=== PATIENT | female | born 1965 | race Caucasian/White ===

== ENCOUNTER 2021-02-14 12:12 | Emergency (ER) | payer MEDICARE ==
[~2021-02-14] VITALS: Ht 154.9 cm; Wt 71.9 kg
[2021-02-14] MEDS ORDERED: ASPI1CHW3 PO (12:24)
[2021-02-14] MEDS ORDERED: BRIL90TA PO (12:24)
--- NOTE | 2021-02-14 12:43 | REP ---
INDICATION: CHEST PAIN. COMPARISON: 07/19/2020. TECHNIQUE: SINGLE PORTABLE AP VIEW OF THE CHEST WAS PERFORMED. FINDINGS: The lungs are clear with no acute infiltrate. The heart and mediastinum are unchanged. Heart is not enlarged. Multiple sternal wires and mediastinal clips are present. IMPRESSION: NO ACUTE PULMONARY DISEASE. <Electronically signed by Edmond Cobian > 02/14/21 2912
[2021-02-14 12:52] LABS: BASO # 0.1 10^3/uL (0.0-0.2); BASO % 0.9 % (0.0-1.0); EOS # 0.2 10^3/uL (0.0-0.5); HEMOGLOBIN 12.9 g/dl (12.0-15.5); LYMPH # 3.7 10^3/uL (1.5-5.0); LYMPH % 39.9 % (24.0-44.0); MEAN CORPUSCULAR HEMOGLOBIN 29.5 pg (27.0-33.0); MEAN CORPUSCULAR HGB CONC 32.3 g/dl (32.0-36.5); MEAN CORPUSCULAR VOLUME 91.5 fl (80.0-96.0); MONO # 0.6 10^3/uL (0.0-0.8); MONO % 6.2 % (2.0-8.0); NEUTROPHILS # 4.7 10^3/uL (1.5-8.5); NEUTROPHILS % 50.7 % (36.0-66.0); PLATELET COUNT, AUTOMATED 388 10^3/uL (150-450); RED BLOOD COUNT 4.37 10^6/uL (4.00-5.40); WHITE BLOOD COUNT 9.2 10^3/uL (4.0-10.0)
[2021-02-14] MEDS ORDERED: NITROGLYCERIN 0.4 MG SUBL TABLET SL STA ×2 (12:57→13:26)
[2021-02-14] MEDS ORDERED: ASPIRIN 81 MG CHEW TABLET PO ONE (13:00)
[2021-02-14 13:20] LABS: ALBUMIN 3.7 GM/DL (3.2-5.2); ALT/SGPT 22 U/L (12-78); BILIRUBIN,DIRECT 0.1 MG/DL (0.0-0.2); BILIRUBIN,TOTAL 0.2 MG/DL (0.2-1.0); BLOOD UREA NITROGEN 17 MG/DL (7-18); CALCIUM LEVEL 9.4 MG/DL (8.5-10.1); CARBON DIOXIDE LEVEL 29 MEQ/L (21-32); CHLORIDE LEVEL 108 MEQ/L (98-107); CREATININE FOR GFR 0.64 MG/DL (0.55-1.30); GLOMERULAR FILTRATION RATE > 60.0 (>51); GLUCOSE, FASTING 90 MG/DL (70-100); POTASSIUM SERUM 3.6 MEQ/L (3.5-5.1); SODIUM LEVEL 142 MEQ/L (136-145)
[2021-02-14 13:28] VITALS: BP 115/59
[2021-02-14 13:48] LABS: CK-MB VALUE MASS < 1.0 NG/ML (<3.6); CPK CREATINE PHOSPHOKINASE 50 U/L (26-192); LIPASE 450 U/L (73-393); TROPONIN I < 0.02 NG/ML (< 0.10)
[2021-02-14] MEDS ORDERED: ISOVUE-370 76% 100ML VIAL As Ordered ONE (14:12)
[2021-02-14 14:47] LABS: INR 0.88; PROTHROMBIN TIME 12.1 SECONDS (12.5-14.3)
[2021-02-14 14:48] LABS: PARTIAL THROMBOPLASTIN TIME 25.9 SECONDS (24.2-38.5)
--- NOTE | 2021-02-14 14:51 | REP ---
INDICATION: chest pain, SOB. COMPARISON: None. TECHNIQUE: CT angiogram chest performed following the intravenous administration of 100 cc of Isovue 370. Sagittal and coronal reconstruction images are performed. FINDINGS: Lungs: Clear, no infiltrate or nodule. Mediastinum: No adenopathy. Pulmonary arteries: No evidence of pulmonary embolism. Lauren: No adenopathy. Axilla: No adenopathy. Pleura: No effusion. Heart: Mildly enlarged. Thoracic aorta: No aneurysm or dissection. Upper abdominal structures: There are gallstones in the gallbladder. Visualized osseous structures: Unremarkable. Multiple sternal wires mediastinal clips are present. IMPRESSION: No CT evidence of pulmonary embolism. No infiltrate seen. Mild cardiomegaly. Gallstones. <Electronically signed by Edmond Cobian > 02/14/21 0967
[2021-02-14] MEDS ORDERED: HEPARIN DRIP 25,000 UNITS in IV 1 EA IV SCH (15:28)
[2021-02-14] MEDS ORDERED: HEPARIN SOD (PORCINE) 5000UNITS/ML 1ML VIAL/SYRINGE IV ONE (15:30)
[2021-02-14 16:07] LABS: RSV AMPLIFICATION NEGATIVE (NEGATIVE)
[2021-02-14 17:01] VITALS: BP 131/89
--- NOTE | 2021-02-14 17:40 | ECGEPIP ---
[facility] - ED Test Date: 2021-02-14 Pat Name: DARBY GORDON Department: Room: - Gender: Female Sweat Box Attendant: ELANNASARA : 1965 Requested By: Mayank Bailey Order Number: [id number] Reading MD: Bela Michael Measurements Intervals [place] Rate: 48 P: 22 OR: 174 QRS: 13 QRSD: 90 T: 107 QT: 430 QTc: 384 Interpretive Statements Sinus bradycardia Possible Lateral infarct , age undetermined No prior Electronically Signed on 02-14-2021 17:40:26 EDT by Bela Michael
== END 2021-02-14 17:20 | disposition short-term general hospital (02) ==
LOC: M ED 12:12
DX: I20.0 Unstable angina (principal); F41.9 Anxiety disorder, unspecified; M19.90 Unspecified osteoarthritis, unspecified site; M81.0 Age-related osteoporosis without current pathological fracture; Z79.899 Other long term (current) drug therapy; Z79.82 Long term (current) use of aspirin; Z88.8 Allergy status to other drugs, medicaments and biological substances; Z95.1 Presence of aortocoronary bypass graft; Z95.5 Presence of coronary angioplasty implant and graft; Z87.891 Personal history of nicotine dependence
CPT/HCPCS: 71045; 71275; 80048; 80076; 82550; 82553; 83690; 84484; 85025; 85610; 85730; 87631; 93005; 93041; 94760; 96365; 99285; J1644; Q9967

== ENCOUNTER → 2021-03-30 | Outpatient (CLI) | payer MEDICARE ==
[~2021-03-30] MED LIST: ASPI1CHW3 PO; BRIL90TA PO
--- NOTE | 2021-03-30 12:32 | REPPI ---
INDICATION: RO6.02 SOB. COMPARISON: 02/14/2021 a portable exam TECHNIQUE: Two views FINDINGS: The superior mediastinal structures are midline. The cardiac silhouette is mildly enlarged. The diaphragmatic surfaces of the lungs are regular, and the costophrenic angles are clear. The pulmonary ríos are clear. Note is again made of previous median sternotomy. The imaged osseous structures are intact. IMPRESSION: There is no acute cardiopulmonary disease. <Electronically signed by Loi Olivia > 03/30/21 [id number]
[2021-03-30 13:51] LABS: BASO # 0.1 10^3/uL (0.0-0.2); BASO % 0.8 % (0.0-1.0); EOS # 0.3 10^3/uL (0.0-0.5); EOS % 3.2 % (0.0-3.0); HEMATOCRIT 39.2 % (36.0-47.0); HEMOGLOBIN 12.5 g/dl (12.0-15.5); LYMPH % 38.1 % (24.0-44.0); MEAN CORPUSCULAR HEMOGLOBIN 29.6 pg (27.0-33.0); MEAN CORPUSCULAR HGB CONC 31.9 g/dl (32.0-36.5); MEAN CORPUSCULAR VOLUME 92.9 fl (80.0-96.0); MONO # 0.5 10^3/uL (0.0-0.8); MONO % 6.1 % (2.0-8.0); NEUTROPHILS # 4.1 10^3/uL (1.5-8.5); NEUTROPHILS % 51.5 % (36.0-66.0); PLATELET COUNT, AUTOMATED 376 10^3/uL (150-450); RED BLOOD COUNT 4.22 10^6/uL (4.00-5.40); WHITE BLOOD COUNT 7.9 10^3/uL (4.0-10.0)
[2021-03-30 14:18] LABS: FOLATE 20.3 NG/ML
== END ==
LOC: M PLALAB 10:32
PROVIDERS: ATTEND Nurse Practitioner Family
DX: D51.9 Vitamin B12 deficiency anemia, unspecified (principal); R06.02 Shortness of breath

== ENCOUNTER → 2021-04-07 | Outpatient (CLI) | payer MEDICARE ==
--- NOTE | 2021-04-21 07:47 | REPMRS ---
Patient History The patient states she has not had a clinical breast exam in over a year. Patient is postmenopausal. No known family history of cancer. Took hormonal contraceptives for 1 year. Ratna vaccine 01/31/21 right arm. 20 lb intentional weight loss. Patient states no breast complaints today. Patient has signed MRS History Sheet. Digital Woman Screen Mammo: April 07, 2021 - Exam #: [id number] Bilateral CC and MLO view(s) were taken. Technologist: RT Kin Prior study comparison: May 21, 2019, bilateral digital mammo screening bilat, performed at [facility]. May 09, 2018, bilateral digital mammo screening bilat, performed at [facility]. July 10, 2016, bilateral digital mammo screening bilat, performed at [facility]. FINDINGS: There are scattered fibroglandular densities. The Volpara volumetric breast density category is:B. There has been no change in the appearance of the mammogram from the prior studies. There is a mild amount of scattered fibroglandular density which is fairly symmetric. There is no interval development of dominant mass, architectural distortion, or grouped microcalcification suggestive of malignancy. 3-D tomosynthesis shows no additional findings. Assessment: BI-RADS/ACR category 1 mammogram. Negative Mammogram. Recommendation Routine screening mammogram of both breasts in 1 year (for women over age 40). This patient's [facility] Lifetime Breast Cancer Risk is estimated at 7.4 %. This mammogram was interpreted with the aid of an FDA-approved computer-aided dectection system. Electronically Signed By: Chapo Mcdowell MD 04/21/21 0746
== END ==
LOC: M WHC 10:45
PROVIDERS: ATTEND Nurse Practitioner Family
DX: Z12.31 Encounter for screening mammogram for malignant neoplasm of breast (principal); Z78.0 Asymptomatic menopausal state; Z92.0 Personal history of contraception

== ENCOUNTER 2021-05-16 05:18 | Emergency (ER) | payer MEDICARE ==
[~2021-05-16] VITALS: Ht 154.9 cm; Wt 69.9 kg
[2021-05-16 05:19] VITALS: BP 160/80
[2021-05-16] MEDS ORDERED: PLAV1TAB2 PO (05:38)
[2021-05-16 05:53] LABS: BASO # 0.1 10^3/uL (0.0-0.2); BASO % 0.5 % (0.0-1.0); EOS # 0.2 10^3/uL (0.0-0.5); EOS % 1.7 % (0.0-3.0); HEMATOCRIT 38.4 % (36.0-47.0); HEMOGLOBIN 12.4 g/dl (12.0-15.5); LYMPH % 26.4 % (24.0-44.0); MEAN CORPUSCULAR HEMOGLOBIN 29.3 pg (27.0-33.0); MEAN CORPUSCULAR HGB CONC 32.3 g/dl (32.0-36.5); MEAN CORPUSCULAR VOLUME 90.8 fl (80.0-96.0); MONO # 0.8 10^3/uL (0.0-0.8); MONO % 7.1 % (2.0-8.0); NEUTROPHILS # 7.1 10^3/uL (1.5-8.5); PLATELET COUNT, AUTOMATED 359 10^3/uL (150-450); RED BLOOD COUNT 4.23 10^6/uL (4.00-5.40); WHITE BLOOD COUNT 11.2 10^3/uL (4.0-10.0)
[2021-05-16 06:28] LABS: BLOOD UREA NITROGEN 14 MG/DL (7-18); CALCIUM LEVEL 9.2 MG/DL (8.5-10.1); CARBON DIOXIDE LEVEL 22 MEQ/L (21-32); CHLORIDE LEVEL 113 MEQ/L (98-107); CREATININE FOR GFR 0.62 MG/DL (0.55-1.30); GLOMERULAR FILTRATION RATE > 60.0 (>51); GLUCOSE, FASTING 106 MG/DL (70-100); POTASSIUM SERUM 4.3 MEQ/L (3.5-5.1); SODIUM LEVEL 142 MEQ/L (136-145)
[2021-05-16] MEDS ORDERED: GI COCKTAIL 50ML BTL(HYOSCYAMINE/MAALOX/LIDOCAINE VISCOUS)(1:3:1) PO ONE (06:35)
--- NOTE | 2021-05-16 07:34 | REPVR ---
PROCEDURE INFORMATION: Exam: XR Chest Exam date and time: 05/16/2021 5:52 AM Age: 55 years old Clinical indication: Pain; Other: Chest; Additional info: Chest pain TECHNIQUE: Imaging protocol: XR of the chest. Views: 1 view. COMPARISON: WI PORTABLE CHEST X-RAY 02/14/2021 12:32 PM FINDINGS: Lungs: Unremarkable. No consolidation. Pleural spaces: Unremarkable. No pleural effusion. No pneumothorax. Heart/Mediastinum: The cardiomediastinal silhouette is fairly stable in appearance. Bones/joints: Median sternotomy wires are again present. IMPRESSION: No evidence for acute pulmonary disease. Electronically signed by: Dontae Mederos On 05/16/2021 07:34:25 AM
[2021-05-16] MEDS ORDERED: PEPC1TAB5 PO (08:33)
--- NOTE | 2021-05-16 15:27 | ECGEPIP ---
[facility] - ED Test Date: 2021-05-16 Pat Name: DARBY GORDON Department: Room: - Gender: Female Public Bath Attendant: JAIME : 1965 Requested By: JEISON FISCHER Order Number: [id number] Reading MD: Tobi Franz Measurements Intervals [place] Rate: 48 P: 65 [place]: 150 QRS: 10 QRSD: 94 T: 106 QT: 466 QTc: 416 Interpretive Statements Sinus bradycardia Minimal voltage criteria for LVH, may be normal variant Delayed anterior R wave progression Similar to tracing done 02-14-21 Electronically Signed on 05-16-2021 15:26:59 EDT by Tobi Franz
--- NOTE | 2021-05-16 15:34 | ECGEPIP ---
[facility] - ED Test Date: 2021-05-16 Pat Name: DARBY GORDON Department: Room: - Gender: Female Alarm Signal Operator: : 1965 Requested By: KARINA MORALES PA-C. Order Number: [id number] Reading MD: Tobi Franz Measurements Intervals [place] Rate: 47 P: 20 DC: 162 QRS: -2 QRSD: 86 T: 117 QT: 464 QTc: 410 Interpretive Statements Sinus bradycardia Left ventricular hypertrophy with repolarization abnormality ( Peculiar product ) Delayed anterior R wave progression Similar to tracing done 528 on same date Electronically Signed on 05-16-2021 15:33:59 EDT by Tobi Franz
== END 2021-05-16 09:15 | disposition home or self-care (01) ==
LOC: M ED 05:18
DX: K21.9 Gastro-esophageal reflux disease without esophagitis (principal); R94.31 Abnormal electrocardiogram [ECG] [EKG]; I10 Essential (primary) hypertension; I25.10 Atherosclerotic heart disease of native coronary artery without angina pectoris; Z79.01 Long term (current) use of anticoagulants; Z79.82 Long term (current) use of aspirin; Z98.890 Other specified postprocedural states

== ENCOUNTER → 2021-06-01 | Outpatient (REF) | payer MEDICARE ==
[~2021-06-01] MED LIST changes: +PEPC1TAB5 PO; +PLAV1TAB2 PO
== END ==
LOC: M LAB REF 17:32
PROVIDERS: ATTEND Physician Assistant
DX: L57.0 Actinic keratosis (principal)
CPT/HCPCS: 11102; 88305; G0463

== ENCOUNTER → 2021-06-13 | Outpatient (CLI) | payer MEDICARE ==
[2021-06-13 15:19] LABS: BASO # 0.1 10^3/uL (0.0-0.2); BASO % 0.7 % (0.0-1.0); EOS # 0.1 10^3/uL (0.0-0.5); EOS % 1.4 % (0.0-3.0); HEMATOCRIT 39.6 % (36.0-47.0); HEMOGLOBIN 12.6 g/dl (12.0-15.5); LYMPH # 3.6 10^3/uL (1.5-5.0); LYMPH % 44.3 % (24.0-44.0); MEAN CORPUSCULAR HEMOGLOBIN 29.1 pg (27.0-33.0); MEAN CORPUSCULAR HGB CONC 31.8 g/dl (32.0-36.5); MEAN CORPUSCULAR VOLUME 91.5 fl (80.0-96.0); MONO # 0.7 10^3/uL (0.0-0.8); MONO % 8.5 % (2.0-8.0); NEUTROPHILS # 3.6 10^3/uL (1.5-8.5); PLATELET COUNT, AUTOMATED 414 10^3/uL (150-450); RED BLOOD COUNT 4.33 10^6/uL (4.00-5.40)
[2021-06-13 15:43] LABS: ALT/SGPT 24 U/L (12-78); BILIRUBIN,TOTAL 0.5 MG/DL (0.2-1.0); BLOOD UREA NITROGEN 16 MG/DL (7-18); CALCIUM LEVEL 9.5 MG/DL (8.5-10.1); CARBON DIOXIDE LEVEL 25 MEQ/L (21-32); CHLORIDE LEVEL 111 MEQ/L (98-107); CREATININE FOR GFR 0.78 MG/DL (0.55-1.30); GLOMERULAR FILTRATION RATE > 60.0 (>51); GLUCOSE, FASTING 94 MG/DL (70-100); LIPASE 82 U/L (73-393); POTASSIUM SERUM 3.8 MEQ/L (3.5-5.1); SODIUM LEVEL 141 MEQ/L (136-145); TOTAL PROTEIN 7.3 GM/DL (6.4-8.2)
[2021-06-15 16:08] LABS: H PYLORI SERUM QUANT IGA <9.0 units (0.0-8.9); H PYLORI SERUM QUANT IGM <9.0 units (0.0-8.9); H PYLORI SERUM QUANT IgG ABY 0.45 (0.00-0.79)
== END ==
LOC: M PLALAB 12:26
PROVIDERS: ATTEND Nurse Practitioner Family
DX: R10.13 Epigastric pain (principal)

== ENCOUNTER 2021-07-17 15:05 | Emergency (ER) | payer MEDICARE ==
[~2021-07-17] VITALS: Ht 154.9 cm; Wt 68.2 kg
[~2021-07-17 15:05] MED LIST changes: +ALIR150P SC; +BRIN1TAB3 PO; +COLE625TAB PO; +LOSA50TA88 PO; +NEUR100C PO; +PANT40TA29; +ROSU10TA6 PO; +SUCR1TAB56; +TRIL45CA2 PO; +ZETI10TA16 PO; +ZOLP10TA2
[2021-07-17] MEDS ORDERED: GI COCKTAIL 50ML BTL(HYOSCYAMINE/MAALOX/LIDOCAINE VISCOUS)(1:3:1) PO ONE (15:45)
[2021-07-17 15:47] LABS: BASO # 0.1 10^3/uL (0.0-0.2); BASO % 0.8 % (0.0-1.0); EOS # 0.3 10^3/uL (0.0-0.5); HEMATOCRIT 35.8 % (36.0-47.0); HEMOGLOBIN 11.8 g/dl (12.0-15.5); LYMPH # 4.2 10^3/uL (1.5-5.0); LYMPH % 46.5 % (24.0-44.0); MEAN CORPUSCULAR HEMOGLOBIN 28.9 pg (27.0-33.0); MEAN CORPUSCULAR VOLUME 87.7 fl (80.0-96.0); MONO # 0.8 10^3/uL (0.0-0.8); NEUTROPHILS # 3.7 10^3/uL (1.5-8.5); NEUTROPHILS % 40.6 % (36.0-66.0); PLATELET COUNT, AUTOMATED 342 10^3/uL (150-450); RED BLOOD COUNT 4.08 10^6/uL (4.00-5.40); WHITE BLOOD COUNT 9.1 10^3/uL (4.0-10.0)
[2021-07-17] MEDS ORDERED: FLUO1CRE2 (15:52)
[2021-07-17] MEDS ORDERED: FAMO20TA5 (15:52)
[2021-07-17] MEDS ORDERED: PANT40TA29 (15:52)
[2021-07-17] MEDS ORDERED: ONDA4TAB6 (15:52)
--- NOTE | 2021-07-17 15:53 | REP ---
INDICATION: CHEST PAIN COMPARISON: 05/16/2021 TECHNIQUE: Portable AP view of the chest FINDINGS: The mediastinum and cardiac silhouette are stable with continued evidence for cardiomegaly and prior CABG. The lung ríos are clear without acute consolidation, effusion, or pneumothorax. Skeletal structures are intact. IMPRESSION: No acute cardiopulmonary process appreciated. <Electronically signed by Nash Segura > 07/17/21 9002
[2021-07-17 16:05] LABS: INR 0.98; PARTIAL THROMBOPLASTIN TIME 27.8 SECONDS (25.9-37.0); PROTHROMBIN TIME 13.4 SECONDS (12.7-14.5)
[2021-07-17 16:09] LABS: BLOOD UREA NITROGEN 15 MG/DL (7-18); CALCIUM LEVEL 8.8 MG/DL (8.5-10.1); CARBON DIOXIDE LEVEL 24 MEQ/L (21-32); CHLORIDE LEVEL 112 MEQ/L (98-107); CREATININE FOR GFR 0.72 MG/DL (0.55-1.30); GLOMERULAR FILTRATION RATE > 60.0 (>51); GLUCOSE, FASTING 93 MG/DL (70-100); POTASSIUM SERUM 3.8 MEQ/L (3.5-5.1); SODIUM LEVEL 141 MEQ/L (136-145)
--- NOTE | 2021-07-17 19:27 | ECGEPIP ---
[facility] - ED Test Date: 2021-07-17 Pat Name: DARBY GORDON Department: Room: - Gender: Female Oil Well Engineer: : 1965 Requested By: Mayank Bailey Order Number: [id number] Reading MD: Bela Michael Measurements Intervals [place] Rate: 48 P: 77 CT: 162 QRS: 5 QRSD: 94 T: 105 QT: 456 QTc: 407 Interpretive Statements Sinus bradycardia Possible Lateral infarct , age undetermined NSTTW abnormalities early r progression similar 05/16/21 Electronically Signed on 07-17-2021 19:27:24 EDT by Bela Michael
[2021-07-17 21:38] VITALS: BP 126/62
--- NOTE | 2021-07-18 05:36 | ECGEPIP ---
[facility] - ED Test Date: 2021-07-17 Pat Name: DARBY GORDON Department: Room: - Gender: Female Tiltrotor Crew Chief: : 1965 Requested By: ELEAZAR JACKSON Order Number: [id number] Reading MD: Mayank Acevedo Measurements Intervals [place] Rate: 46 P: 98 [place]: 162 QRS: 2 QRSD: 90 T: 125 QT: 452 QTc: 395 Interpretive Statements Sinus bradycardia POOR R WAVE PROGRESSION Possible Lateral infarct , age undetermined NONSPECIFIC T WAVE ABNORMALITY(S) BASELINE ARTIFACT AFFECTS INTERPRETATION SIMILAR TO PRIOR ON SAME DATE Electronically Signed on 07-18-2021 5:35:44 EDT by Mayank Acevedo
== END 2021-07-17 21:44 | disposition home or self-care (01) ==
LOC: M ED 15:05
DX: K21.9 Gastro-esophageal reflux disease without esophagitis (principal); I25.10 Atherosclerotic heart disease of native coronary artery without angina pectoris; F33.9 Major depressive disorder, recurrent, unspecified; F41.9 Anxiety disorder, unspecified; Z95.1 Presence of aortocoronary bypass graft; Z95.5 Presence of coronary angioplasty implant and graft; Z88.8 Allergy status to other drugs, medicaments and biological substances

== ENCOUNTER → 2021-07-22 | Outpatient (CLI) | payer MEDICARE ==
[~2021-07-22] MED LIST changes: +FAMO20TA5; +FLUO1CRE2; +ONDA4TAB6
== END ==
LOC: M LABSMTC 11:44
PROVIDERS: ATTEND Anesthesiology
DX: Z01.812 Encounter for preprocedural laboratory examination (principal); Z20.822 Contact with and (suspected) exposure to COVID-19

== ENCOUNTER 2021-07-27 08:10 | Day surgery (SDC) | payer MEDICARE ==
[~2021-07-27] VITALS: Ht 154.9 cm; Wt 67.0 kg
[~2021-07-27 08:10] MED LIST changes: +LIDOCAINE 2% 100MG/5ML SDV (FOR ANES.) As Ordered ONE; +NS 1,000 ML IV ONE; +propofoL 200 MG/20 ML VIAL As Ordered ONE
[2021-07-27] MEDS ORDERED: propofoL 200 MG/20 ML VIAL As Ordered ONE (09:48)
--- NOTE | 2021-07-27 10:00 | ROOR ---
Patient Name: Suha Strauss Procedure Date: 07/27/2021 9:10 AM Date of : 1965 Age: 56 Room: [facility] Gender: Female Note Status: Finalized Procedure: Upper GI endoscopy Indications: Heartburn Providers: DO Adalgisa Del Cid MD: Donita Elkins NP Requesting Provider: Medicines: Propofol per Anesthesia Complications: No immediate complications. Procedure: Pre-Anesthesia Assessment: - Prior to the procedure, a History and Physical was performed, and patient medications and allergies were reviewed. The patient is competent. The risks and benefits of the procedure and the sedation options and risks were discussed with the patient. All questions were answered and informed consent was obtained. Patient identification and proposed procedure were verified by the physician, the nurse, the purchase order checker and the instrument and control technician in the endoscopy suite. Mental Status Examination: alert and oriented. Airway Examination: normal oropharyngeal airway and neck mobility. Respiratory Examination: clear to auscultation. CV Examination: normal. Prophylactic Antibiotics: The patient does not require prophylactic antibiotics. Prior Anticoagulants: The patient has taken no previous anticoagulant or antiplatelet agents. ASA Grade Assessment: II - A patient with mild systemic disease. After reviewing the risks and benefits, the patient was deemed in satisfactory condition to undergo the procedure. The anesthesia plan was to use monitored anesthesia care (MAC). Immediately prior to administration of medications, the patient was re-assessed for adequacy to receive sedatives. The heart rate, respiratory rate, oxygen saturations, blood pressure, adequacy of pulmonary ventilation, and response to care were monitored throughout the procedure. The physical status of the patient was re-assessed after the procedure. The Endoscope was introduced through the mouth, and advanced to the second part of duodenum. The upper GI endoscopy was accomplished without difficulty. The patient tolerated the procedure well. Findings: Localized mild inflammation characterized by congestion (edema), erosions, erythema and shallow ulcerations was found in the prepyloric region of the stomach. Biopsies were taken with a cold forceps for Helicobacter pylori testing. Estimated blood loss was minimal. Impression: - Gastritis. Biopsied. Recommendation: - Patient has a contact number available for emergencies. The signs and symptoms of potential delayed complications were discussed with the patient. Return to normal activities tomorrow. Written discharge instructions were provided to the patient. - Await pathology results. - Return to my office at appointment to be scheduled. Procedure Code(s): --- Professional --- 98710, Esophagogastroduodenoscopy, flexible, transoral; with biopsy, single or multiple Diagnosis Code(s): --- Professional --- K29.70, Gastritis, unspecified, without bleeding R12, Heartburn CPT copyright 2019 [employer]. All rights reserved. The codes documented in this report are preliminary and upon manager order review may be revised to meet current compliance requirements. Edmond Arango DO 07/27/2021 9:59:58 AM Electronically signed by Edmond Arango DO Number of Addenda: 0 Note Initiated On: 07/27/2021 9:10 AM Estimated Blood Loss: Estimated blood loss was minimal.
--- NOTE | 2021-07-27 10:07 | ROOR ---
Patient Name: Suha Strauss Procedure Date: 07/27/2021 9:13 AM Date of : 1965 Age: 56 Room: [facility] Gender: Female Note Status: Finalized Procedure: Colonoscopy Indications: Screening for colorectal malignant neoplasm Providers: DO Adalgisa Del Cid MD: Donita Elkins NP Requesting Provider: Medicines: Propofol per Anesthesia Complications: No immediate complications. Procedure: Pre-Anesthesia Assessment: - Prior to the procedure, a History and Physical was performed, and patient medications and allergies were reviewed. The patient is competent. The risks and benefits of the procedure and the sedation options and risks were discussed with the patient. All questions were answered and informed consent was obtained. Patient identification and proposed procedure were verified by the physician, the nurse, the celebrity manager and the instrument room technician in the endoscopy suite. Mental Status Examination: alert and oriented. Airway Examination: normal oropharyngeal airway and neck mobility. Respiratory Examination: clear to auscultation. CV Examination: normal. Prophylactic Antibiotics: The patient does not require prophylactic antibiotics. Prior Anticoagulants: The patient has taken Eliquis (apixaban). ASA Grade Assessment: II - A patient with mild systemic disease. After reviewing the risks and benefits, the patient was deemed in satisfactory condition to undergo the procedure. The anesthesia plan was to use monitored anesthesia care (MAC). Immediately prior to administration of medications, the patient was re-assessed for adequacy to receive sedatives. The heart rate, respiratory rate, oxygen saturations, blood pressure, adequacy of pulmonary ventilation, and response to care were monitored throughout the procedure. The physical status of the patient was re-assessed after the procedure. The Colonoscope was introduced through the anus and advanced to the terminal ileum, with identification of the appendiceal orifice and IC valve. The colonoscopy was performed without difficulty. The patient tolerated the procedure well. Findings: An infiltrative non-obstructing small mass was found at the ileocecal valve. The mass was non-circumferential. Oozing was present. This was biopsied with a cold forceps for histology. Estimated blood loss was minimal. Non-bleeding internal hemorrhoids were found during retroflexion. The hemorrhoids were mild and Grade I (internal hemorrhoids that do not prolapse). 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 Biopsied. - Non-bleeding internal hemorrhoids. Recommendation: - Patient has a contact number available for emergencies. The signs and symptoms of potential delayed complications were discussed with the patient. Return to normal activities tomorrow. Written discharge instructions were provided to the patient. - Await pathology results. - Repeat colonoscopy in 1 year for surveillance based on pathology results. - Return to my office in 1 week. Procedure Code(s): --- Professional --- 73645, Colonoscopy, flexible; with biopsy, single or multiple Diagnosis Code(s): --- Professional --- Z12.11, Encounter for screening for malignant neoplasm of colon D49.0, Neoplasm of unspecified behavior of digestive system K64.0, First degree hemorrhoids CPT copyright 2019 [employer]. All rights reserved. The codes documented in this report are preliminary and upon owner consulting engineer review may be revised to meet current compliance requirements. Edmond Arango DO 07/27/2021 10:06:30 AM Electronically signed by Edmond Arango DO Number of Addenda: 0 Note Initiated On: 07/27/2021 9:13 AM Estimated Blood Loss: Estimated blood loss was minimal.
[2021-07-27 10:36] VITALS: BP 119/64
== END 2021-07-27 10:55 | disposition home or self-care (01) ==
LOC: M OPP 08:10
PROVIDERS: ATTEND Surgery
DX: Z12.11 Encounter for screening for malignant neoplasm of colon (principal); D49.0 Neoplasm of unspecified behavior of digestive system; K64.0 First degree hemorrhoids; K29.70 Gastritis, unspecified, without bleeding; R12 Heartburn; I34.9 Nonrheumatic mitral valve disorder, unspecified; I50.32 Chronic diastolic (congestive) heart failure; I25.2 Old myocardial infarction; Z79.899 Other long term (current) drug therapy; Z88.8 Allergy status to other drugs, medicaments and biological substances; Z87.891 Personal history of nicotine dependence

== ENCOUNTER → 2021-08-13 | Outpatient (CLI) | payer MEDICARE ==
[~2021-08-13] MED LIST changes: -LIDOCAINE 2% 100MG/5ML SDV (FOR ANES.) As Ordered ONE; -NS 1,000 ML IV ONE; +OMEP40CA4 PO; -propofoL 200 MG/20 ML VIAL As Ordered ONE
== END ==
LOC: M LABSMTC 10:49
PROVIDERS: ATTEND Anesthesiology
DX: Z01.812 Encounter for preprocedural laboratory examination (principal)

== ENCOUNTER 2021-08-18 06:51 | Day surgery (SDC) | payer MEDICARE ==
[~2021-08-18] VITALS: Ht 154.9 cm; Wt 65.8 kg
[~2021-08-18 06:51] MED LIST changes: +NS 1,000 ML IV ONE
[2021-08-18] MEDS ORDERED: LIDOCAINE 2% 100MG/5ML SDV (FOR ANES.) As Ordered ONE (07:11)
[2021-08-18] MEDS ORDERED: propofoL 200 MG/20 ML VIAL As Ordered ONE (07:11)
--- NOTE | 2021-08-18 08:00 | ROOR ---
Patient Name: Suha Strauss Procedure Date: 08/18/2021 7:30 AM Date of : 1965 Age: 56 Room: [facility] Gender: Female Note Status: Finalized Procedure: Colonoscopy Indications: High risk colon cancer surveillance: Personal history of colonic polyps, cecal mass on recent scope Providers: DO Adalgisa Del Cid MD: Ivonne Pena MD Requesting Provider: Medicines: Propofol per Anesthesia Complications: No immediate complications. Procedure: Pre-Anesthesia Assessment: - Prior to the procedure, a History and Physical was performed, and patient medications and allergies were reviewed. The patient is competent. The risks and benefits of the procedure and the sedation options and risks were discussed with the patient. All questions were answered and informed consent was obtained. Patient identification and proposed procedure were verified by the physician, the nurse, the light truck driver and the robot technician in the endoscopy suite. Mental Status Examination: alert and oriented. Airway Examination: normal oropharyngeal airway and neck mobility. Respiratory Examination: clear to auscultation. CV Examination: normal. Prophylactic Antibiotics: The patient does not require prophylactic antibiotics. Prior Anticoagulants: The patient has taken Plavix (clopidogrel), last dose was 2 days prior to procedure. ASA Grade Assessment: II - A patient with mild systemic disease. After reviewing the risks and benefits, the patient was deemed in satisfactory condition to undergo the procedure. The anesthesia plan was to use monitored anesthesia care (MAC). Immediately prior to administration of medications, the patient was re-assessed for adequacy to receive sedatives. The heart rate, respiratory rate, oxygen saturations, blood pressure, adequacy of pulmonary ventilation, and response to care were monitored throughout the procedure. The physical status of the patient was re-assessed after the procedure. The Colonoscope was introduced through the anus and advanced to the cecum, identified by appendiceal orifice and ileocecal valve. The colonoscopy was performed without difficulty. The patient tolerated the procedure well. Findings: Diffuse mild inflammation characterized by congestion (edema), erythema and friability was found at the ileocecal valve. The exam was otherwise without abnormality. Impression: - Diffuse mild inflammation was found at the ileocecal valve. - The examination was otherwise normal. - No specimens collected. Recommendation: - Patient has a contact number available for emergencies. The signs and symptoms of potential delayed complications were discussed with the patient. Return to normal activities tomorrow. Written discharge instructions were provided to the patient. - Repeat colonoscopy in 1 year for surveillance. - Return to my office in 1 year. - Resume Plavix (clopidogrel) at prior dose today. Procedure Code(s): --- Professional --- G0105, Colorectal cancer screening; colonoscopy on individual at high risk Diagnosis Code(s): --- Professional --- Z86.010, Personal history of colonic polyps K52.9, Noninfective gastroenteritis and colitis, unspecified CPT copyright 2019 [employer]. All rights reserved. The codes documented in this report are preliminary and upon picker feeder review may be revised to meet current compliance requirements. Edmond Arango DO 08/18/2021 8:00:26 AM Electronically signed by Edmond Arango DO Number of Addenda: 0 Note Initiated On: 08/18/2021 7:30 AM Estimated Blood Loss: Estimated blood loss: none.
[2021-08-18 08:30] VITALS: BP 134/63
== END 2021-08-18 08:45 | disposition home or self-care (01) ==
LOC: M OPP 06:51
PROVIDERS: ATTEND Surgery
DX: K52.9 Noninfective gastroenteritis and colitis, unspecified (principal); D12.0 Benign neoplasm of cecum; Z86.010 Personal history of colon polyps; Z79.899 Other long term (current) drug therapy; Z88.8 Allergy status to other drugs, medicaments and biological substances; Z87.891 Personal history of nicotine dependence; Z08 Encounter for follow-up examination after completed treatment for malignant neoplasm

== ENCOUNTER → 2021-09-07 | Outpatient (CLI) | payer MEDICARE ==
[~2021-09-07] MED LIST changes: -NS 1,000 ML IV ONE
[2021-09-07 10:53] LABS: BASO # 0.1 10^3/uL (0.0-0.2); BASO % 0.9 % (0.0-1.0); EOS # 0.2 10^3/uL (0.0-0.5); EOS % 3.1 % (0.0-3.0); HEMATOCRIT 37.5 % (36.0-47.0); HEMOGLOBIN 11.8 g/dl (12.0-15.5); LYMPH # 2.8 10^3/uL (1.5-5.0); LYMPH % 41.2 % (24.0-44.0); MEAN CORPUSCULAR HEMOGLOBIN 29.1 pg (27.0-33.0); MEAN CORPUSCULAR HGB CONC 31.5 g/dl (32.0-36.5); MEAN CORPUSCULAR VOLUME 92.6 fl (80.0-96.0); MONO # 0.4 10^3/uL (0.0-0.8); MONO % 6.2 % (2.0-8.0); NEUTROPHILS # 3.3 10^3/uL (1.5-8.5); NEUTROPHILS % 48.3 % (36.0-66.0); PLATELET COUNT, AUTOMATED 382 10^3/uL (150-450); RED BLOOD COUNT 4.05 10^6/uL (4.00-5.40); WHITE BLOOD COUNT 6.8 10^3/uL (4.0-10.0)
[2021-09-07 11:30] LABS: FREE T4 0.95 NG/DL (0.76-1.46); THYROID STIMULATING HORMONE 1.34 uIU/ML (0.358-3.740)
[2021-09-08 20:09] LABS: ANA (HEP2) Negative (.)
== END ==
LOC: M LAB 08:20
PROVIDERS: ATTEND Physician Assistant
DX: L65.0 Telogen effluvium (principal)

== ENCOUNTER → 2021-09-07 | Outpatient (CLI) | payer MEDICARE ==
[2021-09-07 10:56] LABS: HEMATOCRIT 36.9 % (36.0-47.0); HEMOGLOBIN 11.5 g/dl (12.0-15.5); MEAN CORPUSCULAR HEMOGLOBIN 28.9 pg (27.0-33.0); MEAN CORPUSCULAR HGB CONC 31.2 g/dl (32.0-36.5); MEAN CORPUSCULAR VOLUME 92.7 fl (80.0-96.0); PLATELET COUNT, AUTOMATED 384 10^3/uL (150-450); RED BLOOD COUNT 3.98 10^6/uL (4.00-5.40)
[2021-09-07 11:26] LABS: ALBUMIN 3.6 GM/DL (3.2-5.2); ALT/SGPT 28 U/L (12-78); BILIRUBIN,TOTAL 0.2 MG/DL (0.2-1.0); BLOOD UREA NITROGEN 23 MG/DL (7-18); CALCIUM LEVEL 9.3 MG/DL (8.5-10.1); CARBON DIOXIDE LEVEL 27 MEQ/L (21-32); CHLORIDE LEVEL 111 MEQ/L (98-107); CHOLESTEROL LEVEL 177 MG/DL (<200); CHOLESTEROL RISK RATIO 2.854 (<5); CREATININE FOR GFR 0.68 MG/DL (0.55-1.30); GLOMERULAR FILTRATION RATE > 60.0 (>51); GLUCOSE, FASTING 90 MG/DL (70-100); HDL CHOLESTEROL 62 MG/DL (>40); LDL CHOLESTEROL 99 MG/DL (<100); NON-HDL-C 115 MG/DL; POTASSIUM SERUM 4.2 MEQ/L (3.5-5.1); SODIUM LEVEL 143 MEQ/L (136-145); TOTAL PROTEIN 6.9 GM/DL (6.4-8.2); TRIGLYCERIDES LEVEL 81 MG/DL (<150)
== END ==
LOC: M LAB 08:22
PROVIDERS: ATTEND Physician Assistant
DX: I25.10 Atherosclerotic heart disease of native coronary artery without angina pectoris (principal); L65.0 Telogen effluvium; D22.9 Melanocytic nevi, unspecified; Z87.2 Personal history of diseases of the skin and subcutaneous tissue; Z12.83 Encounter for screening for malignant neoplasm of skin

== ENCOUNTER → 2021-09-08 | Outpatient (CLI) | payer MEDICARE ==
--- NOTE | 2021-09-08 12:15 | REP ---
INDICATION: Possible dizziness COMPARISON: None TECHNIQUE: Carotid ultrasonography was performed bilaterally FINDINGS: Right: CCA systolic: 111 centimeters/second CCA diastolic: 18.2 centimeters/second ICA systolic: 101 centimeters/second ICA diastolic: 26.4 centimeters/second ICA CCA ratio: 0.91 Left: CCA systolic: 88.8 centimeters/second CCA diastolic: 25.4 centimeters/second ICA systolic 90.9 centimeters/second ICA diastolic: 31.2 centimeters/second ICA CCA ratio: 1.02 Vertebral artery: Right: Antegrade flow left: Antegrade flow Mild patchy echogenic material is seen along the carotid arterial bent[place] some of which casts in acoustic shadow. IMPRESSION: According to the SRU criteria there is less than 50% stenosis of the internal carotid artery bilaterally. <Electronically signed by Loi Olivia > 09/08/21 [id number]
== END ==
LOC: M RAD 11:30
PROVIDERS: ATTEND Physician Assistant
DX: I65.29 Occlusion and stenosis of unspecified carotid artery (principal)

== ENCOUNTER → 2021-09-24 | Outpatient (CLI) | payer MEDICARE | LOC: M LABSMTC 11:34 | PROVIDERS: ATTEND Anesthesiology | DX: Z01.812 Encounter for preprocedural laboratory examination (principal); Z11.52 Encounter for screening for COVID-19 ==

== ENCOUNTER 2021-09-29 08:04 | Day surgery (SDC) | payer MEDICARE ==
[~2021-09-29] VITALS: Ht 154.9 cm; Wt 68.5 kg
[~2021-09-29 08:04] MED LIST changes: +LIDOCAINE 2% 100MG/5ML SDV (FOR ANES.) As Ordered ONE; +NS 1,000 ML IV ONE; +propofoL 200 MG/20 ML VIAL As Ordered ONE
--- OUTSIDE RECORDS SUMMARY | 2021-09-29 08:09 | CCD | Continuity of Care Document ---
Author Author Suha BRUNO M.D. Organization Unknown Address [address] [place] [address], [address] [place] [address] Phone [phone] Care Team Providers Care Crown Wheel Assembler Name Role Phone Donita Elkins N.P. AUTM [phone] Geoff Conde MD AUTM [phone] Problems Description No Information Available Social History Type Date Description Comments Sex Unknown ETOH Use Denies alcohol use Recreational Drug Use Denies Drug Use Tobacco Use Start: 11/26/05 End: 11/26/20 Patient is a forme r smoker 1/2 PPD Allergies and adverse reactions Active Allergies Criticality Reaction | Severity Comments Date Epitol Unable to assess criticality 06/28/2021 Medications Active Medications SIG Qnty Indications Ordering Provide r Date Dulcolax 5mg Tablets DR take 4 tablets together as per bowel preparation instructions. 4tabs D37.4 Aryan Bruno M.D. 09/15/2021 Suprep Bowel Prep Kit 17.5-3.13-1.6GM/177ML Solution use as directed for the colonoscopy prep aration. ( if not fully covered by insurance, please fill gavilyte script). 354ml D37.4 Aryan Bruno M.D. 09/15/[address] 1 tab by mouth every day every morning as directed 60caps Edmond salgado, 08/02/2021 Fenofibrate 160mg Tablets 1 tab by mouth every day Unknown Vitamin B12 1t qd Unknown Multivitamin 1t qd Unknown Praluent 150mg/ml Solution Auto-In ject every other week Unknown Nitroglycerin 0.4mg Tablets Sub 1 tab as needed Unknown Furosemide 20mg Tablets 1 tab by mouth as needed Unknown Rosuvastatin Calcium 40mg Tablets 1 by mouth every day Unknown Colesevelam HCL 625mg Tablets take 1 tablets qd Unknown Ezetimibe 10mg Tablets 1 tab by mouth every day Unknown Losartan Potassium 25mg Tablets 1 tab by mouth at bedtime Unknown Sucralfate 1gm Tablets Take One Tablet By Mouth One Hour Before Meals And Before Bed Unkno wn Fluorouracil 5% Cream Apply Topically Two Times A Day To Area On Right Nose For 14 Days Un known Gabapentin 100mg Capsules Take One Capsule By Mouth Every Day Unknown Cyclobenzaprine HCL 5mg Tablets Take One Tablet By Mouth Three Times A Day as Needed For Muscle Spasm Unknown Trintellix 20mg Tablets Take One Tablet By Mouth Every Day Unknown Clopidogrel Bisulfate 75mg Tablets Take One Tablet By Mouth Every Day Unknown Zolpidem Tartrate 10mg Tablets Take One Tablet By Mouth AT Bedtime as Needed Maximum Daily Dose One Tablet Unknown Ondansetron 4mg Tablets Dispers Place One Tablet By Mouth Every 6 To 8 Hours as Needed For Nausea Unknown History Medications Suprep Bowel Prep Kit 17.5-3.13-1.6GM/177ML Solution take per doctor's bowel prep instructions. 354ml Edmond Arango, DO 08/11/2021 - 09/14/2021 Sutab [id number] Tablets take tablets as directed per doctor for bowel prep. 1kit Z12.11 Edmond Arango, DO 07/19/2021 - 09/14/2021 Immunizations Description No Information Available Vital Signs Date Vital Result Comment 09/15/2021 12:35pm BP Systolic 124 mmHg BP Diastolic 66 mmHg Height 61 inches 5'1" Weight 147.00 lb BMI (Body Mass Index) 27.8 kg/m2 [place] Body Weight 105 lb Weight 66.679 kg BSA (Body Surface Area) 1.66 m2 08/02/2021 11:06am BP Systolic 106 mmHg BP Diastolic 64 mmHg Body Temperature 98.2 F Height 61 inches 5'1" Weight 147.25 lb BMI (Body Mass Index) 27.8 kg/m2 [place] Body Weight 105 lb Weight 66.793 kg BSA (Body Surface Area) 1.66 m2 Results Test Acquired Date Facility Test Result H/L Range Note Surgical Pathology Consult 08/02/2021 [facility] Surgical Pathology Consult Surgical Patholo <SEE NOTE> 1 Laboratory test finding 07/27/2021 [facility] Main Lab [address] [place] [address] [phone] Pathology Request For Service (SEE NOTE) 2 1 Surgical Pathology Report Name: SUHA GORDON Collection Date: 08/02/2021 00:00 Received Date: 08/02/2021 10:57 Physician(s): EDMOND ARANGO DO Haghir, Shahandeh MD Specimen(s) Received A: Material received for consultation, GDAMPARO, [facility], [id number] Clinical History A. Gastric prepyloric mass. B. Cecal mass. Concern for cecal mass. Please see attached endoscopy and colonoscopy report. Favor benign findings in colon and no definite ulcer or erosion in stomach. For consultation to R/O malignancy in the ileocecal valve. Diagnosis OUTSIDE SLIDES: STOMACH, PREPYLORIC AREA, BIOPSY ([id number], 07/27/21): NO SIGNIFICANT PATHOLOGIC CHANGES. CECAL MASS, BIOPSY ([id number], 07/27/21): DISTORTED INTESTINAL MUCOSA WITH NONSPECIFIC INFLAMMATORY CHANGES. NO EVIDENCE OF ATYPIA OR MALIGNANCY. (SEE MICROSCOPIC DESCRIPTION). Electronically Signed By Naren Rodriguez M.D., Attending Pathologist 08/02/2021 16:56:40 Gross Description Received from [facility] in [place], [place], are 4 H and E stained slides and 2 paraffin blocks, labeled [id number], with the corresponding pathology report. Also received: Reports of Operation. Microscopic Description I completely agree with you that these biopsies show no evidence of atypia or malignancy. The biopsy of the cecal mass consist of fragments of ileal and colonic mucosa with marked architectural crypt distortion and expansion of the lamina propria by mixed inflammatory infiltrate. The latter consists of lymphocytes, eosinophils, neutrophils, and plasma cells. There is no evidence of cryptitis or granulomas. These changes are nonspecific and do not clearly explain the presence of a cecal mass. The gastric biopsies essentially unremarkable. Thank you for letting me see this case in consultation. This report may include one or more immunohistochemical stain results that use analyte specific reagents. All positive and negative controls have been reviewed by the attending pathologist and are satisfactory. The tests were developed and their performance characteristics determined by [facility] Pathology department. They have not been cleared or approved by the [place] Food and Drug Administration. The FDA has determined that such clearance or approval is not necessary. 2 FINAL DIAGNOSIS A - Prepyloric area, biopsy: Benign gastric mucosa without evidence for ulceration or significant inflammation. B - Cecal mass, biopsy: Fragments of benign ileocecal mucosa with reactive changes and architectural disarray. No evidence for malignancy is identified. In view of clinical concern for an infiltrative ileocecal mass, the case was also sent to [facility] for consultation, they agree with the above findings, please see complete consultation report [id number], scanned in EMR under pathology module. Follow up is recommended as clinically indicated. 08/03/2021 - 799 CLINICAL DIAGNOSIS Heartburn, screening 07/27/2021 - 1451 GROSS DIAGNOSIS A - Received in formalin labeled "biopsy prepyloric area" is a 0.4 x 0.2 x 0.1 cm. aggregate of two mucosal fragments. All in one. B - Received in formalin labeled "biopsy cecal mass" is a 0.6 x 0.3 x 0.2 cm. aggregate of mucosal fragments. All in one. - 07/27/2021 - 1451 PRELIMINARY DIAGNOSIS . 08/03/2021 - 0750 Signed Tawnya Mcneal MD 07/28/2021 1637 (Prelim) Signed Tawnya Mcneal MD 08/03/2021 0800 Procedures Date Code Description Status 08/18/2021 06926 Colonoscopy Flexible Proximal To Splenic Flexure Diagnostic W/Or Completed 08/02/2021 81749 Office/Outpatient Established Mo d MDM 30-39 Min Completed 07/27/2021 53271 Colonoscopy Flexible Proximal To Splenic Flexure W/Biopsy Single/ Completed 07/27/2021 83827 Endoscopy Upper GI Biopsy Comple alexandra 06/28/2021 97018 Office/Outpatient New Moderate M DM 45-59 Minutes Completed Medical Devices Description No Information Available Encounters Type Date Location Provider Dx Diagnosis Office Visit 08/02/2021 11:00a [facility] Edmond Arango, DO D12.0 Benign neoplasm of cecum Office Visit 06/28/2021 11:00a [facility] Edmond Arango, DO R12 Heartburn Z12.11 Encounter for screening for malignant neoplasm of colon Assessments Date Code Description Provider 09/15/2021 D37.4 Neoplasm of uncertain behavior o f colon Aryan Bruno M.D. 09/15/2021 R10.13 Epigastric pain Aryan Sanders ala, M.D. 08/18/2021 Z12.11 Encounter for screening for martha gnant neoplasm of colon Edmond Arango, DO 08/18/2021 Z86.010 Personal history of colonic poly ps Edmond Arango, DO 08/18/2021 K52.9 Noninfective gastroenteritis and colitis, unspecified Edmond Arango, DO 08/02/2021 D12.0 Benign neoplasm of cecum Edmond Arango, DO 07/27/2021 K29.70 Gastritis, unspecified, without bleeding Edmond Arango, DO 07/27/2021 Z12.11 Encounter for screening for martha gnant neoplasm of colon Edmond Arango, DO 07/27/2021 K64.0 First degree hemorrhoids Edmond Arango, DO 06/28/2021 R12 Heartburn Edmond Arango , DO 06/28/2021 Z12.11 Encounter for screening for martha gnant neoplasm of colon Edmond Arango, DO Plan of Treatment No Information Available Functional Status Description No Information Available Mental Status Description No Information Available Referrals Refer to Dr Reason for Referral Status Appt Date Aryan Bruno M.D. GERD ABD PAIN Created [facility] [address], [address] [place] [address] [phone]
--- OUTSIDE RECORDS SUMMARY | 2021-09-29 08:09 | CCD | Continuity of Care Document ---
Author Author Suha BRUNO M.D. Organization Unknown Address [address] [place] [address], [address] [place] [address] Phone [phone] Care Team Providers Care Vault Clerk Name Role Phone Donita Elkins N.P. AUTM [phone] Geoff Conde MD AUTM [phone] Problems Description No Information Available Social History [...] Edmond Arango, DO 08/11/2021 - 09/14/2021 Sutab [id number] Tablets take tablets as directed per doctor for bowel prep. 1kit Z12.11 Edmond Arango, DO 07/19/2021 - 09/14/2021 Immunizations Description No Information Available Vital Signs Date Vital Result Comment 09/15/2021 12:35pm BP Systolic 124 mmHg BP Diastolic 66 mmHg Height 61 inches 5'1" Weight 147.00 lb BMI (Body Mass Index) 27.8 kg/m2 [place] Body Weight 105 lb Weight 66.679 kg BSA (Body Surface Area) 1.66 m2 08/02/2021 11:06am BP Systolic 106 mmHg BP Diastolic 64 mmHg Body Temperature 98.2 F Height 61 inches 5'1" Weight 147.25 lb BMI (Body Mass Index) 27.8 kg/m2 [place] Body Weight 105 lb Weight 66.793 kg BSA (Body Surface Area) 1.66 m2 Results Test Acquired Date Facility Test Result H/L Range Note Surgical Pathology Consult 08/02/2021 [facility] Surgical Pathology Consult Surgical Patholo <SEE NOTE> 1 Laboratory test finding 07/27/2021 [facility] Main Lab 0 [place] [address] [phone] Pathology Request For Service (SEE NOTE) 2 1 Surgical Pathology Report Name: SUHA GORDON Collection Date: 08/02/2021 00:00 Received Date: 08/02/2021 10:57 Physician(s): EDMOND ARANGO DO Haghir, Shahandeh MD Specimen(s) Received A: Material received for consultation, GDAMPARO, [facility], [id number] Clinical History A. Gastric prepyloric mass. B. Cecal mass. Concern for cecal mass. Please see attached endoscopy and colonoscopy report. Favor benign findings in colon and no definite ulcer or erosion in stomach. For consultation to R/O malignancy in the ileocecal valve. Diagnosis OUTSIDE SLIDES: STOMACH, PREPYLORIC AREA, BIOPSY ([id number], 07/27/21): NO SIGNIFICANT PATHOLOGIC CHANGES. CECAL MASS, BIOPSY ([id number], 07/27/21): DISTORTED INTESTINAL MUCOSA WITH NONSPECIFIC INFLAMMATORY CHANGES. NO EVIDENCE OF ATYPIA OR MALIGNANCY. (SEE MICROSCOPIC DESCRIPTION). Electronically Signed By Naren Rodriguez M.D., Attending Pathologist 08/02/2021 16:56:40 Gross Description Received from [facility] in [place], [place], are 4 H and E stained slides and 2 paraffin blocks, labeled [id number], with the corresponding pathology report. Also received: [...] developed and their performance characteristics determined by [facility] Pathology department. They have not been [...] mass, the case was also sent to [facility] for consultation, they agree with the above findings, please see complete consultation report [id number], scanned in EMR under pathology module. Follow [...] 0800 Procedures Date Code Description Status 08/18/2021 23003 Colonoscopy Flexible Proximal To Splenic Flexure Diagnostic W/Or Completed 08/02/2021 88084 Office/Outpatient Established Mo d MDM 30-39 Min Completed 07/27/2021 89309 Colonoscopy Flexible Proximal To Splenic Flexure W/Biopsy Single/ Completed 07/27/2021 79385 Endoscopy Upper GI Biopsy Comple alexandra 06/28/2021 12080 Office/Outpatient New Moderate M DM 45-59 Minutes Completed Medical Devices Description No Information Available Encounters Type Date Location Provider Dx Diagnosis Office Visit 08/02/2021 11:00a [facility] Edmond Arango, DO D12.0 Benign neoplasm of cecum Office Visit 06/28/2021 11:00a [facility] Edmond Arango, DO R12 Heartburn Z12.11 [...] Aryan Bruno M.D. GERD ABD PAIN Created [facility] [address], [address] [place] [address] [phone]
--- OUTSIDE RECORDS SUMMARY | 2021-09-29 08:09 | CCD | Continuity of Care Document ---
Author Author Suha BRUNO M.D. Organization Unknown Address [address] [place] [address], [address] [place] [address] Phone [phone] Care Team Providers Care Manager Of Disaster Recovery Name Role Phone Donita Elkins N.P. AUTM [phone] Geoff Conde MD AUTM [phone] Problems Description No Information Available Social History [...] Edmond Arango, DO 08/11/2021 - 09/14/2021 Sutab [id number] Tablets take tablets as directed per doctor for bowel prep. 1kit Z12.11 Edmond Arango, DO 07/19/2021 - 09/14/2021 Immunizations Description No Information Available Vital Signs Date Vital Result Comment 09/15/2021 12:35pm BP Systolic 124 mmHg BP Diastolic 66 mmHg Height 61 inches 5'1" Weight 147.00 lb BMI (Body Mass Index) 27.8 kg/m2 [place] Body Weight 105 lb Weight 66.679 kg BSA (Body Surface Area) 1.66 m2 08/02/2021 11:06am BP Systolic 106 mmHg BP Diastolic 64 mmHg Body Temperature 98.2 F Height 61 inches 5'1" Weight 147.25 lb BMI (Body Mass Index) 27.8 kg/m2 [place] Body Weight 105 lb Weight 66.793 kg BSA (Body Surface Area) 1.66 m2 Results Test Acquired Date Facility Test Result H/L Range Note Surgical Pathology Consult 08/02/2021 [facility] Surgical Pathology Consult Surgical Patholo <SEE NOTE> 1 Laboratory test finding 07/27/2021 [facility] Main Lab 0 [place] [address] [phone] Pathology Request For Service (SEE NOTE) 2 1 Surgical Pathology Report Name: SUHA GORDON Collection Date: 08/02/2021 00:00 Received Date: 08/02/2021 10:57 Physician(s): EDMOND ARANGO DO Haghir, Shahandeh MD Specimen(s) Received A: Material received for consultation, GDAMPARO, [facility], [id number] Clinical History A. Gastric prepyloric mass. B. Cecal mass. Concern for cecal mass. Please see attached endoscopy and colonoscopy report. Favor benign findings in colon and no definite ulcer or erosion in stomach. For consultation to R/O malignancy in the ileocecal valve. Diagnosis OUTSIDE SLIDES: STOMACH, PREPYLORIC AREA, BIOPSY ([id number], 07/27/21): NO SIGNIFICANT PATHOLOGIC CHANGES. CECAL MASS, BIOPSY ([id number], 07/27/21): DISTORTED INTESTINAL MUCOSA WITH NONSPECIFIC INFLAMMATORY CHANGES. NO EVIDENCE OF ATYPIA OR MALIGNANCY. (SEE MICROSCOPIC DESCRIPTION). Electronically Signed By Naren Rodriguez M.D., Attending Pathologist 08/02/2021 16:56:40 Gross Description Received from [facility] in [place], [place], are 4 H and E stained slides and 2 paraffin blocks, labeled [id number], with the corresponding pathology report. Also received: [...] developed and their performance characteristics determined by [facility] Pathology department. They have not been [...] mass, the case was also sent to [facility] for consultation, they agree with the above findings, please see complete consultation report [id number], scanned in EMR under pathology module. Follow [...] 0800 Procedures Date Code Description Status 08/18/2021 61651 Colonoscopy Flexible Proximal To Splenic Flexure Diagnostic W/Or Completed 08/02/2021 74046 Office/Outpatient Established Mo d MDM 30-39 Min Completed 07/27/2021 66214 Colonoscopy Flexible Proximal To Splenic Flexure W/Biopsy Single/ Completed 07/27/2021 68328 Endoscopy Upper GI Biopsy Comple alexandra 06/28/2021 17232 Office/Outpatient New Moderate M DM 45-59 Minutes Completed Medical Devices Description No Information Available Encounters Type Date Location Provider Dx Diagnosis Office Visit 08/02/2021 11:00a [facility] Edmond Arango, DO D12.0 Benign neoplasm of cecum Office Visit 06/28/2021 11:00a [facility] Edmond Arango, DO R12 Heartburn [...] Aryan Bruno M.D. GERD ABD PAIN Created [facility] [address], [address] [place] [address] [phone]
--- OUTSIDE RECORDS SUMMARY | 2021-09-29 08:09 | CCD | Continuity of Care Document ---
Author Author Suha BRUNO M.D. Organization Unknown Address [address] [place] [address], [address] [place] [address] Phone [phone] Care Team Providers Care Children'S Attendant Name Role Phone Donita Elkins N.P. AUTM [phone] Geoff Conde MD AUTM [phone] Problems Description No Information Available Social History [...] Edmond Arango, DO 08/11/2021 - 09/14/2021 Sutab [id number] Tablets take tablets as directed per doctor for bowel prep. 1kit Z12.11 Edmond Arango, DO 07/19/2021 - 09/14/2021 Immunizations Description No Information Available Vital Signs Date Vital Result Comment 09/15/2021 12:35pm BP Systolic 124 mmHg BP Diastolic 66 mmHg Height 61 inches 5'1" Weight 147.00 lb BMI (Body Mass Index) 27.8 kg/m2 [place] Body Weight 105 lb Weight 66.679 kg BSA (Body Surface Area) 1.66 m2 08/02/2021 11:06am BP Systolic 106 mmHg BP Diastolic 64 mmHg Body Temperature 98.2 F Height 61 inches 5'1" Weight 147.25 lb BMI (Body Mass Index) 27.8 kg/m2 [place] Body Weight 105 lb Weight 66.793 kg BSA (Body Surface Area) 1.66 m2 Results Test Acquired Date Facility Test Result H/L Range Note Surgical Pathology Consult 08/02/2021 [facility] Surgical Pathology Consult Surgical Patholo <SEE NOTE> 1 Laboratory test finding 07/27/2021 [facility] Main Lab 0 [place] [address] [phone] Pathology Request For Service (SEE NOTE) 2 1 Surgical Pathology Report Name: SUHA GORDON Collection Date: 08/02/2021 00:00 Received Date: 08/02/2021 10:57 Physician(s): EDMOND ARANGO DO Haghir, Shahandeh MD Specimen(s) Received A: Material received for consultation, GDAMPARO, [facility], [id number] Clinical History A. Gastric prepyloric mass. B. Cecal mass. Concern for cecal mass. Please see attached endoscopy and colonoscopy report. Favor benign findings in colon and no definite ulcer or erosion in stomach. For consultation to R/O malignancy in the ileocecal valve. Diagnosis OUTSIDE SLIDES: STOMACH, PREPYLORIC AREA, BIOPSY ([id number], 07/27/21): NO SIGNIFICANT PATHOLOGIC CHANGES. CECAL MASS, BIOPSY ([id number], 07/27/21): DISTORTED INTESTINAL MUCOSA WITH NONSPECIFIC INFLAMMATORY CHANGES. NO EVIDENCE OF ATYPIA OR MALIGNANCY. (SEE MICROSCOPIC DESCRIPTION). Electronically Signed By Naren Rodriguez M.D., Attending Pathologist 08/02/2021 16:56:40 Gross Description Received from [facility] in [place], [place], are 4 H and E stained slides and 2 paraffin blocks, labeled [id number], with the corresponding pathology report. Also received: [...] developed and their performance characteristics determined by [facility] Pathology department. They have not been cleared [...] mass, the case was also sent to [facility] for consultation, they agree with the above findings, please see complete consultation report [id number], scanned in EMR under pathology module. Follow [...] 0800 Procedures Date Code Description Status 08/18/2021 78300 Colonoscopy Flexible Proximal To Splenic Flexure Diagnostic W/Or Completed 08/02/2021 50061 Office/Outpatient Established Mo d MDM 30-39 Min Completed 07/27/2021 33412 Colonoscopy Flexible Proximal To Splenic Flexure W/Biopsy Single/ Completed 07/27/2021 66466 Endoscopy Upper GI Biopsy Comple alexandra 06/28/2021 80282 Office/Outpatient New Moderate M DM 45-59 Minutes Completed Medical Devices Description No Information Available Encounters Type Date Location Provider Dx Diagnosis Office Visit 08/02/2021 11:00a [facility] Edmond Arango, DO D12.0 Benign neoplasm of cecum Office Visit 06/28/2021 11:00a [facility] Edmond Arango, DO R12 Heartburn Z12.11 [...] Aryan Bruno M.D. GERD ABD PAIN Created [facility] [address], [address] [place] [address] [phone]
--- OUTSIDE RECORDS SUMMARY | 2021-09-29 08:10 | CCD | Continuity of Care Document ---
Author Author Suha ARANGO DO Organization Unknown Address [address], [address] [place] [address] Phone [phone] Care Team Providers Care Lock Stitch Channeler Name Role Phone Donita Elkins N.P. AUTM [phone] Ivonne Pena M.D. AUTM [phone] Problems Description No Information Available Social History [...] SIG Qnty Indications Ordering Provide r Date Suprep Bowel Prep Kit 17.5-3.13-1.6GM/177ML Solution take per doctor's bowel prep instructions. 354ml Edmond Arango, DO 08/11/[address] 1 tab by mouth every day every morning as directed 60caps Edmond salgado, DO 08/02/2021 Sutab [id number] Tablets take tablets as directed per doctor for bowel prep. 1kit Z12.11 Edmond Arango, DO 07/19/2021 Praluent 150mg/ml Solution Auto-In ject every other [...] 1 tab by mouth at bedtime Unknown Fenofibrate 160mg Tablets 1 tab by mouth every day Unknown Sucralfate 1gm Tablets Take One Tablet [...] 8 Hours as Needed For Nausea Unknown Immunizations Description No Information Available Vital Signs Date Vital Result Comment 08/02/2021 11:06am BP Systolic 106 mmHg BP Diastolic 64 mmHg Body Temperature 98.2 F Height 61 inches 5'1" Weight 147.25 lb BMI (Body Mass Index) 27.8 kg/m2 Reubens Body Weight 105 lb Weight 66.793 kg BSA (Body Surface Area) 1.66 m2 06/28/2021 11:00am BP Systolic 114 mmHg BP Diastolic 72 mmHg Height 61 inches 5'1" Weight 150.25 lb BMI (Body Mass Index) 28.4 kg/m2 Reubens Body Weight 105 lb Weight 68.153 kg BSA (Body Surface Area) 1.67 m2 Results Test Acquired Date Facility Test Result H/L Range Note Surgical Pathology Consult 08/02/2021 [facility] Surgical Pathology Consult Surgical Patholo <SEE NOTE> 1 Laboratory test finding 07/27/2021 [facility] [address] [place], [place] [id number] [phone] Pathology Request For Service (SEE NOTE) 2 1 Surgical Pathology Report Name: SUHA GORDON Collection Date: 08/02/2021 00:00 Received Date: 08/02/2021 10:57 Physician(s): EDMOND ARANGO DO Haghir, Shahandeh MD Specimen(s) Received A: Material received for consultation, GD, [facility], [id number] Clinical History A. Gastric prepyloric mass. B. Cecal mass. Concern for cecal mass. Please see attached endoscopy and colonoscopy report. Favor benign findings in colon and no definite ulcer or erosion in stomach. For consultation to R/O malignancy in the ileocecal valve. Diagnosis OUTSIDE SLIDES: STOMACH, PREPYLORIC AREA, BIOPSY ([id number], 07/27/21): NO SIGNIFICANT PATHOLOGIC CHANGES. CECAL MASS, BIOPSY ([id number], 07/27/21): DISTORTED INTESTINAL MUCOSA WITH NONSPECIFIC INFLAMMATORY CHANGES. NO EVIDENCE OF ATYPIA OR MALIGNANCY. (SEE MICROSCOPIC DESCRIPTION). Electronically Signed By Naren Rodriguez M.D., Attending Pathologist 08/02/2021 16:56:40 Gross Description Received from [facility] in [place], [place], are 4 H and E stained slides and 2 paraffin blocks, labeled [id number], with the corresponding pathology report. Also received: [...] developed and their performance characteristics determined by [facility] Pathology department. They have not been [...] mass, the case was also sent to [facility] for consultation, they agree with the above findings, please see complete consultation report [id number], scanned in EMR under pathology module. Follow [...] 0800 Procedures Date Code Description Status 08/18/2021 53533 Colonoscopy Flexible Proximal To Splenic Flexure Diagnostic W/Or Completed 08/02/2021 03264 Office/Outpatient Established Mo d MDM 30-39 Min Completed 07/27/2021 31223 Colonoscopy Flexible Proximal To Splenic Flexure W/Biopsy Single/ Completed 07/27/2021 90708 Endoscopy Upper GI Biopsy Comple alexandra 06/28/2021 40046 Office/Outpatient New Moderate M DM 45-59 Minutes Completed Medical Devices Description No Information Available Encounters Type Date Location Provider Dx Diagnosis Office Visit 08/02/2021 11:00a [facility] Edmond Arango DO D12.0 Benign neoplasm of cecum Office Visit 06/28/2021 11:00a [facility] Edmond Arango DO R12 Heartburn Z12.11 Encounter for screening for malignant neoplasm of colon Assessments Date Code Description Provider 08/18/2021 Z12.11 Encounter for screening for martha gnant neoplasm of colon Edmond Arango DO 08/18/2021 Z86.010 Personal history of colonic [...] colon Edmond Arango, DO Plan of Treatment 08/02/2021 - Edmond Arango, DO* D12.0 Benign neoplasm of cecum* Comments:* 56y/o female presents s/p colonoscopy with a mass at the IC valve that returned as normal tissue on biopsy. I explained to her that this is great news. However, I am still concerned about the way that it looks. I was expecting either a cancer, or at least a polpy on biopsy. Since it is normal tissue, I recommend that we atleast do another scope, and obtain more biopsies to make sure that nothing was missed. She completely understands, and agreed to repeat scope. Risks include, but are not limited to, bleeding, perforation, and missing something. She agreed, and signed consent. Functional Status Description No Information Available Mental Status Description No Information Available Referrals Description No Information Available
--- OUTSIDE RECORDS SUMMARY | 2021-09-29 08:10 | CCD | Continuity of Care Document ---
Author Author Suha ELKINS BUFFER NICKEL Organization Unknown Address [address] [place] [address] Phone [phone] Care Team Providers Care Associate Director Name Role Phone [facility] - Dermatology AUTM [phone] [facility] - Hearing Aid Equipment AUTM [phone] [facility] AUTM [phone] [facility] - Cardiovascular Disease AUTM [phone] [facility] AUTM [phone] [facility] General Surgery Practice - Surgery AUTM [phone] [facility] Gastro - Gastroenterology AUTM Problems Active Problems Provider Date Mixed hyperlipidemia Donita Elkins FNP Onset: 01/21/2021 Coronary atherosclerosis Donita Elkins FNP Onset: 021 Generalized anxiety disorder Donita Elkins FNP Onset: Chronic diastolic heart failure Donita Elkins FNP Onset: 01/21/2021 Social History Type Date Description Comments Sex Unknown Tobacco Use Start: Unknown Never Used Smokeless Tobacco ETOH Use Denies alcohol use Recreational Drug Use Taking Morphine oxycodone Klonopin Tobacco Use Start: Unknown End: Unknown Patient is a former smoker quit 02/06/2021 Smoking Status Reviewed: 08/23/21 Patient is a former smoker qu it 02/06/2021 Exercise Type/Frequency Does not exercise Tattoo/Piercing Pierced ears Sun Exposure Minimum amount of sun exposure Sun Exposure Uses sunscreen Sun Exposure Uses greater than 30 SPF Seat Belt/Car Seat Always uses seat belt Bike Helmet does not ride Smoke Alarms Yes Smoke Alarms Carbon Monoxide Detector: Yes Allergies and adverse reactions Active Allergies Criticality Reaction | Severity Comments Date Epitol Unable to assess criticality Hives, Itching 04/22/2020 Medications Active Medications SIG Qnty Indications Ordering Provide r Date Zolpidem Tartrate 10mg Tablets Take One Tablet By Mouth AT Bedtime as Needed For Sleep Maximum Daily Dose = 1 30tabs G47.00 Donita Elkins FNP 08/23/2021 Carafate 1gm Tablets one tab by mouth one hour before meals and before bed 120tabs Donita Elkins FNP 06/16/2021 Pantoprazole Sodium 40mg Tablets D R take one tablet by mouth every day 90tabs Donita Elkins F NP 05/25/2021 Clopidogrel Bisulfate 75mg Tablets 1 by mouth every day Unknown 02/21/2021 Colesevelam HCL 625mg Tablets 1 tab po daily Unknown 02/15/2021 Fenofibrate 160mg Tablets take one tablet by mouth every morning for high triglycerides Un known 02/15/2021 Losartan Potassium 25mg Tablets 1 tab by mouth every morning for blood pressure Unknown 02/15/2021 Ondansetron 4mg Tablets Dispers 1 by mouth every 6-8 hours as needed nausea 30tabs R19.7 Donita Elkins FNP 07/02/2020 Trintellix 20mg Tablets 1 by mouth every day 90tabs Donita Elkins FNP Nitroglycerin 0.4mg Tablets Sub place 1 tablet under the tongue every five minutes up to maximum of 3 tablets as needed for chest pain. if no relief call 911 Unknown Furosemide 20mg Tablets take one tablet by mouth once a day as needed for swelling of legs Unknown Rosuvastatin Calcium 40mg Tablets take 1 tablet daily for cholesterol Unknown Gabapentin 100mg Capsules 1 by mouth daily 90caps Donita Elkins FNP Zetia 10mg Tablets 1 by mo uth every day Unknown Cyclobenzaprine HCL 5mg Tablets 1 tab by mouth three times a day as needed for muscle spasm 30tabs Donita Elkins FNP Praluent 150mg/ml Solution Auto-In ject inject every 2 weeks into thigh region Unknown History Medications Advair Diskus 250-50mcg/Dose Aeros ol 1 puff twice a day 60units R06.02 Donita Elkins, BUFFER NICKEL 03/30/2021 - 08/23/2021 Immunizations CPT Code Status Date Vaccine Lot # [id number] Given 08/23/2021 Influenza Virus Vaccine, Camron drivalent,multidose vial [id number] Given 01/31/2021 Covid-19 [employer] & Jb [id number] Given 09/30/2020 Influenza Virus Vaccine, Camron drivalent,multidose vial [id number] Vital Signs Date Vital Result Comment 08/23/2021 2:14pm BP Systolic 148 mmHg BP Diastolic 71 mmHg Heart Rate 50 /min Body Temperature 97.4 F Respiratory Rate 14 /min Height 61.75 inches 5'1.75" Weight 147.38 lb Peak Expiratory Flow Rate 325 Estimated Peak Flow Rate [place] Body Weight 105 lb BMI (Body Mass Index) 27.2 kg/m2 07/21/2021 11:14am BP Systolic 138 mmHg BP Diastolic 76 mmHg Heart Rate 47 /min Body Temperature 97.8 F Respiratory Rate 16 /min Height 61.75 inches 5'1.75" Weight 146.25 lb O2 % BldC Oximetry 98 % Peak Expiratory Flow Rate 325 Estimated Peak Flow Rate [place] Body Weight 105 lb BMI (Body Mass Index) 27.0 kg/m2 Results Test Acquired Date Facility Test Result H/L Range Note FT4&TSH Panel 09/07/2021 [place] [address] [phone] Thyroid Stimulating Hormone 1.340 uIU/ML Normal 0. 358-3.740 Free T4 0.95 ng/dL Normal 0.76-1.46 Keyla Titer & Pattern 09/07/2021 [place] [address] [phone] Keyla (Hep2) Negative Normal . 1 Complete Blood Count 09/07/2021 [place] [address] [phone] White Blood Count 7.0 10 Normal 4.0-10.0 Red Blood Count 3.98 10 Low 4.00-5.40 Hemoglobin 11.5 g/dL Low 12.0-15.5 Hematocrit 36.9 % Normal 36.0-47.0 Mean Corpuscular Volume 92.7 fl Normal 80.0-96.0 Mean Corpuscular Hemoglobin 28.9 pg Normal 27.0-33.0 Mean Corpuscular HGB Conc 31.2 g/dL Low 32.0-36.5 Red Cell Distribution Width 13.4 % Normal 11.5-14.5 Platelet Count, Automated 384 10 Normal 150-450 Nucleated Red Blood Cell % 0.0 % Normal 0-0 Comprehensive Metabolic Profil 09/07/20[place] [address] [phone] Glucose, Fasting 90 mg/dL Normal 70-100 Blood Urea Nitrogen 23 mg/dL High 7-18 Creatinine For GFR 0.68 mg/dL Normal 0.55-1.30 Glomerular Filtration Rate > 60.0 Normal >51 2 Sodium Level 143 mEq/L Normal 136-145 Potassium Serum 4.2 mEq/L Normal 3.5-5.1 Chloride Level 111 mEq/L High 98-107 Carbon Dioxide Level 27 mEq/L Normal 21-32 Anion Gap 5 mEq/L Low 8-16 Calcium Level 9.3 mg/dL Normal 8.5-10.1 Ast/Sgot 24 U/L Normal 7-37 Alt/SGPT 28 U/L Normal 12-78 Alkaline Phosphatase 67 U/L Normal 45-117 Bilirubin,Total 0.2 mg/dL Normal 0.2-1.0 Total Protein 6.9 GM/DL Normal 6.4-8.2 Albumin 3.6 GM/DL Normal 3.2-5.2 Albumin/Globulin Ratio 1.1 Low 1.2-2.2 Lipid Panel 09/07/2021 [place] [address] [phone] Triglycerides Level 81 mg/dL Normal <150 Cholesterol Level 177 mg/dL Normal <200 HDL Cholesterol 62 mg/dL Normal >40 LDL Cholesterol 99 mg/dL Normal <100 Non-HDL-C 115 mg/dL Normal Cholesterol Risk Ratio 2.854 Normal <5 CBC With Differential 09/07/2021 [place] [address] [phone] White Blood Count 6.8 10 Normal 4.0-10.0 Red Blood Count 4.05 10 Normal 4.00-5.40 Hemoglobin 11.8 g/dL Low 12.0-15.5 Hematocrit 37.5 % Normal 36.0-47.0 Mean Corpuscular Volume 92.6 fl Normal 80.0-96.0 Mean Corpuscular Hemoglobin 29.1 pg Normal 27.0-33.0 Mean Corpuscular HGB Conc 31.5 g/dL Low 32.0-36.5 Red Cell Distribution Width 13.2 % Normal 11.5-14.5 Platelet Count, Automated 382 10 Normal 150-450 Neutrophils % 48.3 % Normal 36.0-66.0 Lymph % 41.2 % Normal 24.0-44.0 [place] % 6.2 % Normal 2.0-8.0 Eos % 3.1 % High 0.0-3.0 Baso % 0.9 % Normal 0.0-1.0 Immature Granulocyte % 0.3 % Normal 0-3.0 Nucleated Red Blood Cell % 0.0 % Normal 0-0 Neutrophils # 3.3 10 Normal 1.5-8.5 Lymph # 2.8 10 Normal 1.5-5.0 [place] # 0.4 10 Normal 0.0-0.8 Eos # 0.2 10 Normal 0.0-0.5 Baso # 0.1 10 Normal 0.0-0.2 Coronavirus 2019 Nasopharygeal 08/13/2021 [facility] [place] [address] [phone] Coronavirus 2019 Nasopharygeal ASSAY INFORMATIO <SEE N OTE> 3 Coronavirus 2019 Nasopharygeal 07/22/2021 Patient S [place], [place] [id number] [phone] Coronavirus 2019 Nasopharygeal ASSAY INFORMATIO <SEE N OTE> 4 Laboratory test finding 07/17/2021 [place] [address] [phone] iSTAT Troponin 0.02 NG/ML Normal 0.00-0.08 CBC With Differential 07/17/2021 Patient Service [place], [place] [id number] [phone] White Blood Count 9.1 10 Normal 4.0-10.0 Red Blood Count 4.08 10 Normal 4.00-5.40 Hemoglobin 11.8 g/dL Low 12.0-15.5 Hematocrit 35.8 % Low 36.0-47.0 Mean Corpuscular Volume 87.7 fl Normal 80.0-96.0 Mean Corpuscular Hemoglobin 28.9 pg Normal 27.0-33.0 Mean Corpuscular HGB Conc 33.0 g/dL Normal 32.0-36.5 Red Cell Distribution Width 13.1 % Normal 11.5-14.5 Platelet Count, Automated 342 10 Normal 150-450 Neutrophils % 40.6 % Normal 36.0-66.0 Lymph % 46.5 % High 24.0-44.0 [place] % 9.0 % High 2.0-8.0 Eos % 3.0 % Normal 0.0-3.0 Baso % 0.8 % Normal 0.0-1.0 Immature Granulocyte % 0.1 % Normal 0-3.0 Nucleated Red Blood Cell % 0.0 % Normal 0-0 Neutrophils # 3.7 10 Normal 1.5-8.5 Lymph # 4.2 10 Normal 1.5-5.0 [place] # 0.8 10 Normal 0.0-0.8 Eos # 0.3 10 Normal 0.0-0.5 Baso # 0.1 10 Normal 0.0-0.2 Basic Metabolic Profile 07/17/2021 [place] [address] [phone] Glucose, Fasting 93 mg/dL Normal 70-100 Blood Urea Nitrogen 15 mg/dL Normal 7-18 Creatinine For GFR 0.72 mg/dL Normal 0.55-1.30 Glomerular Filtration Rate > 60.0 Normal >51 5 Sodium Level 141 mEq/L Normal 136-145 Potassium Serum 3.8 mEq/L Normal 3.5-5.1 Chloride Level 112 mEq/L High 98-107 Carbon Dioxide Level 24 mEq/L Normal 21-32 Anion Gap 5 mEq/L Low 8-16 Calcium Level 8.8 mg/dL Normal 8.5-10.1 PT & Aptt 07/17/2021 [facility] [place] [address] [phone] Prothrombin Time 13.4 seconds Normal 12.7-14.5 Inr 0.98 Normal 6 Partial Thromboplastin Time 27.8 seconds Normal 25.9-37.0 Laboratory test finding 07/17/2021 [place] [address] [phone] iSTAT Troponin 0.01 NG/ML Normal 0.00-0.08 Laboratory test finding 06/13/2021 [facility] [phone] H Pylori Serum Quant Iga <9.0 units Normal 0.0-8.9 7 H Pylori Serum Quant IgG Anh 0.45 Normal 0.00-0.79 8 H Pylori Serum Quant Igm <9.0 units Normal 0.0-8.9 9 Laboratory test finding 06/13/2021 [facility] [phone] Lipase 82 U/L Normal 73-393 CBC With Differential 06/13/2021 [facility] [phone] White Blood Count 8.0 10 Normal 4.0-10.0 Red Blood Count 4.33 10 Normal 4.00-5.40 Hemoglobin 12.6 g/dL Normal 12.0-15.5 Hematocrit 39.6 % Normal 36.0-47.0 Mean Corpuscular Volume 91.5 fl Normal 80.0-96.0 Mean Corpuscular Hemoglobin 29.1 pg Normal 27.0-33.0 Mean Corpuscular HGB Conc 31.8 g/dL Low 32.0-36.5 Red Cell Distribution Width 12.8 % Normal 11.5-14.5 Platelet Count, Automated 414 10 Normal 150-450 Neutrophils % 45.0 % Normal 36.0-66.0 Lymph % 44.3 % High 24.0-44.0 [place] % 8.5 % High 2.0-8.0 Eos % 1.4 % Normal 0.0-3.0 Baso % 0.7 % Normal 0.0-1.0 Immature Granulocyte % 0.1 % Normal 0-3.0 Nucleated Red Blood Cell % 0.0 % Normal 0-0 Neutrophils # 3.6 10 Normal 1.5-8.5 Lymph # 3.6 10 Normal 1.5-5.0 [place] # 0.7 10 Normal 0.0-0.8 Eos # 0.1 10 Normal 0.0-0.5 Baso # 0.1 10 Normal 0.0-0.2 Comprehensive Metabolic Profil 06/13/2021 [facility] [phone] Glucose, Fasting 94 mg/dL Normal 70-100 Blood Urea Nitrogen 16 mg/dL Normal 7-18 Creatinine For GFR 0.78 mg/dL Normal 0.55-1.30 Glomerular Filtration Rate > 60.0 Normal >51 1 0 Sodium Level 141 mEq/L Normal 136-145 Potassium Serum 3.8 mEq/L Normal 3.5-5.1 Chloride Level 111 mEq/L High 98-107 Carbon Dioxide Level 25 mEq/L Normal 21-32 Anion Gap 5 mEq/L Low 8-16 Calcium Level 9.5 mg/dL Normal 8.5-10.1 Ast/Sgot 24 U/L Normal 7-37 Alt/SGPT 24 U/L Normal 12-78 Alkaline Phosphatase 57 U/L Normal 45-117 Bilirubin,Total 0.5 mg/dL Normal 0.2-1.0 Total Protein 7.3 GM/DL Normal 6.4-8.2 Albumin 4.0 GM/DL Normal 3.2-5.2 Albumin/Globulin Ratio 1.2 Normal 1.2-2.2 Laboratory test finding 05/16/2021 [place] [address] [phone] iSTAT Troponin 0.00 NG/ML Normal 0.00-0.08 Istat PT/Inr 05/16/2021 [place] [address] [phone] iSTAT Protime Seconds 15.3 seconds High 12.1-14. 4 iSTAT Inr 1.3 Normal Laboratory test finding 05/16/2021 [place] [address] [phone] iSTAT Troponin 0.00 NG/ML Normal 0.00-0.08 CBC With Differential 05/16/2021 [place] [address] [phone] White Blood Count 11.2 10 High 4.0-10.0 Red Blood Count 4.23 10 Normal 4.00-5.40 Hemoglobin 12.4 g/dL Normal 12.0-15.5 Hematocrit 38.4 % Normal 36.0-47.0 Mean Corpuscular Volume 90.8 fl Normal 80.0-96.0 Mean Corpuscular Hemoglobin 29.3 pg Normal 27.0-33.0 Mean Corpuscular HGB Conc 32.3 g/dL Normal 32.0-36.5 Red Cell Distribution Width 12.9 % Normal 11.5-14.5 Platelet Count, Automated 359 10 Normal 150-450 Neutrophils % 64.0 % Normal 36.0-66.0 Lymph % 26.4 % Normal 24.0-44.0 [place] % 7.1 % Normal 2.0-8.0 Eos % 1.7 % Normal 0.0-3.0 Baso % 0.5 % Normal 0.0-1.0 Immature Granulocyte % 0.3 % Normal 0-3.0 Nucleated Red Blood Cell % 0.0 % Normal 0-0 Neutrophils # 7.1 10 Normal 1.5-8.5 Lymph # 3.0 10 Normal 1.5-5.0 [place] # 0.8 10 Normal 0.0-0.8 Eos # 0.2 10 Normal 0.0-0.5 Baso # 0.1 10 Normal 0.0-0.2 Basic Metabolic Profile 05/16/2021 [place] [address] [phone] Glucose, Fasting 106 mg/dL High 70-100 Blood Urea Nitrogen 14 mg/dL Normal 7-18 Creatinine For GFR 0.62 mg/dL Normal 0.55-1.30 Glomerular Filtration Rate > 60.0 Normal >51 1 1 Sodium Level 142 mEq/L Normal 136-145 Potassium Serum 4.3 mEq/L Normal 3.5-5.1 12 Chloride Level 113 mEq/L High 98-107 Carbon Dioxide Level 22 mEq/L Normal 21-32 Anion Gap 7 mEq/L Low 8-16 Calcium Level 9.2 mg/dL Normal 8.5-10.1 CBC With Differential 03/30/2021 [facility] [phone] White Blood Count 7.9 10 Normal 4.0-10.0 Red Blood Count 4.22 10 Normal 4.00-5.40 Hemoglobin 12.5 g/dL Normal 12.0-15.5 Hematocrit 39.2 % Normal 36.0-47.0 Mean Corpuscular Volume 92.9 fl Normal 80.0-96.0 Mean Corpuscular Hemoglobin 29.6 pg Normal 27.0-33.0 Mean Corpuscular HGB Conc 31.9 g/dL Low 32.0-36.5 Red Cell Distribution Width 12.9 % Normal 11.5-14.5 Platelet Count, Automated 376 10 Normal 150-450 Neutrophils % 51.5 % Normal 36.0-66.0 Lymph % 38.1 % Normal 24.0-44.0 [place] % 6.1 % Normal 2.0-8.0 Eos % 3.2 % High 0.0-3.0 Baso % 0.8 % Normal 0.0-1.0 Immature Granulocyte % 0.3 % Normal 0-3.0 Nucleated Red Blood Cell % 0.0 % Normal 0-0 Neutrophils # 4.1 10 Normal 1.5-8.5 Lymph # 3.0 10 Normal 1.5-5.0 [place] # 0.5 10 Normal 0.0-0.8 Eos # 0.3 10 Normal 0.0-0.5 Baso # 0.1 10 Normal 0.0-0.2 Vitamin B12 & Folate 03/30/2021 [facility] enter [phone] Vitamin B12 Level 998 pg/mL Normal 13 Folate 20.3 NG/ML Normal 14 1 Negative <1:80 Borderline 1:80 Positive >1:80 ICAP nomenclature: AC-0 For more information about Hep-2 cell patterns use ANApatterns.org, the official website for the International Consensus on Antinuclear Antibody (KEYLA) Patterns (ICAP). Performed at: RN - [facility] [address] [id number] Forming Fixer: Antonette Ríos MD, Phone: [phone] 2 Units are mL/min/1.73 m2 Chronic Kidney Disease Staging per NKF: Stage I & II GFR >=60 Normal to Mildly Decreased Stage III GFR 30-59 Moderately Decreased Stage IV GFR 15-29 Severely Decreased Stage V GFR <15 Very Little GFR Left ESRD GFR <15 on STOCK TURNER 3 ASSAY INFORMATION: Real Time RT-PCR NOTE: The COVID-19 assay has been cleared by the U.S. Food and Drug Administration under the Emergency Use Authorization (EUA). [email or web address] and [email or web address] are designated as high complexity laboratories by the Clinical Laboratory Improvement Amendments of 1988(CLIA) and are qualified to perform this test. Not Detected 4 ASSAY INFORMATION: Real Time RT-PCR NOTE: The COVID-19 assay has been cleared by the U.S. Food and Drug Administration under the Emergency Use Authorization (EUA). [facility] and [email or web address] are designated as high complexity laboratories by the Clinical Laboratory Improvement Amendments of 1988(CLIA) and are qualified to perform this test. Not Detected 5 Units are mL/min/1.73 m2 Chronic Kidney Disease Staging per NKF: Stage I & II GFR >=60 Normal to Mildly Decreased Stage III GFR 30-59 Moderately Decreased Stage IV GFR 15-29 Severely Decreased Stage V GFR <15 Very Little GFR Left ESRD GFR <15 on STOCK TURNER 6 THERAPUTIC HUMAN INR VALUES INDICATIONS NORMAL RANGES PROPHYLAXIS/TREATMENT OF: VENOUS THROMBOSIS 2.0-3.0 PULMONARY EMBOLISM 2.0-3.0 PREVENTION OF SYSTEMIC EMBOLISM FROM: TISSUE HEART VALVES 2.0-3.0 ACUTE MYOCARDIAL INFARCTION 2.0-3.0 VALVULAR HEART DISEASE 2.0-3.0 ATRIAL FIBRILLATION 2.0-3.0 MECHANICAL VALVES(HIGH RISK) 2.5-3.5 RECURRENT MYOCARDIAL INFARCTION 2.5-3.5 7 Negative <9.0 Equivocal 9.0 - 11.0 Positive >11.0 8 Result Units: Index Value Negative <0.80 Equivocal 0.80 - 0.89 Positive >0.89 9 Negative <9.0 Equivocal 9.0 - 11.0 Positive >11.0 . . This test was developed and its performance characteristics determined by [employer]. It has not been cleared or approved by the Food and Drug Administration. Performed at: RN - [facility] [address] [id number] Forming Fixer: Antonette Ríos MD, Phone: [phone] 10 Units are mL/min/1.73 m2 Chronic Kidney Disease Staging per NKF: Stage I & II GFR >=60 Normal to Mildly Decreased Stage III GFR 30-59 Moderately Decreased Stage IV GFR 15-29 Severely Decreased Stage V GFR <15 Very Little GFR Left ESRD GFR <15 on STOCK TURNER 11 Units are mL/min/1.73 m2 Chronic Kidney Disease Staging per NKF: Stage I & II GFR >=60 Normal to Mildly Decreased Stage III GFR 30-59 Moderately Decreased Stage IV GFR 15-29 Severely Decreased Stage V GFR <15 Very Little GFR Left ESRD GFR <15 on STOCK TURNER 12 Testing was performed on a S LIGHTLY hemolyzed specimen. Suggest recollection of specimen for more accurate test results. 13 VITAMIN B12 NORMAL RANGE NORMAL 247 - 911 PG/ML INDETERMINATE 211 - 246 PG/ML DEFICIENT LESS THAN 211 PG/ML 14 FOLATE NORMAL RANGE NORMAL GREATER THAN 5.4 NG/ML INDETERMINATE 3.4-5.4 NG/ML DEFICIENT LESS THAN 3.4 NG/ML Procedures Date Code Description Status 08/23/2021 11508 Office/Outpatient Established Lo w MDM 20-29 Min Completed 07/21/2021 17244 Office/Outpatient Established Mo d MDM 30-39 Min Completed 06/13/2021 43276 Office/Outpatient Established Mo d MDM 30-39 Min Completed 05/19/2021 08928 Office/Outpatient Established Mo d MDM 30-39 Min Completed 03/30/2021 10528 Office/Outpatient Established Mo d MDM 30-39 Min Completed Medical Devices Description No Information Available Encounters Type Date Location Provider Dx Diagnosis Office Visit 08/23/2021 2:15p Main Office Donita Elkins FNP K58.0 Irritable bowel syndrome with diarrhea K21.9 Gastro-esophageal reflux dis ease without esophagitis Z23 Encounter for immunization Office Visit 07/21/2021 11:15a Main Office Donita Elkins FNP Z01.8 18 Encounter for other preprocedural examination K21.9 Gastro-esophageal reflux dis ease without esophagitis F41.1 Generalized anxiety disorder I50.32 Chronic diastolic (congestiv e) heart failure E78.2 Mixed hyperlipidemia 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 Office Visit 06/13/2021 11:45a Main Office Donita Elkins FNP R10.1 3 Epigastric pain Office Visit 05/19/2021 11:15a Main Office Donita Elkins FNP K21.9 Gastro- esophageal reflux disease without esophagitis F41.1 Generalized anxiety disorder I50.32 Chronic diastolic (congestiv e) heart failure E78.2 Mixed hyperlipidemia 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 Office Visit 03/30/2021 9:30a Main Office Donita Elkins, BUFFER NICKEL D48.5 Neoplasm of uncertain behavior of skin R06.02 Shortness of breath D51.9 Vitamin B12 deficiency anemi a, unspecified Assessments Date Code Description Provider 08/23/2021 K58.0 Irritable bowel syndrome with di arrhea Donita Elkins, [facility] 08/23/2021 K21.9 Gastro-esophageal reflux disease without esophagitis Donita Elkins, [facility] 08/23/2021 Z23 Encounter for immunization Donita Solorio, [facility] 07/21/2021 Z01.818 Encounter for other preprocedura l examination Donita Elkins, [facility] 07/21/2021 K21.9 Gastro-esophageal reflux disease without esophagitis Donita Elkins, [facility] 07/21/2021 F41.1 Generalized anxiety disorder Ple Donita robertson, [facility] 07/21/2021 I50.32 Chronic diastolic (congestive) h eart failure PleDonita robertson, [facility] 07/21/2021 E78.2 Mixed hyperlipidemia Feliciaach M velma, [facility] 07/21/2021 I25.119 Atherosclerotic hear t disease of havasupai coronary artery with unspecified angina pectoris Donita Elkins, [facility] 06/13/2021 R10.13 Epigastric pain Donita Elkins, [facility] 05/19/2021 K21.9 Gastro-esophageal reflux disease without esophagitis Donita Elkins, [facility] 05/19/2021 F41.1 Generalized anxiety disorder Ple Donita robertson, [facility] 05/19/2021 I50.32 Chronic diastolic (congestive) h eart failure Plemistyach Donita, [facility] 05/19/2021 E78.2 Mixed hyperlipidemia Brittni, M velma, [facility] 05/19/2021 I25.119 Atherosclerotic hear t disease of havasupai coronary artery with unspecified angina pectoris Donita Elkins, [employer] 03/30/2021 D48.5 Neoplasm of uncertain behavior o f skin Donita Elkins FNP 03/30/2021 R06.02 Shortness of breath Brittni Clay MANUEL neri 03/30/2021 D51.9 Vitamin B12 deficiency anemia, u nspecified Donita Elkins FNP Plan of Treatment 08/23/2021 - Donita Elkins FNP* K58.0 Irritable bowel syndrome with diarrhea * Comments:* refer to GI * K21.9 Gastro-esophageal reflux disease without esophagitis* Comments:* continue carafate and pantoprazole * Z23 Encounter for immunization * All * New Medication:* Zolpidem Tartrate 10 mg - Take One Tablet By Mouth AT Bedtime as Needed For Sleep Maximum Daily Dose = 1 Functional Status Functional Condition Comment Date Status Bifocal glasses Active Independent with all ADL's Activ e Independent with all IADL's Acti ve Mental Status Mental Condition Comment Date Status None Active Referrals Refer to Dr Reason for Referral Status Appt Date [facility] Gastro Please evaluate for GERD and abdominal p ain. Thank you. Scheduled 09/15/[address] [place] [id number] [phone] [facility] General Surgery Practice Patient needs EGD f or epigastric pain, Please scheduled art as patient is in a lot of discomfort. Thank you. Closed 06/28/2021 [address] [facility], [address] [place] [address] [phone] [facility] Dermatology Please evaluate red spot on the side of her nose that was the site of a previous biopsy showing precancerous cells. Thank you. Closed 06/01/2021 [facility] [address] [facility], [place] [address] [phone]
--- OUTSIDE RECORDS SUMMARY | 2021-09-29 08:10 | CCD ---
Continuity of Care Document (CCD) Created on: 08/24/2021 Suha Strauss External Reference #: [id number] : [id number] Sex: Female Author Author Suha SANCHEZ PA Organization Unknown Address [id number] [place] [address], [facility] [place] [address] Phone [phone] Care Team Providers Care Animal Sitter Name Role Phone MarionDonita robertson MANUEL AUTM [phone] Santo Sagastume MD AUTM [phone] Problems Active Problems Provider Date History of coronary artery bypass grafting Raad Salcedo Onset: 07/05/2020 Patient post percutaneous transluminal coronary angioplasty Geoff Conde MD Onset: 07/05/2020 Tobacco user Geoff Conde MD Onset: 07/05/2020 Coronary arteriosclerosis after percutaneous coronary angioplasty Geoff Conde MD Onset: 07/05/2020 Electrocardiogram abnormal Geoff Conde MD Onset: 2019 Mitral valve disorder Geoff Conde MD Onset: 07/05/2020 Familial hypercholesterolemia Geoff Conde MD Onset: 08/2020 Benign hypertensive 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 Geoff Conde MD Onset: 07/05/2020 Dyspnea ELISA Giles Onset: 02/21/2021 Dietary management surveillance ELISA Giles Onset : 01/11/2021 Benign hypertensive 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 Geoff Conde MD Onset: 08/11/2020 Chronic diastolic heart failure Geoff Conde MD Onset: 0 08/11/2020 Social History Type Date Description Comments Sex Unknown ETOH Use Does not consume alcohol Tobacco Use Start: Unknown End: Unknown Patient is a former smoker started at age 15, at most 1 ppd; quit 02/06/21 Smoking Status Reviewed: 08/23/21 Patient is a former smoker st arted at age 15, at most 1 ppd; quit 02/06/21 Exercise Type/Frequency Does housework sporadica lly Exercise Limitations Back Pain Exercise Limitations Fatigue Allergies, Adverse Reactions, Alerts Active Allergies Criticality Reaction | Severity Comments Date Epitol Unable to assess criticality Itching 07/05/2020 Carbamazepine Unable to assess criticality itchy 05/16/2021 Medications Active Medications SIG Qnty Indications Ordering Provide r Date Sucralfate 1gm Tablets 1 by mouth three times a day Unknown 08/22/2021 Clopidogrel Bisulfate 75mg Tablets 1 by mouth every day 90tabs I25.10 Geoff Conde MD 02/21/2021 Furosemide 20mg Tablets 1 by mouth every day only as needed Donita Elkins FNP 02/21/20 Trintellix 5mg Tablets 1 by mouth every day Donita Elkins FNP 02/20/2021 Fenofibrate 160mg Tablets 1 by mouth every day Unknown 02/20/2021 Nitroglycerin 0.4mg Tablets Sub 1 tab sl every 5 min times 3 doses as needed chest discomfort 25tabs Geoff Conde MD 02/03/2021 Losartan Potassium 25mg Tablets Take 1 Tablet By Mouth Every Night AT Bedtime 90tabs I25.10 Geoff Conde MD 08/11/2020 I50.32 I11.0 Praluent 150mg/ml Solution Auto-In ject inject once every 2 weeks Unknown 2019 Rosuvastatin Calcium 40mg Tablets one tablet by mouth daily at bedtime Unknown 07/04/2020 Cyclobenzaprine HCL 5mg Tablets 1 by mouth three times a day as needed Unknown 07/2020 Ezetimibe 10mg Tablets 1 by mouth every day Unknown 07/04/2020 Gabapentin 100mg Capsules 1 by mouth daily Unknown 07/04/2020 Colesevelam HCL 625mg Tablets Once daily Unknown 07/04/2020 Immunizations Description No Information Available Vital Signs Date Vital Result Comment 08/23/2021 3:25pm Weight 146.00 lb Home Weight 145lb Height 61 inches 5'1" BMI (Body Mass Index) 27.6 kg/m2 BP Systolic Sitting 128 mmHg Ra, medium cuff BP Diastolic Sitting 82 mmHg Ra, medium cuff 02/21/2021 1:44pm Weight 154.00 lb Home Weight 155lb Height 61 inches 5'1" BMI (Body Mass Index) 29.1 kg/m2 Heart Rate 44 /min BP Systolic Sitting 118 mmHg Ra, large cuff BP Diastolic Sitting 70 mmHg Ra, large cuff Results Test Acquired Date Facility Test Result H/L Range Note BMP 07/17/2021 [facility] - not interfaced (315)- - Calcium Ser/Plasma Mass/Vol 8.8 Sodium 141 Carbon Dioxide Ser/Plasm 24 Chloride Serum/Plasma 112 Potassium 3.8 Glucose 93 83-110 Blood Urea Nitrogen 15 7-18 Creatinine 0.72 0.6-1.0 G F R >60.0 CBC without Differential 07/17/2021 [facility] - not inter faced (315)- - White Blood Count 9.1 5.0-10.0 Red Blood Count 4.08 4.00-5.40 Platelets 342 172-450 Hemoglobin 11.8 Hematocrit 35.8 CBC without Differential 06/13/2021 [facility] - not inter faced (315)- - White Blood Count 8.0 5.0-10.0 Red Blood Count 4.33 4.00-5.40 Platelets 414 172-450 Hemoglobin 12.6 Hematocrit 39.6 CMP 06/13/2021 [facility] - not interfaced (315)- - Albumin Serum/Plasma 4.0 Alt - SGPT 24 Calcium Ser/Plasma Mass/Vol 9.5 Carbon Dioxide Ser/Plasm 25 Chloride Serum/Plasma 111 Alkaline Phosphatase 57 Potassium 3.8 Protein Total 7.3 Sodium 141 Ast - Sgot 24 BUN - Urea Nitrogen 16 Glucose 94 83-110 Creatinine For GFR 0.78 Lymphocytes/leuk NFr Bld Auto 05/16/2021 N2N/Direct CCD Import Lymphocytes/leuk NFr Bld Auto 26.4 24.0-44.0 Basophils # Bld Auto 05/16/2021 N2N/Direct CCD Impo rt Basophils # Bld Auto 0.1 0.0-0.2 Eosinophil # Bld Auto 05/16/2021 N2N/Direct CCD Imp ort Eosinophil # Bld Auto 0.2 0.0-0.5 Monocytes # Bld Auto 05/16/2021 N2N/Direct CCD Impo rt Monocytes # Bld Auto 0.8 0.0-0.8 Lymphocytes # Bld Auto 05/16/2021 N2N/Direct CCD Im port Lymphocytes # Bld Auto 3.0 1.5-5.0 Neutrophils # Bld Auto 05/16/2021 N2N/Direct CCD Im port Neutrophils # Bld Auto 7.1 1.5-8.5 nRBC/100 WBC Bld Auto-Rto 05/16/2021 N2N/Direct CCD Import nRBC/100 WBC Bld Auto-Rto 0.0 0-0 Imm Granulocytes/leuk NFr Bld Auto 05/16/2021 N2N/D irect CCD Import Imm Granulocytes/leuk NFr Bld Auto 0.3 0-3.0 Eosinophil/leuk NFr Bld Auto 05/16/2021 N2N/Direct CCD Import Eosinophil/leuk NFr Bld Auto 1.7 0.0-3.0 Basophils/leuk NFr Bld Auto 05/16/2021 N2N/Direct C CD Import Basophils/leuk NFr Bld Auto 0.5 0.0-1.0 Monocytes/leuk NFr Bld Auto 05/16/2021 N2N/Direct C CD Import Monocytes/leuk NFr Bld Auto 7.1 2.0-8.0 Blood neutrophils automated count (number/volume) 05/16/2021 N2N/Direct CCD Import Blood neutrophils automated count (number/volume) 64.0 36.0-66.0 Automated erythrocyte distribution width ratio 05/16/2021 N2N/Direct CCD Import Automated erythrocyte distribution width ratio 12.9 11.5-14.5 Automated erythrocyte mean corpuscular hemoglobin 05/16/2021 N2N/Direct CCD Import Automated erythrocyte mean corpuscular h emoglobin concentration measurement (mass/volume) 32.3 32.0-36.5 Platelet # Bld Auto 05/16/2021 N2N/Direct CCD Impor t Platelet # Bld Auto 359 150-450 MCH RBC Qn Auto 05/16/2021 N2N/Direct CCD Impor t MCH RBC Qn Auto 29.3 27.0-33.0 MCV RBC Auto 05/16/2021 N2N/Direct CCD Impor t MCV RBC Auto 90.8 80.0-96.0 Hct VFr Bld Auto 05/16/2021 N2N/Direct CCD Impor t Hct VFr Bld Auto 38.4 36.0-47.0 Hgb Bld-mCnc 05/16/2021 N2N/Direct CCD Impor t Hgb Bld-mCnc 12.4 12.0-15.5 WBC # Bld Auto 05/16/2021 N2N/Direct CCD Impor t WBC # Bld Auto 11.2 4.0-10.0 Metabolic Panel (14), Comprehensive 03/09/2021 [facility] [place] Glucose 87 mg/dL 65-99 1 BUN 16 mg/dL 6-24 Creatinine 0.71 mg/dL 0.57-1.00 eGFR If NonAfricn Am 96 mL/min/1.73 >59 eGFR If Africn Am 111 mL/min/1.73 >59 BUN/Creatinine Ratio 23 9-23 Sodium 140 mmol/L 134-144 Potassium 4.3 mmol/L 3.5-5.2 Chloride 106 mmol/L 96-106 Carbon Dioxide, Total 21 mmol/L 20-29 Calcium 9.8 mg/dL 8.7-10.2 Protein, Total 7.0 g/dL 6.0-8.5 Albumin 4.3 g/dL 3.8-4.9 Globulin, Total 2.7 g/dL 1.5-4.5 A/G Ratio 1.6 1.2-2.2 Bilirubin, Total 0.2 mg/dL 0.0-1.2 Alkaline Phosphatase 70 IU/L 39-117 Ast (Sgot) 25 IU/L 0-40 Alt (SGPT) 15 IU/L 0-32 CBC, Platelet, No Differential 03/09/2021 [facility] [place] WBC 10.6 x10E3/uL 3.4-10.8 RBC 4.12 x10E6/uL 3.77-5.28 Hemoglobin 12.4 g/dL 11.1-15.9 Hematocrit 38.7 % 34.0-46.6 MCV 94 fL 79-97 MCH 30.1 pg 26.6-33.0 MCHC 32.0 g/dL 31.5-35.7 RDW 14.0 % 11.7-15.4 Platelets 414 x10E3/uL 150-450 NRBC TNP Laboratory test finding 03/09/2021 [facility] [place] PDF [id number] SEE IMAGE 1 A courtesy copy of this repo rt has been sent to the patient Procedures Date Code Description Status 08/23/2021 11121 Office/Outpatient Established Mo d MDM 30-39 Min Completed 08/23/2021 69236 ECG 12-Lead Completed 07/26/2021 05942 Smoking & Tobacco Ce ssation Counseling Visit Intermediate 3-10Min Completed 07/26/2021 19341 Office/Outpatient Established Mo d MDM 30-39 Min Completed 07/26/2021 37384 ECG 12-Lead Completed Medical Devices Description No Information Available Encounters Type Date Location Provider Dx Diagnosis Office Visit 08/23/2021 3:30p Main Office ELISA Giles I25 .10 Athscl heart disease of [place] coronary artery w/o ang pctrs I50.32 Chronic diastolic (congestiv e) heart failure I11.0 Hypertensive heart disease w ith heart failure I34.0 Nonrheumatic mitral (valve) insufficiency E78.01 Familial hypercholesterolemi a I65.29 Occlusion and stenosis of un specified carotid artery F17.210 Nicotine dependence, cigaret slick, uncomplicated R94.31 Abnormal electrocardiogram [ ECG] [EKG] Z71.3 Dietary counseling and surve illance Assessments Date Code Description Provider 08/23/2021 I25.10 Atherosclerotic hear t disease of [place] coronary artery without angina pectoris ELISA Giles 08/23/2021 I50.32 Chronic diastolic (congestive) h eart failure ELISA Giles 08/23/2021 I11.0 Hypertensive heart disease with heart failure ELISA Giles 08/23/2021 I34.0 Nonrheumatic mitral (valve) insu fficiency ELISA Giles 08/23/2021 E78.01 Familial hypercholesterolemia Ca ELISA Zavaleta 08/23/2021 I65.29 Occlusion and stenosis of unspec ified carotid artery ELISA Giles 08/23/2021 F17.210 Nicotine dependence, cigarettes, uncomplicated ELISA Giles 08/23/2021 R94.31 Abnormal electrocardiogram [ECG] [EKG] ELISA Giles 08/23/2021 Z71.3 Dietary counseling and surveilla nce ELISA Giles 07/26/2021 I25.10 Atherosclerotic hear t disease of [place] coronary artery without angina pectoris ELISA Giles 07/26/2021 I50.32 Chronic diastolic (congestive) h eart failure ELISA Giles 07/26/2021 I11.0 Hypertensive heart disease with heart failure ELISA Giles 07/26/2021 I34.0 Nonrheumatic mitral (valve) insu fficiency ELISA Giles 07/26/2021 E78.01 Familial hypercholesterolemia Ca ELISA Zavaleta 07/26/2021 F17.210 Nicotine dependence, cigarettes, uncomplicated ELISA Giles 07/26/2021 R94.31 Abnormal electrocardiogram [ECG] [EKG] ELISA Giles 07/26/2021 Z71.3 Dietary counseling and surveilla nce ELISA Giles Plan of Treatment Future Appointment(s):* 02/20/2022 3:00 pm - ELISA Giles at Main Office * 11/16/2021 2:00 pm - ECHO at Main Office 08/23/2021 - ELISA Giles* I25.10 Atherosclerotic heart disease of [place] coronary artery without angina pectoris* New Labs:* CMP & CBC, Ordered: 08/23/21 * Lipid Profile/Cardiac Risk Pro, Ordered: 08/23/21 * Recommendations:* Continue aspirin, clopidogrel, ezetimibe, fenofibrate, losartan, Praluent, and rosuvastatin at the current dosages Advised patient if she does develop chest pain please report to the emergency department * I50.32 Chronic diastolic (congestive) heart failure* New Xrays:* US Echocardiogram Transthoracic W Doppler And Color Flow, Ordered: 08/23/21 * Recommendations:* Continue furosemide and losartan at the current dosages Please alert our office with a weight gain of more than 3 pounds, onset of shortness of breath, or lower extremity edema * I11.0 Hypertensive heart disease with heart failure* Recommendations:* Continue losartan and furosemide at the current dosages Advised patient to monitor blood pressures at home and to alert our office with readings >140/>90 * I34.0 Nonrheumatic mitral (valve) insufficiency* Recommendations:* Repeat echocardiogram ordered for further evaluation * E78.01 Familial hypercholesterolemia* Recommendations:* Please obtain fasting labs Continue medications at the current dosages, no changes made today * I65.29 Occlusion and stenosis of unspecified carotid artery* New Xrays:* US Duplex Doppler Carotid Arteries Bilateral, Ordered: 08/23/21 * Recommendations:* Carotid US ordered for further evaluation * F17.210 Nicotine dependence, cigarettes, uncomplicated* Recommendations:* Encouraged continued smoking cessation * R94.31 Abnormal electrocardiogram [ECG] [EKG]* Recommendations:* No further evaluation is needed at this time. * Z71.3 Dietary counseling and surveillance* Recommendations:* Recommended for patient to follow a more whole food diet. Advised patient to avoid overly processed foods and packaged foods. Advised patient to avoid sodas, juices and other liquid calories. Recommended at least 30 minutes of exercise 3 days a week. * All * Follow up:* Follow up in 6 months Functional Status Functional Condition Comment Date Status Independent with all ADL's Activ e Mental Status Description No Information Available Referrals Description No Information Available
--- OUTSIDE RECORDS SUMMARY | 2021-09-29 08:10 | CCD | Continuity of Care Document ---
Author Author Suha ELKINS POSTAL SUPERINTENDENT Organization Unknown Address [address] [place] [address] Phone [phone] Care Team Providers Care Inventory Control Planner Name Role Phone [facility] Dermatology - Dermatology AUT[facility] - Hearing Aid Equipment AUTM [phone] [facility] - Cardiovascular Disease AUTM [phone] [facility] AUTM [phone] [facility] General Surgery Practice - Surgery AUTM [phone] Problems Active Problems Provider Date Mixed hyperlipidemia [...] Yes Smoke Alarms Carbon Monoxide Detector: Yes Allergies, Adverse Reactions, Alerts Active Allergies Criticality [...] nausea 30tabs R19.7 Donita Elkins FNP 07/02/2020 Praluent 150mg/ml Solution Auto-In ject inject every 2 weeks into thigh region Unknown Nitroglycerin 0.4mg Tablets Sub place 1 tablet [...] for muscle spasm 30tabs Donita Elkins FNP Trintellix 20mg Tablets 1 by mouth every day 90tabs Donita Elkins FNP History Medications Advair Diskus 250-50mcg/Dose Aeros ol 1 puff twice a day 60units R06.02 Donita Elkins POSTAL SUPERINTENDENT 03/30/2021 - 08/23/2021 Ambien 10mg Tablets one tab at at bedtime as needed sleep 30tabs G47.00 Donita Elkins POSTAL SUPERINTENDENT 03/09/2021 - 08/23/2021 Ramelteon 8mg Tablets one po at hs prn for sleep 30tabs G47.00 Donita Elkins POSTAL SUPERINTENDENT 02/22/2021 - 03/09/2021 Immunizations CPT Code Status Date Vaccine Lot # [id number] Given 08/23/2021 Influenza Virus Vaccine, Camron drivalent,multidose vial [id number] Given 01/31/2021 Covid-19 Jb & Jb 02806 Given 09/30/2020 Influenza Virus Vaccine, Camron drivalent,multidose vial [id number] Vital Signs Date Vital Result Comment 08/23/2021 2:14pm BP Systolic 148 mmHg BP Diastolic 71 mmHg Heart Rate 50 /min Body Temperature 97.4 F Respiratory Rate 14 /min Height 61.75 inches 5'1.75" Weight 147.38 lb Peak Expiratory Flow Rate 325 Estimated Peak Flow Rate [place] Body Weight 105 lb BMI (Body Mass Index) 27.2 kg/m2 07/21/2021 11:14am BP Systolic 138 mmHg BP Diastolic 76 mmHg Heart Rate 47 /min Body Temperature 97.8 F Respiratory Rate 16 /min Height 61.75 inches 5'1.75" Weight 146.25 lb O2 % BldC Oximetry 98 % Peak Expiratory Flow Rate 325 Estimated Peak Flow Rate [place] Body Weight 105 lb BMI (Body Mass Index) 27.0 kg/m2 Results Test Acquired Date Facility Test Result H/L Range Note Coronavirus 2019 Nasopharygeal 08/13/2021 Patient [address] [place], [place] [id number] [phone] Coronavirus 2019 Nasopharygeal ASSAY INFORMATIO <SEE N OTE> 1 Coronavirus 2019 Nasopharygeal 07/22/2021 Patient S [place], [place] [id number] [phone] Coronavirus 2019 Nasopharygeal ASSAY INFORMATIO <SEE N OTE> 2 Laboratory test finding 07/17/2021 [facility] [place] [address] [phone] iSTAT Troponin 0.02 NG/ML Normal 0.00-0.08 CBC With Differential 07/17/2021 [place] [address] [phone] White Blood Count 9.1 10 Normal 4.0-10.0 [...] 36.0-66.0 Lymph % 46.5 % High 24.0-44.0 Bandera % 9.0 % High 2.0-8.0 Eos % 3.0 % Normal 0.0-3.0 Baso % 0.8 % Normal 0.0-1.0 Immature Granulocyte % 0.1 % Normal 0-3.0 Nucleated Red Blood Cell % 0.0 % Normal 0-0 Neutrophils # 3.7 10 Normal 1.5-8.5 Lymph # 4.2 10 Normal 1.5-5.0 Bandera # 0.8 10 Normal 0.0-0.8 Eos # 0.3 10 Normal 0.0-0.5 Baso # 0.1 10 Normal 0.0-0.2 Basic Metabolic Profile 07/17/2021 [facility] [place] [address] [phone] Glucose, Fasting 93 mg/dL Normal 70-100 Blood Urea Nitrogen 15 mg/dL Normal 7-18 Creatinine For GFR 0.72 mg/dL Normal 0.55-1.30 Glomerular Filtration Rate > 60.0 Normal >51 3 Sodium Level 141 mEq/L Normal 136-145 Potassium Serum 3.8 mEq/L Normal 3.5-5.1 Chloride Level 112 mEq/L High 98-107 Carbon Dioxide Level 24 mEq/L Normal 21-32 Anion Gap 5 mEq/L Low 8-16 Calcium Level 8.8 mg/dL Normal 8.5-10.1 PT & Aptt 07/17/2021 Patient Service [place] [id number] [phone] Prothrombin Time 13.4 seconds Normal 12.7-14.5 Inr 0.98 Normal 4 Partial Thromboplastin Time 27.8 seconds Normal 25.9-37.0 Laboratory test finding 07/17/2021 [facility] [place] [address] [phone] iSTAT Troponin 0.01 NG/ML Normal 0.00-0.08 Laboratory test finding 06/13/2021 [facility] [phone] H Pylori Serum Quant Iga <9.0 units Normal 0.0-8.9 5 H Pylori Serum Quant IgG Anh 0.45 Normal 0.00-0.79 6 H Pylori Serum Quant Igm <9.0 units Normal 0.0-8.9 7 Comprehensive Metabolic Profil 06/13/2021 [facility] [phone] Glucose, Fasting 94 mg/dL Normal 70-100 Blood Urea Nitrogen 16 mg/dL Normal 7-18 Creatinine For GFR 0.78 mg/dL Normal 0.55-1.30 Glomerular Filtration Rate > 60.0 Normal >51 8 Sodium Level 141 mEq/L Normal 136-145 Potassium [...] Normal 3.2-5.2 Albumin/Globulin Ratio 1.2 Normal 1.2-2.2 CBC With Differential 06/13/2021 [facility] [phone] White Blood Count 8.0 10 Normal 4.0-10.0 [...] 36.0-66.0 Lymph % 44.3 % High 24.0-44.0 Bandera % 8.5 % High 2.0-8.0 Eos % 1.4 % Normal 0.0-3.0 Baso % 0.7 % Normal 0.0-1.0 Immature Granulocyte % 0.1 % Normal 0-3.0 Nucleated Red Blood Cell % 0.0 % Normal 0-0 Neutrophils # 3.6 10 Normal 1.5-8.5 Lymph # 3.6 10 Normal 1.5-5.0 Bandera # 0.7 10 Normal 0.0-0.8 Eos # 0.1 10 Normal 0.0-0.5 Baso # 0.1 10 Normal 0.0-0.2 Laboratory test finding 06/13/2021 [facility] [phone] Lipase 82 U/L Normal 73-393 Istat PT/Inr 05/16/2021 [place] [address] [phone] iSTAT Protime Seconds 15.3 seconds High 12.1-14. 4 iSTAT Inr 1.3 Normal Basic Metabolic Profile 05/16/2021 [facility] [place] [address] [phone] Glucose, Fasting 106 mg/dL High 70-100 Blood Urea Nitrogen 14 mg/dL Normal 7-18 Creatinine For GFR 0.62 mg/dL Normal 0.55-1.30 Glomerular Filtration Rate > 60.0 Normal >51 9 Sodium Level 142 mEq/L Normal 136-145 Potassium Serum 4.3 mEq/L Normal 3.5-5.1 10 Chloride Level 113 mEq/L High 98-107 Carbon Dioxide Level 22 mEq/L Normal 21-32 Anion Gap 7 mEq/L Low 8-16 Calcium Level 9.2 mg/dL Normal 8.5-10.1 CBC With Differential 05/16/2021 [place] [address] [phone] White Blood Count 11.2 10 High 4.0-10.0 [...] 36.0-66.0 Lymph % 26.4 % Normal 24.0-44.0 Bandera % 7.1 % Normal 2.0-8.0 Eos % 1.7 % Normal 0.0-3.0 Baso % 0.5 % Normal 0.0-1.0 Immature Granulocyte % 0.3 % Normal 0-3.0 Nucleated Red Blood Cell % 0.0 % Normal 0-0 Neutrophils # 7.1 10 Normal 1.5-8.5 Lymph # 3.0 10 Normal 1.5-5.0 Bandera # 0.8 10 Normal 0.0-0.8 Eos # 0.2 10 Normal 0.0-0.5 Baso # 0.1 10 Normal 0.0-0.2 Laboratory test finding 05/16/2021 [place] [address] [phone] iSTAT Troponin 0.00 NG/ML Normal 0.00-0.08 Laboratory test finding 05/16/2021 [facility] [place], [place] [id number] [phone] iSTAT Troponin 0.00 NG/ML Normal 0.00-0.08 CBC With Differential 03/30/2021 [facility] [phone] White Blood Count 7.9 10 Normal 4.0-10.0 [...] 36.0-66.0 Lymph % 38.1 % Normal 24.0-44.0 Bandera % 6.1 % Normal 2.0-8.0 Eos % 3.2 % High 0.0-3.0 Baso % 0.8 % Normal 0.0-1.0 Immature Granulocyte % 0.3 % Normal 0-3.0 Nucleated Red Blood Cell % 0.0 % Normal 0-0 Neutrophils # 4.1 10 Normal 1.5-8.5 Lymph # 3.0 10 Normal 1.5-5.0 Bandera # 0.5 10 Normal 0.0-0.8 Eos # 0.3 10 Normal 0.0-0.5 Baso # 0.1 10 Normal 0.0-0.2 Vitamin B12 & Folate 03/30/2021 [facility] enter [phone] Vitamin B12 Level 998 pg/mL Normal 11 Folate 20.3 NG/ML Normal 12 CBC With Differential 03/09/2021 [facility] [address] [place] [address] [phone] WBC 10.6 x10E3/uL 3.4-10.8 RBC 4.38 x10E6/uL 3.77-5.28 Hemoglobin 12.4 g/dL 11.1-15.9 Hematocrit 39.7 % 34.0-46.6 MCV 91 fL 79-97 MCH 28.3 pg 26.6-33.0 MCHC 31.2 g/dL Low 31.5-35.7 RDW 13.4 % 11.7-15.4 Platelets 442 x10E3/uL 150-450 Neutrophils 59 % Not Estab. Lymphs 32 % Not Estab. Monocytes 6 % Not Estab. Eos 2 % Not Estab. Basos 1 % Not Estab. Immature Cells TNP Neutrophils (Absolute) 6.3 x10E3/uL 1.4-7.0 Lymphs (Absolute) 3.4 x10E3/uL High 0.7-3.1 Monocytes(Absolute) 0.6 x10E3/uL 0.1-0.9 Eos (Absolute) 0.2 x10E3/uL 0.0-0.4 Baso (Absolute) 0.1 x10E3/uL 0.0-0.2 Immature Granulocytes 0 % Not Estab. Immature Grans (Abs) 0.0 x10E3/uL 0.0-0.1 NRBC TNP Hematology Comments: TNP Laboratory test finding 03/09/2021 [facility] [address] [place], [place] [address] [phone] Lipase 36 U/L 14-72 Amylase 43 U/L 31-110 Metabolic Panel (14), Comprehensive 03/09/2021 [facility] [address] [place], [place] [address] [phone] Sodium 141 mmol/L 134-144 Potassium 4.3 mmol/L 3.5-5.2 Chloride 107 mmol/L High 96-106 Glucose 90 mg/dL 65-99 BUN 17 mg/dL 6-24 Creatinine 0.61 mg/dL 0.57-1.00 eGFR If NonAfricn Am 102 mL/min/1.73 >59 eGFR If Africn Am 118 mL/min/1.73 >59 BUN/Creatinine Ratio 28 High 9-23 Carbon Dioxide, Total 21 mmol/L 20-29 Calcium 9.8 mg/dL 8.7-10.2 Protein, Total 7.1 g/dL 6.0-8.5 Albumin 4.6 g/dL 3.8-4.9 Globulin, Total 2.5 g/dL 1.5-4.5 A/G Ratio 1.8 1.2-2.2 Bilirubin, Total 0.2 mg/dL 0.0-1.2 Alkaline Phosphatase 73 IU/L 39-117 Ast (Sgot) 25 IU/L 0-40 Alt (SGPT) 16 IU/L 0-32 1 ASSAY INFORMATION: Real Time RT-PCR NOTE: The COVID-19 assay has been cleared by the U.S. Food and Drug Administration under the Emergency Use Authorization (EUA). t3n [employer] [facility] [employer] are designated as high complexity laboratories by the Clinical Laboratory Improvement Amendments of 1988(CLIA) and are qualified to perform this test. Not Detected 2 ASSAY INFORMATION: Real Time RT-PCR NOTE: The COVID-19 assay has been cleared by the U.S. Food and Drug Administration under the Emergency Use Authorization (EUA). t3n [employer] and [employer] are designated as high complexity laboratories by the Clinical Laboratory Improvement Amendments of 1988(CLIA) and are qualified to perform this test. Not Detected 3 Units are mL/min/1.73 m2 Chronic Kidney Disease Staging per NKF: Stage I & II GFR >=60 Normal to Mildly Decreased Stage III GFR 30-59 Moderately Decreased Stage IV GFR 15-29 Severely Decreased Stage V GFR <15 Very Little GFR Left ESRD GFR <15 on FUND RAISER 4 THERAPUTIC HUMAN INR VALUES INDICATIONS NORMAL RANGES PROPHYLAXIS/TREATMENT OF: VENOUS THROMBOSIS 2.0-3.0 PULMONARY EMBOLISM 2.0-3.0 PREVENTION OF SYSTEMIC EMBOLISM FROM: TISSUE HEART VALVES 2.0-3.0 ACUTE MYOCARDIAL INFARCTION 2.0-3.0 VALVULAR HEART DISEASE 2.0-3.0 ATRIAL FIBRILLATION 2.0-3.0 MECHANICAL VALVES(HIGH RISK) 2.5-3.5 RECURRENT MYOCARDIAL INFARCTION 2.5-3.5 5 Negative <9.0 Equivocal 9.0 - 11.0 Positive >11.0 6 Result Units: Index Value Negative <0.80 Equivocal 0.80 - 0.89 Positive >0.89 7 Negative <9.0 Equivocal 9.0 - 11.0 Positive >11.0 . . This test was developed and its performance characteristics determined by [employer]. It has not been cleared or approved by the Food and Drug Administration. Performed at: - [facility] [id number] Turf Manager: Antonette Ríos MD, Phone: [phone] Units are mL/min/1.73 m2 Chronic Kidney Disease Staging per NKF: Stage I & II GFR >=60 Normal to Mildly Decreased Stage III GFR 30-59 Moderately Decreased Stage IV GFR 15-29 Severely Decreased Stage V GFR <15 Very Little GFR Left ESRD GFR <15 on FUND RAISER 9 Units are mL/min/1.73 m2 Chronic Kidney Disease Staging per NKF: Stage I & II GFR >=60 Normal to Mildly Decreased Stage III GFR 30-59 Moderately Decreased Stage IV GFR 15-29 Severely Decreased Stage V GFR <15 Very Little GFR Left ESRD GFR <15 on FUND RAISER 10 Testing was performed on a S LIGHTLY hemolyzed specimen. Suggest recollection of specimen for more accurate test results. 11 VITAMIN B12 NORMAL RANGE NORMAL 247 - 911 PG/ML INDETERMINATE 211 - 246 PG/ML DEFICIENT LESS THAN 211 PG/ML 12 FOLATE NORMAL RANGE NORMAL GREATER THAN 5.4 NG/ML INDETERMINATE 3.4-5.4 NG/ML DEFICIENT LESS THAN 3.4 NG/ML Procedures Date Code Description Status 07/21/2021 30358 Office/Outpatient Established Mo d MDM 30-39 Min Completed 06/13/2021 37091 Office/Outpatient Established Mo d MDM 30-39 Min Completed 05/19/2021 18229 Office/Outpatient Established Mo d MDM 30-39 Min Completed 03/30/2021 05873 Office/Outpatient Established Mo d MDM 30-39 Min Completed 03/09/2021 42584 Office/Outpatient Established Mo d MDM 30-39 Min Completed 02/22/2021 19718 Trans Care SRV Aft DC W/I 14D, C omm W/I 2 Dys Med Decs Completed Medical Devices Description No Information Available Encounters Type Date Location Provider Dx Diagnosis Office Visit 07/21/2021 11:15a Main Office Donita Elkins FNP Z01.8 18 Encounter for other preprocedural examination K21.9 Gastro-esophageal reflux dis ease without esophagitis F41.1 Generalized anxiety disorder I50.32 Chronic diastolic (congestiv e) heart failure E78.2 Mixed hyperlipidemia 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 Office Visit 06/13/2021 11:45a Main Office Pleskach, Donita, POSTAL SUPERINTENDENT R10.1 3 Epigastric pain Office Visit 05/19/2021 11:15a Main Office Donita Elkins, POSTAL SUPERINTENDENT K21.9 Gastro- esophageal reflux disease without esophagitis F41.1 Generalized anxiety disorder I50.32 Chronic diastolic (congestiv e) heart failure E78.2 Mixed hyperlipidemia 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 [facility] Office Visit 03/30/2021 9:30a Main Office Donita Elkins, POSTAL SUPERINTENDENT D48.5 Neoplasm of uncertain behavior of skin R06.02 Shortness of breath D51.9 Vitamin B12 deficiency anemi a, unspecified Office Visit 03/09/2021 10:00a Main Office Donita Elkins POSTAL SUPERINTENDENT G47.0 0 Insomnia, unspecified Office Visit 02/22/2021 1:15p Main Office Donita Elkins, POSTAL SUPERINTENDENT R11.0 Nausea R11.0 Nausea 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 E78.2 Mixed hyperlipidemia E78.2 Mixed hyperlipidemia I50.32 Chronic diastolic (congestiv e) heart failure I50.32 Chronic diastolic (congestiv e) heart failure F41.1 Generalized anxiety disorder F41.1 Generalized anxiety disorder F17.210 Nicotine dependence, cigaret slick, uncomplicated F17.210 Nicotine dependence, cigaret slick, uncomplicated G47.00 Insomnia, unspecified G47.00 Insomnia, unspecified Z13.89 Encounter for screening for other disorder Assessments Date Code Description Provider 08/23/2021 K58.0 Irritable bowel syndrome with di arrhea Donita Elkins FNP 08/23/2021 K21.9 Gastro-esophageal reflux disease without esophagitis Donita Elkins FNP 07/21/2021 Z01.818 Encounter for other preprocedura l examination Donita Elkins FNP 07/21/2021 K21.9 Gastro-esophageal reflux disease without esophagitis Donita Elkins FNP 07/21/2021 F41.1 Generalized anxiety disorder Donita Kohli FNP 07/21/2021 I50.32 Chronic diastolic (congestive) h eart failure Pleskach, Donita, POSTAL SUPERINTENDENT 07/21/2021 E78.2 Mixed hyperlipidemia Pleskach, M velma, POSTAL SUPERINTENDENT 07/21/2021 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 Pleskach, Donita, POSTAL SUPERINTENDENT 06/13/2021 R10.13 Epigastric pain Pleskach, Donita, POSTAL SUPERINTENDENT 05/19/2021 K21.9 Gastro-esophageal reflux disease without esophagitis Pleskach, Donita, POSTAL SUPERINTENDENT 05/19/2021 F41.1 Generalized anxiety disorder Ple skach, Donita, POSTAL SUPERINTENDENT 05/19/2021 I50.32 Chronic diastolic (congestive) h eart failure Pleskach, Donita, POSTAL SUPERINTENDENT 05/19/2021 E78.2 Mixed hyperlipidemia Pleskach, M velma, POSTAL SUPERINTENDENT 05/19/2021 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 Pleskach, Donita, POSTAL SUPERINTENDENT 03/30/2021 D48.5 Neoplasm of uncertain behavior o f skin Pleskach, Donita, [facility] 03/30/2021 R06.02 Shortness of breath Pleskach, Mo lly, [facility] 03/30/2021 D51.9 Vitamin B12 deficiency anemia, u nspecified Pleskach, Donita, POSTAL SUPERINTENDENT 03/09/2021 G47.00 Insomnia, unspecified Pleskach, Donita, POSTAL SUPERINTENDENT 02/22/2021 R11.0 Nausea Pleskach, Donita, POSTAL SUPERINTENDENT 02/22/2021 R11.0 Nausea Pleskach, Donita, POSTAL SUPERINTENDENT 02/22/2021 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 Pleskach, Donita, POSTAL SUPERINTENDENT 02/22/2021 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 Pleskach, Donita, POSTAL SUPERINTENDENT 02/22/2021 E78.2 Mixed hyperlipidemia Pleskach, M velma, POSTAL SUPERINTENDENT 02/22/2021 E78.2 Mixed hyperlipidemia Pleskach, M velma, POSTAL SUPERINTENDENT 02/22/2021 I50.32 Chronic diastolic (congestive) h eart failure Pleskach, Donita, POSTAL SUPERINTENDENT 02/22/2021 I50.32 Chronic diastolic (congestive) h eart failure Pleskach, Donita, POSTAL SUPERINTENDENT 02/22/2021 F41.1 Generalized anxiety disorder Ple skach, Donita, POSTAL SUPERINTENDENT 02/22/2021 F41.1 Generalized anxiety disorder Ple skach, Donita, POSTAL SUPERINTENDENT 02/22/2021 F17.210 Nicotine dependence, cigarettes, uncomplicated Pleskach, Donita, POSTAL SUPERINTENDENT 02/22/2021 F17.210 Nicotine dependence, cigarettes, uncomplicated Pleskach, Donita, POSTAL SUPERINTENDENT 02/22/2021 G47.00 Insomnia, unspecified Pleskach, Donita, POSTAL SUPERINTENDENT 02/22/2021 G47.00 Insomnia, unspecified Pleskach, Donita, POSTAL SUPERINTENDENT 02/22/2021 Z13.89 Encounter for screening for othe r disorder Donita Elkins FNP Plan of Treatment 08/23/2021 - Donita Elkins FNP* K58.0 Irritable bowel syndrome with diarrhea * Comments:* refer to GI * K21.9 Gastro-esophageal reflux disease without esophagitis * All * New Medication:* Zolpidem Tartrate [...] Dr Reason for Referral Status Appt Date [facility] General Surgery Practice Patient needs EGD f or epigastric pain, Please scheduled art as patient is in a lot of discomfort. Thank you. Closed 06/28/2021 [address] [facility], [address] [place] [address] [phone] [facility] Dermatology Please evaluate red spot on the side of her nose that was the site of a previous biopsy showing precancerous cells. Thank you. Closed 06/01/2021 [facility] Dermat[facility] [address] [facility] [place] [address] [phone]
--- OUTSIDE RECORDS SUMMARY | 2021-09-29 08:10 | CCD ---
Author Author [facility] Organization [facility] Address Unknown Phone Unavailable Care Team Providers Care [employer] Name Role Phone Demarco, Catie Unavailable PROBLEMS Type Condition ICD9-CM Code [id number] Code Onset Dates Condition S tatus W/U Status Risk SNOMED Code Notes Problem Solar lentigo L81.4 Active confirmed 791434 02 Problem Seborrheic keratosis L82.1 Active confirmed 973207955 Problem Melanocytic nevus of skin D22.9 Active confirmed 469395883 Problem Skin cancer screening Z12.83 Active confirmed 224200247 Problem Neoplasm of uncertain behavior of skin D48.5 A ctive confirmed 43686065 Problem Hair loss L65.9 Active confirmed 645179056 Problem Hx of actinic keratosis Z87.2 Active confirmed 6336909012563 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 88986 01 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 39 855333 Problem Dermatofibroma D23.9 Active confirmed 77381 6000 ALLERGIES Allergen (clinical drug ingredient) Drug/Non Drug Allergy do cumented on EMR Reaction Allergy Type Onset Date Status carbamazepine Epitol([facility] Code:[address]-33) Hives Drug Allergy Active ENCOUNTERS from 1965 to 2021-09-12 Encounter Location Date Provider Diagnosis [facility] Dermatology [address] [place] [address] [place] [address] 13 Aug, 2021 Catie Pal Skin cancer screening Z12.83 ; 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 3-6 months REASON FOR REFERRAL No Information VITAL SIGNS Weight 150.6 lbs Aug, Weight-kg 68.31 kg Aug, Height 61 in Aug, BMI 28.45 kg/m2 Aug, Blood pressure systolic 120 mm Hg Aug, Blood pressure diastolic 68 mm Hg Aug, MEDICATIONS Medication SIG (Take, Route, Frequency, Duration) Notes Start Da te End Date Status Colesevelam HCl 625 MG 3 tablets with meals Orally Twice a day f or 30 day(s) Active Fluorouracil 5 % 1 application Externally Twi ce a day to area on right nose for 14 days May, Active Furosemide 20 MG 1 tablet Orally BID Active Praluent 150 MG/ML as directed Subcutaneous Once every 2 weeks Active Carvedilol 3.125 MG 1 tablet with food Orally Twice a day for 30 day( s) Active Plavix 75 MG 1 tablet Orally Once a day for 30 day(s) Active Losartan Potassium 25 MG 1 tablet Orally Once a day for 30 day(s) Active Ezetimibe 10 MG 1 tablet Orally Once a day for 30 day(s) Active Rosuvastatin Calcium 40 MG 1 tablet Orally QHS Active Gabapentin 100 MG 1 capsule Orally Once a day for 30 day(s) Active DULoxetine HCl 60 MG 1 capsule Orally Once a day Active Cyclobenzaprine HCl 5 MG 1 tablet Orally TID PRN Active PROCEDURES No Information RESULTS Component Value Reference Range CBC with Differential Reviewed date:09/08/2021 08:16:13 Interpretation: Performing Lab:[facility], [facility] [address] [id number] , ,[place] [address] WHITE BLOOD COUNT 6.8 4.0-10.0 RED BLOOD COUNT 4.05 4.00-5.40 HEMOGLOBIN 11.8 12.0-15.5 HEMATOCRIT 37.5 36.0-47.0 MEAN CORPUSCULAR VOLUME 92.6 80.0-96.0 MEAN CORPUSCULAR HEMOGLOBIN 29.1 27.0-33.0 MEAN CORPUSCULAR HGB CONC 31.5 32.0-36.5 RED CELL DISTRIBUTION WIDTH 13.2 11.5-14.5 PLATELET COUNT, AUTOMATED 382 150-450 NEUTROPHILS % 48.3 36.0-66.0 LYMPH % 41.2 24.0-44.0 MONO % 6.2 2.0-8.0 EOS % 3.1 0.0-3.0 BASO % 0.9 0.0-1.0 NEUTROPHILS # 3.3 1.5-8.5 LYMPH # 2.8 1.5-5.0 MONO # 0.4 0.0-0.8 EOS # 0.2 0.0-0.5 BASO # 0.1 0.0-0.2 FREE T4 & TSH PANEL Reviewed date:09/08/2021 08:43:39 Interpretation: Performing Lab:[facility], [facility] [address] [address] , ,[place] [address] THYROID STIMULATING HORMONE 1.340 0.358-3.740 FREE T4 0.95 0.76-1.46 OLEG TITER & PATTERN Reviewed date:09/12/2021 11:39:04 Interpretation: Performing Lab:[facility], [facility] [address] [facility] [address] , ,[place] [address] OLEG (HEP2) Negative . 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 Patient counseled to wear sunscreen or use sun protective clothing when outdoors. Avoid peak hours of sun between 10-2. Patient instructed to call with any new or changing lesions. Aug, Telogen effluvium (ICD-10 - L65.0) Blood work done by PCP a few months ago- patient states all levels are normal. 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 The patient was extensively counseled regarding the benign nature of the lesion but that skin cancer may arise in this area just as it would anywhere on their skin. For that reason, return to clinic was recommended for any acute changes, itching, burning, or bleeding. The patient was educated that benign lesions are not a covered insurance benefit and treatment would be elective and cosmetic. They expressed understanding. Aug, Melanocytic nevus of skin (ICD-10 - D22.9) Reminded to avoid the sun and tanning, use sun screens regularly when spending time [id number], and perform self-examinations monthly to watch for any change in the appearance of your moles. If you notice any changes in color, appearance, symptoms of moles, you should contact the office for an appointment to have change evaluated as soon as possible. Aug, Hx of actinic keratosis (ICD-10 - Z87.2) No evidence of recurrence. PLAN OF TREATMENT Treatment Notes Assessment Notes Clinical Notes Skin cancer screening Patient counseled on signs and symptoms of skin cancer including ABCDE's of Melanoma. Patient counseled to wear sunscreen or use sun protective clothing when outdoors. Avoid peak hours of sun between 10-2. Patient instructed to call with any new or changing lesions. Telogen effluvium Blood work done by P CP a few months ago- patient states all levels are normal. Continue Biotin supplements Singletary angioma Benign, reassurance Dermatofibroma Benign Lesion Counse ling. The patient was extensively counseled regarding the benign nature of the lesion but that skin cancer may arise in this area just as it would anywhere on their skin. For that reason, return to clinic was recommended for any acute changes, itching, burning, or bleeding. The patient was educated that benign lesions are not a covered insurance benefit and treatment would be elective and cosmetic. They expressed understanding. Melanocytic nevus of skin Reminded to av oid the sun and tanning, use sun screens regularly when spending time [id number], and perform self-examinations monthly to watch for any change in the appearance of your moles. If you notice any changes in color, appearance, symptoms of moles, you should contact the office for an appointment to have change evaluated as soon as possible. Hx of actinic keratosis No evidence of r ecurrence. Next Appt Details 1 Year- FBSE; 6 Months- AK recheck + Bg r loss f/u Reason: Provider Name:Catie Pal, 2022-03-08 10:30:00 AM, [address] [place] [address], , [place], [place], [facility], Provider Name:Catie Pal, 2022-09-11 07:30:00 AM, [address] [place] [address], , [place], [place], [facility], Insurance Providers Payer Name Payer Address Payer Phone Insured Name Patient Relati onship to Insured Coverage Start Date Coverage End Date MEDICARE COMPLETE [facility] [address] [address] [facility] [id number] DARBY GORDON self
--- OUTSIDE RECORDS SUMMARY | 2021-09-29 08:10 | CCD | Continuity of Care Document ---
Author Author Suha ELKINS [employer] Organization Unknown Address [address] [place] [address] Phone [phone] Care Team Providers Care Chemist Food Name Role Phone [facility] - Dermatology AUTM [phone] [facility] - [facility] AUTM [phone] [facility]M [facility] - Cardiovascular Disease AUTM [phone] [facility] AUTM [phone] [facility] General Surgery Practice - Surgery AUTM [phone] [facility] Gastro - Gastroenterology AUTM [phone] Problems Active Problems Provider Date Mixed hyperlipidemia [...] twice a day 60units R06.02 Donita Elkins, ORGAN FIXER 03/30/2021 - 08/23/2021 Immunizations CPT Code Status Date Vaccine Lot # [id number] Given 08/23/2021 Influenza Virus Vaccine, Camron drivalent,multidose vial [id number] Given 01/31/2021 Covid-19 [employer] [employer] [place] [id number] Given 09/30/2020 Influenza Virus Vaccine, Camron drivalent,multidose vial [id number] Vital Signs Date Vital Result Comment 08/23/2021 2:14pm BP Systolic 148 mmHg BP Diastolic 71 mmHg Heart Rate 50 /min Body Temperature 97.4 F Respiratory Rate 14 /min Height 61.75 inches 5'1.75" Weight 147.38 lb Peak Expiratory Flow Rate 325 Estimated Peak Flow Rate [place] Body Weight 105 lb BMI (Body Mass Index) 27.2 kg/m2 07/21/2021 11:14am BP Systolic 138 mmHg BP Diastolic 76 mmHg Heart Rate 47 /min Body Temperature 97.8 F Respiratory Rate 16 /min Height 61.75 inches 5'1.75" Weight 146.25 lb O2 % BldC Oximetry 98 % Peak Expiratory Flow Rate 325 Estimated Peak Flow Rate [place] Body Weight 105 lb BMI (Body Mass Index) 27.0 kg/m2 Results Test Acquired Date Facility Test Result H/L Range Note FT4&TSH Panel 09/07/2021 [place] [address] [phone] Thyroid Stimulating Hormone 1.340 uIU/ML Normal 0. 358-3.740 Free T4 0.95 ng/dL Normal 0.76-1.46 Keyla Titer & Pattern 09/07/2021 [place] [address] [phone] Keyla (Hep2) Negative Normal . 1 Complete Blood Count 09/07/2021 [place] [address] [phone] White Blood Count 7.0 10 Normal 4.0-10.0 [...] 0-0 Comprehensive Metabolic Profil 09/07/2021 [place] [address] [phone] Glucose, Fasting 90 mg/dL Normal 70-100 Blood [...] Low 1.2-2.2 Lipid Panel 09/07/2021 [place] [address] [phone] Triglycerides Level 81 mg/dL Normal <150 Cholesterol Level 177 mg/dL Normal <200 HDL Cholesterol 62 mg/dL Normal >40 LDL Cholesterol 99 mg/dL Normal <100 Non-HDL-C 115 mg/dL Normal Cholesterol Risk Ratio 2.854 Normal <5 CBC With Differential 09/07/2021 [place] [address] [phone] White Blood Count 6.8 10 Normal 4.0-10.0 [...] 36.0-66.0 Lymph % 41.2 % Normal 24.0-44.0 Sevier % 6.2 % Normal 2.0-8.0 Eos % 3.1 % High 0.0-3.0 Baso % 0.9 % Normal 0.0-1.0 Immature Granulocyte % 0.3 % Normal 0-3.0 Nucleated Red Blood Cell % 0.0 % Normal 0-0 Neutrophils # 3.3 10 Normal 1.5-8.5 Lymph # 2.8 10 Normal 1.5-5.0 Sevier # 0.4 10 Normal 0.0-0.8 Eos # 0.2 10 Normal 0.0-0.5 Baso # 0.1 10 Normal 0.0-0.2 Coronavirus 2019 Nasopharygeal 08/13/2021 Patient [facility] [address] [phone] Coronavirus 2019 Nasopharygeal ASSAY INFORMATIO <SEE N OTE> 3 Coronavirus 2019 Nasopharygeal 07/22/2021 Patient S [place], [place] [id number] [phone] Coronavirus 2019 Nasopharygeal ASSAY INFORMATIO <SEE N OTE> 4 Laboratory test finding 07/17/2021 [place] [address] [phone] iSTAT Troponin 0.02 NG/ML Normal 0.00-0.08 CBC With Differential 07/17/2021 Patient Service [place], [place] [id number] [phone] White Blood Count 9.1 10 Normal 4.0-10.0 [...] 36.0-66.0 Lymph % 46.5 % High 24.0-44.0 Sevier % 9.0 % High 2.0-8.0 Eos % 3.0 % Normal 0.0-3.0 Baso % 0.8 % Normal 0.0-1.0 Immature Granulocyte % 0.1 % Normal 0-3.0 Nucleated Red Blood Cell % 0.0 % Normal 0-0 Neutrophils # 3.7 10 Normal 1.5-8.5 Lymph # 4.2 10 Normal 1.5-5.0 Sevier # 0.8 10 Normal 0.0-0.8 Eos # 0.3 10 Normal 0.0-0.5 Baso # 0.1 10 Normal 0.0-0.2 Basic Metabolic Profile 07/17/2021 [place] [address] [phone] Glucose, Fasting 93 mg/dL Normal 70-100 Blood [...] & Aptt 07/17/2021 Patient Service [facility] [place] [address] [phone] Prothrombin Time 13.4 seconds Normal 12.7-14.5 Inr 0.98 Normal 6 Partial Thromboplastin Time 27.8 seconds Normal 25.9-37.0 Laboratory test finding 07/17/2021 [place] [address] [phone] iSTAT Troponin 0.01 NG/ML Normal 0.00-0.08 Laboratory test finding 06/13/2021 [facility] [phone] H Pylori Serum Quant Iga <9.0 units Normal 0.0-8.9 7 H Pylori Serum Quant IgG Anh 0.45 Normal 0.00-0.79 8 H Pylori Serum Quant Igm <9.0 units Normal 0.0-8.9 9 Laboratory test finding 06/13/2021 [facility] [phone] Lipase 82 U/L Normal 73-393 CBC With Differential 06/13/2021 [facility] [phone] White Blood Count 8.0 10 Normal 4.0-10.0 [...] 36.0-66.0 Lymph % 44.3 % High 24.0-44.0 Sevier % 8.5 % High 2.0-8.0 Eos % 1.4 % Normal 0.0-3.0 Baso % 0.7 % Normal 0.0-1.0 Immature Granulocyte % 0.1 % Normal 0-3.0 Nucleated Red Blood Cell % 0.0 % Normal 0-0 Neutrophils # 3.6 10 Normal 1.5-8.5 Lymph # 3.6 10 Normal 1.5-5.0 Sevier # 0.7 10 Normal 0.0-0.8 Eos # 0.1 10 Normal 0.0-0.5 Baso # 0.1 10 Normal 0.0-0.2 Comprehensive Metabolic Profil 06/13/2021 [facility] [phone] Glucose, Fasting 94 mg/dL Normal 70-100 Blood [...] Laboratory test finding 05/16/2021 [place] [address] [phone] iSTAT Troponin 0.00 NG/ML Normal 0.00-0.08 Istat PT/Inr 05/16/2021 [place] [address] [phone] iSTAT Protime Seconds 15.3 seconds High 12.1-14. 4 iSTAT Inr 1.3 Normal Laboratory test finding 05/16/2021 [place] [address] [phone] iSTAT Troponin 0.00 NG/ML Normal 0.00-0.08 CBC With Differential 05/16/2021 [place] [address] [phone] White Blood Count 11.2 10 High 4.0-10.0 [...] 36.0-66.0 Lymph % 26.4 % Normal 24.0-44.0 Sevier % 7.1 % Normal 2.0-8.0 Eos % 1.7 % Normal 0.0-3.0 Baso % 0.5 % Normal 0.0-1.0 Immature Granulocyte % 0.3 % Normal 0-3.0 Nucleated Red Blood Cell % 0.0 % Normal 0-0 Neutrophils # 7.1 10 Normal 1.5-8.5 Lymph # 3.0 10 Normal 1.5-5.0 Sevier # 0.8 10 Normal 0.0-0.8 Eos # 0.2 10 Normal 0.0-0.5 Baso # 0.1 10 Normal 0.0-0.2 Basic Metabolic Profile 05/16/2021 [place] [address] [phone] Glucose, Fasting 106 mg/dL High 70-100 Blood [...] mg/dL Normal 8.5-10.1 CBC With Differential 03/30/2021 [facility] [phone] White Blood Count 7.9 10 Normal 4.0-10.0 [...] 36.0-66.0 Lymph % 38.1 % Normal 24.0-44.0 Sevier % 6.1 % Normal 2.0-8.0 Eos % 3.2 % High 0.0-3.0 Baso % 0.8 % Normal 0.0-1.0 Immature Granulocyte % 0.3 % Normal 0-3.0 Nucleated Red Blood Cell % 0.0 % Normal 0-0 Neutrophils # 4.1 10 Normal 1.5-8.5 Lymph # 3.0 10 Normal 1.5-5.0 Sevier # 0.5 10 Normal 0.0-0.8 Eos # 0.3 10 Normal 0.0-0.5 Baso # 0.1 10 Normal 0.0-0.2 Vitamin B12 & Folate 03/30/2021 [facility] enter [phone] Vitamin B12 Level 998 pg/mL Normal 13 Folate 20.3 NG/ML Normal 14 1 Negative <1:80 Borderline 1:80 Positive >1:80 ICAP nomenclature: AC-0 For more information about Hep-2 cell patterns use ANApatterns.org, the official website for the International Consensus on Antinuclear Antibody (KEYLA) Patterns (ICAP). Performed at: RN - [facility] [address] [id number] Zookeeper: Antonette Ríos MD, Phone: [phone] 2 Units are mL/min/1.73 m2 Chronic Kidney Disease Staging per NKF: Stage I & II GFR >=60 Normal to Mildly Decreased Stage III GFR 30-59 Moderately Decreased Stage IV GFR 15-29 Severely Decreased Stage V GFR <15 Very Little GFR Left ESRD GFR <15 on COTTON BALER 3 ASSAY INFORMATION: Real Time RT-PCR NOTE: The COVID-19 assay has been cleared by the U.S. Food and Drug Administration under the Emergency Use Authorization (EUA). [facility] and [facility] are designated as high complexity laboratories by the Clinical Laboratory Improvement Amendments of 1988(CLIA) and are qualified to perform this test. Not Detected 4 ASSAY INFORMATION: Real Time RT-PCR NOTE: The COVID-19 assay has been cleared by the U.S. Food and Drug Administration under the Emergency Use Authorization (EUA). [facility] and [facility] are designated as high complexity laboratories by [...] Little GFR Left ESRD GFR <15 on COTTON BALER 6 THERAPUTIC HUMAN INR VALUES INDICATIONS NORMAL [...] developed and its performance characteristics determined by [facility]. It has not been cleared or approved by the Food and Drug Administration. Performed at: RN - [facility] [address] [id number] Zookeeper: Antonette Ríos MD, Phone: [phone] 10 Units are mL/min/1.73 m2 Chronic Kidney Disease Staging per NKF: Stage I & II GFR >=60 Normal to Mildly Decreased Stage III GFR 30-59 Moderately Decreased Stage IV GFR 15-29 Severely Decreased Stage V GFR <15 Very Little GFR Left ESRD GFR <15 on COTTON BALER 11 Units are mL/min/1.73 m2 Chronic Kidney Disease Staging per NKF: Stage I & II GFR >=60 Normal to Mildly Decreased Stage III GFR 30-59 Moderately Decreased Stage IV GFR 15-29 Severely Decreased Stage V GFR <15 Very Little GFR Left ESRD GFR <15 on COTTON BALER 12 Testing was performed on a S LIGHTLY hemolyzed specimen. Suggest recollection of specimen for more accurate test results. 13 VITAMIN B12 NORMAL RANGE NORMAL 247 - 911 PG/ML INDETERMINATE 211 - 246 PG/ML DEFICIENT LESS THAN 211 PG/ML 14 FOLATE NORMAL RANGE NORMAL GREATER THAN 5.4 NG/ML INDETERMINATE 3.4-5.4 NG/ML DEFICIENT LESS THAN 3.4 NG/ML Procedures Date Code Description Status 08/23/2021 43584 Office/Outpatient Established Lo w MDM 20-29 Min Completed 07/21/2021 48097 Office/Outpatient Established Mo d MDM 30-39 Min Completed 06/13/2021 79226 Office/Outpatient Established Mo d MDM 30-39 Min Completed 05/19/2021 47594 Office/Outpatient Established Mo d MDM 30-39 Min Completed 03/30/2021 31215 Office/Outpatient Established Mo d MDM 30-39 Min [...] Visit 03/30/2021 9:30a Main Office Donita Elkins, [employer]ER D48.5 Neoplasm of uncertain behavior of skin R06.02 Shortness of breath D51.9 Vitamin B12 deficiency anemi a, unspecified Assessments Date Code Description Provider 08/23/2021 K58.0 Irritable bowel syndrome with di arrhea Donita Elkins, [facility] 08/23/2021 K21.9 Gastro-esophageal reflux disease without esophagitis Donita Eklins, [facility] 08/23/2021 Z23 Encounter for immunization Donita Solorio, [facility] 07/21/2021 Z01.818 Encounter for other preprocedura l examination Donita Elkins, [facility] 07/21/2021 K21.9 Gastro-esophageal reflux disease without esophagitis Donita Elkins, [facility] 07/21/2021 F41.1 Generalized anxiety disorder Ple Donita robertson, [facility] 07/21/2021 I50.32 Chronic diastolic (congestive) h eart failure PleDonita robertson, [facility] 07/21/2021 E78.2 Mixed hyperlipidemia Feliciaach M velma, [facility] 07/21/2021 I25.119 Atherosclerotic hear t disease of [place] coronary artery with unspecified angina pectoris Donita Elkins, [facility] 06/13/2021 R10.13 Epigastric pain Donita Elkins, [facility] 05/19/2021 K21.9 Gastro-esophageal reflux disease without esophagitis Donita Elkins, [facility] 05/19/2021 F41.1 Generalized anxiety disorder Ple Donita robertson, [facility] 05/19/2021 I50.32 Chronic diastolic (congestive) h eart failure Plemistyach Donita, [facility] 05/19/2021 E78.2 Mixed hyperlipidemia Brittni, M velma, [facility] 05/19/2021 I25.119 Atherosclerotic hear t disease of [place] coronary artery with unspecified angina pectoris Donita Elkins, [employer] 03/30/2021 D48.5 Neoplasm of uncertain behavior o [...] Dr Reason for Referral Status Appt Date [facility] Gastro Please evaluate for GERD and abdominal p ain. Thank you. Scheduled 09/15/[address] [place] [address] [phone] [facility] General Surgery Practice Patient needs EGD f or epigastric pain, Please scheduled art as patient is in a lot of discomfort. Thank you. Closed 06/28/[address] [facility], [address] [place] [address] [phone] [facility] Dermatology Please evaluate red spot on the side of her nose that was the site of a previous biopsy showing precancerous cells. Thank you. Closed 06/01/2021 [facility] [address] [facility] [place] [address] [phone]
--- OUTSIDE RECORDS SUMMARY | 2021-09-29 08:10 | CCD | Continuity of Care Document ---
Author Author Suha ELKINS [employer]IPPER Organization Unknown Address [address] [place] [address] Phone [phone] Care Team Providers Care Dope House Operator Helper Name Role Phone [facility] - Dermatology AUTM [facility] - Hearing Aid Equipment AUTM [phone] [facility] AUTM [phone] [facility] - Cardiovascular Disease AUTM [phone] [facility] AUTM [phone] [facility] - Surgery AUTM [phone] [facility] AUTM [phone] Problems Active Problems Provider Date Mixed hyperlipidemia [...] 1 by mouth every day 90tabs Donita Elkins, [employer]IP[employer] History Medications Advair Diskus 250-50mcg/Dose Aeros ol 1 puff twice a day 60units R06.02 Donita Elkins, [employer]IPPER 03/30/2021 - 08/23/2021 Ambien 10mg Tablets one tab at at bedtime as needed sleep 30tabs G47.00 Donita Elkins, [employer] 03/09/2021 - 08/23/2021 Ramelteon 8mg Tablets one po at hs prn for sleep 30tabs G47.00 Donita Elkins, [employer]IPPER 02/22/2021 - 03/09/2021 Immunizations CPT Code Status Date Vaccine Lot # [id number] Given 08/23/2021 Influenza Virus Vaccine, Camron drivalent,multidose vial [id number] Given 01/31/2021 Covid-19 Moogi [id number] Given 09/30/2020 Influenza Virus Vaccine, Camron drivalent,multidose vial [id number] Vital Signs Date Vital Result Comment 08/23/2021 2:14pm BP Systolic 148 mmHg BP Diastolic 71 mmHg Heart Rate 50 /min Body Temperature 97.4 F Respiratory Rate 14 /min Height 61.75 inches 5'1.75" Weight 147.38 lb Peak Expiratory Flow Rate 325 Estimated Peak Flow Rate [place] Body Weight 105 lb BMI (Body Mass Index) 27.2 kg/m2 07/21/2021 11:14am BP Systolic 138 mmHg BP Diastolic 76 mmHg Heart Rate 47 /min Body Temperature 97.8 F Respiratory Rate 16 /min Height 61.75 inches 5'1.75" Weight 146.25 lb O2 % BldC Oximetry 98 % Peak Expiratory Flow Rate 325 Estimated Peak Flow Rate [place] Body Weight 105 lb BMI (Body Mass Index) 27.0 kg/m2 Results Test Acquired Date Facility Test Result H/L Range Note Coronavirus 2019 Nasopharygeal 08/13/20[place] [address] [phone] Coronavirus 2019 Nasopharygeal ASSAY INFORMATIO <SEE N OTE> 1 Coronavirus 2019 Nasopharygeal 07/22/2021 [place] [address] [phone] Coronavirus 2019 Nasopharygeal ASSAY INFORMATIO <SEE N OTE> 2 Laboratory test finding 07/17/2021 [place] [address] [phone] iSTAT Troponin 0.02 NG/ML Normal 0.00-0.08 CBC With Differential 07/17/2021 [place] [address] [phone] White Blood Count 9.1 10 Normal 4.0-10.0 [...] 36.0-66.0 Lymph % 46.5 % High 24.0-44.0 Webb % 9.0 % High 2.0-8.0 Eos % 3.0 % Normal 0.0-3.0 Baso % 0.8 % Normal 0.0-1.0 Immature Granulocyte % 0.1 % Normal 0-3.0 Nucleated Red Blood Cell % 0.0 % Normal 0-0 Neutrophils # 3.7 10 Normal 1.5-8.5 Lymph # 4.2 10 Normal 1.5-5.0 Webb # 0.8 10 Normal 0.0-0.8 Eos # 0.3 10 Normal 0.0-0.5 Baso # 0.1 10 Normal 0.0-0.2 Basic Metabolic Profile 07/17/2021 [place] [address] [phone] Glucose, Fasting 93 mg/dL Normal 70-100 Blood [...] 8.5-10.1 PT & Aptt 07/17/2021 [place] [address] [phone] Prothrombin Time 13.4 seconds Normal 12.7-14.5 Inr 0.98 Normal 4 Partial Thromboplastin Time 27.8 seconds Normal 25.9-37.0 Laboratory test finding 07/17/2021 [place] [address] [phone] iSTAT Troponin 0.01 NG/ML Normal 0.00-0.08 Laboratory test finding 06/13/2021 [facility] [phone] H Pylori Serum Quant Iga <9.0 units Normal 0.0-8.9 5 H Pylori Serum Quant IgG Anh 0.45 Normal 0.00-0.79 6 H Pylori Serum Quant Igm <9.0 units Normal 0.0-8.9 7 Comprehensive Metabolic Profil 06/13/2021 [facility] [phone] Glucose, Fasting 94 mg/dL Normal 70-100 Blood [...] 1.2 Normal 1.2-2.2 CBC With Differential 06/13/2021 [facility] [phone] White Blood Count 8.0 10 Normal 4.0-10.0 [...] 36.0-66.0 Lymph % 44.3 % High 24.0-44.0 Webb % 8.5 % High 2.0-8.0 Eos % 1.4 % Normal 0.0-3.0 Baso % 0.7 % Normal 0.0-1.0 Immature Granulocyte % 0.1 % Normal 0-3.0 Nucleated Red Blood Cell % 0.0 % Normal 0-0 Neutrophils # 3.6 10 Normal 1.5-8.5 Lymph # 3.6 10 Normal 1.5-5.0 Webb # 0.7 10 Normal 0.0-0.8 Eos # 0.1 10 Normal 0.0-0.5 Baso # 0.1 10 Normal 0.0-0.2 Laboratory test finding 06/13/2021 [facility] [phone] Lipase 82 U/L Normal 73-393 Istat PT/Inr 05/16/2021 [place] [address] [phone] iSTAT Protime Seconds 15.3 seconds High 12.1-14. 4 iSTAT Inr 1.3 Normal Basic Metabolic Profile 05/16/2021 [place] [address] [phone] Glucose, Fasting 106 mg/dL High 70-100 Blood [...] 8.5-10.1 CBC With Differential 05/16/2021 [place] [address] [phone] White Blood Count 11.2 10 High 4.0-10.0 [...] 36.0-66.0 Lymph % 26.4 % Normal 24.0-44.0 Webb % 7.1 % Normal 2.0-8.0 Eos % 1.7 % Normal 0.0-3.0 Baso % 0.5 % Normal 0.0-1.0 Immature Granulocyte % 0.3 % Normal 0-3.0 Nucleated Red Blood Cell % 0.0 % Normal 0-0 Neutrophils # 7.1 10 Normal 1.5-8.5 Lymph # 3.0 10 Normal 1.5-5.0 Webb # 0.8 10 Normal 0.0-0.8 Eos # 0.2 10 Normal 0.0-0.5 Baso # 0.1 10 Normal 0.0-0.2 Laboratory test finding 05/16/2021 [place] [address] [phone] iSTAT Troponin 0.00 NG/ML Normal 0.00-0.08 Laboratory test finding 05/16/2021 [facility] RADIOLOGY [place], [place] [id number] [phone] iSTAT Troponin 0.00 NG/ML Normal 0.00-0.08 CBC With Differential 03/30/2021 [facility] [phone] White Blood Count 7.9 10 Normal 4.0-10.0 [...] 36.0-66.0 Lymph % 38.1 % Normal 24.0-44.0 Webb % 6.1 % Normal 2.0-8.0 Eos % 3.2 % High 0.0-3.0 Baso % 0.8 % Normal 0.0-1.0 Immature Granulocyte % 0.3 % Normal 0-3.0 Nucleated Red Blood Cell % 0.0 % Normal 0-0 Neutrophils # 4.1 10 Normal 1.5-8.5 Lymph # 3.0 10 Normal 1.5-5.0 Webb # 0.5 10 Normal 0.0-0.8 Eos # 0.3 10 Normal 0.0-0.5 Baso # 0.1 10 Normal 0.0-0.2 Vitamin B12 & Folate 03/30/2021 [facility] enter [phone] Vitamin B12 Level 998 pg/mL Normal 11 Folate 20.3 NG/ML Normal 12 CBC With Differential 03/09/2021 [facility] [address] [place] [address] [phone] WBC 10.6 x10E3/uL 3.4-10.8 RBC 4.38 x10E6/uL [...] TNP Laboratory test finding 03/09/2021 [facility] [address] [place], [place] [address] [phone] Lipase 36 U/L 14-72 Amylase 43 U/L 31-110 Metabolic Panel (14), Comprehensive 03/09/2021 [facility] [address] [place], [place] [id number] [phone] Sodium 141 mmol/L 134-144 Potassium 4.3 mmol/L [...] Administration under the Emergency Use Authorization (EUA). [facility] and [facility] are designated as high complexity laboratories by the Clinical Laboratory Improvement Amendments of 1988(CLIA) and are qualified to perform this test. Not Detected 2 ASSAY INFORMATION: Real Time RT-PCR NOTE: The COVID-19 assay has been cleared by the U.S. Food and Drug Administration under the Emergency Use Authorization (EUA). [facility] and [facility] are designated as high complexity laboratories by [...] Little GFR Left ESRD GFR <15 on GAS APPLIANCE REPAIRER 4 THERAPUTIC HUMAN INR VALUES INDICATIONS NORMAL [...] developed and its performance characteristics determined by [facility]. It has not been cleared or approved by the Food and Drug Administration. Performed at: RN - [facility] [address] [id number] [employer]: Antonette Ríos MD, Phone: [phone] Units are mL/min/1.73 m2 Chronic Kidney Disease Staging per NKF: Stage I & II GFR >=60 Normal to Mildly Decreased Stage III GFR 30-59 Moderately Decreased Stage IV GFR 15-29 Severely Decreased Stage V GFR <15 Very Little GFR Left ESRD GFR <15 on GAS APPLIANCE REPAIRER 9 Units are mL/min/1.73 m2 Chronic Kidney Disease Staging per NKF: Stage I & II GFR >=60 Normal to Mildly Decreased Stage III GFR 30-59 Moderately Decreased Stage IV GFR 15-29 Severely Decreased Stage V GFR <15 Very Little GFR Left ESRD GFR <15 on GAS APPLIANCE REPAIRER 10 Testing was performed on a S LIGHTLY hemolyzed specimen. Suggest recollection of specimen for more accurate test results. 11 VITAMIN B12 NORMAL RANGE NORMAL 247 - 911 PG/ML INDETERMINATE 211 - 246 PG/ML DEFICIENT LESS THAN 211 PG/ML 12 FOLATE NORMAL RANGE NORMAL GREATER THAN 5.4 NG/ML INDETERMINATE 3.4-5.4 NG/ML DEFICIENT LESS THAN 3.4 NG/ML Procedures Date Code Description Status 08/23/2021 08295 Office/Outpatient Established Lo w MDM 20-29 Min Completed 07/21/2021 59949 Office/Outpatient Established Mo d MDM 30-39 Min Completed 06/13/2021 05156 Office/Outpatient Established Mo d MDM 30-39 Min Completed 05/19/2021 68860 Office/Outpatient Established Mo d MDM 30-39 Min Completed 03/30/2021 43409 Office/Outpatient Established Mo d MDM 30-39 Min Completed 03/09/2021 58383 Office/Outpatient Established Mo d MDM 30-39 Min Completed 02/22/2021 16161 Trans Care SRV Aft DC W/I 14D, [...] disease of dom ve cor art w [facility] Office Visit 06/13/2021 11:45a Main Office Pleskach, Donita, [employer] STRIPPER R10.1 3 Epigastric pain Office Visit 05/19/2021 11:15a Main Office Pleskach Donita, [employer]IPPER K21.9 Gastro- esophageal reflux disease without esophagitis F41.1 Generalized anxiety disorder I50.32 Chronic diastolic (congestiv e) heart failure E78.2 Mixed hyperlipidemia 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 [facility] Office Visit 03/30/2021 9:30a Main Office Pleskach, Donita, [employer]IPPER D48.5 Neoplasm of uncertain behavior of skin R06.02 Shortness of breath D51.9 Vitamin B12 deficiency anemi a, unspecified Office Visit 03/09/2021 10:00a Main Office Pleskach, Donita, [employer]IPPER G47.0 0 Insomnia, unspecified Office Visit 02/22/2021 1:15p Main Office Pleskach, Donita, [employer]IP[employer] R11.0 Nausea R11.0 Nausea 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 07/21/2021 Z01.818 Encounter for other preprocedura l examination Pleskach Donita, [employer] 07/21/2021 K21.9 Gastro-esophageal reflux disease without esophagitis Pleskach Donita, [employer] 07/21/2021 F41.1 Generalized anxiety disorder Ple skach Donita, [employer] 07/21/2021 I50.32 Chronic diastolic (congestive) h eart failure Pleskach, Donita, [employer] 07/21/2021 E78.2 Mixed hyperlipidemia Pleskach, M velma, 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 05/19/2021 F41.1 Generalized anxiety disorder Ple skach Donita, [facility] 05/19/2021 I50.32 Chronic diastolic (congestive) h eart failure Pleskach, Donita, [facility] 05/19/2021 E78.2 Mixed hyperlipidemia Pleskach, M velma, 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 PlemistyachFarrukhy, [employer]OMAT[employer]PER [employer] STRIPPER 02/22/2021 E78.2 Mixed hyperlipidemia Pleskach, Raad samayoaly, [employer] STRIPPER 02/22/2021 E78.2 Mixed hyperlipidemia Pleskach, M velma, [employer]IPPER 02/22/2021 I50.32 Chronic diastolic (congestive) h eart failure Pleskach, Donita, [employer]IPPER 02/22/2021 I50.32 Chronic diastolic (congestive) h eart failure Pleskach, Donita, [employer]IPPER 02/22/2021 F41.1 Generalized anxiety disorder Ple skach, Donita, [employer] STRIPPER 02/22/2021 F41.1 Generalized anxiety disorder Ple skach, Donita, [employer]IPPER 02/22/2021 F17.210 Nicotine dependence, cigarettes, uncomplicated Pleskach, Donita, [employer]IP[employer] 02/22/2021 F17.210 Nicotine dependence, cigarettes, uncomplicated Pleskach, Donita, [employer] STRIPPER 02/22/2021 G47.00 Insomnia, unspecified Pleskach, Donita, [employer]IP[employer] 02/22/2021 G47.00 Insomnia, unspecified Pleskach, Donita, [employer]IPPER 02/22/2021 Z13.89 Encounter for screening for othe [...] Date Status None Active Referrals Refer to Reason for Referral Status Appt Date [facility] Please evaluate for GERD and abdominal pain. Th ankita lehman. Sent [address] [place] [address] [phone] [facility] Patient needs EGD f or epigastric pain, Please scheduled art as patient is in a lot of discomfort. Thank you. Closed 06/28/2021 [address] [facility], [address] [place] [address] [phone] [facility] Please evaluate red spot on the side of her nose that was the site of a previous biopsy showing precancerous cells. Thank you. Closed 06/01/2021 [facility] [address] [facility] [place] [address] [phone]
--- OUTSIDE RECORDS SUMMARY | 2021-09-29 08:10 | CCD | Continuity of Care Document ---
Author Author Suha ARANGO DO Organization Unknown Address [address] [facility], [address] [place] [address] Phone [phone] Care Team Providers Care Visual Education Director Name Role Phone Donita Elkins N.P. AUTM [phone] Ivonne Pena M.D. AUTM [phone] Problems Description No Information Available Social History [...] directed 60caps Edmond salgado, DO 08/02/2021 [place] 3977-177-894kg Tablets take tablets as directed per doctor [...] lb BMI (Body Mass Index) 27.8 kg/m2 [place] Body Weight 105 lb Weight 66.793 kg BSA (Body Surface Area) 1.66 m2 06/28/2021 11:00am BP Systolic 114 mmHg BP Diastolic 72 mmHg Height 61 inches 5'1" Weight 150.25 lb BMI (Body Mass Index) 28.4 kg/m2 [place] Body Weight 105 lb Weight 68.153 kg BSA (Body Surface Area) 1.67 m2 Results Test Acquired Date Facility Test Result H/L Range Note Surgical Pathology Consult 08/02/2021 [facility] Surgical Pathology Consult Surgical Patholo <SEE NOTE> 1 Laboratory test finding 07/27/2021 [facility] Main Lab [address] [place], [place] [address] [phone] Pathology Request For Service (SEE NOTE) 2 1 Surgical Pathology Report Name: SUHA GORDON Collection Date: 08/02/2021 00:00 Received Date: 08/02/2021 10:57 Physician(s): EDMOND ARANGO DO Haghir, Shahandeh MD Specimen(s) Received A: Material received for consultation, GD, [facility], [phone] Clinical History A. Gastric prepyloric mass. B. Cecal mass. Concern for cecal mass. Please see attached endoscopy and colonoscopy report. Favor benign findings in colon and no definite ulcer or erosion in stomach. For consultation to R/O malignancy in the ileocecal valve. Diagnosis OUTSIDE SLIDES: STOMACH, PREPYLORIC AREA, BIOPSY ([id number], 07/27/21): NO SIGNIFICANT PATHOLOGIC CHANGES. CECAL MASS, BIOPSY ([id number], 07/27/21): DISTORTED INTESTINAL MUCOSA WITH NONSPECIFIC INFLAMMATORY CHANGES. NO EVIDENCE OF ATYPIA OR MALIGNANCY. (SEE MICROSCOPIC DESCRIPTION). Electronically Signed By Naren Rodriguez M.D., Attending Pathologist 08/02/2021 16:56:40 Gross Description Received from [facility] in [place], [place], are 4 H and E stained slides and 2 paraffin blocks, labeled [id number], with the corresponding pathology report. Also received: [...] developed and their performance characteristics determined by [facility] Pathology department. They have not been [...] mass, the case was also sent to [facility] for consultation, they agree with the above findings, please see complete consultation report [id number], scanned in EMR under pathology module. Follow [...] 0800 Procedures Date Code Description Status 08/18/2021 44538 Colonoscopy Flexible Proximal To Splenic Flexure Diagnostic W/Or Completed 08/02/2021 10748 Office/Outpatient Established Mo d MDM 30-39 Min Completed 07/27/2021 09838 Colonoscopy Flexible Proximal To Splenic Flexure W/Biopsy Single/ Completed 07/27/2021 27602 Endoscopy Upper GI Biopsy Comple alexandra 06/28/2021 62257 Office/Outpatient New Moderate M DM 45-59 Minutes Completed Medical Devices Description No Information Available Encounters Type Date Location Provider Dx Diagnosis Office Visit 08/02/2021 11:00a [facility] Edmond Arango DO D12.0 Benign neoplasm of cecum Office Visit 06/28/2021 11:00a [facility] Edmond Arango DO R12 Heartburn Z12.11 [...]
--- OUTSIDE RECORDS SUMMARY | 2021-09-29 08:10 | CCD | Continuity of Care Document ---
Author Author Suha SANCHEZ PA Organization Unknown Address [address] [place] [address], [facility] [place] [address] Phone [phone] Care Team Providers Care Waist Pleater Name Role Phone MarionDonita robertson MANUEL AUTM [phone] Santo Sagastume MD AUTM [phone] Problems Active Problems Provider Date History of [...] Exercise Limitations Back Pain Exercise Limitations Fatigue Allergies and adverse reactions Active Allergies Criticality [...] Date Facility Test Result H/L Range Note Comprehensive Metabolic Profil 09/07/2021 [facility] [phone] Glucose, Fasting 90 mg/dL Normal 70-100 Blood Urea Nitrogen 23 mg/dL High 7-18 Creatinine For GFR 0.68 mg/dL Normal 0.55-1.30 Glomerular Filtration Rate > 60.0 Normal >51 1 Sodium Level 143 mEq/L Normal 136-145 Potassium [...] Ratio 1.1 Low 1.2-2.2 Lipid Panel 09/07/2021 [facility] nter [phone] Triglycerides Level 81 mg/dL Normal <150 Cholesterol Level 177 mg/dL Normal <200 HDL Cholesterol 62 mg/dL Normal >40 LDL Cholesterol 99 mg/dL Normal <100 Non-HDL-C 115 mg/dL Normal Cholesterol Risk Ratio 2.854 Normal <5 Complete Blood Count 09/07/2021 [facility] enter [phone] White Blood Count 7.0 10 Normal 4.0-10.0 [...] Blood Cell % 0.0 % Normal 0-0 CBC without Differential 07/17/2021 [facility] - not inter faced (315)- - White Blood Count 9.1 5.0-10.0 Red Blood Count 4.08 4.00-5.40 Platelets 342 172-450 Hemoglobin 11.8 Hematocrit 35.8 BMP 07/17/2021 [facility] - not interfaced (315)- - Calcium Ser/Plasma Mass/Vol 8.8 Sodium 141 Carbon Dioxide Ser/Plasm 24 Chloride Serum/Plasma 112 Potassium 3.8 Glucose 93 83-110 Blood Urea Nitrogen 15 7-18 Creatinine 0.72 0.6-1.0 G F R >60.0 CMP 06/13/2021 [facility] - not interfaced (315)- - Albumin Serum/Plasma 4.0 Alt - SGPT 24 Calcium Ser/Plasma Mass/Vol 9.5 Carbon Dioxide Ser/Plasm 25 Chloride Serum/Plasma 111 Alkaline Phosphatase 57 Potassium 3.8 Protein Total 7.3 Sodium 141 Ast - Sgot 24 BUN - Urea Nitrogen 16 Glucose 94 83-110 Creatinine For GFR 0.78 CBC without Differential 06/13/2021 [facility] - not inter faced (315)- - White Blood Count 8.0 5.0-10.0 Red Blood Count 4.33 4.00-5.40 Platelets 414 172-450 Hemoglobin 12.6 Hematocrit 39.6 Monocytes/leuk NFr Bld Auto 05/16/2021 N2N/Direct C CD Import Monocytes/leuk NFr Bld Auto 7.1 2.0-8.0 Basophils # Bld Auto 05/16/2021 N2N/Direct CCD [...] Import Basophils/leuk NFr Bld Auto 0.5 0.0-1.0 WBC # Bld Auto 05/16/2021 N2N/Direct CCD Impor t WBC # Bld Auto 11.2 4.0-10.0 Lymphocytes/leuk NFr Bld Auto 05/16/2021 N2N/Direct CCD Import Lymphocytes/leuk NFr Bld Auto 26.4 24.0-44.0 Blood neutrophils automated count (number/volume) 05/16/2021 N2N/Direct [...] CCD Impor t Hgb Bld-mCnc 12.4 12.0-15.5 1 Units are mL/min/1.73 m2 Chronic Kidney Disease Staging per NKF: Stage I & II GFR >=60 Normal to Mildly Decreased Stage III GFR 30-59 Moderately Decreased Stage IV GFR 15-29 Severely Decreased Stage V GFR <15 Very Little GFR Left ESRD GFR <15 on SALES ENGINEER Procedures Date Code Description Status 08/23/2021 23956 Office/Outpatient Established Mo d MDM 30-39 Min Completed 08/23/2021 41152 ECG 12-Lead Completed 07/26/2021 07110 Smoking & Tobacco Ce ssation Counseling Visit Intermediate 3-10Min Completed 07/26/2021 66329 Office/Outpatient Established Mo d MDM 30-39 Min Completed 07/26/2021 22912 ECG 12-Lead Completed Medical Devices Description No Information Available Encounters Type Date Location Provider Dx Diagnosis Office Visit 08/23/2021 3:30p Main Office ELISA Giles I25 .10 Athscl heart disease of [place] coronary artery w/o ang pctrs I50.32 Chronic [...] 08/23/2021 I25.10 Atherosclerotic hear t disease of [place] coronary artery without angina pectoris ELISA Giles [...] Giles 08/23/2021 Z71.3 Dietary counseling and surveilla ELISA Jennings 07/26/2021 I25.10 Atherosclerotic hear t disease of [place] coronary artery without angina pectoris ELISA Giles [...] Giles 07/26/2021 Z71.3 Dietary counseling and surveilla ELISA Jennings Plan of Treatment Future Appointment(s):* 02/20/2022 3:00 pm - ELISA Giles at Main Office * 11/16/2021 2:00 pm - ECHO at Main Office 08/23/2021 - ELISA Giles* I25.10 Atherosclerotic heart disease of [place] coronary artery without angina pectoris* New Labs:* [...] Occlusion and stenosis of unspecified carotid artery* Recommendations: * Carotid US ordered for further evaluation * [...]
--- OUTSIDE RECORDS SUMMARY | 2021-09-29 08:10 | CCD | Continuity of Care Document ---
Author Author Suha ELKINS SAMPLE WRAPPER Organization Unknown Address [address] [place] [address] Phone [phone] Care Team Providers Care Costuming Supervisor Name Role Phone [facility] Dermatology - Dermatology AUTM [facility] - Hearing Aid Equipment AUTM [phone] [facility] - Cardiovascular Disease AUTM [phone] [facility] AUTM [phone] [facility] General Surgery Practice - Surgery AUTM [phone] Problems Active Problems Provider Date Mixed hyperlipidemia [...] twice a day 60units R06.02 Donita Elkins SAMPLE WRAPPER 03/30/2021 - 08/23/2021 Ambien 10mg Tablets one tab at at bedtime as needed sleep 30tabs G47.00 Donita Elkins SAMPLE WRAPPER 03/09/2021 - 08/23/2021 Ramelteon 8mg Tablets one po at hs prn for sleep 30tabs G47.00 Donita Elkins SAMPLE WRAPPER 02/22/2021 - 03/09/2021 Immunizations CPT Code Status Date Vaccine Lot # [id number] Given 08/23/2021 Influenza Virus Vaccine, Camron drivalent,multidose vial [id number] Given 01/31/2021 Covid-19 Jb & Jb [id number] Given 09/30/2020 Influenza Virus Vaccine, Camron drivalent,multidose vial [id number] Vital Signs Date Vital Result Comment 08/23/2021 2:14pm BP Systolic 148 mmHg BP Diastolic 71 mmHg Heart Rate 50 /min Body Temperature 97.4 F Respiratory Rate 14 /min Height 61.75 inches 5'1.75" Weight 147.38 lb Peak Expiratory Flow Rate 325 Estimated Peak Flow Rate [place] Body Weight 105 lb BMI (Body Mass Index) 27.2 kg/m2 07/21/2021 11:14am BP Systolic 138 mmHg BP Diastolic 76 mmHg Heart Rate 47 /min Body Temperature 97.8 F Respiratory Rate 16 /min Height 61.75 inches 5'1.75" Weight 146.25 lb O2 % BldC Oximetry 98 % Peak Expiratory Flow Rate 325 Estimated Peak Flow Rate [place] Body Weight 105 lb BMI (Body Mass Index) 27.0 kg/m2 Results Test Acquired Date Facility Test Result H/L Range Note Coronavirus 2019 Nasopharygeal 08/13/[address]21 Patient [place], [place] [id number] [phone] Coronavirus 2019 Nasopharygeal ASSAY INFORMATIO <SEE N OTE> 1 Coronavirus 2019 Nasopharygeal 07/22/[address] Patient [place], [place] [id number] [phone] Coronavirus 2019 Nasopharygeal ASSAY INFORMATIO <SEE N OTE> 2 Laboratory test finding 07/17/2021 [place] [address] [phone] iSTAT Troponin 0.02 NG/ML Normal 0.00-0.08 CBC With Differential 07/17/2021 [place] [address] [phone] White Blood Count 9.1 10 Normal 4.0-10.0 [...] 36.0-66.0 Lymph % 46.5 % High 24.0-44.0 [place] % 9.0 % High 2.0-8.0 Eos % 3.0 % Normal 0.0-3.0 Baso % 0.8 % Normal 0.0-1.0 Immature Granulocyte % 0.1 % Normal 0-3.0 Nucleated Red Blood Cell % 0.0 % Normal 0-0 Neutrophils # 3.7 10 Normal 1.5-8.5 Lymph # 4.2 10 Normal 1.5-5.0 [place] # 0.8 10 Normal 0.0-0.8 Eos # 0.3 10 Normal 0.0-0.5 Baso # 0.1 10 Normal 0.0-0.2 Basic Metabolic Profile 07/17/2021 [place] [address] [phone] Glucose, Fasting 93 mg/dL Normal 70-100 Blood [...] 8.5-10.1 PT & Aptt 07/17/2021 Patient Service [place] [id number] [phone] Prothrombin Time 13.4 seconds Normal 12.7-14.5 Inr 0.98 Normal 4 Partial Thromboplastin Time 27.8 seconds Normal 25.9-37.0 Laboratory test finding 07/17/2021 [place] [address] [phone] iSTAT Troponin 0.01 NG/ML Normal 0.00-0.08 Laboratory test finding 06/13/2021 [facility] [phone] H Pylori Serum Quant Iga <9.0 units Normal 0.0-8.9 5 H Pylori Serum Quant IgG Anh 0.45 Normal 0.00-0.79 6 H Pylori Serum Quant Igm <9.0 units Normal 0.0-8.9 7 Comprehensive Metabolic Profil 06/13/2021 [facility] [phone] Glucose, Fasting 94 mg/dL Normal 70-100 Blood [...] 1.2 Normal 1.2-2.2 CBC With Differential 06/13/2021 [facility] [phone] White Blood Count 8.0 10 Normal 4.0-10.0 [...] 36.0-66.0 Lymph % 44.3 % High 24.0-44.0 [place] % 8.5 % High 2.0-8.0 Eos % 1.4 % Normal 0.0-3.0 Baso % 0.7 % Normal 0.0-1.0 Immature Granulocyte % 0.1 % Normal 0-3.0 Nucleated Red Blood Cell % 0.0 % Normal 0-0 Neutrophils # 3.6 10 Normal 1.5-8.5 Lymph # 3.6 10 Normal 1.5-5.0 [place] # 0.7 10 Normal 0.0-0.8 Eos # 0.1 10 Normal 0.0-0.5 Baso # 0.1 10 Normal 0.0-0.2 Laboratory test finding 06/13/2021 [facility] [phone] Lipase 82 U/L Normal 73-393 Istat PT/Inr 05/16/2021 Patient [place] [address] [phone] iSTAT Protime Seconds 15.3 seconds High 12.1-14. 4 iSTAT Inr 1.3 Normal Basic Metabolic Profile 05/16/2021 [place] [address] [phone] Glucose, Fasting 106 mg/dL High 70-100 Blood [...] 8.5-10.1 CBC With Differential 05/16/2021 [place] [address] [phone] White Blood Count 11.2 10 High 4.0-10.0 [...] 36.0-66.0 Lymph % 26.4 % Normal 24.0-44.0 [place] % 7.1 % Normal 2.0-8.0 Eos % 1.7 % Normal 0.0-3.0 Baso % 0.5 % Normal 0.0-1.0 Immature Granulocyte % 0.3 % Normal 0-3.0 Nucleated Red Blood Cell % 0.0 % Normal 0-0 Neutrophils # 7.1 10 Normal 1.5-8.5 Lymph # 3.0 10 Normal 1.5-5.0 [place] # 0.8 10 Normal 0.0-0.8 Eos # 0.2 10 Normal 0.0-0.5 Baso # 0.1 10 Normal 0.0-0.2 Laboratory test finding 05/16/2021 [place] [address] [phone] iSTAT Troponin 0.00 NG/ML Normal 0.00-0.08 Laboratory test finding 05/16/2021 Patient [facility] [place], [place] [address] [phone] iSTAT Troponin 0.00 NG/ML Normal 0.00-0.08 CBC With Differential 03/30/2021 [facility] [phone] White Blood Count 7.9 10 Normal 4.0-10.0 [...] 36.0-66.0 Lymph % 38.1 % Normal 24.0-44.0 [place] % 6.1 % Normal 2.0-8.0 Eos % 3.2 % High 0.0-3.0 Baso % 0.8 % Normal 0.0-1.0 Immature Granulocyte % 0.3 % Normal 0-3.0 Nucleated Red Blood Cell % 0.0 % Normal 0-0 Neutrophils # 4.1 10 Normal 1.5-8.5 Lymph # 3.0 10 Normal 1.5-5.0 [place] # 0.5 10 Normal 0.0-0.8 Eos # 0.3 10 Normal 0.0-0.5 Baso # 0.1 10 Normal 0.0-0.2 Vitamin B12 & Folate 03/30/2021 [facility] enter [phone] Vitamin B12 Level 998 pg/mL Normal 11 Folate 20.3 NG/ML Normal 12 CBC With Differential 03/09/2021 [facility] [address] [place] [address] [phone] WBC 10.6 x10E3/uL 3.4-10.8 RBC 4.38 x10E6/uL [...] TNP Laboratory test finding 03/09/2021 [facility] [address] [place], [place] [address] [phone] Lipase 36 U/L 14-72 Amylase 43 U/L 31-110 Metabolic Panel (14), Comprehensive 03/09/2021 [facility] [address] [place], [place] [address] [phone] Sodium 141 mmol/L 134-144 Potassium 4.3 mmol/L [...] Administration under the Emergency Use Authorization (EUA). [facility] are designated as high complexity laboratories by the Clinical Laboratory Improvement Amendments of 1988(CLIA) and are qualified to perform this test. Not Detected 2 ASSAY INFORMATION: Real Time RT-PCR NOTE: The COVID-19 assay has been cleared by the U.S. Food and Drug Administration under the Emergency Use Authorization (EUA). [facility] are designated as high complexity laboratories by [...] Little GFR Left ESRD GFR <15 on TRENCHER DRIVER 4 THERAPUTIC HUMAN INR VALUES INDICATIONS NORMAL [...] developed and its performance characteristics determined by [employer]. It has not been cleared or approved by the Food and Drug Administration. Performed at: - [facility] [id number] Dairy Tester: Antonette Ríos MD, Phone: [phone] Units are mL/min/1.73 m2 Chronic Kidney Disease Staging per NKF: Stage I & II GFR >=60 Normal to Mildly Decreased Stage III GFR 30-59 Moderately Decreased Stage IV GFR 15-29 Severely Decreased Stage V GFR <15 Very Little GFR Left ESRD GFR <15 on TRENCHER DRIVER 9 Units are mL/min/1.73 m2 Chronic Kidney Disease Staging per NKF: Stage I & II GFR >=60 Normal to Mildly Decreased Stage III GFR 30-59 Moderately Decreased Stage IV GFR 15-29 Severely Decreased Stage V GFR <15 Very Little GFR Left ESRD GFR <15 on TRENCHER DRIVER 10 Testing was performed on a S LIGHTLY hemolyzed specimen. Suggest recollection of specimen for more accurate test results. 11 VITAMIN B12 NORMAL RANGE NORMAL 247 - 911 PG/ML INDETERMINATE 211 - 246 PG/ML DEFICIENT LESS THAN 211 PG/ML 12 FOLATE NORMAL RANGE NORMAL GREATER THAN 5.4 NG/ML INDETERMINATE 3.4-5.4 NG/ML DEFICIENT LESS THAN 3.4 NG/ML Procedures Date Code Description Status 07/21/2021 55646 Office/Outpatient Established Mo d MDM 30-39 Min Completed 06/13/2021 84390 Office/Outpatient Established Mo d MDM 30-39 Min Completed 05/19/2021 93300 Office/Outpatient Established Mo d MDM 30-39 Min Completed 03/30/2021 38366 Office/Outpatient Established Mo d MDM 30-39 Min Completed 03/09/2021 09641 Office/Outpatient Established Mo d MDM 30-39 Min Completed 02/22/2021 44235 Trans Care SRV Aft DC W/I 14D, [...] Visit 06/13/2021 11:45a Main Office Pleskach, Donita, SAMPLE WRAPPER R10.1 3 Epigastric pain Office Visit 05/19/2021 11:15a Main Office Donita Elkins, SAMPLE WRAPPER K21.9 Gastro- esophageal reflux disease without esophagitis F41.1 Generalized anxiety disorder I50.32 Chronic diastolic (congestiv e) heart failure E78.2 Mixed hyperlipidemia 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 [facility] Office Visit 03/30/2021 9:30a Main Office Donita Elkins, SAMPLE WRAPPER D48.5 Neoplasm of uncertain behavior of skin R06.02 Shortness of breath D51.9 Vitamin B12 deficiency anemi a, unspecified Office Visit 03/09/2021 10:00a Main Office Donita Elkins SAMPLE WRAPPER G47.0 0 Insomnia, unspecified Office Visit 02/22/2021 1:15p Main Office Donita Elkins, SAMPLE WRAPPER R11.0 Nausea R11.0 Nausea 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 E78.2 Mixed hyperlipidemia E78.2 Mixed hyperlipidemia I50.32 [...] diastolic (congestive) h eart failure Pleskach, Donita, SAMPLE WRAPPER 07/21/2021 E78.2 Mixed hyperlipidemia Pleskach, M velma, SAMPLE WRAPPER 07/21/2021 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 Pleskach, Donita, SAMPLE WRAPPER 06/13/2021 R10.13 Epigastric pain Pleskach, Donita, SAMPLE WRAPPER 05/19/2021 K21.9 Gastro-esophageal reflux disease without esophagitis Pleskach, Donita, SAMPLE WRAPPER 05/19/2021 F41.1 Generalized anxiety disorder Ple skach, Donita, SAMPLE WRAPPER 05/19/2021 I50.32 Chronic diastolic (congestive) h eart failure Pleskach, Donita, SAMPLE WRAPPER 05/19/2021 E78.2 Mixed hyperlipidemia Pleskach, M velma, SAMPLE WRAPPER 05/19/2021 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 Pleskach, Donita, SAMPLE WRAPPER 03/30/2021 D48.5 Neoplasm of uncertain behavior o f skin Pleskach, Donita, [facility] 03/30/2021 R06.02 Shortness of breath Pleskach, Mo lly, [facility] 03/30/2021 D51.9 Vitamin B12 deficiency anemia, u nspecified Pleskach, Donita, SAMPLE WRAPPER 03/09/2021 G47.00 Insomnia, unspecified Pleskach, Donita, SAMPLE WRAPPER 02/22/2021 R11.0 Nausea Pleskach, Donita, SAMPLE WRAPPER 02/22/2021 R11.0 Nausea Pleskach, Donita, SAMPLE WRAPPER 02/22/2021 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 Pleskach, Donita, SAMPLE WRAPPER 02/22/2021 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 Pleskach, Donita, SAMPLE WRAPPER 02/22/2021 E78.2 Mixed hyperlipidemia Pleskach, M velma, SAMPLE WRAPPER 02/22/2021 E78.2 Mixed hyperlipidemia Pleskach, M velma, SAMPLE WRAPPER 02/22/2021 I50.32 Chronic diastolic (congestive) h eart failure Pleskach, Donita, SAMPLE WRAPPER 02/22/2021 I50.32 Chronic diastolic (congestive) h eart failure Pleskach, Donita, SAMPLE WRAPPER 02/22/2021 F41.1 Generalized anxiety disorder Ple skach, Donita, SAMPLE WRAPPER 02/22/2021 F41.1 Generalized anxiety disorder Ple skach, Donita, SAMPLE WRAPPER 02/22/2021 F17.210 Nicotine dependence, cigarettes, uncomplicated Pleskach, Donita, SAMPLE WRAPPER 02/22/2021 F17.210 Nicotine dependence, cigarettes, uncomplicated Pleskach, Donita, SAMPLE WRAPPER 02/22/2021 G47.00 Insomnia, unspecified Pleskach, Donita, SAMPLE WRAPPER 02/22/2021 G47.00 Insomnia, unspecified Pleskach, Donita, SAMPLE WRAPPER 02/22/2021 Z13.89 Encounter for screening for othe [...] Dr Reason for Referral Status Appt Date [facility] General Surgery Practice Patient needs EGD f or epigastric pain, Please scheduled art as patient is in a lot of discomfort. Thank you. Closed 06/28/2021 [address], [address] [place] [address] [phone] [facility] Dermatology Please evaluate red spot on the side of her nose that was the site of a previous biopsy showing precancerous cells. Thank you. Closed 06/01/2021 [facility] Dermatology [address] [place] [address] [phone]
--- OUTSIDE RECORDS SUMMARY | 2021-09-29 08:11 | CCD | Continuity of Care Document ---
Author Author Suha ARANGO DO Organization Unknown Address [address], [address] [place] [address] Phone [phone] Care Team Providers Care Plastic Fabricator Name Role Phone Donita Elkins N.P. AUTM [phone] Ivonne Pena M.D. AUTM [phone] Problems Description No Information Available Social History Type Date Description Comments Sex Unknown ETOH Use Denies alcohol use Recreational Drug Use Denies Drug Use Tobacco Use Start: 11/26/05 End: 11/26/20 Patient is a forme r smoker 1/2 PPD Allergies, Adverse Reactions, Alerts Active Allergies Criticality [...] directed 60caps Edmond salgado, DO 08/02/2021 [place] [id number] Tablets take tablets as directed per doctor [...] lb BMI (Body Mass Index) 27.8 kg/m2 [place] Body Weight 105 lb Weight 66.793 kg BSA (Body Surface Area) 1.66 m2 06/28/2021 11:00am BP Systolic 114 mmHg BP Diastolic 72 mmHg Height 61 inches 5'1" Weight 150.25 lb BMI (Body Mass Index) 28.4 kg/m2 [place] Body Weight 105 lb Weight 68.153 kg BSA (Body Surface Area) 1.67 m2 Results Test Acquired Date Facility Test Result H/L Range Note Surgical Pathology Consult 08/02/2021 [facility] Surgical Pathology Consult Surgical Patholo <SEE NOTE> 1 Laboratory test finding 07/27/2021 [facility] Main Lab [address] [place] [address] [phone] Pathology Request For Service (SEE NOTE) 2 1 Surgical Pathology Report Name: SUHA GORDON Collection Date: 08/02/2021 00:00 Received Date: 08/02/2021 10:57 Physician(s): EDMOND ARANGO DO Haghir, Shahandeh MD Specimen(s) Received A: Material received for consultation, GDAMPARO, [facility], [id number] Clinical History A. Gastric prepyloric mass. B. Cecal mass. Concern for cecal mass. Please see attached endoscopy and colonoscopy report. Favor benign findings in colon and no definite ulcer or erosion in stomach. For consultation to R/O malignancy in the ileocecal valve. Diagnosis OUTSIDE SLIDES: STOMACH, PREPYLORIC AREA, BIOPSY ([id number], 07/27/21): NO SIGNIFICANT PATHOLOGIC CHANGES. CECAL MASS, BIOPSY ([id number], 07/27/21): DISTORTED INTESTINAL MUCOSA WITH NONSPECIFIC INFLAMMATORY CHANGES. NO EVIDENCE OF ATYPIA OR MALIGNANCY. (SEE MICROSCOPIC DESCRIPTION). Electronically Signed By Naren Rodriguez M.D., Attending Pathologist 08/02/2021 16:56:40 Gross Description Received from [facility] in [place], [place], are 4 H and E stained slides and 2 paraffin blocks, labeled [id number], with the corresponding pathology report. Also received: [...] developed and their performance characteristics determined by [facility] Pathology department. They have not been cleared [...] mass, the case was also sent to [facility] for consultation, they agree with the above findings, please see complete consultation report [id number], scanned in EMR under pathology module. Follow [...] 08/03/2021 0800 Procedures Date Code Description Status 08/02/2021 50839 Office/Outpatient Established Mo d MDM 30-39 Min Completed 07/27/2021 36216 Colonoscopy Flexible Proximal To Splenic Flexure W/Biopsy Single/ Completed 07/27/2021 71405 Endoscopy Upper GI Biopsy Comple alexandra 06/28/2021 51166 Office/Outpatient New Moderate M DM 45-59 Minutes Completed Medical Devices Description No Information Available Encounters Type Date Location Provider Dx Diagnosis Office Visit 08/02/2021 11:00a [facility] Edmond Arango, D12.0 Benign neoplasm of cecum Office Visit 06/28/2021 11:00a [facility] Edmond Arango DO R12 Heartburn Z12.11 Encounter for screening for malignant neoplasm of colon Assessments Date Code Description Provider 08/02/2021 D12.0 Benign neoplasm of cecum Edmond Arango, 07/27/2021 R12 Heartburn Edmond Arango , 07/27/2021 K29.70 Gastritis, unspecified, without bleeding Edmond Arango, DO 07/27/2021 Z12.11 Encounter for screening for martha gnant neoplasm of colon Edmond Arango, DO 07/27/2021 K64.0 First degree hemorrhoids Edmond Arango, DO 06/28/2021 R12 Heartburn Edmond Arango , DO 06/28/2021 Z12.11 Encounter for screening for martha gnant neoplasm of colon Edmond Arango, Plan of Treatment Future Appointment(s):* 08/25/2021 8:30 am - Edmond Arango DO at [facility] * 08/18/2021 7:30 am - Edmond Arango DO at [facility] 08/02/2021 - Edmond Arango DO* D12.0 Benign neoplasm of cecum* Comments:* [...]
--- OUTSIDE RECORDS SUMMARY | 2021-09-29 08:11 | CCD | Continuity of Care Document ---
Author Author Suha AKERS M.D. Organization Unknown Address [address] [place] [address] Phone [phone] Care Team Providers Care Special Agent Fbi Name Role Phone [facility] - Dermatology [facility] - [facility] AUTM [phone] [facility] - Cardiovascular Disease AUTM [phone] [facility] AUTM [phone] [facility] - Surgery AUTM [phone] Problems Active Problems Provider Date Mixed hyperlipidemia [...] former smoker quit 02/06/2021 Smoking Status Reviewed: 07/21/21 Patient is a former smoker qu it [...] SIG Qnty Indications Ordering Provide r Date Carafate 1gm Tablets one tab by mouth one hour before meals and before bed 120tabs Donita Elkins FNP 06/16/2021 Pantoprazole Sodium 40mg Tablets D R take one tablet by mouth every day 90tabs Donita Elkins, Ashley MOLINA 05/25/2021 Advair Diskus 250-50mcg/Dose Aeros ol 1 puff twice a day 60units R06.02 Dontia Elkins FNP 03/30/2021 Ambien 10mg Tablets one tab at at bedtime as needed sleep 30tabs G47.00 Donita Elkins FNP 03/09/2021 Clopidogrel Bisulfate 75mg Tablets 1 by mouth every day Unknown 02/21/2021 Colesevelam HCL 625mg Tablets 1 tab po daily Unknown 02/15/2021 Aspir-[address] 1 by mouth every day Unknown 02/15/2021 Fenofibrate 160mg Tablets take one [...] mouth every day 90tabs Donita Elkins FNP Famotidine 20mg Tablets 2 pills at at bedtime 60tabs Donita Elkins FNP Nitroglycerin 0.4mg Tablets Sub place 1 tablet under the tongue every five minutes up to maximum of 3 tablets as needed for chest pain. if no relief call 911 Unknown Multi Vitamin Tablets 1 by mouth every day Unknown Furosemide 20mg Tablets take one tablet by mouth once a day as needed for swelling of legs Unknown Rosuvastatin Calcium 40mg Tablets take 1 tablet daily for cholesterol Unknown 00/ Gabapentin 100mg Capsules 1 by mouth daily 90caps Marionailyn DonitaMANUEL Zetia 10mg Tablets 1 by mo uth every day Unknown Cyclobenzaprine HCL 5mg Tablets 1 tab by mouth three times a day as needed for muscle spasm 30tabs Donita Elkins FNP Praluent 150mg/ml Solution Auto-In ject inject every 2 weeks into thigh region Unknown History Medications Ramelteon 8mg Tablets one po at hs prn for sleep 30tabs G47.00 Donita Elkins FNP 02/22/2021 - 03/09/2021 Immunizations CPT Code Status Date Vaccine Lot # [id number] Given 01/31/2021 Covid-19 PerfectServe & Jb [id number] Given 09/30/2020 Influenza Virus Vaccine, Camron drivalent,multidose vial [id number] Vital Signs Date Vital Result Comment 07/21/2021 11:14am BP Systolic 138 mmHg BP Diastolic 76 mmHg Heart Rate 47 /min Body Temperature 97.8 F Respiratory Rate 16 /min Height 61.75 inches 5'1.75" Weight 146.25 lb O2 % BldC Oximetry 98 % Peak Expiratory Flow Rate 325 Estimated Peak Flow Rate Mcdonough Body Weight 105 lb BMI (Body Mass Index) 27.0 kg/m2 06/13/2021 11:43am BP Systolic 133 mmHg BP Diastolic 75 mmHg Heart Rate 65 /min Body Temperature 96.7 F Respiratory Rate 16 /min Height 61.75 inches 5'1.75" Weight 148.00 lb O2 % BldC Oximetry 98 % Peak Expiratory Flow Rate 325 Estimated Peak Flow Rate Mcdonough Body Weight 105 lb BMI (Body Mass Index) 27.3 kg/m2 Results Test Acquired Date Facility Test Result H/L Range Note Coronavirus 2019 Nasopharygeal 08/13/[address]21 [address] [place], [place] [id number] [phone] Coronavirus 2019 Nasopharygeal ASSAY INFORMATIO <SEE N OTE> 1 Coronavirus 2019 Nasopharygeal 07/22/[address]21 [place], [place] [id number] [phone] Coronavirus 2019 Nasopharygeal ASSAY INFORMATIO <SEE N OTE> 2 Laboratory test finding 07/17/2021 [place] [address] [phone] iSTAT Troponin 0.02 NG/ML Normal 0.00-0.08 CBC With Differential 07/17/2021 [place] [address] [phone] White Blood Count 9.1 10 Normal 4.0-10.0 [...] 36.0-66.0 Lymph % 46.5 % High 24.0-44.0 [place] % 9.0 % High 2.0-8.0 Eos % 3.0 % Normal 0.0-3.0 Baso % 0.8 % Normal 0.0-1.0 Immature Granulocyte % 0.1 % Normal 0-3.0 Nucleated Red Blood Cell % 0.0 % Normal 0-0 Neutrophils # 3.7 10 Normal 1.5-8.5 Lymph # 4.2 10 Normal 1.5-5.0 [place] # 0.8 10 Normal 0.0-0.8 Eos # 0.3 10 Normal 0.0-0.5 Baso # 0.1 10 Normal 0.0-0.2 Basic Metabolic Profile 07/17/2021 [place] [address] [phone] Glucose, Fasting 93 mg/dL Normal 70-100 Blood [...] 8.5-10.1 PT & Aptt 07/17/2021 [place] [address] [phone] Prothrombin Time 13.4 seconds Normal 12.7-14.5 Inr 0.98 Normal 4 Partial Thromboplastin Time 27.8 seconds Normal 25.9-37.0 Laboratory test finding 07/17/2021 [place] [address] [phone] iSTAT Troponin 0.01 NG/ML Normal 0.00-0.08 Laboratory test finding 06/13/2021 [facility] [phone] H Pylori Serum Quant Iga <9.0 units Normal 0.0-8.9 5 H Pylori Serum Quant IgG Anh 0.45 Normal 0.00-0.79 6 H Pylori Serum Quant Igm <9.0 units Normal 0.0-8.9 7 Comprehensive Metabolic Profil 06/13/2021 [facility] [phone] Glucose, Fasting 94 mg/dL Normal 70-100 Blood [...] 1.2 Normal 1.2-2.2 CBC With Differential 06/13/2021 [facility] [phone] White Blood Count 8.0 10 Normal 4.0-10.0 [...] 36.0-66.0 Lymph % 44.3 % High 24.0-44.0 [place] % 8.5 % High 2.0-8.0 Eos % 1.4 % Normal 0.0-3.0 Baso % 0.7 % Normal 0.0-1.0 Immature Granulocyte % 0.1 % Normal 0-3.0 Nucleated Red Blood Cell % 0.0 % Normal 0-0 Neutrophils # 3.6 10 Normal 1.5-8.5 Lymph # 3.6 10 Normal 1.5-5.0 [place] # 0.7 10 Normal 0.0-0.8 Eos # 0.1 10 Normal 0.0-0.5 Baso # 0.1 10 Normal 0.0-0.2 Laboratory test finding 06/13/2021 [facility] [phone] Lipase 82 U/L Normal 73-393 Istat PT/Inr 05/16/2021 [place] [address] [phone] iSTAT Protime Seconds 15.3 seconds High 12.1-14. 4 iSTAT Inr 1.3 Normal Basic Metabolic Profile 05/16/2021 [place] [address] [phone] Glucose, Fasting 106 mg/dL High 70-100 Blood [...] 8.5-10.1 CBC With Differential 05/16/2021 [place] [address] [phone] White Blood Count 11.2 10 High 4.0-10.0 [...] 36.0-66.0 Lymph % 26.4 % Normal 24.0-44.0 [place] % 7.1 % Normal 2.0-8.0 Eos % 1.7 % Normal 0.0-3.0 Baso % 0.5 % Normal 0.0-1.0 Immature Granulocyte % 0.3 % Normal 0-3.0 Nucleated Red Blood Cell % 0.0 % Normal 0-0 Neutrophils # 7.1 10 Normal 1.5-8.5 Lymph # 3.0 10 Normal 1.5-5.0 [place] # 0.8 10 Normal 0.0-0.8 Eos # 0.2 10 Normal 0.0-0.5 Baso # 0.1 10 Normal 0.0-0.2 Laboratory test finding 05/16/2021 [place] [address] [phone] iSTAT Troponin 0.00 NG/ML Normal 0.00-0.08 Laboratory test finding 05/16/2021 [place] [address] [phone] iSTAT Troponin 0.00 NG/ML Normal 0.00-0.08 CBC With Differential 03/30/2021 [facility] [phone] White Blood Count 7.9 10 Normal 4.0-10.0 [...] 36.0-66.0 Lymph % 38.1 % Normal 24.0-44.0 [place] % 6.1 % Normal 2.0-8.0 Eos % 3.2 % High 0.0-3.0 Baso % 0.8 % Normal 0.0-1.0 Immature Granulocyte % 0.3 % Normal 0-3.0 Nucleated Red Blood Cell % 0.0 % Normal 0-0 Neutrophils # 4.1 10 Normal 1.5-8.5 Lymph # 3.0 10 Normal 1.5-5.0 [place] # 0.5 10 Normal 0.0-0.8 Eos # 0.3 10 Normal 0.0-0.5 Baso # 0.1 10 Normal 0.0-0.2 Vitamin B12 & Folate 03/30/2021 [facility] enter [phone] Vitamin B12 Level 998 pg/mL Normal 11 Folate 20.3 NG/ML Normal 12 CBC With Differential 03/09/2021 [facility] [address] [place] [address] [phone] WBC 10.6 x10E3/uL 3.4-10.8 RBC 4.38 x10E6/uL [...] TNP Laboratory test finding 03/09/2021 [facility] [address] [place], [place] [address] [phone] Lipase 36 U/L 14-72 Amylase 43 U/L 31-110 Metabolic Panel (14), Comprehensive 03/09/2021 [facility] [address] [place], [place] [id number] [phone] Sodium 141 mmol/L 134-144 Potassium 4.3 mmol/L [...] Administration under the Emergency Use Authorization (EUA). [facility] are designated as high complexity laboratories by the Clinical Laboratory Improvement Amendments of 1988(CLIA) and are qualified to perform this test. Not Detected 2 ASSAY INFORMATION: Real Time RT-PCR NOTE: The COVID-19 assay has been cleared by the U.S. Food and Drug Administration under the Emergency Use Authorization (EUA). [facility] and [facility] are designated as high complexity laboratories by [...] Little GFR Left ESRD GFR <15 on EMPLOYMENT EDUCATIONAL COORD 4 THERAPUTIC HUMAN INR VALUES INDICATIONS NORMAL [...] developed and its performance characteristics determined by [employer]. It has not been cleared or approved by the Food and Drug Administration. Performed at: - [facility] [id number] Day Trader: Antonette Ríos MD, Phone: [phone] Units are mL/min/1.73 m2 Chronic Kidney Disease Staging per NKF: Stage I & II GFR >=60 Normal to Mildly Decreased Stage III GFR 30-59 Moderately Decreased Stage IV GFR 15-29 Severely Decreased Stage V GFR <15 Very Little GFR Left ESRD GFR <15 on EMPLOYMENT EDUCATIONAL COORD 9 Units are mL/min/1.73 m2 Chronic Kidney Disease Staging per NKF: Stage I & II GFR >=60 Normal to Mildly Decreased Stage III GFR 30-59 Moderately Decreased Stage IV GFR 15-29 Severely Decreased Stage V GFR <15 Very Little GFR Left ESRD GFR <15 on EMPLOYMENT EDUCATIONAL COORD 10 Testing was performed on a S LIGHTLY hemolyzed specimen. Suggest recollection of specimen for more accurate test results. 11 VITAMIN B12 NORMAL RANGE NORMAL 247 - 911 PG/ML INDETERMINATE 211 - 246 PG/ML DEFICIENT LESS THAN 211 PG/ML 12 FOLATE NORMAL RANGE NORMAL GREATER THAN 5.4 NG/ML INDETERMINATE 3.4-5.4 NG/ML DEFICIENT LESS THAN 3.4 NG/ML Procedures Date Code Description Status 07/21/2021 68681 Office/Outpatient Established Mo d MDM 30-39 Min Completed 06/13/2021 97038 Office/Outpatient Established Mo d MDM 30-39 Min Completed 05/19/2021 41662 Office/Outpatient Established Mo d MDM 30-39 Min Completed 03/30/2021 73217 Office/Outpatient Established Mo d MDM 30-39 Min Completed 03/09/2021 63480 Office/Outpatient Established Mo d MDM 30-39 Min Completed 02/22/2021 58856 Trans Care SRV Aft DC W/I 14D, [...] disease of dom ve cor art w [facility] Office Visit 03/30/2021 9:30a Main Office Donita Elkins FNP D48.5 Neoplasm of uncertain behavior of skin R06.02 Shortness of breath D51.9 Vitamin B12 deficiency anemi a, unspecified Office Visit 03/09/2021 10:00a Main Office Donita Elkins FNP G47.0 0 Insomnia, unspecified Office Visit 02/22/2021 1:15p Main Office Donita Elkins FNP R11.0 Nausea R11.0 Nausea 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 [facility] 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 [facility] E78.2 Mixed hyperlipidemia E78.2 Mixed hyperlipidemia I50.32 Chronic diastolic (congestiv e) heart failure I50.32 Chronic diastolic (congestiv e) heart failure F41.1 Generalized anxiety disorder F41.1 Generalized anxiety disorder F17.210 Nicotine dependence, cigaret slick, uncomplicated F17.210 Nicotine dependence, cigaret slick, uncomplicated G47.00 Insomnia, unspecified G47.00 Insomnia, unspecified Z13.89 Encounter for screening for other disorder Assessments Date Code Description Provider 07/21/2021 Z01.818 Encounter for other preprocedura l examination Donita Elkins FNP 07/21/2021 K21.9 Gastro-esophageal reflux disease without esophagitis Donita Elkins FNP 07/21/2021 F41.1 Generalized anxiety disorder Donita Kohli FNP 07/21/2021 I50.32 Chronic diastolic (congestive) h eart failure Donita Elkins FNP 07/21/2021 E78.2 Mixed hyperlipidemia Raad Elkins FNP 07/21/2021 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 Donita Elkisn FNP 06/13/2021 R10.13 Epigastric pain Pleskach, Donita, [employer] 05/19/2021 K21.9 Gastro-esophageal reflux disease without esophagitis Pleskach, Donita, [employer] 05/19/2021 F41.1 Generalized anxiety disorder Ple skach, Donita, [employer] 05/19/2021 I50.32 Chronic diastolic (congestive) h eart failure Pleskach, Donita, [employer] 05/19/2021 E78.2 Mixed hyperlipidemia Pleskach, M velma, [employer] 05/19/2021 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 Pleskach, Donita, [employer] 03/30/2021 D48.5 Neoplasm of uncertain behavior o f skin Pleskach, Donita, [facility] 03/30/2021 R06.02 Shortness of breath PleskachClay jayy, [facility] 03/30/2021 D51.9 Vitamin B12 deficiency anemia, u nspecified Pleskach, Donita, [employer] 03/09/2021 G47.00 Insomnia, unspecified Pleskach, Donita, [employer] 02/22/2021 R11.0 Nausea Pleskach, Donita, [facility] 02/22/2021 R11.0 Nausea Pleskach, Donita, [facility] 02/22/2021 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 Pleskach, Donita, [employer] 02/22/2021 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 Pleskach, Donita, [employer] 02/22/2021 E78.2 Mixed hyperlipidemia Pleskach, M velma, [employer] 02/22/2021 E78.2 Mixed hyperlipidemia Pleskach, M velma, [facility] 02/22/2021 I50.32 Chronic diastolic (congestive) h eart failure Pleskach, Donita, [employer] 02/22/2021 I50.32 Chronic diastolic (congestive) h eart failure Pleskach, Donita, [employer] 02/22/2021 F41.1 Generalized anxiety disorder Ple skach, Donita, [employer] 02/22/2021 F41.1 Generalized anxiety disorder Ple skach, Donita, [employer] 02/22/2021 F17.210 Nicotine dependence, cigarettes, uncomplicated Pleskach, Donita, [employer] 02/22/2021 F17.210 Nicotine dependence, cigarettes, uncomplicated Pleskach, Donita, [employer] 02/22/2021 G47.00 Insomnia, unspecified Pleskach, Donita, [employer] 02/22/2021 G47.00 Insomnia, unspecified Pleskach, Donita, [employer] 02/22/2021 Z13.89 Encounter for screening for othe r disorder Pleskach, Donita, [employer] Plan of Treatment 07/21/2021 - Pleskach, Donita, [employer]* Z01.818 Encounter for other preprocedural examination* Comments:* Labs reviewed and are stable. Patient is medically optimized for the planned procedure. * K21.9 Gastro-esophageal reflux disease without esophagitis* Comments:* pending EGD * F41.1 Generalized anxiety disorder* Comments:* Doing well on current medication, no concern * I50.32 Chronic diastolic (congestive) heart failure* Comments:* following with cardiology * E78.2 Mixed hyperlipidemia* Comments:* continue medications as prescribed, follows with cardiology. 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 Thank you. Closed 06/28/2021 [address] [facility], [address] [place] [address] [phone] [facility] Please evaluate red spot on the side of her nose that was the site of a previous biopsy showing precancerous cells. Thank you. Closed 06/01/2021 [facility] [address] [facility] [place] [address] [phone]
--- OUTSIDE RECORDS SUMMARY | 2021-09-29 08:11 | CCD | Continuity of Care Document ---
Author Author Suha SANCHEZ PA Organization Unknown Address [address] [place] [address], [facility] [place] [address] Phone [phone] Care Team Providers Care Step Down Specialist Name Role Phone MarionDonita robertson MANUEL AUTM [phone] Santo Sagastume MD AUTM [phone] Problems Active Problems Provider Date History of [...] 1 ppd; quit 02/06/21 Smoking Status Reviewed: 01/11/21 Patient is a former smoker st arted [...] HCL 625mg Tablets Once daily Unknown 07/04/2020 History Medications Aspirin 81 Low Dose 81mg Chewtabs 1 by mouth every day 90units I25.10 Geoff Conde MD 02/21/2021 - 08/22/2021 Immunizations Description No Information Available Vital Signs [...] Test Result H/L Range Note BMP 07/17/2021 [facility] - not interfaced (315)- - Calcium Ser/Plasma Mass/Vol 8.8 Sodium 141 Carbon Dioxide Ser/Plasm 24 Chloride Serum/Plasma 112 Potassium 3.8 Glucose 93 83-110 Blood Urea Nitrogen 15 7-18 Creatinine 0.72 0.6-1.0 G F R >60.0 CBC without Differential 07/17/2021 [facility] - not inter faced (315)- - White Blood Count 9.1 5.0-10.0 Red Blood Count 4.08 4.00-5.40 Platelets 342 172-450 Hemoglobin 11.8 Hematocrit 35.8 CBC without Differential 06/13/2021 [facility] - not inter faced (315)- - White Blood Count 8.0 5.0-10.0 Red Blood Count 4.33 4.00-5.40 Platelets 414 172-450 Hemoglobin 12.6 Hematocrit 39.6 CMP 06/13/2021 [facility] - not interfaced (315)- - Albumin Serum/Plasma [...] Laboratory test finding 03/09/2021 [facility] [place] PDF [id number] SEE IMAGE 1 A courtesy copy of this repo rt has been sent to the patient Procedures Date Code Description Status 08/23/2021 95606 Smoking & Tobacco Ce ssation Counseling Visit Intermediate 3-10Min Completed 08/23/2021 77990 Office/Outpatient Established Mo d MDM 30-39 Min Completed 08/23/2021 22547 ECG 12-Lead Completed 07/26/2021 47735 Smoking & Tobacco Ce ssation Counseling Visit Intermediate 3-10Min Completed 07/26/2021 85669 Office/Outpatient Established Mo d MDM 30-39 Min Completed 07/26/2021 39916 ECG 12-Lead Completed 02/21/2021 70381 Office/Outpatient Established Lo w MDM 20-29 Min Completed 02/21/2021 34305 ECG 12-Lead Completed Medical Devices Description No Information Available Encounters Type Date Location Provider Dx Diagnosis Office Visit 08/23/2021 3:30p Main Office ELISA Giles I25 .10 Athscl heart disease of [place] coronary artery w/o ang pctrs I50.32 Chronic diastolic (congestiv e) heart failure I11.0 Hypertensive heart disease w ith heart failure I34.0 Nonrheumatic mitral (valve) insufficiency E78.01 Familial hypercholesterolemi a I65.29 Occlusion and stenosis of un specified carotid artery F17.210 Nicotine dependence, cigaret slick, uncomplicated R94.31 Abnormal electrocardiogram [ ECG] [EKG] Z71.3 Dietary counseling and surve illance Office Visit 02/21/2021 1:00p Main Office ELISA Giles I25 .10 Athscl heart disease of [place] coronary artery w/o ang pctrs I50.32 Chronic diastolic (congestiv e) heart failure R94.31 Abnormal electrocardiogram [ ECG] [EKG] Assessments Date Code Description Provider 08/23/2021 I25.10 Atherosclerotic hear t disease of [place] coronary artery without angina pectoris ELISA Giles [...] Giles 08/23/2021 Z71.3 Dietary counseling and surveilla justyne ELISA Giles 07/26/2021 I25.10 Atherosclerotic hear t disease of [place] coronary artery without angina pectoris ELISA Giles [...] Z71.3 Dietary counseling and surveilla ELISA Jennings 02/21/2021 I25.10 Atherosclerotic hear t disease of [place] coronary artery without angina pectoris ELISA Giles 02/21/2021 I50.32 Chronic diastolic (congestive) h eart failure ELISA Giles 02/21/2021 R94.31 Abnormal electrocardiogram [ECG] [EKG] ELISA Giles Plan of Treatment Future Appointment(s):* 02/20/2022 3:00 pm - ELISA Giles at Main Office * 11/16/2021 2:00 pm - ECHO at Main Office 08/23/2021 - ELISA Giles* I25.10 Atherosclerotic heart disease of [place] coronary artery without angina pectoris* New Labs:* [...]
--- OUTSIDE RECORDS SUMMARY | 2021-09-29 08:11 | CCD | Continuity of Care Document ---
Author Author Suha ELKINS [employer] Organization Unknown Address [address] [place] [address] Phone [phone] Care Team Providers Care Superintendent Landfill Operations Name Role Phone [facility] - Dermatology [facility] - Hearing Aid Equipment AUTM [phone] [facility] - Cardiovascular Disease AUTM [phone] [facility] AUTM [phone] [facility] Practice - Surgery AUTM [phone] Problems Active Problems Provider Date Mixed hyperlipidemia [...] twice a day 60units R06.02 Donita Elkins [employer] 03/30/2021 - 08/23/2021 Ambien 10mg Tablets one tab at at bedtime as needed sleep 30tabs G47.00 Donita Elkins [employer] 03/09/2021 - 08/23/2021 Ramelteon 8mg Tablets one po at hs prn for sleep 30tabs G47.00 Donita Elkins [employer] 02/22/2021 - 03/09/2021 Immunizations CPT Code Status Date Vaccine Lot # [id number] Given 08/23/2021 Influenza Virus Vaccine, Camron drivalent,multidose vial [id number] Given 01/31/2021 Covid-19 Jb & Jb [id number] Given 09/30/2020 Influenza Virus Vaccine, Camron drivalent,multidose vial [id number] Vital Signs Date Vital Result Comment 08/23/2021 2:14pm BP Systolic 148 mmHg BP Diastolic 71 mmHg Heart Rate 50 /min Body Temperature 97.4 F Respiratory Rate 14 /min Height 61.75 inches 5'1.75" Weight 147.38 lb Peak Expiratory Flow Rate 325 Estimated Peak Flow Rate [place] Body Weight 105 lb BMI (Body Mass Index) 27.2 kg/m2 07/21/2021 11:14am BP Systolic 138 mmHg BP Diastolic 76 mmHg Heart Rate 47 /min Body Temperature 97.8 F Respiratory Rate 16 /min Height 61.75 inches 5'1.75" Weight 146.25 lb O2 % BldC Oximetry 98 % Peak Expiratory Flow Rate 325 Estimated Peak Flow Rate [place] Body Weight 105 lb BMI (Body Mass Index) 27.0 kg/m2 Results Test Acquired Date Facility Test Result H/L Range Note Coronavirus 2019 Nasopharygeal 08/13/2021 Patient [place], [place] [id number] [phone] Coronavirus 2019 Nasopharygeal ASSAY INFORMATIO <SEE N OTE> 1 Coronavirus 2019 Nasopharygeal 07/22/2021 Patient [place], [place] [id number] [phone] Coronavirus 2019 Nasopharygeal ASSAY INFORMATIO <SEE N OTE> 2 Laboratory test finding 07/17/2021 [place] [address] [phone] iSTAT Troponin 0.02 NG/ML Normal 0.00-0.08 CBC With Differential 07/17/2021 [place] [address] [phone] White Blood Count 9.1 10 Normal 4.0-10.0 [...] 36.0-66.0 Lymph % 46.5 % High 24.0-44.0 Bradley % 9.0 % High 2.0-8.0 Eos % 3.0 % Normal 0.0-3.0 Baso % 0.8 % Normal 0.0-1.0 Immature Granulocyte % 0.1 % Normal 0-3.0 Nucleated Red Blood Cell % 0.0 % Normal 0-0 Neutrophils # 3.7 10 Normal 1.5-8.5 Lymph # 4.2 10 Normal 1.5-5.0 Bradley # 0.8 10 Normal 0.0-0.8 Eos # 0.3 10 Normal 0.0-0.5 Baso # 0.1 10 Normal 0.0-0.2 Basic Metabolic Profile 07/17/2021 [place] [address] [phone] Glucose, Fasting 93 mg/dL Normal 70-100 Blood [...] 8.5-10.1 PT & Aptt 07/17/2021 Patient Service [place] [id number] [phone] Prothrombin Time 13.4 seconds Normal 12.7-14.5 Inr 0.98 Normal 4 Partial Thromboplastin Time 27.8 seconds Normal 25.9-37.0 Laboratory test finding 07/17/2021 [place] [address] [phone] iSTAT Troponin 0.01 NG/ML Normal 0.00-0.08 Laboratory test finding 06/13/2021 [facility] [phone] H Pylori Serum Quant Iga <9.0 units Normal 0.0-8.9 5 H Pylori Serum Quant IgG Anh 0.45 Normal 0.00-0.79 6 H Pylori Serum Quant Igm <9.0 units Normal 0.0-8.9 7 Comprehensive Metabolic Profil 06/13/2021 [facility] [phone] Glucose, Fasting 94 mg/dL Normal 70-100 Blood [...] 1.2 Normal 1.2-2.2 CBC With Differential 06/13/2021 [facility] [phone] White Blood Count 8.0 10 Normal 4.0-10.0 [...] 36.0-66.0 Lymph % 44.3 % High 24.0-44.0 Bradley % 8.5 % High 2.0-8.0 Eos % 1.4 % Normal 0.0-3.0 Baso % 0.7 % Normal 0.0-1.0 Immature Granulocyte % 0.1 % Normal 0-3.0 Nucleated Red Blood Cell % 0.0 % Normal 0-0 Neutrophils # 3.6 10 Normal 1.5-8.5 Lymph # 3.6 10 Normal 1.5-5.0 Bradley # 0.7 10 Normal 0.0-0.8 Eos # 0.1 10 Normal 0.0-0.5 Baso # 0.1 10 Normal 0.0-0.2 Laboratory test finding 06/13/2021 [facility] [phone] Lipase 82 U/L Normal 73-393 Istat PT/Inr 05/16/2021 [place] [address] [phone] iSTAT Protime Seconds 15.3 seconds High 12.1-14. 4 iSTAT Inr 1.3 Normal Basic Metabolic Profile 05/16/2021 [place] [address] [phone] Glucose, Fasting 106 mg/dL High 70-100 Blood [...] 8.5-10.1 CBC With Differential 05/16/2021 [place] [address] [phone] White Blood Count 11.2 10 High 4.0-10.0 [...] 36.0-66.0 Lymph % 26.4 % Normal 24.0-44.0 Bradley % 7.1 % Normal 2.0-8.0 Eos % 1.7 % Normal 0.0-3.0 Baso % 0.5 % Normal 0.0-1.0 Immature Granulocyte % 0.3 % Normal 0-3.0 Nucleated Red Blood Cell % 0.0 % Normal 0-0 Neutrophils # 7.1 10 Normal 1.5-8.5 Lymph # 3.0 10 Normal 1.5-5.0 Bradley # 0.8 10 Normal 0.0-0.8 Eos # 0.2 10 Normal 0.0-0.5 Baso # 0.1 10 Normal 0.0-0.2 Laboratory test finding 05/16/2021 [place] [address] [phone] iSTAT Troponin 0.00 NG/ML Normal 0.00-0.08 Laboratory test finding 05/16/2021 [facility] [place], [place] [id number] [phone] iSTAT Troponin 0.00 NG/ML Normal 0.00-0.08 CBC With Differential 03/30/2021 [facility] [phone] White Blood Count 7.9 10 Normal 4.0-10.0 [...] 36.0-66.0 Lymph % 38.1 % Normal 24.0-44.0 Bradley % 6.1 % Normal 2.0-8.0 Eos % 3.2 % High 0.0-3.0 Baso % 0.8 % Normal 0.0-1.0 Immature Granulocyte % 0.3 % Normal 0-3.0 Nucleated Red Blood Cell % 0.0 % Normal 0-0 Neutrophils # 4.1 10 Normal 1.5-8.5 Lymph # 3.0 10 Normal 1.5-5.0 Bradley # 0.5 10 Normal 0.0-0.8 Eos # 0.3 10 Normal 0.0-0.5 Baso # 0.1 10 Normal 0.0-0.2 Vitamin B12 & Folate 03/30/2021 [facility] enter [phone] Vitamin B12 Level 998 pg/mL Normal 11 Folate 20.3 NG/ML Normal 12 CBC With Differential 03/09/2021 [facility] [address] [place] [address] [phone] WBC 10.6 x10E3/uL 3.4-10.8 RBC 4.38 x10E6/uL [...] TNP Laboratory test finding 03/09/2021 [facility] [address], [place] [id number] [phone] Lipase 36 U/L 14-72 Amylase 43 U/L 31-110 Metabolic Panel (14), Comprehensive 03/09/2021 [facility] [address], [place] [id number] [phone] Sodium 141 mmol/L 134-144 Potassium 4.3 mmol/L [...] Administration under the Emergency Use Authorization (EUA). [facility] and [facility] are designated as high complexity laboratories by the Clinical Laboratory Improvement Amendments of 1988(CLIA) and are qualified to perform this test. Not Detected 2 ASSAY INFORMATION: Real Time RT-PCR NOTE: The COVID-19 assay has been cleared by the U.S. Food and Drug Administration under the Emergency Use Authorization (EUA). [facility] and [facility] are designated as high complexity laboratories by [...] Little GFR Left ESRD GFR <15 on HEAD OF STOCK 4 THERAPUTIC HUMAN INR VALUES INDICATIONS NORMAL [...] developed and its performance characteristics determined by [facility]. It has not been cleared or approved by the Food and Drug Administration. Performed at: - [address] [id number] Coupon Manifest Clerk: Antonette Ríos MD, Phone: [phone] Units are mL/min/1.73 m2 Chronic Kidney Disease Staging per NKF: Stage I & II GFR >=60 Normal to Mildly Decreased Stage III GFR 30-59 Moderately Decreased Stage IV GFR 15-29 Severely Decreased Stage V GFR <15 Very Little GFR Left ESRD GFR <15 on HEAD OF STOCK 9 Units are mL/min/1.73 m2 Chronic Kidney Disease Staging per NKF: Stage I & II GFR >=60 Normal to Mildly Decreased Stage III GFR 30-59 Moderately Decreased Stage IV GFR 15-29 Severely Decreased Stage V GFR <15 Very Little GFR Left ESRD GFR <15 on HEAD OF STOCK 10 Testing was performed on a S LIGHTLY hemolyzed specimen. Suggest recollection of specimen for more accurate test results. 11 VITAMIN B12 NORMAL RANGE NORMAL 247 - 911 PG/ML INDETERMINATE 211 - 246 PG/ML DEFICIENT LESS THAN 211 PG/ML 12 FOLATE NORMAL RANGE NORMAL GREATER THAN 5.4 NG/ML INDETERMINATE 3.4-5.4 NG/ML DEFICIENT LESS THAN 3.4 NG/ML Procedures Date Code Description Status 07/21/2021 08963 Office/Outpatient Established Mo d MDM 30-39 Min Completed 06/13/2021 66042 Office/Outpatient Established Mo d MDM 30-39 Min Completed 05/19/2021 42242 Office/Outpatient Established Mo d MDM 30-39 Min Completed 03/30/2021 68254 Office/Outpatient Established Mo d MDM 30-39 Min Completed 03/09/2021 38931 Office/Outpatient Established Mo d MDM 30-39 Min Completed 02/22/2021 75294 [facility] SRV Aft DC W/I 14D, [...] Visit 06/13/2021 11:45a Main Office Pleskach, Donita, [employer] R10.1 3 Epigastric pain Office Visit 05/19/2021 11:15a Main Office Donita Elkins, [employer] K21.9 Gastro- esophageal reflux disease without esophagitis F41.1 Generalized anxiety disorder I50.32 Chronic diastolic (congestiv e) heart failure E78.2 Mixed hyperlipidemia 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 [facility] Office Visit 03/30/2021 9:30a Main Office Donita Elkins, [employer] D48.5 Neoplasm of uncertain behavior of skin R06.02 Shortness of breath D51.9 Vitamin B12 deficiency anemi a, unspecified Office Visit 03/09/2021 10:00a Main Office Donita Elkins [employer] G47.0 0 Insomnia, unspecified Office Visit 02/22/2021 1:15p Main Office Donita Elkins, [employer] R11.0 Nausea R11.0 Nausea 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 [facility] 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 [facility] E78.2 Mixed hyperlipidemia E78.2 Mixed hyperlipidemia I50.32 [...] diastolic (congestive) h eart failure Pleskach, Donita, [employer] 07/21/2021 E78.2 Mixed hyperlipidemia Pleskach, M velma, [employer] 07/21/2021 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 Pleskach, Donita, [employer] 06/13/2021 R10.13 Epigastric pain Pleskach, Donita, [employer] 05/19/2021 K21.9 Gastro-esophageal reflux disease without esophagitis Pleskach, Donita, [employer] 05/19/2021 F41.1 Generalized anxiety disorder Ple skach, Donita, [employer] 05/19/2021 I50.32 Chronic diastolic (congestive) h eart failure Pleskach, Donita, [employer] 05/19/2021 E78.2 Mixed hyperlipidemia Pleskach, M velma, [employer] 05/19/2021 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 Pleskach, Donita, [employer] 03/30/2021 D48.5 Neoplasm of uncertain behavior o f skin Pleskach, Donita, [facility] 03/30/2021 R06.02 Shortness of breath Pleskach, Mo lly, [facility] 03/30/2021 D51.9 Vitamin B12 deficiency anemia, u nspecified Pleskach, Donita, [employer] 03/09/2021 G47.00 Insomnia, unspecified Pleskach, Donita, [employer] 02/22/2021 R11.0 Nausea Pleskach, Donita, [employer] 02/22/2021 R11.0 Nausea Pleskach, Donita, [employer] 02/22/2021 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 Pleskach, Donita, [employer] 02/22/2021 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 Pleskach, Donita, [employer] 02/22/2021 E78.2 Mixed hyperlipidemia Pleskach, M velma, [employer] 02/22/2021 E78.2 Mixed hyperlipidemia Pleskach, M velma, [employer] 02/22/2021 I50.32 Chronic diastolic (congestive) h eart failure Pleskach, Donita, [employer] 02/22/2021 I50.32 Chronic diastolic (congestive) h eart failure Pleskach, Donita, [employer] 02/22/2021 F41.1 Generalized anxiety disorder Ple skach, Donita, [employer] 02/22/2021 F41.1 Generalized anxiety disorder Ple skach, Donita, [employer] 02/22/2021 F17.210 Nicotine dependence, cigarettes, uncomplicated Pleskach, Donita, [employer] 02/22/2021 F17.210 Nicotine dependence, cigarettes, uncomplicated Pleskach, Donita, [employer] 02/22/2021 G47.00 Insomnia, unspecified Pleskach, Donita, [employer] 02/22/2021 G47.00 Insomnia, unspecified Pleskach, Donita, [employer] 02/22/2021 Z13.89 Encounter for screening for othe [...] Dr Reason for Referral Status Appt Date [facility] General Surgery Practice Patient needs EGD f or epigastric pain, Please scheduled art as patient is in a lot of discomfort. Thank you. Closed 06/28/2021 [address], [address] [place] [address] [phone] [facility] Dermatology Please evaluate red spot on the side of her nose that was the site of a previous biopsy showing precancerous cells. Thank you. Closed 06/01/2021 [facility] [address] [facility] [facility], [place] [address] [phone]
--- OUTSIDE RECORDS SUMMARY | 2021-09-29 08:11 | CCD | Summary of Care ---
Author Author [facility] Organization [facility] Address Unknown Phone Unavailable Care Team Providers Care Import/Export Agent Name Role Phone Donita Elkins NP PCP Encounter Details Care Team Description Date Type Department 08/02/2021 [facility] Anatomical Encounter Pathology at [place] [address] [place] [address] Allergies Not on Filedocumented as of this encounter (statuses as of 08/03/2021) Medications Not on filedocumented as of this encounter (statuses as of 08/03/2021) Active Problems Not on filedocumented as of this encounter (statuses as of 08/03/2021) Immunizations Name Administration Dates Next Due documented as of this encounter Social History Date Tobacco Use Types Packs/Day Years Used Never Assessed Sex Assigned at Date Recorded Not on file documented as of this encounter Last Filed Vital Signs Not on filedocumented in this encounter Plan of Treatment Health Maintenance Due Date Last Done Comments Hepatitis C Screening (B. 1965 [id number]) MMR Vaccines (1 of - 1966 Standard series) Varicella Vaccines (1 of 1966 2 - 2-dose childhood series) DTaP,Tdap,and Td Vaccines 1972 (1 - Tdap) HIV Screening 1978 Cervical Cancer Screening 1986 5 years Breast Cancer Screening 2 2015 years Colon Cancer Screening 10 2015 yrs Influenza Vaccine 08/26/2021 09/30/2020, 08/12/2019 Pneumococcal Vaccine: 65+ 2030 Years (1 of 1 - PPSV23) COVID-19 Vaccine Completed 01/31/2021 HIB Vaccines Aged Out No longer eligible based on patient's age to complete this topic Hepatitis A Vaccines Aged Out No longer eligibl e based on patient's age to complete this topic Hepatitis B Vaccines Aged Out No longer eligibl e based on patient's age to complete this topic IPV Vaccines Aged Out No longer eligible based on patient's age to complete this topic Pneumococcal Vaccine: Aged Out No longer eligib le based on patient's age to Pediatrics (0 to 5 Years) complete this topic and At-Risk Patients (6 to 64 Years) documented as of this encounter Procedures Comments Procedure Name Priority Date/Time Associated Diag nosis SURGICAL PATHOLOGY Routine 08/02/2021 CONSULT 12:00 AM EDT documented in this encounter Results * Surgical pathology consult (08/02/2021 12:00 AM EDT) SURGICAL Surgical Pathology Report AMILCAR Pandey CONSULT Name: SUHA GORDON CLINICAL PATHOLOGY Collection Date: 08/02/2021 00:00 Received Date: 08/02/2021 10:57 Physician(s): KIRIT TAYLOR DO Haghir, Shahandeh MD Specimen(s) Received A: Material received for consultation, DEONNA, [facility], [id number] Clinical History A. Gastric prepyloric mass. B. Cecal mass. Concern for cecal mass. Please see attached endoscopy and colonoscopy report. Favor benign findings in colon and no definite ulcer or erosion in stomach. For consultation to R/O malignancy in the ileocecal valve. Diagnosis OUTSIDE SLIDES: STOMACH, PREPYLORIC AREA, BIOPSY ([id number], 07/27/21): NO SIGNIFICANT PATHOLOGIC CHANGES. CECAL MASS, BIOPSY ([id number], 07/27/21): DISTORTED INTESTINAL MUCOSA WITH NONSPECIFIC INFLAMMATORY CHANGES. NO EVIDENCE OF ATYPIA OR MALIGNANCY. (SEE MICROSCOPIC DESCRIPTION). Electronically Signed By Naren Rodriguez M.D., Attending Pathologist 08/02/2021 16:56:40 Gross Description Received from [facility] in [place], [place], are 4 H and E stained slides and 2 paraffin blocks, labeled [id number], with the corresponding pathology report. Also received: [...] developed and their performance characteristics determined by [facility] Pathology department. They have not been cleared or approved by the [place] Food and Drug Administration. The FDA has determined that such clearance or approval is not necessary. Specimen Performing Organization Address City/State/ZIP Code P kailee Number [place] [address] PATHOLOGY documented in this encounter
--- OUTSIDE RECORDS SUMMARY | 2021-09-29 08:11 | CCD | Continuity of Care Document ---
Author Author Suha ELKINS IMPORT/EXPORT SPECIALIST Organization Unknown Address [address] [place] [address] Phone [phone] Care Team Providers Care Monorail Crane Operator Name Role Phone [facility] Dermatology - Dermatology [facility] - Hearing Aid Equipment AUT[facility] [phone] [facility] - Cardiovascular Disease AUTM [phone] [facility] AUTM [phone] [facility] General Surgery Practice - Surgery AUTM [phone] Problems Active Problems Provider Date Mixed hyperlipidemia [...] twice a day 60units R06.02 Donita Elkins IMPORT/EXPORT SPECIALIST 03/30/2021 - 08/23/2021 Ambien 10mg Tablets one tab at at bedtime as needed sleep 30tabs G47.00 Donita Elkins IMPORT/EXPORT SPECIALIST 03/09/2021 - 08/23/2021 Ramelteon 8mg Tablets one po at hs prn for sleep 30tabs G47.00 Donita Elkins IMPORT/EXPORT SPECIALIST 02/22/2021 - 03/09/2021 Immunizations CPT Code Status Date Vaccine Lot # [id number] Given 08/23/2021 Influenza Virus Vaccine, Camron drivalent,multidose vial [id number] Given 01/31/2021 Covid-19 Jb & Jb 06209 Given 09/30/2020 Influenza Virus Vaccine, Camron drivalent,multidose vial [id number] Vital Signs Date Vital Result Comment 08/23/2021 2:14pm BP Systolic 148 mmHg BP Diastolic 71 mmHg Heart Rate 50 /min Body Temperature 97.4 F Respiratory Rate 14 /min Height 61.75 inches 5'1.75" Weight 147.38 lb Peak Expiratory Flow Rate 325 Estimated Peak Flow Rate [place] Body Weight 105 lb BMI (Body Mass Index) 27.2 kg/m2 07/21/2021 11:14am BP Systolic 138 mmHg BP Diastolic 76 mmHg Heart Rate 47 /min Body Temperature 97.8 F Respiratory Rate 16 /min Height 61.75 inches 5'1.75" Weight 146.25 lb O2 % BldC Oximetry 98 % Peak Expiratory Flow Rate 325 Estimated Peak Flow Rate [place] Body Weight 105 lb BMI (Body Mass Index) 27.0 kg/m2 Results Test Acquired Date Facility Test Result H/L Range Note Coronavirus 2019 Nasopharygeal 08/13/2021 Patient [place], [place] [id number] [phone] Coronavirus 2019 Nasopharygeal ASSAY INFORMATIO <SEE N OTE> 1 Coronavirus 2019 Nasopharygeal 07/22/2021 Patient [place], [place] [id number] [phone] Coronavirus 2019 Nasopharygeal ASSAY INFORMATIO <SEE N OTE> 2 Laboratory test finding 07/17/2021 [place] [address] [phone] iSTAT Troponin 0.02 NG/ML Normal 0.00-0.08 CBC With Differential 07/17/2021 [place] [address] [phone] White Blood Count 9.1 10 Normal 4.0-10.0 [...] 36.0-66.0 Lymph % 46.5 % High 24.0-44.0 [place] % 9.0 % High 2.0-8.0 Eos % 3.0 % Normal 0.0-3.0 Baso % 0.8 % Normal 0.0-1.0 Immature Granulocyte % 0.1 % Normal 0-3.0 Nucleated Red Blood Cell % 0.0 % Normal 0-0 Neutrophils # 3.7 10 Normal 1.5-8.5 Lymph # 4.2 10 Normal 1.5-5.0 [place] # 0.8 10 Normal 0.0-0.8 Eos # 0.3 10 Normal 0.0-0.5 Baso # 0.1 10 Normal 0.0-0.2 Basic Metabolic Profile 07/17/2021 [place] [address] [phone] Glucose, Fasting 93 mg/dL Normal 70-100 Blood [...] 8.5-10.1 PT & Aptt 07/17/2021 Patient Service [place] [id number] [phone] Prothrombin Time 13.4 seconds Normal 12.7-14.5 Inr 0.98 Normal 4 Partial Thromboplastin Time 27.8 seconds Normal 25.9-37.0 Laboratory test finding 07/17/2021 [place] [address] [phone] iSTAT Troponin 0.01 NG/ML Normal 0.00-0.08 Laboratory test finding 06/13/2021 [facility] [phone] H Pylori Serum Quant Iga <9.0 units Normal 0.0-8.9 5 H Pylori Serum Quant IgG Anh 0.45 Normal 0.00-0.79 6 H Pylori Serum Quant Igm <9.0 units Normal 0.0-8.9 7 Comprehensive Metabolic Profil 06/13/2021 [facility] [phone] Glucose, Fasting 94 mg/dL Normal 70-100 Blood [...] 1.2 Normal 1.2-2.2 CBC With Differential 06/13/2021 [facility] [phone] White Blood Count 8.0 10 Normal 4.0-10.0 [...] 36.0-66.0 Lymph % 44.3 % High 24.0-44.0 [place] % 8.5 % High 2.0-8.0 Eos % 1.4 % Normal 0.0-3.0 Baso % 0.7 % Normal 0.0-1.0 Immature Granulocyte % 0.1 % Normal 0-3.0 Nucleated Red Blood Cell % 0.0 % Normal 0-0 Neutrophils # 3.6 10 Normal 1.5-8.5 Lymph # 3.6 10 Normal 1.5-5.0 [place] # 0.7 10 Normal 0.0-0.8 Eos # 0.1 10 Normal 0.0-0.5 Baso # 0.1 10 Normal 0.0-0.2 Laboratory test finding 06/13/2021 [facility] [phone] Lipase 82 U/L Normal 73-393 Istat PT/Inr 05/16/2021 [place] [address] [phone] iSTAT Protime Seconds 15.3 seconds High 12.1-14. 4 iSTAT Inr 1.3 Normal Basic Metabolic Profile 05/16/2021 [place] [address] [phone] Glucose, Fasting 106 mg/dL High 70-100 Blood [...] 8.5-10.1 CBC With Differential 05/16/2021 [place] [address] [phone] White Blood Count 11.2 10 High 4.0-10.0 [...] 36.0-66.0 Lymph % 26.4 % Normal 24.0-44.0 [place] % 7.1 % Normal 2.0-8.0 Eos % 1.7 % Normal 0.0-3.0 Baso % 0.5 % Normal 0.0-1.0 Immature Granulocyte % 0.3 % Normal 0-3.0 Nucleated Red Blood Cell % 0.0 % Normal 0-0 Neutrophils # 7.1 10 Normal 1.5-8.5 Lymph # 3.0 10 Normal 1.5-5.0 [place] # 0.8 10 Normal 0.0-0.8 Eos # 0.2 10 Normal 0.0-0.5 Baso # 0.1 10 Normal 0.0-0.2 Laboratory test finding 05/16/2021 [place] [address] [phone] iSTAT Troponin 0.00 NG/ML Normal 0.00-0.08 Laboratory test finding 05/16/2021 [facility] [place], [place] [id number] [phone] iSTAT Troponin 0.00 NG/ML Normal 0.00-0.08 CBC With Differential 03/30/2021 [facility] [phone] White Blood Count 7.9 10 Normal 4.0-10.0 [...] 36.0-66.0 Lymph % 38.1 % Normal 24.0-44.0 [place] % 6.1 % Normal 2.0-8.0 Eos % 3.2 % High 0.0-3.0 Baso % 0.8 % Normal 0.0-1.0 Immature Granulocyte % 0.3 % Normal 0-3.0 Nucleated Red Blood Cell % 0.0 % Normal 0-0 Neutrophils # 4.1 10 Normal 1.5-8.5 Lymph # 3.0 10 Normal 1.5-5.0 [place] # 0.5 10 Normal 0.0-0.8 Eos # 0.3 10 Normal 0.0-0.5 Baso # 0.1 10 Normal 0.0-0.2 Vitamin B12 & Folate 03/30/2021 [facility] enter [phone] Vitamin B12 Level 998 pg/mL Normal 11 Folate 20.3 NG/ML Normal 12 CBC With Differential 03/09/2021 [facility] [address] [place] [address] [phone] WBC 10.6 x10E3/uL 3.4-10.8 RBC 4.38 x10E6/uL [...] TNP Laboratory test finding 03/09/2021 [facility] [address] [place], [place] [address] [phone] Lipase 36 U/L 14-72 Amylase 43 U/L 31-110 Metabolic Panel (14), Comprehensive 03/09/2021 [facility] [address] [place], [place] [address] [phone] Sodium 141 mmol/L 134-144 Potassium 4.3 mmol/L [...] Administration under the Emergency Use Authorization (EUA). [facility] are designated as high complexity laboratories by the Clinical Laboratory Improvement Amendments of 1988(CLIA) and are qualified to perform this test. Not Detected 2 ASSAY INFORMATION: Real Time RT-PCR NOTE: The COVID-19 assay has been cleared by the U.S. Food and Drug Administration under the Emergency Use Authorization (EUA). [facility] are designated as high complexity laboratories by [...] Little GFR Left ESRD GFR <15 on DATA ENTRY ASSISTANT 4 THERAPUTIC HUMAN INR VALUES INDICATIONS NORMAL [...] developed and its performance characteristics determined by [facility]. It has not been cleared or approved by the Food and Drug Administration. Performed at: - [facility] [id number] [employer] Machine Adjuster: Antonette Ríos MD, Phone: [phone] Units are mL/min/1.73 m2 Chronic Kidney Disease Staging per NKF: Stage I & II GFR >=60 Normal to Mildly Decreased Stage III GFR 30-59 Moderately Decreased Stage IV GFR 15-29 Severely Decreased Stage V GFR <15 Very Little GFR Left ESRD GFR <15 on DATA ENTRY ASSISTANT 9 Units are mL/min/1.73 m2 Chronic Kidney Disease Staging per NKF: Stage I & II GFR >=60 Normal to Mildly Decreased Stage III GFR 30-59 Moderately Decreased Stage IV GFR 15-29 Severely Decreased Stage V GFR <15 Very Little GFR Left ESRD GFR <15 on DATA ENTRY ASSISTANT 10 Testing was performed on a S LIGHTLY hemolyzed specimen. Suggest recollection of specimen for more accurate test results. 11 VITAMIN B12 NORMAL RANGE NORMAL 247 - 911 PG/ML INDETERMINATE 211 - 246 PG/ML DEFICIENT LESS THAN 211 PG/ML 12 FOLATE NORMAL RANGE NORMAL GREATER THAN 5.4 NG/ML INDETERMINATE 3.4-5.4 NG/ML DEFICIENT LESS THAN 3.4 NG/ML Procedures Date Code Description Status 07/21/2021 26071 Office/Outpatient Established Mo d MDM 30-39 Min Completed 06/13/2021 63868 Office/Outpatient Established Mo d MDM 30-39 Min Completed 05/19/2021 05606 Office/Outpatient Established Mo d MDM 30-39 Min Completed 03/30/2021 14127 Office/Outpatient Established Mo d MDM 30-39 Min Completed 03/09/2021 41035 Office/Outpatient Established Mo d MDM 30-39 Min Completed 02/22/2021 31293 [facility] SRV Aft DC W/I 14D, [...] Visit 06/13/2021 11:45a Main Office Pleskach, Donita, IMPORT/EXPORT SPECIALIST R10.1 3 Epigastric pain Office Visit 05/19/2021 11:15a Main Office Donita Elkins, IMPORT/EXPORT SPECIALIST K21.9 Gastro- esophageal reflux disease without esophagitis F41.1 Generalized anxiety disorder I50.32 Chronic diastolic (congestiv e) heart failure E78.2 Mixed hyperlipidemia 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 [facility] Office Visit 03/30/2021 9:30a Main Office Donita Elkins, IMPORT/EXPORT SPECIALIST D48.5 Neoplasm of uncertain behavior of skin R06.02 Shortness of breath D51.9 Vitamin B12 deficiency anemi a, unspecified Office Visit 03/09/2021 10:00a Main Office Donita lEkins IMPORT/EXPORT SPECIALIST G47.0 0 Insomnia, unspecified Office Visit 02/22/2021 1:15p Main Office Donita Elkins, IMPORT/EXPORT SPECIALIST R11.0 Nausea R11.0 Nausea 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 E78.2 Mixed hyperlipidemia E78.2 Mixed hyperlipidemia I50.32 [...] diastolic (congestive) h eart failure Pleskach, Donita, IMPORT/EXPORT SPECIALIST 07/21/2021 E78.2 Mixed hyperlipidemia Pleskach, M velma, IMPORT/EXPORT SPECIALIST 07/21/2021 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 Pleskach, Donita, IMPORT/EXPORT SPECIALIST 06/13/2021 R10.13 Epigastric pain Pleskach, Donita, IMPORT/EXPORT SPECIALIST 05/19/2021 K21.9 Gastro-esophageal reflux disease without esophagitis Pleskach, Donita, IMPORT/EXPORT SPECIALIST 05/19/2021 F41.1 Generalized anxiety disorder Ple skach, Donita, IMPORT/EXPORT SPECIALIST 05/19/2021 I50.32 Chronic diastolic (congestive) h eart failure Pleskach, Donita, IMPORT/EXPORT SPECIALIST 05/19/2021 E78.2 Mixed hyperlipidemia Pleskach, M velma, IMPORT/EXPORT SPECIALIST 05/19/2021 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 Pleskach, Donita, IMPORT/EXPORT SPECIALIST 03/30/2021 D48.5 Neoplasm of uncertain behavior o f skin Pleskach, Donita, [facility] 03/30/2021 R06.02 Shortness of breath Pleskach, Mo lly, [facility] 03/30/2021 D51.9 Vitamin B12 deficiency anemia, u nspecified Pleskach, Donita, IMPORT/EXPORT SPECIALIST 03/09/2021 G47.00 Insomnia, unspecified Pleskach, Donita, IMPORT/EXPORT SPECIALIST 02/22/2021 R11.0 Nausea Pleskach, Donita, IMPORT/EXPORT SPECIALIST 02/22/2021 R11.0 Nausea Pleskach, Donita, IMPORT/EXPORT SPECIALIST 02/22/2021 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 Pleskach, Donita, IMPORT/EXPORT SPECIALIST 02/22/2021 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 Pleskach, Donita, IMPORT/EXPORT SPECIALIST 02/22/2021 E78.2 Mixed hyperlipidemia Pleskach, M velma, IMPORT/EXPORT SPECIALIST 02/22/2021 E78.2 Mixed hyperlipidemia Pleskach, M velma, IMPORT/EXPORT SPECIALIST 02/22/2021 I50.32 Chronic diastolic (congestive) h eart failure Pleskach, Donita, IMPORT/EXPORT SPECIALIST 02/22/2021 I50.32 Chronic diastolic (congestive) h eart failure Pleskach, Donita, IMPORT/EXPORT SPECIALIST 02/22/2021 F41.1 Generalized anxiety disorder Ple skach, Donita, IMPORT/EXPORT SPECIALIST 02/22/2021 F41.1 Generalized anxiety disorder Ple skach, Donita, IMPORT/EXPORT SPECIALIST 02/22/2021 F17.210 Nicotine dependence, cigarettes, uncomplicated Pleskach, Donita, IMPORT/EXPORT SPECIALIST 02/22/2021 F17.210 Nicotine dependence, cigarettes, uncomplicated Pleskach, Donita, IMPORT/EXPORT SPECIALIST 02/22/2021 G47.00 Insomnia, unspecified Pleskach, Donita, IMPORT/EXPORT SPECIALIST 02/22/2021 G47.00 Insomnia, unspecified Pleskach, Donita, IMPORT/EXPORT SPECIALIST 02/22/2021 Z13.89 Encounter for screening for othe [...] Dr Reason for Referral Status Appt Date [facility] General Surgery Practice Patient needs EGD f or epigastric pain, Please scheduled art as patient is in a lot of discomfort. Thank you. Closed 06/28/2021 [address] [facility], [address] [place] [address] [phone] [facility] Dermatology Please evaluate red spot on the side of her nose that was the site of a previous biopsy showing precancerous cells. Thank you. Closed 06/01/2021 [facility] Dermatology [address] [facility] [place] [address] [phone]
--- OUTSIDE RECORDS SUMMARY | 2021-09-29 08:13 | CCD ---
Author Author [facility] Organization [facility] Address Unknown Phone Unavailable Care Team Providers Care Delphi Programmer Name Role Phone Dannie KOROMA MD Unavailable Unavailable Dannie KOROMA MD Unavailable Unavailable Dannie KOROMA MD Unavailable Unavailable Dannie KOROMA MD Unavailable Unavailable Dannie KOROMA MD Unavailable Unavailable Dannie KOROMA MD Unavailable Unavailable Dannie KOROMA MD Unavailable Unavailable Dannie KOROMA MD Unavailable Unavailable Dannie KOROMA MD Unavailable Unavailable Dannie KOROMA MD Unavailable Unavailable Dannie KOROMA MD Unavailable Unavailable Dannie KOROMA MD Unavailable Unavailable Dannie KOROMA MD Unavailable Unavailable Dannie KOROMA MD Unavailable Unavailable Dannie KOROMA MD Unavailable Unavailable Dannie KOROMA MD Unavailable Unavailable Dannie KOROMA MD Unavailable Unavailable Dannie KOROMA MD Unavailable Unavailable Dannie KOROMA MD Unavailable Unavailable Dannie KOROMA MD Unavailable Unavailable Dannie KOROMA MD Unavailable Unavailable Dannie KOROMA MD Unavailable Unavailable Dannie KOROMA MD Unavailable Unavailable Dannie KOROMA MD Unavailable Unavailable Dannie KOROMA MD Unavailable Unavailable Dannie KOROMA MD Unavailable Unavailable Dannie KOROMA MD Unavailable Unavailable Dannie KOROMA MD Unavailable Unavailable Dannie KOROMA MD Unavailable Unavailable Dannie KOROMA MD Unavailable Unavailable Dannie KOROMA MD Unavailable Unavailable Dannie KOROMA MD Unavailable Unavailable Dannie KOROMA MD Unavailable Unavailable Dannie KOROMA MD Unavailable Unavailable Dannie KOROMA MD Unavailable Unavailable Dannie KOROMA MD Unavailable Unavailable Dannie KOROMA MD Unavailable Unavailable Dannie KOROMA MD Unavailable Unavailable Dannie KOROMA MD Unavailable Unavailable Dannie KOROMA MD Unavailable Unavailable Dannie KOROMA MD Unavailable Unavailable Dannie KOROMA MD Unavailable Unavailable Dannie KOROMA MD Unavailable Unavailable Dannie KOORMA MD Unavailable Unavailable Dannie KOROMA MD Unavailable Unavailable Dannie KOROMA MD Unavailable Unavailable Dannie KOROMA MD Unavailable Unavailable Dannie KOROMA MD Unavailable Unavailable Dannie KOROMA MD Unavailable Unavailable Dannie KOROMA MD Unavailable Unavailable Dannie KOROMA MD Unavailable Unavailable Dannie KOROMA MD Unavailable Unavailable Dannie KOROMA MD Unavailable Unavailable Dannie KOROMA MD Unavailable Unavailable Pleskach, Donita BUZZSAW OPERATOR Unavailable Unavailable Pleskach, Donita BUZZSAW OPERATOR Unavailable Unavailable Pleskach, Donita BUZZSAW OPERATOR Unavailable Unavailable Pleskach, Donita BUZZSAW OPERATOR Unavailable Unavailable Pleskach, Donita BUZZSAW OPERATOR Unavailable Unavailable Pleskach, Donita BUZZSAW OPERATOR Unavailable Unavailable Pleskach, Donita BUZZSAW OPERATOR Unavailable Unavailable Pleskach, Donita BUZZSAW OPERATOR Unavailable Unavailable Pleskach, Donita BUZZSAW OPERATOR Unavailable Unavailable Pleskach, Donita BUZZSAW OPERATOR Unavailable Unavailable Pleskach, Donita BUZZSAW OPERATOR Unavailable Unavailable Pleskach, Donita BUZZSAW OPERATOR Unavailable Unavailable Pleskach, Donita BUZZSAW OPERATOR Unavailable Unavailable Pleskach, Donita BUZZSAW OPERATOR Unavailable Unavailable Pleskach, Donita BUZZSAW OPERATOR Unavailable Unavailable Pleskach, Donita BUZZSAW OPERATOR Unavailable Unavailable Pleskach, Donita BUZZSAW OPERATOR Unavailable Unavailable Pleskach, Donita BUZZSAW OPERATOR Unavailable Unavailable Pleskach, Donita BUZZSAW OPERATOR Unavailable Unavailable Pleskach, Donita BUZZSAW OPERATOR Unavailable Unavailable Pleskach, Donita BUZZSAW OPERATOR Unavailable Unavailable Pleskach, Donita BUZZSAW OPERATOR Unavailable Unavailable Pleskach, Donita BUZZSAW OPERATOR Unavailable Unavailable Pleskach, Donita BUZZSAW OPERATOR Unavailable Unavailable Pleskach, Donita BUZZSAW OPERATOR Unavailable Unavailable Pleskach, Donita BUZZSAW OPERATOR Unavailable Unavailable Pleskach, Donita BUZZSAW OPERATOR Unavailable Unavailable Pleskach, Donita BUZZSAW OPERATOR Unavailable Unavailable Pleskach, Donita BUZZSAW OPERATOR Unavailable Unavailable Pleskach, Donita BUZZSAW OPERATOR Unavailable Unavailable Pleskach, Donita BUZZSAW OPERATOR Unavailable Unavailable Pleskach, Donita BUZZSAW OPERATOR Unavailable Unavailable Pleskach, Donita BUZZSAW OPERATOR Unavailable Unavailable Pleskach, Donita BUZZSAW OPERATOR Unavailable Unavailable Pleskach, Donita BUZZSAW OPERATOR Unavailable Unavailable Pleskach, Donita BUZZSAW OPERATOR Unavailable Unavailable Pleskach, Donita BUZZSAW OPERATOR Unavailable Unavailable Pleskach, Donita BUZZSAW OPERATOR Unavailable Unavailable Pleskach, Donita BUZZSAW OPERATOR Unavailable Unavailable Pleskach, Donita BUZZSAW OPERATOR Unavailable Unavailable Pleskach, Donita BUZZSAW OPERATOR Unavailable Unavailable Pleskach, Donita BUZZSAW OPERATOR Unavailable Unavailable Pleskach, Donita BUZZSAW OPERATOR Unavailable Unavailable Pleskach, Donita BUZZSAW OPERATOR Unavailable Unavailable BRYDEN, A KIRIT DO Unavailable Unavailable BRYDEN, A KIRIT DO Unavailable Unavailable BRYDEN, A KIRIT DO Unavailable Unavailable BRYDEN, A KIRIT DO Unavailable Unavailable BRYDEN, A KIRIT DO Unavailable Unavailable BRYDEN, A KIRIT DO Unavailable Unavailable BRYDEN, A KIRIT DO Unavailable Unavailable BRYDEN, A KIRIT DO Unavailable Unavailable BRYDEN, A KIRIT DO Unavailable Unavailable BRYDEN, A KIRIT DO Unavailable Unavailable BRYDEN, A KIRIT DO Unavailable Unavailable BRYDEN, A KIRIT DO Unavailable Unavailable BRYDEN, A KIRIT DO Unavailable Unavailable BRYDEN, A KIRIT DO Unavailable Unavailable BRYDEN, A KIRIT DO Unavailable Unavailable BRYDEN, A KIRIT DO Unavailable Unavailable BRYDEN, A KIRIT DO Unavailable Unavailable BRYDEN, A KIRIT DO Unavailable Unavailable BRYDEN, A KIRIT DO Unavailable Unavailable BRYDEN, A KIRIT DO Unavailable Unavailable BRYDEN, A KIRIT DO Unavailable Unavailable BRYDEN, A KIRIT DO Unavailable Unavailable BRYDEN, A KIRIT DO Unavailable Unavailable BRYDEN, A KIRIT DO Unavailable Unavailable BRYDEN, A KIRIT DO Unavailable Unavailable BRYDEN, A KIRIT DO Unavailable Unavailable BRYDEN, A KIRIT DO Unavailable Unavailable BRYDEN, A KIRIT DO Unavailable Unavailable BRYDEN, A KIRIT DO Unavailable Unavailable BRYDEN, A KIRIT DO Unavailable Unavailable BRYDEN, A KIRIT DO Unavailable Unavailable BRYDEN, A KIRIT DO Unavailable Unavailable BRYDEN, A KIRIT DO Unavailable Unavailable BRYDEN, A KIIRT DO Unavailable Unavailable BRYDEN, A KRIIT DO Unavailable Unavailable BRYDEN, A KIRIT DO Unavailable Unavailable BRYDEN, A KIRIT DO Unavailable Unavailable BRYDEN, A KIRIT DO Unavailable Unavailable BRYDEN, A KIRIT DO Unavailable Unavailable BRYDEN, A KIRIT DO Unavailable Unavailable BRYDEN, A KIRIT DO Unavailable Unavailable BRYDEN, A KIRIT DO Unavailable Unavailable BRYDEN, A KIRIT DO Unavailable Unavailable BRYDEN, A KIRIT DO Unavailable Unavailable BRYDEN, A KIRIT DO Unavailable Unavailable BRYDEN, A KIRIT DO Unavailable Unavailable BRYDEN, A KIRIT DO Unavailable Unavailable BRYDEN, A KIRIT DO Unavailable Unavailable BRYDEN, A KIRIT DO Unavailable Unavailable BRYDEN, A KIRIT DO Unavailable Unavailable BRYDEN, A KIRIT DO Unavailable Unavailable BRYDEN, A KIRIT DO Unavailable Unavailable BRYDEN, A KIRIT DO Unavailable Unavailable BRYDEN, A KIRIT DO Unavailable Unavailable BRYDEN, A KIRIT DO Unavailable Unavailable BRYDEN, A KIRIT DO Unavailable Unavailable BRYDEN, A KIRIT DO Unavailable Unavailable BRYDEN, A KIRIT DO Unavailable Unavailable DANIEL, L DAPHNE PA Unavailable Unavailable DANIEL, L DAPHNE PA Unavailable Unavailable DANIEL, L DAPHNE PA Unavailable Unavailable DANIEL, L DAPHNE PA Unavailable Unavailable DANIEL, L DAPHNE PA Unavailable Unavailable DANIEL, L DAPHNE PA Unavailable Unavailable DANIEL, L DAPHNE PA Unavailable Unavailable DANIEL, L DAPHNE PA Unavailable Unavailable DANIEL, L DAPHNE PA Unavailable Unavailable DANIEL, L DAPHNE PA Unavailable Unavailable DANIEL, L DAPHNE PA Unavailable Unavailable DANIEL, L DAPHNE PA Unavailable Unavailable DANIEL, L DAPHNE PA Unavailable Unavailable DANIEL, L DAPHNE PA Unavailable Unavailable DANIEL, L DAPHNE PA Unavailable Unavailable DANIEL, L DAPHNE PA Unavailable Unavailable Yahaira, Shubekchha Unavailable Unavailable Yahaira, Shubekchha Unavailable Unavailable Yahaira, Shubekchha Unavailable Unavailable Kimo YEPEZ MD Unavailable Unavailable Kimo YEPEZ MD Unavailable Unavailable Kimo YEPEZ MD Unavailable Unavailable Kimo YEPEZ MD Unavailable Unavailable Kimo YEPEZ MD Unavailable Unavailable Kimo YEPEZ MD Unavailable Unavailable Kimo YEPEZ MD Unavailable Unavailable Kimo YEPEZ MD Unavailable Unavailable Kimo YEPEZ MD Unavailable Unavailable Kimo YEPEZ MD Unavailable Unavailable Kimo YEPEZ MD Unavailable Unavailable Kimo YEPEZ MD Unavailable Unavailable Kimo YEPEZ MD Unavailable Unavailable Kimo YEPEZ MD Unavailable Unavailable Kimo YEPEZ MD Unavailable Unavailable Kimo YEPEZ MD Unavailable Unavailable Kimo YEPEZ MD Unavailable Unavailable MARLENI, S AYMAN MD Unavailable Unavailable MARLENI, S AYMAN MD Unavailable Unavailable MARLENI, S AYMAN MD Unavailable Unavailable MARLENI, S AYMAN MD Unavailable Unavailable MARLENI, S AYMAN MD Unavailable Unavailable MARLENI, S AYMAN MD Unavailable Unavailable MARLENI, S AYMAN MD Unavailable Unavailable MARLENI, S AYMAN MD Unavailable Unavailable MARLENI, S AYMAN MD Unavailable Unavailable MARLENI, S AYMAN MD Unavailable Unavailable MARLENI, S AYMAN MD Unavailable Unavailable MARLENI, S AYMAN MD Unavailable Unavailable MARLENI, S AYMAN MD Unavailable Unavailable MARLENI, S AYMAN MD Unavailable Unavailable MARLENI, S AYMAN MD Unavailable Unavailable MARLENI, S AYMAN MD Unavailable Unavailable MARLENI, S AYMAN MD Unavailable Unavailable MARLENI, S AYMAN MD Unavailable Unavailable MARLENI, S AYMAN MD Unavailable Unavailable MARLENI, S AYMAN MD Unavailable Unavailable MARLENI, S AYMAN MD Unavailable Unavailable MARLENI, S AYMAN MD Unavailable Unavailable MARLENI, S AYMAN MD Unavailable Unavailable MARLENI, S AYMAN MD Unavailable Unavailable MARLENI, S AYMAN MD Unavailable Unavailable MARLENI, S AYMAN MD Unavailable Unavailable MARLENI, S AYMAN MD Unavailable Unavailable MARLENI, S AYMAN MD Unavailable Unavailable MARLENI, S AYMAN MD Unavailable Unavailable MARLENI, S AYMAN MD Unavailable Unavailable MARLENI, S AYMAN MD Unavailable Unavailable MARLENI, S AYMAN MD Unavailable Unavailable MARLENI, S AYMAN MD Unavailable Unavailable MARLENI, S AYMAN MD Unavailable Unavailable MARLENI, S AYMAN MD Unavailable Unavailable MARLENI, S AYMAN MD Unavailable Unavailable MARLENI, S AYMAN MD Unavailable Unavailable MARLENI, S AYMAN MD Unavailable Unavailable MARLENI, S AYMAN MD Unavailable Unavailable MARLENI, S AYMAN MD Unavailable Unavailable MARLENI, S AYMAN MD Unavailable Unavailable MARLENI, S AYMAN MD Unavailable Unavailable MARLENI, S AYMAN MD Unavailable Unavailable MARLENI, S AYMAN MD Unavailable Unavailable MARLENI, S AYMAN MD Unavailable Unavailable MARLENI, S AYMAN MD Unavailable Unavailable MARLENI, S AYMAN MD Unavailable Unavailable MARLENI, S AYMAN MD Unavailable Unavailable MARLENI, S AYMAN MD Unavailable Unavailable MARLENI, S AYMAN MD Unavailable Unavailable MARLENI, S AYMAN MD Unavailable Unavailable MARLENI, S AYMAN MD Unavailable Unavailable MARLENI, S AYMAN MD Unavailable Unavailable MARLENI, S AYMAN MD Unavailable Unavailable MARLENI, S AYMAN MD Unavailable Unavailable MARLENI, S AYMAN MD Unavailable Unavailable MARLENI, S AYMAN MD Unavailable Unavailable MARLENI, S AYMAN MD Unavailable Unavailable MARLENI, S AYMAN MD Unavailable Unavailable MARLENI, S AYMAN MD Unavailable Unavailable MARLENI, S AYMAN MD Unavailable Unavailable MARLENI, S AYMAN MD Unavailable Unavailable MARLENI, S AYMAN MD Unavailable Unavailable MARLENI, S AYMAN MD Unavailable Unavailable MARLENI, S AYMAN MD Unavailable Unavailable MARLENI, S AYMAN MD Unavailable Unavailable MARLENI, S AYMAN MD Unavailable Unavailable MARLENI, S AYMAN MD Unavailable Unavailable MARLENI, S AYMAN MD Unavailable Unavailable MARLENI, S AYMAN MD Unavailable Unavailable SUDORE, A MAYANK MD Unavailable Unavailable SUDORE, A MAYANK MD Unavailable Unavailable SUDORE, A MAYANK MD Unavailable Unavailable SUDORE, A MAYANK MD Unavailable Unavailable SUDORE, A MAYANK MD Unavailable Unavailable SUDORE, A MAYANK MD Unavailable Unavailable SUDORE, A MAYANK MD Unavailable Unavailable SUDORE, A MAYANK MD Unavailable Unavailable SUDORE, A MAYANK MD Unavailable Unavailable SUDORE, A MAYANK MD Unavailable Unavailable SUDORE, A MAYANK MD Unavailable Unavailable SUDORE, A MAYANK MD Unavailable Unavailable SUDORE, A MAYANK MD Unavailable Unavailable SUDORE, A MAYANK MD Unavailable Unavailable SUDORE, A MAYANK MD Unavailable Unavailable SUDORE, A MAYANK MD Unavailable Unavailable SUDORE, A MAYANK MD Unavailable Unavailable SUDORE, A MAYANK MD Unavailable Unavailable SUDORE, A MAYANK MD Unavailable Unavailable SUDORE, A MAYANK MD Unavailable Unavailable SUDORE, A MAYANK MD Unavailable Unavailable SUDORE, A MAYANK MD Unavailable Unavailable Re-disclosure Warning The records that you are about to access may contain information from federally-assisted alcohol or drug abuse programs. If such information is present, then the following federally mandated warning applies: This information has been disclosed to you from records protected by federal confidentiality rules (42 CFR part 2). The federal rules prohibit you from making any further disclosure of this information unless further disclosure is expressly permitted by the written consent of the person to whom it pertains or as otherwise permitted by 42 CFR part 2. A general authorization for the release of medical or other information is NOT sufficient for this purpose. The Federal rules restrict any use of the information to criminally investigate or prosecute any alcohol or drug abuse patient.The records that you are about to access may contain highly sensitive health information, the redisclosure of which is protected by Article 27-F of the [facility] Public Health law. If you continue you may have access to information: Regarding HIV / AIDS; Provided by facilities licensed or operated by the [facility] Office of Mental Health; or Provided by the [facility] Office for People With Developmental Disabilities. If such information is present, then the following [facility] mandated warning applies: This information has been disclosed to you from confidential records which are protected by state law. State law prohibits you from making any further disclosure of this information without the specific written consent of the person to whom it pertains, or as otherwise permitted by law. Any unauthorized further disclosure in violation of state law may result in a fine or prison sentence or both. A general authorization for the release of medical or other information is NOT sufficient authorization for further disc losure. Allergies and Adverse Reactions Type Description Substance Reaction Status Data Source(s ) Substance/Environmental Agent Allergy Substance/Environmenta l Agent Allergy Carbamazepine [facility] Propensity to adverse reactions CARBAMAZEPINE Carbamazepine Active [facility] Family History Family Member Name Family Member Gender Family Member Status Date o f Status Description Data Source(s) Unknown Unknown Problem [facility] ([facility]) Encounters Encounter Providers Location Date Indications Data Source(s ) Outpatient [address] [facility] [address] 09/07/2021 12:00:00 AM EDT eCW1 ([facility]) Outpatient Attender: DAPHNE PÉREZ Main Office 08/23/2021 0 3:30:00 PM EDT [facility] ([facility]) Outpatient Attender: Donita SOLARESP Main Office 08/23/2021 0 2:15:00 PM EDT [facility] ([facility] Outpatient Attender: KIRIT BRANDON Jaimesang/Sekiu/Domingo/Abdi nd 08/02/2021 11:00:00 AM EDT [facility] ([facility] Outpatient Admitter: KIRIT Chuerrer: KIRIT CONNMEERA ASHFORD 08/02/2021 12:00:00 AM EDT Benign neoplasm of cecum [facility] Benign neoplasm of cecum Outpatient Attender: Donita Elkins [facility] Main Office 07/21/2021 1 1:15:00 AM EDT MED[facility] ([facility] Outpatient Attender: KIRIT Ayon/Sekiu/Domingo/Abdi [facility] 06/28/2021 11:00:00 AM EDT [facility] ([facility] Outpatient Attender: Donita Elkins [facility] Main Office 06/13/2021 1 1:45:00 AM EDT MED[facility] ([facility] Unknown [address] [facility] [id number] 06/08/2021 12:00:00 AM EDT eCW1 ([facility]) Outpatient [facility] [facility] [id number] 06/01/2021 12:00:00 AM EDT eCW1 ([facility]) Outpatient Attender: Donita Elkins [facility] Main Office 05/19/2021 1 1:15:00 AM EDT [facility] ([facility] Outpatient Attender: Donita Elkins [facility] Main Office 03/30/2021 0 9:30:00 AM EDT [facility] ([facility] Outpatient Attender: Donita Elkins [facility] Main Office 03/09/2021 1 0:00:00 AM EDT [facility] ([facility] Outpatient Attender: Donita SOLARESP Main Office 02/22/2021 0 1:15:00 PM EDT [facility] ([facility] Outpatient Attender: DAPHNE PÉREZ Main Office 02/21/2021 0 1:00:00 PM EDT [facility] ([facility]) [facility] Oliva HerreraAdmitter: Oliva Herrera [id number] 02/14/2021 06:47:00 PM EDT - 02/15/2021 05:48:00 PM EDT [facility] Patient discharged. Outpatient Attender: GRACE YEPEZ MDAdmitter: GRACE HAINES MD [id number] 02/14/2021 04:10:52 PM EDT [facility] Outpatient Attender: Donita Elkins [facility] Main Office 01/21/2021 1 0:30:00 AM EST [facility] ([facility] Outpatient Attender: DAPHNE PÉREZ Main Office 01/11/2021 0 8:45:00 AM EST [facility] ([facility]) Outpatient Attender: Donita Elkins [facility] Main Office 09/30/2020 0 2:45:00 PM EST [facility] ([facility] Outpatient Attender: TOBIN KOROMA MD Main Office 08/11/2020 11:15:00 AM EDT [facility] ([facility]) Immunizations Vaccine Date Status Description Data Source(s) New in 2012. IIV4 08/23/2021 02:25:00 PM EDT completed [facility] ([facility] COVID-19 VACCINE Ratna 01/31/2021 12:00:00 AM EST completed [place] Vaccine Series Complete: YESThis Data wa s Submitted to [facility] Via [place] Data Source. Covid-19 Jb [employer] Jb 01/30/2021 11:00:00 PM EST completed [facility] ([facility] New in 2012. IIV4 09/30/2020 03:12:00 PM EST completed [facility] ([facility] Medications Medication Brand Name Start Date Product Form Dose Route Admi nistrative Instructions Pharmacy Instructions Status Indications Reaction Description Data Source(s) Bisacodyl 5 MG Delayed Release Oral Tablet [Dulcolax] Dulcol ax 09/15/2021 12:00:00 AM EDT active M EDENT ([facility], ) Suprep Bowel Prep Kit Suprep Bowel Prep Kit 09/15/2021 12:00:00 AM EDT active MED[facility] ([facility]) Zolpidem tartrate 10 MG Oral Tablet Zolpidem Tartrate 07/28 12:00:00 AM EDT active [facility] ([facility] Sucralfate 1000 MG Oral Tablet Sucralfate 08/22/2021 12:00:00 AM EDT ORAL [facility] Suprep Bowel Prep Kit Suprep Bowel Prep Kit 08/11/2021 12:00:00 AM EDT completed [facility] ([facility]) Omeprazole 20 MG Delayed Release Oral Capsule Omeprazole 08/02/2021 12:00:00 AM EDT ORAL active [facility] ([facility]) Sutab Sutab 07/19/2021 12:00:00 AM EDT completed [facility] ([facility]) Sucralfate 1000 MG Oral Tablet [Carafate] Carafate 06/16/2021 1 2:00:00 AM EDT ORAL active [facility] ([facility] Fluorouracil 50 MG/ML Topical Cream Fluorouracil 5 % Fluorou racil 5 % 06/08/2021 12:00:00 AM EDT 1.0 {application} active Fluorouracil 5 % eCW1 ([facility]) Fluorouracil 50 MG/ML Topical Cream Fluorouracil 5 % Fluorou racil 5 % 06/08/2021 12:00:00 AM EDT 1.0 {application} active Fluorouracil 5 % eCW1 ([facility]) pantoprazole 40 MG Delayed Release Oral Tablet Pantoprazole Sodium 05/25/2021 12:00:00 AM EDT ORAL active M EDENT ([facility] 60 ACTUAT Fluticasone propionate 0.25 MG /ACTUAT / salmeterol 0.05 MG/ACTUAT Dry Powder Inhaler [Advair] Advair Diskus 03/30/2021 12:00:00 AM EDT RESPIRATORY completed [facility] ([facility] Zolpidem tartrate 10 MG Oral Tablet [Ambien] Ambien 12:00:00 AM EDT completed [facility] ([facility] ramelteon 8 MG Oral Tablet Ramelteon 02/22/2021 12:00:00 AM EDT ORAL completed [facility] ([facility] clopidogrel 75 MG Oral Tablet Clopidogrel Bisulfate 02/21/2021 1 2:00:00 AM EDT ORAL active [facility] ( [facility] Aspirin 81 MG Chewable Tablet Aspirin 81 Low Dose 02/21/2021 12:00: 00 AM EDT ORAL completed [facility] ([facility]) clopidogrel 75 MG Oral Tablet Clopidogrel Bisulfate 02/21/2021 1 2:00:00 AM EDT ORAL active [facility] ( [facility]) Fenofibrate 160 MG Oral Tablet Fenofibrate 02/20/2021 12:00:00 AM EDT ORAL active [facility] ([facility]) Trintellix Trintellix 02/20/2021 12:00:00 AM EDT ORAL a ctive [facility] ([facility]) Furosemide 20 MG Oral Tablet Furosemide 02/20/2021 12:00:00 AM EDT ORAL active [facility] ([facility]) Losartan Potassium 25 MG Oral Tablet losartan (COZAAR) tablet 25 mg losartan (COZAAR) tablet 25 mg 02/15/2021 09:00:00 PM EDT 25 mg Oral active 25 mg, Oral, Nightly, First dose on Sun02/15/21 at 2100
Hold for SBP<110
[facility] Medication administered onsite sodium chloride 0.9% (NS) infusion 2046-5103-44 02/15/2021 01:00:00 PM EDT 75 mL/h Intravenous completed at 75 mL /hr, 75 mL/hr, Intravenous, Continuous, Starting Sun02/15/21 at 1300, For 2 hours, Post-op [facility] Medication administered onsite iopamidol ([id number]) 76 % [id number] 02/15/2021 12:11:09 PM EDT active As needed, Starting Sun02/15/21 at 1211, Intra-Procedu re [facility] Medication administered onsite lidocaine 1 % injection [id number] 02/15/2021 11:59:20 AM EDT active As needed, Starting Sun02/15/21 at 1159, Intra-Procedure [facility] Medication administered onsite 2 ML Midazolam 1 MG/ML Injection midazolam (VERSED) in jection midazolam (VERSED) injection 02/15/2021 11:56:08 AM EDT active As needed, Starting Sun02/15/21 at 1156, Intra-Procedure [facility] Medication administered onsite fentaNYL Citrate (PF) (SUBLIMAZE) injection [id number] 02/15/2021 11:55:57 AM EDT active As neede d, Starting Sun02/15/21 at 1155, Intra-Procedure [facility] Medication administered onsite Diphenhydramine Hydrochloride 25 MG Oral Capsule diphenhydrAMINE (BENADRYL) 25 mg capsule diphenhydrAMINE (BENADRYL) 25 mg capsule 02/15/2021 10:49:32 AM EDT completed Starting Sun at 1049, For 1 dose
[place]: nabor override
[facility] Medication administered onsite Ticagrelor 90 MG Oral Tablet ticagrelor (BRILINTA) tab let 90 mg ticagrelor (BRILINTA) tablet 90 mg 02/15/2021 10:00:00 AM EDT 90 mg Oral active 90 mg, Oral, 2 times daily, First dose on Sun02/15/21 at 1000 [facility] Medication administered onsite sodium chloride 0.9% (NS) infusion [id number] 02/15/2021 10:00:00 AM EDT 100 mL/h Intravenous active at 100 m L/hr, 100 mL/hr, Intravenous, Continuous, Starting Sun02/15/21 at 1000, Pre-op
Start two hours prior to scheduled start time
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 Medication administered onsite gabapentin 100 MG Oral Capsule gabapentin (NEURONTIN) capsule 100 mg gabapentin (NEURONTIN) capsule 100 mg 02/15/2021 09:00:00 AM EDT 100 mg Oral active 100 mg, Oral, Daily, First dose on Sun at 0900 [facility] Medication administered onsite Fenofibrate 145 MG Oral Tablet fenofibrate (TRICOR) ta blet 145 mg fenofibrate (TRICOR) tablet 145 mg 02/15/2021 09:00:00 AM EDT 145 mg Oral active 145 mg, Oral, Daily, First dose on Sun02/15/21 at 09 [facility] Medication administered onsite ezetimibe 10 MG Oral Tablet ezetimibe (ZETIA) tablet 1 0 mg ezetimibe (ZETIA) tablet 10 mg 02/15/2021 09:00:00 AM EDT 10 mg Oral activ e 10 mg, Oral, Daily, First dose on Sun02/15/21 at 0900 [facility] Medication administered onsite Colesevelam hydrochloride 625 MG Oral Ta blet colesevelam (WELCHOL) tablet 625 mg colesevelam (WELCHOL) tablet 625 mg 02/15/2021 09:00:00 AM EDT 625 mg Oral active 625 mg, Oral, Daily, First d ose on Sun02/15/21 at 0900 [facility] Medication administered onsite Aspirin 81 MG Delayed Release Oral Tablet aspirin EC t ablet 81 mg aspirin EC tablet 81 mg 02/15/2021 09:00:00 AM EDT 81 mg Oral activ e 81 mg, Oral, Daily, First dose on Sun02/15/21 at 0900 [facility] Medication administered onsite vortioxetine 10 MG Oral Tablet Vortioxetine HBr TABS 5 mg Vortioxetine HBr TABS 5 mg 02/15/2021 09:00:00 AM EDT 5 mg Oral active 5 mg, Oral, Daily, First dose on Sun02/15/21 at 0900 [facility] Medication administered onsite 10 ML Atropine Sulfate 0.1 MG/ML Prefill ed Syringe atropine sulfate injection 0.5 mg atropine sulfate injection 0.5 mg 02/15/2021 08:55:03 AM EDT 0.5 mg active 0.5 mg, Intrave nous Push, Every 5 min PRN, other, As needed, for heart rate less than 60 BPM and the patient is hemodynamically unstable and/or SBP is less than 90mmHg, Starting Sun02/15/21 at 0855, For 1 day, Pre-op
Not to exceed a total of 3 mg or 0.04 mg/kg. Max of 6 doses
[facility] Medication administered onsite Ticagrelor 90 MG Oral Tablet [Brilinta] Brilinta 02/15/2021 12:00:0 0 AM EDT ORAL completed [facility] ([facility] Fenofibrate 160 MG Oral Tablet Fenofibrate 02/15/2021 12:00:00 AM EDT ORAL active [facility] ([facility] Losartan Potassium 25 MG Oral Tablet Losartan Potassium 12:00:00 AM EDT ORAL active [facility] ([facility] Colesevelam hydrochloride 625 MG Oral Tablet Colesevelam HCL 02/15/2021 12:00:00 AM EDT ORAL active [facility] ([facility] Aspir-81 Ec 02/15/2021 12:00:00 AM EDT ORAL active [facility] ([facility] potassium chloride SA (K-DUR,KLOR-CON) CR tablet 20 mEq [id number] 02/14/2021 11:00:00 PM EDT 20 meq Oral completed 20 mEq, Oral, Once, Sun02/14/21 at 2300, For 1 dose [facility] Medication administered onsite clopidogrel 75 MG Oral Tablet clopidogrel (PLAVIX) tab let 75 mg clopidogrel (PLAVIX) tablet 75 mg 02/14/2021 11:00:00 PM EDT 75 mg Oral aborted 75 mg, Oral, Daily, First dose on Sun02/14/21 at 2300 [facility] Medication administered onsite 500 ML heparin sodium, porcine 50 UNT/ML Injection heparin infusion 25,000 units in 500 mL 0.45% NaCl heparin infusion 25,000 units in 500 mL 0.45% NaCl 02/14/2021 11:00:00 PM EDT 14 U/kg/h Intravenous aborted 14 Units/kg/hr 70.3 kg (19.684 mL/hr, rounded to 19.7 mL/hr), Intravenous, at 19.7 mL/hr, Continuous, Starting Sun02/14/21 at 2300
For Cardiac/BridgeaPTT (seconds) Heparin Dose (weight based)< 34 Bolus: 60 units/kg IV (Maximum bolus: 5,000 units) and increase infusion 3 units/kg/hr IV34 - 50 Bolus: 30 units/kg IV (Maximum bolus: 5,000 units) and increase infusion 2 units/kg/hr IV50.1 - 58 No bolus. Increase infusion 1 unit/kg/hr IV58.1 - 87 Therapeutic, No Ggnocm29.1 - 97 Decrease infusion 1 unit/kg/hr IV 97.1 - 110Hold infusion for 30 minutes & decrease infusion 2 units/kg/hr IV> 110 Call MD if patient is bleeding. Hold infusion for 60 minutes & decrease infusion 3 units/kg/hr IVInitial heparin IV infusion rate:Do not exceed 1000 units/hr or 12 units/kg/hr initially (whichever is less)Infuse this medication only through single port tubing (SmartSite Infusion Set ref [id number]). Medication and tubing is to be discarded if infusion off for 4 hours.
[facility] Medication administered onsite normal saline flush 0.9 % injection 3 mL [id number] 02/14/2021 11:00:00 PM EDT 3 mL Intravenous active 3 mL , Intravenous, Every 8 hours (scheduled), First dose on Sun02/14/21 at 2300
flush per protocol, D/C Main IV fluid if appropriate
[facility] Medication administered onsite Rosuvastatin calcium 20 MG Oral Tablet rosuvastatin (C RESTOR) tablet 40 mg rosuvastatin (CRESTOR) tablet 40 mg 02/14/2021 11:00:00 PM EDT 40 mg Oral active 40 mg, Oral, Nightly, First dose on Sun02/14/21 at 2300 [facility] Medication administered onsite Acetaminophen 325 MG Oral Tablet acetaminophen (TYLENO L) 325 MG tablet 650 mg acetaminophen (TYLENOL) 325 MG tablet 650 mg 02/14/2021 10:09:08 PM EDT 650 mg Oral active 650 mg, Or al, Every 4 hours PRN, mild pain (1-3), headaches, Starting Sun02/14/21 at 2209
"Maximum dose of acetaminophen is 4,000 mg from all sources in 24 hours."
[facility] Medication administered onsite ondansetron (ZOFRAN) injection 4 mg [id number] 02/14/2021 10:09:0 8 PM EDT 4 mg Intravenous active 4 mg, In travenous, Every 6 hours PRN, nausea, vomiting, Starting Sun02/14/21 at 2209 [facility] Medication administered onsite 1 ML heparin sodium, porcine 1000 UNT/ML Injection heparin (porcine) injection 100-5,000 Units heparin (porcine) injection 100-5,000 Units 02/14/2021 10:09:07 PM EDT Intravenous aborted 100- 5,000 Units, Intravenous, As needed, other, Starting Sun02/14/21 at 2209
Round dose to nearest 100 units aPTT: < 34 &n bsp; Bolus: 60 units/kg IV (Maximum bolus: 5,000 units) 34 - 50 Bolus: 30 units/kg IV (Maximum bolus: 5,000 units)
[facility] Medication administered onsite Ticagrelor 90 MG Oral Tablet [Brilinta] Brilinta 02/03/2021 12:00:0 0 AM EST ORAL completed [facility] ([facility] Nitroglycerin 0.4 MG Sublingual Tablet Nitroglycerin 12:00:00 AM EST SUBLINGUAL active MEDEN T ([facility]) Brillinta 02/01/2021 12:00:00 AM EST complete d [facility] ([facility] Losartan Potassium 25 MG Oral Tablet Losartan Potassium 12:00:00 AM EDT active [facility] ([facility] Lisinopril 5 MG Oral Tablet Lisinopril 07/05/2020 12:00:00 AM EDT ORAL completed [facility] ([facility]) Ticagrelor 90 MG Oral Tablet ticagrelor (BRILINTA) 90 MG TABS ticagrelor (BRILINTA) 90 MG TABS 90 mg Oral aborted Take 90 mg by mouth 2 (two) times a day [facility] Insurance Providers Payer name Policy type / Coverage type Policy ID Covered alliance party ID Covered alliance party's relationship to bear Policy Bear Plan Information UHC MEDICARE [id number] [facility] [id number] UHC MEDICARE [id number] xxxxxxxxx [id number] [employer] GOLD [id number] SP [id number] MEDICARE COMPLETE-[facility] O [id number] S [id number] HU[employer] PPO O [id number] S [id number] [employer] Choice-Medicare Commercial [id number] Self [id number] MEDICARE COMPLETE [id number] SP [id number] HU[employer]NA PPO [id number] SP [id number] MEDICARE COMPLETE [id number] SP [id number] Problems, Conditions, and Diagnoses Code Display Name Description Problem Type Effective Dates Data Source(s) 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 R94.39 Abnormal result of other cardiovascular function study Abnormal result of other cardiovascular Diagnosis 02/15/2021 01:02:42 PM EDT [facility] I20.0 Unstable angina Unstable angina Diagnosis 02/14/2021 06:4 7:00 PM EDT 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 Problem 09/07/2021 12:00:00 A M EDT eCW1 ([facility]) Z87.2 [id number] Hx of actinic keratosis Problem 12:00:00 AM EDT eCW1 ([facility]) L65.9 [id number] Hair loss Problem 09/07/2021 12:00:00 AM ED T eCW1 ([facility]) Z12.83 [id number] Skin cancer screening Problem 09/07/2021 12: 00:00 AM EDT eCW1 ([facility]) D22.9 [id number] Melanocytic nevus of skin Problem 09/07/2021 12:00:00 AM EDT eCW1 ([facility]) D48.5 [id number] Neoplasm of uncertain behavior of skin Pr oblem 06/01/2021 12:00:00 AM EDT eCW1 ([facility]) L82.1 [id number] Seborrheic keratosis Problem 06/01/2021 12:0 0:00 AM EDT eCW1 ([facility]) L81.4 [id number] Solar lentigo Problem 06/01/2021 12:00:00 AM EDT eCW ([facility]) R06.02 Dyspnea Dyspnea Problem 02/21/2021 12:00:00 AM ED T LACI ([facility]) I50.32 Chronic diastolic heart failure Chronic diastolic hear t failure [id number] 02/14/2021 12:00:00 AM EDT [facility] Z72.0 Tobacco use Tobacco use [id number] 02/14/2021 12:00:00 AM EDT [facility] R00.1 Bradycardia Bradycardia [id number] 02/14/2021 12:00:00 AM EDT [facility] I25.10 Coronary artery disease Coronary artery disease [id number] 02/14/2021 12:00:00 AM EDT [facility] E78.01 Familial hypercholesterolemia Familial hypercholestero lemia [id number] 02/14/2021 12:00:00 AM EDT [facility] R94.39 Abnormal stress test Abnormal stress test [id number] 02/14/2021 12:00:00 AM EDT [facility] F17.200 Smoker Smoker [id number] 02/14/2021 12:00:00 AM ED T [facility] I50.9 CHF (congestive heart failure) CHF (congestive heart f ailure) [id number] 02/14/2021 12:00:00 AM EDT [facility] I05.9 Mitral valve disease Mitral valve disease [id number] 02/14/2021 12:00:00 AM EDT [facility] E78.5 Hyperlipidemia Hyperlipidemia [id number] 02/14/2021 12:00: 00 AM EDT [facility] I25.10 CAD (coronary artery disease) CAD (coronary artery dis ease) [id number] 02/14/2021 12:00:00 AM EDT [facility] I10 Hypertension Hypertension [id number] 02/14/2021 12:00:00 A M EDT [facility] F41.9 Anxiety Anxiety [id number] 02/14/2021 12:00:00 AM ED T [facility] M54.9 Back pain Back pain [id number] 02/14/2021 12:00:00 AM ED T [facility] M19.90 Osteoarthritis Osteoarthritis [id number] 02/14/2021 12:00: 00 AM EDT [facility] I20.0 Unstable angina Unstable angina [id number] 02/14/2021 12:0 0:00 AM EDT [facility] I50.32 Chronic diastolic heart failure Chronic diastolic hear t failure Problem 01/21/2021 12:00:00 AM EST [facility] ([facility] F41.1 Generalized anxiety disorder Generalized anxiety disor hawa Problem 01/21/2021 12:00:00 AM EST [facility] ([facility] I25.119 Coronary atherosclerosis Coronary atherosclerosis Prob ross 01/21/2021 12:00:00 AM EST [facility] ([facility] E78.2 Mixed hyperlipidemia Mixed hyperlipidemia Problem 01/21/2021 12:00:00 AM EST [facility] ([facility] Z71.3 Dietary management surveillance Dietary management momo veillance Problem 01/11/2021 12:00:00 AM EST [facility] ([facility]) I50.32 Chronic diastolic heart failure Chronic diastolic hear t failure Problem 08/11/2020 12:00:00 AM EDT [facility] ([facility]) 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 Benign hypertensive heart disease with congestive cardiac failure Problem 08/11/2020 12:00:00 AM EDT [facility] ([facility]) Surgeries/Procedures Procedure Description Date Indications Data Source(s) OFFICE OUTPATIENT VISIT 15 MINUTES 08/23/2021 12:00:00 AM EDT [facility] ([facility] ECG ROUTINE ECG W/LEAST 12 LDS W/I&R 08/23/2021 12:00: 00 AM EDT [facility] ([facility]) OFFICE OUTPATIENT VISIT 25 MINUTES 08/23/2021 12:00:00 AM EDT [facility] ([facility]) TOBACCO USE CESSATION INTERMEDIATE 3-10 MINUTES 2020 12:00:00 AM EDT [facility] ([facility]) Colonoscopy Flexible Proximal To Splenic Flexure Diagnostic W/Or 08/18/2021 12:00:00 AM EDT [facility] ([facility], ) OFFICE OUTPATIENT VISIT 25 MINUTES 08/02/2021 12:00:00 AM EDT [facility] ([facility], ) SURGICAL PATHOLOGY CONSULT <td>SURGICAL PATHOLOGY CONSULT</td><td>Routine</td><td>08/02/2021 12:00 AM EDT</td><td></td><td> </td> 08/02/2021 12:00:00 AM [facility] Endoscopy Upper GI Biopsy 07/27/2021 12:00:00 AM EDT [facility] ([facility], ) Colonoscopy Flexible Proximal To Splenic Flexure W/Biopsy Si ngle/ 07/27/2021 12:00:00 AM EDT [facility] ([facility]) ECG ROUTINE ECG W/LEAST 12 LDS W/I&R 07/26/2021 12:00: 00 AM EDT [facility] ([facility]) OFFICE OUTPATIENT VISIT 25 MINUTES 07/26/2021 12:00:00 AM EDT [facility] ([facility]) TOBACCO USE CESSATION INTERMEDIATE 3-10 MINUTES 2020 12:00:00 AM EDT [facility] ([facility]) OFFICE OUTPATIENT VISIT 25 MINUTES 07/21/2021 12:00:00 AM EDT MEDHERO ([facility] OFFICE OUTPATIENT NEW 45 MINUTES 06/28/2021 12:00:00 A M EDT [facility] ([facility], ) OFFICE OUTPATIENT VISIT 25 MINUTES 06/13/2021 12:00:00 AM EDT [facility] ([facility] Med: Derm 1% Lidocaine with Epinephrine Injection Intr adermally to marked areas 06/01/2021 12:00:00 AM EDT eCW1 ([facility]) OFFICE OUTPATIENT VISIT 25 MINUTES 05/19/2021 12:00:00 AM EDT [facility] ([facility] OFFICE OUTPATIENT VISIT 25 MINUTES 03/30/2021 12:00:00 AM EDT [facility] ([facility] OFFICE OUTPATIENT VISIT 25 MINUTES 03/09/2021 12:00:00 AM EDT [facility] ([facility] Trans Care SRV Aft DC W/I 14D, Comm W/I 2 Dys Med Decs 02/22/2021 12:00:00 AM EDT [facility] ([facility] ECG ROUTINE ECG W/LEAST 12 LDS W/I&R 02/21/2021 12:00: 00 AM EDT [facility] ([facility]) OFFICE OUTPATIENT VISIT 15 MINUTES 02/21/2021 12:00:00 AM EDT [facility] ([facility]) CARDIAC CATHETERIZATION <td>CARDIAC CATHETERIZATION</td><td>Routine</td><td>02/15/2021 12:21 PM EDT</td><td> Unstable angina</td><td> </td> 02/15/2021 04:21:10 PM EDT Unstable angina [facility] Unstable angina ECHO TTHRC R-T 2D W/WOM-MODE COMPL SPEC&COLR DOP <td>E CHOCARDIOGRAM TRANSTHORACIC</td><td>Routine</td><td>02/15/2021 9:20 AM EDT</td><td></td><td> </td> 02/15/2021 01:20:29 PM EDT [facility] TROPONIN QUANTITATIVE <td>TROPONIN I</td><td>Timed </td><td>02/15/2021 4:05 AM EDT</td><td></td><td> </td> 02/15/2021 08:05:00 AM EDT [facility] THROMBOPLASTIN TIME PARTIAL PLASMA/WHOLE BLOOD <td>APTT</td><td>STAT</td><td>02/15/2021 4:05 AM EDT</td><td></td><td> </td> 02/15/2021 08:05:00 AM EDT [facility] BLOOD COUNT COMPLETE AUTOMATED <td>CBC</td><td>Timed</ td><td>02/15/2021 4:05 AM EDT</td><td></td><td> </td> 02/15/2021 08:05:00 AM EDT [facility] BASIC METABOLIC PANEL CALCIUM TOTAL <td>BASIC METABOLI C PANEL</td><td>Timed</td><td>02/15/2021 4:05 AM EDT</td><td></td><td> </td> 02/15/2021 08:05:00 AM EDT [facility] Left Heart Cath W/Wo LV,Coronary & Bypass Grafts SVG And Or Laxmi 02/15/2021 12:00:00 AM EDT [facility] ([facility] TROPONIN QUANTITATIVE <td>TROPONIN I</td><td>Timed </td><td>02/14/2021 7:29 PM EDT</td><td></td><td> </td> 02/14/2021 11:29:00 PM EDT [facility] THROMBOPLASTIN TIME PARTIAL PLASMA/WHOLE BLOOD <td>APTT</td><td>Routine</td><td>02/14/2021 7:29 PM EDT</td><td></td><td> </td> 02/14/2021 11:29:00 PM EDT [facility] PROTHROMBIN TIME <td>PROTIME-INR</td><td>Rout ine</td><td>02/14/2021 7:29 PM EDT</td><td></td><td> </td> 02/14/2021 11:29:00 PM EDT [facility] BLOOD COUNT COMPLETE AUTOMATED <td>CBC</td><td>Routine </td><td>02/14/2021 7:29 PM EDT</td><td></td><td> </td> 02/14/2021 11:29:00 PM EDT [facility] COMPREHENSIVE METABOLIC PANEL <td>COMPREHENSIVE METABO LIC PANEL</td><td>Routine</td><td>02/14/2021 7:29 PM EDT</td><td></td><td> </td> 02/14/2021 11:29:00 PM EDT [facility] MYOCARDIAL SPECT MULTIPLE STUDIES 02/01/2021 12:00:00 AM EST [facility] ([facility]) CV STRS TST XERS&/OR RX CONT ECG PHYS SI&R 02/01/2021 12:00:00 AM EST [facility] ([facility]) OFFICE OUTPATIENT VISIT 25 MINUTES 01/21/2021 12:00:00 AM EST [facility] ([facility] ECG ROUTINE ECG W/LEAST 12 LDS W/I&R 01/11/2021 12:00: 00 AM EST [facility] ([facility]) OFFICE OUTPATIENT VISIT 25 MINUTES 01/11/2021 12:00:00 AM EST [facility] ([facility]) Results ID Date Data Source [id number] 09/07/2021 08:52:00 AM EDT [facility] ([facility] Name Value Range Interpretation Code Description Data Alexandra rce(s) Supporting Document(s) Triglycerides Level 81 mg/dL [facility] ([facility] Cholesterol Level 177 mg/dL [facility] ([facility] HDL Cholesterol 62 mg/dL [facility] ([facility] LDL Cholesterol 99 mg/dL [facility] ([facility] Non-HDL-C 115 mg/dL [facility] ([facility] Cholesterol Risk Ratio 2.854 [facility] ([facility] ID Date Data Source [id number] 09/07/2021 08:52:00 AM EDT [facility] ([facility] Name Value Range Interpretation Code Description Data Alexandra rce(s) Supporting Document(s) Blood Urea Nitrogen 23 mg/dL 7-18 [facility] ([facility] Glucose, Fasting 90 mg/dL 70-100 [facility] ([facility] Creatinine For GFR 0.68 mg/dL 0.55-1.30 [facility] ([facility] Glomerular Filtration Rate Laboratory test result [facility] ([facility] <content>Units are mL/min/1.73 m2</content>
<content></content>
<content>Chronic Kidney Disease Staging per NKF:</content>
<content></content>
<content>Stage I & II GFR >=60 Normal to Mildly Decreased</content>
<content>Stage III GFR 30- 59 Moderately Decreased</content>
<content>Stage IV GFR 15-29 Severely Decreased</content>
<content>Stage V GFR <15 Very Little GFR Left</content>
<content>ESRD GFR <15 on MARKETING LEAD</content>
<content></content> Sodium Level 143 meq/L 136-145 [facility] ([facility] Potassium Serum 4.2 meq/L 3.5-5.1 [facility] ([facility] Chloride Level 111 meq/L 98-107 [facility] ([facility] Anion Gap 5 meq/L 8-16 [facility] ([facility] Carbon Dioxide Level 27 meq/L 21-32 [facility] ([facility] Calcium Level 9.3 mg/dL 8.5-10.1 [facility] ([facility] Ast/Sgot 24 U/L 7-37 [facility] ([facility] Alt/SGPT 28 U/L 12-78 [facility] ([facility] Alkaline Phosphatase 67 U/L 45-117 [facility] ([facility] Total Protein 6.9 GM/DL 6.4-8.2 [facility] ([facility] Bilirubin,Total 0.2 mg/dL 0.2-1.0 [facility] ([facility] Albumin 3.6 GM/DL 3.2-5.2 [facility] ([facility] Albumin/Globulin Ratio 1.1 1.2-2.2 [facility] ([facility] ID Date Data Source [id number] 09/07/2021 08:52:00 AM EDT [facility] ([facility] Name Value Range Interpretation Code Description Data Alexandra rce(s) Supporting Document(s) White Blood Count 7.0 10 4.0-10.0 [facility] ([facility] Red Blood Count 3.98 10 4.00-5.40 [facility] ([facility] Hemoglobin 11.5 g/dL 12.0-15.5 [facility] ([facility] Mean Corpuscular Volume 92.7 fl 80.0-96.0 M EDENT ([facility] Hematocrit 36.9 % 36.0-47.0 [facility] ([facility] Mean Corpuscular Hemoglobin 28.9 pg 27.0-33.0 [facility] ([facility] Mean Corpuscular HGB Conc 31.2 g/dL 32.0-36.5 [facility] ([facility] Red Cell Distribution Width 13.4 % 11.5-14.5 [facility] ([facility] Nucleated Red Blood Cell % 0.0 % 0-0 [facility] ([facility] Platelet Count, Automated 384 10 150-450 [facility] ([facility] ID Date Data Source [id number] 09/07/2021 08:52:00 AM EDT [facility] ([facility] Name Value Range Interpretation Code Description Data Alexandra rce(s) Supporting Document(s) Oleg (Hep2) Laboratory test result [facility] ([facility] <content>Negative <1:80</content>
<content>Borderline 1:80</content>
<content>Positive >1:80</content>
<content>ICAP nomenclature: AC-0</content>
<content>For more information about Hep-2 cell patterns use</content>
<content>ANApatterns.org, the official website for the</content>
<content>International Consensus on Antinuclear Antibody (OLEG)</content>
<content>Patterns (ICAP).</content>
<content>Performed at: - [facility]</content>
<content>[address] [place] [address] [id number]</content>
<content>Food Processing Chemist: Antonette Ríos MD, Phone: [phone]</content>
<content></content> ID Date Data Source [id number] 09/07/2021 08:52:00 AM EDT [facility] ([facility] Name Value Range Interpretation Code Description Data Alexandra rce(s) Supporting Document(s) Thyroid Stimulating Hormone 1.340 uIU/ML 0.358-3.740 [facility] ([facility] Free T4 0.95 ng/dL 0.76-1.46 [facility] ([facility] ID Date Data Source [id number] 09/07/2021 08:52:00 AM EDT [facility] ([facility]) Name Value Range Interpretation Code Description Data Alexandra rce(s) Supporting Document(s) White Blood Count 7.0 10 4.0-10.0 [facility] ([facility]) Red Blood Count 3.98 10 4.00-5.40 [facility] [place] Mean Corpuscular Volume 92.7 fl 80.0-96.0 M EDENT ([facility]) Hematocrit 36.9 % 36.0-47.0 [facility] ([facility]) Hemoglobin 11.5 g/dL 12.0-15.5 [facility] Red Cell Distribution Width 13.4 % 11.5-14.5 [facility]) Mean Corpuscular Hemoglobin 28.9 pg 27.0-33.0 [facility] ([facility]) Mean Corpuscular HGB Conc 31.2 g/dL 32.0-36.5 [facility]) Nucleated Red Blood Cell % 0.0 % 0-0 [facility] ([facility]) Platelet Count, Automated 384 10 150-450 [facility]) ID Date Data Source [id number] 09/07/2021 08:52:00 AM EDT [facility] [place] [place] Name Value Range Interpretation Code Description Data Alexandra rce(s) Supporting Document(s) Cholesterol Level 177 mg/dL [facility] [place] [place] Triglycerides Level 81 mg/dL [facility] [place] [place] HDL Cholesterol 62 mg/dL [facility] [place] Non-HDL-C 115 mg/dL [facility] ([facility]) LDL Cholesterol 99 mg/dL [facility] [place] [place] Cholesterol Risk Ratio 2.854 [facility]) ID Date Data Source [id number] 09/07/2021 08:52:00 AM EDT [facility] [place] Name Value Range Interpretation Code Description Data Alexandra rce(s) Supporting Document(s) Glucose, Fasting 90 mg/dL 70-100 [facility] ([facility] Creatinine For GFR 0.68 mg/dL 0.55-1.30 [facility] ([facility]) Blood Urea Nitrogen 23 mg/dL 7-18 [facility] [place] [place] Glomerular Filtration Rate Laboratory test result [facility] ([facility]) <content>Units are mL/min/1.73 m2</content>
<content></content>
<content>Chronic Kidney Disease Staging per NKF:</content>
<content></content>
<content>Stage I & II GFR >=60 Normal to Mildly Decreased</content>
<content>Stage III GFR 30- 59 Moderately Decreased</content>
<content>Stage IV GFR 15-29 Severely Decreased</content>
<content>Stage V GFR <15 Very Little GFR Left</content>
<content>ESRD GFR <15 on MARKETING LEAD</content>
<content></content> Sodium Level 143 meq/L 136-145 [facility] ([facility]) Potassium Serum 4.2 meq/L 3.5-5.1 [facility] ([facility]) Chloride Level 111 meq/L 98-107 [facility] ([facility]) Anion Gap 5 meq/L 8-16 [facility] ([facility] Calcium Level 9.3 mg/dL 8.5-10.1 [facility] ([facility]) Carbon Dioxide Level 27 meq/L 21-32 [facility] ([facility]) Ast/Sgot 24 U/L 7-37 [facility] ([facility] Alt/SGPT 28 U/L 12-78 [facility] ([facility] Alkaline Phosphatase 67 U/L 45-117 [facility] ([facility]) Total Protein 6.9 GM/DL 6.4-8.2 [facility] ([facility]) Bilirubin,Total 0.2 mg/dL 0.2-1.0 [facility] ([facility]) Albumin 3.6 GM/DL 3.2-5.2 [facility] ([facility] Albumin/Globulin Ratio 1.1 1.2-2.2 [facility] ([facility]) ID Date Data Source [id number] 09/07/2021 08:52:00 AM EDT [facility] ([facility] Name Value Range Interpretation Code Description Data Alexandra e(s) Supporting Document(s) White Blood Count 6.8 10 4.0-10.0 [facility] ([facility] Red Blood Count 4.05 10 4.00-5.40 [facility] ([facility] Hematocrit 37.5 % 36.0-47.0 [facility] Hemoglobin 11.8 g/dL 12.0-15.5 [facility] Mean Corpuscular Volume 92.6 fl 80.0-96.0 M [facility] ([facility] Mean Corpuscular Hemoglobin 29.1 pg 27.0-33.0 [facility] ([facility] Red Cell Distribution Width 13.2 % 11.5-14.5 [facility] ([facility] Mean Corpuscular HGB Conc 31.5 g/dL 32.0-36.5 [facility] ([facility] Platelet Count, Automated 382 10 150-450 [facility] ([facility] Neutrophils % 48.3 % 36.0-66.0 [facility] ([facility] Lymph % 41.2 % 24.0-44.0 [facility] ([facility] Harrison % 6.2 % 2.0-8.0 [facility] Eos % 3.1 % 0.0-3.0 [facility] ([facility] Immature Granulocyte % 0.3 % 0-3.0 [facility] ([facility] Baso % 0.9 % 0.0-1.0 [facility] ([facility] Nucleated Red Blood Cell % 0.0 % 0-0 [facility] ([facility] Neutrophils # 3.3 10 1.5-8.5 [facility] ([facility] Harrison # 0.4 10 0.0-0.8 [facility] ([facility] Lymph # 2.8 10 1.5-5.0 [facility] ([facility] Eos # 0.2 10 0.0-0.5 [facility] ([facility] Baso # 0.1 10 0.0-0.2 [facility] ([facility] ID Date Data Source OLEG TITER & PATTERN 09/07/2021 12:00:00 AM EDT eCW1 ([facility]) Name Value Range Interpretation Code Description Data Alexandra rce(s) Supporting Document(s) Negative . OLEG (HEP2) eCW1 ([facility]) ID Date Data Source FREE T4 & TSH PANEL 09/07/2021 12:00:00 AM EDT eCW1 ([facility]) Name Value Range Interpretation Code Description Data Alexandra rce(s) Supporting Document(s) 0.95 0.76-1.46 FREE T4 eCW1 ([facility]) 1.340 0.358-3.740 THYROID STIMULATING HORM ONE eCW1 ([facility]) ID Date Data Source CBC with Differential 09/07/2021 12:00:00 AM EDT eCW1 ([facility]) Name Value Range Interpretation Code Description Data Alexandra rce(s) Supporting Document(s) 4.05 4.00-5.40 RED BLOOD COUNT eCW1 ([facility]) 6.8 4.0-10.0 WHITE BLOOD COUNT eCW1 ([facility]) 11.8 12.0-15.5 HEMOGLOBIN eCW1 ([facility]) 37.5 36.0-47.0 HEMATOCRIT eCW1 ([facility]) 92.6 80.0-96.0 MEAN CORPUSCULAR VOLUME e CW1 ([facility]) 29.1 27.0-33.0 MEAN CORPUSCULAR HEMOGLOB IN eCW1 ([facility]) 13.2 11.5-14.5 RED CELL DISTRIBUTION WID TH eCW1 ([facility]) 31.5 32.0-36.5 MEAN CORPUSCULAR HGB CONC eCW1 ([facility]) 382 150-450 PLATELET COUNT, AUTOMATED eCW1 ([facility]) 48.3 36.0-66.0 NEUTROPHILS % eCW1 ([facility]) 3.1 0.0-3.0 EOS % eCW1 ([facility]) 41.2 24.0-44.0 LYMPH % eCW1 ([facility]) 0.9 0.0-1.0 BASO % eCW1 ([facility]) 6.2 2.0-8.0 MONO % eCW1 ([facility]) 0.4 0.0-0.8 MONO # eCW1 ([facility]) 2.8 1.5-5.0 LYMPH # eCW1 ([facility]) 0.2 0.0-0.5 EOS # eCW1 ([facility]) 3.3 1.5-8.5 NEUTROPHILS # eCW1 ([facility]) 0.1 0.0-0.2 BASO # eCW1 ([facility]) ID Date Data Source [id number] 08/13/2021 10:15:00 AM EDT [facility] ([facility] Name Value Range Interpretation Code Description Data Alexandra rce(s) Supporting Document(s) Coronavirus 2019 Nasopharygeal Laboratory test result [facility] ([facility] ASSAY INFORMATION: Real Time RT-PCR NOTE: The COVID-19 assay has been cleared by the U.S. Food and Drug Administration under the Emergency Use Authorization (EUA). [employer] [facility] [employer] are designated as high complexity laboratories by the Clinical Laboratory Improvement Amendments of 1988(CLIA) and are qualified to perform this test. Not Detected ID Date Data Source [id number] 08/02/2021 10:56:00 AM EDT [facility] ([facility], ) Name Value Range Interpretation Code Description Data [facility] rce(s) Supporting Document(s) Surgical Pathology Consult Laboratory test result [facility] ([facility], ) Surgical Pathology Report Name: SUHA GORDON Collection Date: 08/02/2021 00:00 Received Date: 08/02/2021 10:57 Physician(s): KIRIT TAYLOR DO Haghir, Shahandeh MD Specimen(s) Received A: Material received for consultation, [facility], [facility], [id number] Clinical History A. Gastric prepyloric mass. B. Cecal mass. Concern for cecal mass. Please see attached endoscopy and colonoscopy report. Favor benign findings in colon and no definite ulcer or erosion in stomach. For consultation to R/O malignancy in the ileocecal valve. Diagnosis OUTSIDE SLIDES: STOMACH, PREPYLORIC AREA, BIOPSY ([id number], 07/27/21): NO SIGNIFICANT PATHOLOGIC CHANGES. CECAL MASS, BIOPSY ([id number], 07/27/21): DISTORTED INTESTINAL MUCOSA WITH NONSPECIFIC INFLAMMATORY CHANGES. NO EVIDENCE OF ATYPIA OR MALIGNANCY. (SEE MICROSCOPIC DESCRIPTION). Electronically Signed By Naren Rodriguez M.D., Attending Pathologist 08/02/2021 16:56:40 Gross Description Received from [facility] in [place], [place], are 4 H and E stained slides and 2 paraffin blocks, labeled [id number], with the corresponding pathology report. Also received: [...] developed and their performance characteristics determined by [facility] Pathology department. They have not been cleared or approved by the US Food and Drug Administration. The FDA has determined that such clearance or approval is not necessary. ID Date Data Source [id number] 08/02/2021 04:56:00 PM T [facility] Surgical Pathology ReportName: ANSON Zaragoza LEONARDRN: [id number] Number: [id number] Date: 08/02/2021 00:00Received Date: 08/02/2021 10:57Physician(s): KIRIT TAYLOR,Tawnya Jay MDSpecimen(s) ReceivedA: Material received for consultation, DEONNA, [facility],[id number] HistoryA. Gastric prepyloric mass. B. Cecal mass. Concern for cecal mass. Please see attached endoscopy and colonoscopy report. Favor benignfindings in colon and no definite ulcer or erosion in stomach. Forconsultation to R/O malignancy in the ileocecal valve. DiagnosisOUTSIDE SLIDES:STOMACH, PREPYLORIC AREA, BIOPSY ([id number], 07/27/21): NO SIGNIFICANTPATHOLOGIC CHANGES.CECAL MASS, BIOPSY ([id number], 07/27/21): DISTORTED INTESTINAL MUCOSA WITHNONSPECIFIC INFLAMMATORY CHANGES. NO EVIDENCE OF ATYPIA OR MALIGNANCY.(SEE MICROSCOPIC DESCRIPTION).Electronically Signed By Naren Rodriguez M.D., Attending Pathologist08/02/2021 16:56:40 Gross DescriptionReceived from [facility] in [place], [place], are 4 H and Estained slides and 2 paraffin blocks, labeled [id number], with thecorresponding pathology report. Also received: Reports of Operation.Microscopic DescriptionI completely agree with you that these biopsies show no evidence of atypiaor malignancy. The biopsy of the cecal mass consist of fragments of ilealand colonic mucosa with marked architectural crypt distortion andexpansion of the lamina propria by mixed inflammatory infiltrate. Thelatter consists of lymphocytes, eosinophils, neutrophils, and plasmacells. There is no evidence of cryptitis or granulomas. These changes arenonspecific and do not clearly explain the presence of a cecal mass. Thegastric biopsies essentially unremarkable. Thank you for letting me seethis case in consultation.This report may include one or more immunohistochemical stain results thatuse analyte specific reagents. All positive and negative controls havebeen reviewed by the attending pathologist and are satisfactory. The testswere developed and their performance characteristics determined by [facility] Pathology department. They have not been cleared or approved by the USFood and Drug Administration. The FDA has determined that such clearanceor alexandra roval is not necessary. Name Value Range Interpretation Code Description Data Alexandra rce(s) Supporting Document(s) ID Date Data Source [id number] 07/27/2021 09:55:00 AM EDT [facility] ([facility], ) Name Value Range Interpretation Code Description Data [facility] rce(s) Supporting Document(s) Surgical pathology study Laboratory test result [facility] ([facility], ) FINAL DIAGNOSIS A - Prepyloric area, biopsy: Benign gastric mucosa without evidence for ulceration or significant inflammation. B - Cecal mass, biopsy: Fragments of benign ileocecal mucosa with reactive changes and architectural disarray. No evidence for malignancy is identified. In view of clinical concern for an infiltrative ileocecal mass, the case was also sent to [facility] for consultation, they agree with the above findings, please see complete consultation report [id number], scanned in EMR under pathology module. Follow up is recommended as clinically indicated. 08/03/2021 - 08 CLINICAL DIAGNOSIS Heartburn, screening 07/27/2021 - 1452 GROSS DIAGNOSIS A - Received in formalin labeled "biopsy prepyloric area" is a 0.4 x 0.2 x 0.1 cm. aggregate of two mucosal fragments. All in one. B - Received in formalin labeled "biopsy cecal mass" is a 0.6 x 0.3 x 0.2 cm. aggregate of mucosal fragments. All in one. - 07/27/2021 - 1452 PRELIMINARY DIAGNOSIS . 08/03/2021 - 0750 Signed Tawnya Mcneal MD 07/28/2021 1637 (Prelim) Signed Tawnya Mcneal MD 08/03/2021 0800 ID Date Data Source [id number] 07/22/2021 11:55:00 AM EDT [facility] ([facility] Name Value Range Interpretation Code Description Data Alexandra rce(s) Supporting Document(s) Coronavirus 2019 Nasopharygeal Laboratory test result [facility] ([facility] ASSAY INFORMATION: Real Time RT-PCR NOTE: The COVID-19 assay has been cleared by the U.S. Food and Drug Administration under the Emergency Use Authorization (EUA). [employer] [facility] [employer] are designated as high complexity laboratories by the Clinical Laboratory Improvement Amendments of 1988(CLIA) and are qualified to perform this test. Not Detected ID Date Data Source [id number] 07/17/2021 09:00:00 PM EDT [facility] ([facility] Name Value Range Interpretation Code Description Data [facility] rce(s) Supporting Document(s) Troponin I.cardiac [Mass/volume] in Serum or Plasma 0.02 ng/mL 0.00-0 .08 [facility] ([facility] ID Date Data Source [id number] 07/17/2021 03:35:00 PM EDT [facility] ([facility] Name Value Range Interpretation Code Description Data Alexandra rce(s) Supporting Document(s) Prothrombin Time 13.4 s 12.7-14.5 [facility] ([facility] Inr 0.98 [facility] THERAPUTIC HUMAN INR VALUES INDICATIONS NORMAL RANGES PROPHYLAXIS/TREATMENT OF: VENOUS THROMBOSIS 2.0-3.0 PULMONARY EMBOLISM 2.0-3.0 PREVENTION OF SYSTEMIC EMBOLISM FROM: TISSUE HEART VALVES 2.0-3.0 ACUTE MYOCARDIAL INFARCTION 2.0-3.0 VALVULAR HEART DISEASE 2.0-3.0 ATRIAL FIBRILLATION 2.0-3.0 MECHANICAL VALVES(HIGH RISK) 2.5-3.5 RECURRENT MYOCARDIAL INFARCTION 2.5-3.5 Partial Thromboplastin Time 27.8 s 25.9-37.0 [facility] ([facility] ID Date Data Source [id number] 07/17/2021 03:35:00 PM EDT [facility] ([facility] Name Value Range Interpretation Code Description Data Alexandra rce(s) Supporting Document(s) Blood Urea Nitrogen 15 mg/dL 7-18 [facility] ([facility] Glucose, Fasting 93 mg/dL 70-100 [facility] ([facility] Creatinine For GFR 0.72 mg/dL 0.55-1.30 [facility] ([facility] Glomerular Filtration Rate Laboratory test result [facility] ([facility] <content>Units are mL/min/1.73 m2</content>
<content></content>
<content>Chronic Kidney Disease Staging per [facility]:</content>
<content></content>
<content>Stage I & II GFR >=60 Normal to Mildly Decreased</content>
<content>Stage III GFR 30- 59 Moderately Decreased</content>
<content>Stage IV GFR 15-29 Severely Decreased</content>
<content>Stage V GFR <15 Very Little GFR Left</content>
<content>ESRD GFR <15 on MARKETING LEAD</content>
<content></content> Potassium Serum 3.8 meq/L 3.5-5.1 [facility] ([facility] Sodium Level 141 meq/L 136-145 [facility] ([facility] Anion Gap 5 meq/L 8-16 [facility] Chloride Level 112 meq/L 98-107 [facility] ([facility] Carbon Dioxide Level 24 meq/L 21-32 [facility] ([facility] Calcium Level 8.8 mg/dL 8.5-10.1 [facility] ([facility] ID Date Data Source [id number] 07/17/2021 03:35:00 PM EDT [facility] ([facility] Name Value Range Interpretation Code Description Data Alexandra rce(s) Supporting Document(s) White Blood Count 9.1 10 4.0-10.0 [facility] ([facility] Red Blood Count 4.08 10 4.00-5.40 [facility] ([facility] Hemoglobin 11.8 g/dL 12.0-15.5 [facility] Mean Corpuscular Volume 87.7 fl 80.0-96.0 M [facility] ([facility] Hematocrit 35.8 % 36.0-47.0 [facility] Mean Corpuscular HGB Conc 33.0 g/dL 32.0-36.5 [facility] ([facility] Mean Corpuscular Hemoglobin 28.9 pg 27.0-33.0 [facility] Red Cell Distribution Width 13.1 % 11.5-14.5 [facility] Platelet Count, Automated 342 10 150-450 [facility] Lymph % 46.5 % 24.0-44.0 [facility] Neutrophils % 40.6 % 36.0-66.0 [facility] Eos % 3.0 % 0.0-3.0 [facility] Harrison % 9.0 % 2.0-8.0 [facility] Immature Granulocyte % 0.1 % 0-3.0 [facility] ([facility] Baso % 0.8 % 0.0-1.0 [facility] Nucleated Red Blood Cell % 0.0 % 0-0 [facility] ([facility] Lymph # 4.2 10 1.5-5.0 [facility] Neutrophils # 3.7 10 1.5-8.5 [facility] ([facility] Eos # 0.3 10 0.0-0.5 [facility] Harrison # 0.8 10 0.0-0.8 [facility] Baso # 0.1 10 0.0-0.2 [facility] ID Date Data Source [id number] 07/17/2021 03:34:00 PM EDT [facility] ([facility] Name Value Range Interpretation Code Description Data Alexandra rce(s) Supporting Document(s) Troponin I.cardiac [Mass/volume] in Serum or Plasma 0.01 ng/mL 0.00-0 .08 [facility] ([facility] ID Date Data Source [id number] 07/17/2021 03:20:00 PM EDT [facility] Name Value Range Interpretation Code Description Data Alexandra rce(s) Supporting Document(s) Calcium [Mass/volume] in Serum or Plasma 8.8 [facility] ([facility]) Carbon dioxide, total [Moles/volume] in Serum or Plasma 24 [facility] ([facility]) Chloride [Moles/volume] in Serum or Plasma 112 [facility] ([facility]) Sodium 141 [facility] ([facility]) Potassium [Moles/volume] in Serum or Plasma 3.8 [facility] ([facility]) Blood Urea Nitrogen 15 7-18 [facility] ([facility]) Glucose 93 83-110 [facility] ([facility]) Glomerular filtration rate/1.73 sq M.pre dicted [Volume Rate/Area] in Serum or Plasma by Creatinine-based formula (MDRD) Laboratory test result [facility] ([facility]) Creatinine 0.72 0.6-1.0 [facility] ([facility]) ID Date Data Source [id number] 07/17/2021 03:20:00 PM EDT [facility] Name Value Range Interpretation Code Description Data Alexandra rce(s) Supporting Document(s) Red Blood Count 4.08 4.00-5.40 [facility] ([facility]) White Blood Count 9.1 5.0-10.0 [facility] ([facility]) Platelets 342 172-450 [facility] ([facility]) Hemoglobin 11.8 [facility] ([facility]) Hematocrit 35.8 [facility] ([facility]) ID Date Data Source [id number] 06/13/2021 12:37:00 PM EDT [facility] ([facility] Name Value Range Interpretation Code Description Data Alexandra rce(s) Supporting Document(s) Glucose, Fasting 94 mg/dL 70-100 [facility] ([facility] Blood Urea Nitrogen 16 mg/dL 7-18 [facility] ([facility] Glomerular Filtration Rate Laboratory test result [facility] ([facility] <content>Units are mL/min/1.73 m2</content>
<content></content>
<content>Chronic Kidney Disease Staging per NK[facility]:</content>
<content></content>
<content>Stage I & II GFR >=60 Normal to Mildly Decreased</content>
<content>Stage III GFR 30-59 Moderately Decreased</content>
<content>Stage IV GFR 15-29 Severely Decreased</content>
<content>Stage V GFR <15 Very Little GFR Left</content>
<content>ESRD GFR <15 on MARKETING LEAD</content>
<content></content> Creatinine For GFR 0.78 mg/dL 0.55-1.30 [facility] ([facility] Sodium Level 141 meq/L 136-145 [facility] Potassium Serum 3.8 meq/L 3.5-5.1 [facility] ([facility] Carbon Dioxide Level 25 meq/L 21-32 [facility] ([facility] Anion Gap 5 meq/L 8-16 [facility] Chloride Level 111 meq/L 98-107 [facility] ([facility] Calcium Level 9.5 mg/dL 8.5-10.1 [facility] ([facility] Ast/Sgot 24 U/L 7-37 [facility] Alt/SGPT 24 U/L 12-78 [facility] Bilirubin,Total 0.5 mg/dL 0.2-1.0 [facility] ([facility] Alkaline Phosphatase 57 U/L 45-117 [facility] ([facility] Total Protein 7.3 GM/DL 6.4-8.2 [facility] ([facility] Albumin 4.0 GM/DL 3.2-5.2 [facility] ([facility] Albumin/Globulin Ratio 1.2 1.2-2.2 [facility] ([facility] ID Date Data Source [id number] 06/13/2021 12:37:00 PM EDT [facility] ([facility] Name Value Range Interpretation Code Description Data Alexandra rce(s) Supporting Document(s) White Blood Count 8.0 10 4.0-10.0 [facility] ([facility] Red Blood Count 4.33 10 4.00-5.40 [facility] ([facility] Hemoglobin 12.6 g/dL 12.0-15.5 [facility] ([facility] Hematocrit 39.6 % 36.0-47.0 [facility] Mean Corpuscular Volume 91.5 fl 80.0-96.0 M [facility] ([facility] Mean Corpuscular Hemoglobin 29.1 pg 27.0-33.0 [facility] ([facility] Mean Corpuscular HGB Conc 31.8 g/dL 32.0-36.5 [facility] ([facility] Neutrophils % 45.0 % 36.0-66.0 [facility] ([facility] Red Cell Distribution Width 12.8 % 11.5-14.5 [facility] ([facility] Platelet Count, Automated 414 10 150-450 [facility] Lymph % 44.3 % 24.0-44.0 [facility] Harrison % 8.5 % 2.0-8.0 [facility] Eos % 1.4 % 0.0-3.0 [facility] Immature Granulocyte % 0.1 % 0-3.0 [facility] ([facility] Baso % 0.7 % 0.0-1.0 [facility] Neutrophils # 3.6 10 1.5-8.5 [facility] ([facility] Lymph # 3.6 10 1.5-5.0 [facility] Nucleated Red Blood Cell % 0.0 % 0-0 [facility] ([facility] Harrison # 0.7 10 0.0-0.8 [facility] Eos # 0.1 10 0.0-0.5 [facility] Baso # 0.1 10 0.0-0.2 [facility] ID Date Data Source [id number] 06/13/2021 12:37:00 PM EDT [facility] ([facility] Name Value Range Interpretation Code Description Data Alexandra rce(s) Supporting Document(s) Lipoprotein lipase [Enzymatic activity/volume] in Serum or Plasm a 82 U/L 73-393 [facility] ([facility] ID Date Data Source [id number] 06/13/2021 12:37:00 PM EDT [facility] ([facility] Name Value Range Interpretation Code Description Data Alexandra e(s) Supporting Document(s) Helicobacter pylori IgG Ab [Units/volume] in Serum 0.45 0.00-0. 79 [facility] ([facility] <content>Result Units: Index Value</cont ent>
<content>Negative <0.80</content>
<content>Equivocal 0.80 - 0.89</content>
<content>Positive >0.89</content>
<content> </content> Helicobacter pylori IgA Ab [Units/volume] in Serum Laborator y test result 0.0-8.9 [facility] ([facility] <content>Negative <9.0</content >
<content>Equivocal 9.0 - 11.0</content>
<content>Positive >11.0</content>
<content></content> Helicobacter pylori IgM Ab [Units/volume] in Serum Laborator y test result 0.0-8.9 [facility] ([facility] <content>Negative <9.0</content >
<content>Equivocal 9.0 - 11.0</content>
<content>Positive >11.0</content>
<content>.</content>
<content>.</content>
<content>This test was developed and its performance characteristics</content>
<content>determined by [facility]. It has not been cleared or</content>
<content>approved by the Food and Drug Admin istration.</content>
<content>Performed at: [facility]</content>
<content>[address], [place] [id number]</content>
<content>[employer] Processing [employer]ist: Antonette Ríos MD, Phone: [phone]</content>
<content></content> ID Date Data Source [id number] 06/13/2021 10:55:00 AM EDT [facility] ([facility] Name Value Range Interpretation Code Description Data Alexandra rce(s) Supporting Document(s) Red Blood Count 4.33 4.00-5.40 [facility] ([facility]) White Blood Count 8.0 5.0-10.0 [facility] ([facility]) Hemoglobin 12.6 [facility] ([facility]) Platelets 414 172-450 [facility] ([facility]) Hematocrit 39.6 [facility] ([facility]) ID Date Data Source [id number] 06/13/2021 10:55:00 AM EDT [facility] ([facility] Name Value Range Interpretation Code Description Data Alexandra rce(s) Supporting Document(s) Alanine aminotransferase [Enzymatic activity/volume] in Serum or Pl asma 24 [facility] ([facility]) Albumin [Mass/volume] in Serum or Plasma 4.0 [facility] ([facility]) Calcium [Mass/volume] in Serum or Plasma 9.5 [facility] ([facility]) Carbon dioxide, total [Moles/volume] in Serum or Plasma 25 [facility] ([facility]) Chloride [Moles/volume] in Serum or Plasma 111 [facility] ([facility]) Alkaline phosphatase [Enzymatic activity/volume] in Serum or Plasma 5 7 [facility] ([facility]) Potassium [Moles/volume] in Serum or Plasma 3.8 [facility] ([facility]) Protein [Mass/volume] in Serum or Plasma 7.3 [facility] ([facility]) Sodium 141 [facility] ([facility]) Aspartate aminotransferase [Enzymatic activity/volume] in Serum or Plasma 24 [facility] ([facility]) Urea nitrogen [Mass/volume] in Serum or Plasma 16 [facility] ([facility]) Glucose 94 83-110 [facility] ([facility]) Creatinine For GFR 0.78 [facility] ([facility]) ID Date Data Source [id number] 05/16/2021 07:56:00 AM EDT [facility] ([facility] Name Value Range Interpretation Code Description Data Alexandra rce(s) Supporting Document(s) Troponin I.cardiac [Mass/volume] in Serum or Plasma 0.00 ng/mL 0.00-0 .08 [facility] ID Date Data Source [id number] 05/16/2021 06:43:00 AM EDT [facility] ([facility] Name Value Range Interpretation Code Description Data Alexandra rce(s) Supporting Document(s) Laboratory test finding (navigational concept) 1.3 [facility] ([facility] Laboratory test finding (navigational concept) 15.3 s 12.1-14.4 [facility] ([facility] ID Date Data Source [id number] 05/16/2021 05:45:00 AM EDT [facility] ([facility] Name Value Range Interpretation Code Description Data Alexandra rce(s) Supporting Document(s) Troponin I.cardiac [Mass/volume] in Serum or Plasma 0.00 ng/mL 0.00-0 .08 [facility] ([facility] ID Date Data Source [id number] 05/16/2021 05:26:00 AM EDT [facility] ([facility] Name Value Range Interpretation Code Description Data Alexandra rce(s) Supporting Document(s) Glucose, Fasting 106 mg/dL 70-100 [facility] ([facility] Blood Urea Nitrogen 14 mg/dL 7-18 [facility] ([facility] Creatinine For GFR 0.62 mg/dL 0.55-1.30 [facility] ([facility] Glomerular Filtration Rate Laboratory test result [facility] ([facility] <content>Units are mL/min/1.73 m2</content>
<content></content>
<content>Chronic Kidney Disease Staging per NK[facility]:</content>
<content></content>
<content>Stage I & II GFR >=60 Normal to Mildly Decreased</content>
<content>Stage III GFR 30- 59 Moderately Decreased</content>
<content>Stage IV GFR 15-29 Severely Decreased</content>
<content>Stage V GFR <15 Very Little GFR Left</content>
<content>ESRD GFR <15 on MARKETING LEAD</content>
<content></content> Sodium Level 142 meq/L 136-145 [facility] ([facility] Potassium Serum 4.3 meq/L 3.5-5.1 [facility] ([facility] Testing was performed on a SLIGHTLY hemo lyzed specimen. Suggest recollection of specimen for more accurate test results. Chloride Level 113 meq/L 98-107 [facility] ([facility] Carbon Dioxide Level 22 meq/L 21-32 [facility] ([facility] Anion Gap 7 meq/L 8-16 [facility] ([facility] Calcium Level 9.2 mg/dL 8.5-10.1 [facility] ([facility] ID Date Data Source [id number] 05/16/2021 05:26:00 AM EDT [facility] ([facility] Name Value Range Interpretation Code Description Data Alexandra rce(s) Supporting Document(s) White Blood Count 11.2 10 4.0-10.0 [facility] ([facility] Red Blood Count 4.23 10 4.00-5.40 [facility] ([facility] Hematocrit 38.4 % 36.0-47.0 [facility] ([facility] Hemoglobin 12.4 g/dL 12.0-15.5 [facility] Mean Corpuscular Hemoglobin 29.3 pg 27.0-33.0 [facility] ([facility] Mean Corpuscular Volume 90.8 fl 80.0-96.0 M [facility] ([facility] Red Cell Distribution Width 12.9 % 11.5-14.5 [facility] ([facility] Mean Corpuscular HGB Conc 32.3 g/dL 32.0-36.5 [facility] ([facility] Platelet Count, Automated 359 10 150-450 [facility] ([facility] Neutrophils % 64.0 % 36.0-66.0 [facility] ([facility] Lymph % 26.4 % 24.0-44.0 [facility] Harrison % 7.1 % 2.0-8.0 [facility] Eos % 1.7 % 0.0-3.0 [facility] Baso % 0.5 % 0.0-1.0 [facility] Immature Granulocyte % 0.3 % 0-3.0 [facility] ([facility] Nucleated Red Blood Cell % 0.0 % 0-0 [facility] ([facility] Neutrophils # 7.1 10 1.5-8.5 [facility] ([facility] Lymph # 3.0 10 1.5-5.0 [facility] Harrison # 0.8 10 0.0-0.8 [facility] Baso # 0.1 10 0.0-0.2 [facility] Eos # 0.2 10 0.0-0.5 [facility] ID Date Data Source [id number] 05/16/2021 05:26:00 AM EDT [facility] ([facility]) Name Value Range Interpretation Code Description Data Alexandra rce(s) Supporting Document(s) Hemoglobin [Mass/volume] in Blood 12.4 12.0-15.5 [facility] ([facility]) ID Date Data Source [id number] 05/16/2021 05:26:00 AM EDT [facility] ([facility]) Name Value Range Interpretation Code Description Data Alexandra rce(s) Supporting Document(s) Hematocrit [Volume Fraction] of Blood by Automated count 38.4 3 6.0-47.0 [facility] ([facility]) ID Date Data Source [id number] 05/16/2021 05:26:00 AM EDT [facility] ([facility]) Name Value Range Interpretation Code Description Data Alexandra rce(s) Supporting Document(s) Erythrocyte mean corpuscular volume [Entitic volume] by Auto mated count 90.8 80.0-96.0 [facility] ([facility]) ID Date Data Source [id number] 05/16/2021 05:26:00 AM EDT [facility] ([facility]) Name Value Range Interpretation Code Description Data Alexandra rce(s) Supporting Document(s) Erythrocyte mean corpuscular hemoglobin [Entitic mass] by Au tomated count 29.3 27.0-33.0 [facility] ([facility]iology [facility]) ID Date Data Source [id number] 05/16/2021 05:26:00 AM EDT [facility] ([facility]) Name Value Range Interpretation Code Description Data Alexandra rce(s) Supporting Document(s) Platelets [#/volume] in Blood by Automated count 359 150-450 [facility] ([facility]) ID Date Data Source [id number] 05/16/2021 05:26:00 AM EDT [facility] ([facility]) Name Value Range Interpretation Code Description Data Alexandra rce(s) Supporting Document(s) Erythrocyte mean corpuscular hemoglobin concentration [Mass/volume] by Automated count 32.3 32.0-36.5 [facility] ([facility]iology [facility]) ID Date Data Source [id number] 05/16/2021 05:26:00 AM EDT [facility] ([facility]) Name Value Range Interpretation Code Description Data Alexandra rce(s) Supporting Document(s) Erythrocyte distribution width [Ratio] by Automated count 12.9 11.5-14.5 [facility] ([facility]) ID Date Data Source [id number] 05/16/2021 05:26:00 AM EDT [facility] ([facility]) Name Value Range Interpretation Code Description Data Alexandra rce(s) Supporting Document(s) Neutrophils [#/volume] in Blood by Automated count 64.0 36.0-66 .0 [facility] ([facility]) ID Date Data Source [id number] 05/16/2021 05:26:00 AM EDT [facility] ([facility]) Name Value Range Interpretation Code Description Data Alexandra rce(s) Supporting Document(s) Lymphocytes/100 leukocytes in Blood by Automated count 26.4 24. 0-44.0 [facility] ([facility]) ID Date Data Source [id number] 05/16/2021 05:26:00 AM EDT [facility] ([facility]) Name Value Range Interpretation Code Description Data Alexandra rce(s) Supporting Document(s) Leukocytes [#/volume] in Blood by Automated count 11.2 4.0-10.0 [facility] ([facility]) ID Date Data Source [id number] 05/16/2021 05:26:00 AM EDT [facility] ([facility]) Name Value Range Interpretation Code Description Data Alexandra rce(s) Supporting Document(s) Basophils/100 leukocytes in Blood by Automated count 0.5 0.0-1 .0 [facility] ([facility]) ID Date Data Source [id number] 05/16/2021 05:26:00 AM EDT [facility] ([facility]) Name Value Range Interpretation Code Description Data Alexandra rce(s) Supporting Document(s) Eosinophils/100 leukocytes in Blood by Automated count 1.7 0.0 -3.0 [facility] ([facility]) ID Date Data Source [id number] 05/16/2021 05:26:00 AM EDT [facility] ([facility]) Name Value Range Interpretation Code Description Data Alexandra rce(s) Supporting Document(s) Immature granulocytes/100 leukocytes in Blood by Automated count 0.3 0-3.0 [facility] ([facility]) ID Date Data Source [id number] 05/16/2021 05:26:00 AM EDT [facility] ([facility]) Name Value Range Interpretation Code Description Data Alexandra rce(s) Supporting Document(s) Nucleated erythrocytes/100 leukocytes [Ratio] in Blood by Au tomated count 0.0 0-0 [facility] ([facility]) ID Date Data Source [id number] 05/16/2021 05:26:00 AM EDT [facility] ([facility]) Name Value Range Interpretation Code Description Data Alexandra rce(s) Supporting Document(s) Neutrophils [#/volume] in Blood by Automated count 7.1 1.5-8.5 [facility] ([facility]) ID Date Data Source [id number] 05/16/2021 05:26:00 AM EDT [facility] ([facility]) Name Value Range Interpretation Code Description Data Alexandra rce(s) Supporting Document(s) Lymphocytes [#/volume] in Blood by Automated count 3.0 1.5-5.0 [facility] ([facility]) ID Date Data Source [id number] 05/16/2021 05:26:00 AM EDT [facility] ([facility]) Name Value Range Interpretation Code Description Data Alexandra rce(s) Supporting Document(s) Monocytes [#/volume] in Blood by Automated count 0.8 0.0-0.8 [facility] ([facility]) ID Date Data Source [id number] 05/16/2021 05:26:00 AM EDT [facility] ([facility]) Name Value Range Interpretation Code Description Data Alexandra rce(s) Supporting Document(s) Eosinophils [#/volume] in Blood by Automated count 0.2 0.0-0.5 [facility] ([facility]) ID Date Data Source [id number] 05/16/2021 05:26:00 AM EDT [facility] ([facility]) Name Value Range Interpretation Code Description Data Alexandra rce(s) Supporting Document(s) Basophils [#/volume] in Blood by Automated count 0.1 0.0-0.2 [facility] ([facility]) ID Date Data Source [id number] 05/16/2021 05:26:00 AM EDT [facility] ([facility]) Name Value Range Interpretation Code Description Data Alexandra rce(s) Supporting Document(s) Monocytes/100 leukocytes in Blood by Automated count 7.1 2.0-8 .0 [facility] ([facility]) ID Date Data Source [id number] 03/30/2021 10:46:00 AM EDT [facility] ([facility] Name Value Range Interpretation Code Description Data Alexandra rce(s) Supporting Document(s) Vitamin B12 Level 998 pg/mL [facility] ([facility] VITAMIN B12 NORMAL RANGE NORMAL 247 - 911 PG/ML INDETERMINATE 211 - 246 PG/ML DEFICIENT LESS THAN 211 PG/ML Folate 20.3 ng/mL [facility] FOLATE NORMAL RANGE NORMAL GREATER THAN 5.4 NG/ML INDETERMINATE 3.4-5.4 NG/ML DEFICIENT LESS THAN 3.4 NG/ML ID Date Data Source [id number] 03/30/2021 10:46:00 AM EDT [facility] ([facility] Name Value Range Interpretation Code Description Data Alexandra rce(s) Supporting Document(s) White Blood Count 7.9 10 4.0-10.0 [facility] ([facility] Hemoglobin 12.5 g/dL 12.0-15.5 [facility] ([facility] Red Blood Count 4.22 10 4.00-5.40 [facility] ([facility] Mean Corpuscular Hemoglobin 29.6 pg 27.0-33.0 [facility] ([facility] Hematocrit 39.2 % 36.0-47.0 [facility] Mean Corpuscular Volume 92.9 fl 80.0-96.0 M [facility] ([facility] Red Cell Distribution Width 12.9 % 11.5-14.5 [facility] ([facility] Mean Corpuscular HGB Conc 31.9 g/dL 32.0-36.5 [facility] ([facility] Platelet Count, Automated 376 10 150-450 [facility] ([facility] Neutrophils % 51.5 % 36.0-66.0 [facility] ([facility] Lymph % 38.1 % 24.0-44.0 [facility] Eos % 3.2 % 0.0-3.0 [facility] Baso % 0.8 % 0.0-1.0 [facility] Harrison % 6.1 % 2.0-8.0 [facility] Neutrophils # 4.1 10 1.5-8.5 [facility] ([facility] Nucleated Red Blood Cell % 0.0 % 0-0 [facility] ([facility] Immature Granulocyte % 0.3 % 0-3.0 [facility] ([facility] Lymph # 3.0 10 1.5-5.0 [facility] Harrison # 0.5 10 0.0-0.8 [facility] Baso # 0.1 10 0.0-0.2 [facility] Eos # 0.3 10 0.0-0.5 [facility] ID Date Data Source [id number] 03/25/2021 06:38:47 AM EDT [facility] Name Value Range Interpretation Code Description Data Alexandra rce(s) Supporting Document(s) [facility] [id number] [file] [id number] ID Date Data Source [id number] 03/09/2021 11:24:00 AM EDT [facility] ([facility] Name Value Range Interpretation Code Description Data Alexandra rce(s) Supporting Document(s) Laboratory test finding (navigational concept) Laboratory test result [facility] ([facility]) A courtesy copy of this report has been sent to the patient ID Date Data Source [id number] 03/09/2021 11:24:00 AM EDT [facility] ([facility]) Name Value Range Interpretation Code Description Data Alexandra rce(s) Supporting Document(s) RBC 4.12 x10E6/uL 3.77-5.28 [facility] ([facility]) A courtesy copy of this report has been sent to the patient WBC 10.6 x10E3/uL 3.4-10.8 [facility] ([facility]) A courtesy copy of this report has been sent to the patient Hematocrit [Volume Fraction] of Blood by Automated count 38.7 % 3 4.0-46.6 [facility] (Cardiology [facility]) A courtesy copy of this report has been sent to the patient Hemoglobin [Mass/volume] in Blood 12.4 g/dL 11.1-15.9 [facility] ([facility]iology [facility]) A courtesy copy of this report has been sent to the patient Erythrocyte mean corpuscular volume [Entitic volume] by Auto mated count 94 fL 79-97 [facility] (Cardiology [facility]) A courtesy copy of this report has been sent to the patient Erythrocyte mean corpuscular hemoglobin concentration [Mass/volume] by Automated count 32.0 g/dL 31.5-35.7 [facility] ([facility]) A courtesy copy of this report has been sent to the patient Erythrocyte mean corpuscular hemoglobin [Entitic mass] by Automated count 30.1 pg 26.6-33.0 [facility] ([facility]) A courtesy copy of this report has been sent to the patient Erythrocyte distribution width [Ratio] by Automated count 14.0 % 11.7-15.4 [facility] (Cardiology [facility]) A courtesy copy of this report has been sent to the patient Nucleated erythrocytes/100 leukocytes [Ratio] in Blood by Automated count Laboratory test result [facility] ([facility]iology [facility]) A courtesy copy of this report has been sent to the patient Platelets [#/volume] in Blood by Automated count 414 x10E3/uL 150-450 [facility] ([facility]iology [facility]) A courtesy copy of this report has been sent to the patient ID Date Data Source [id number] 03/09/2021 11:24:00 AM EDT [facility] ([facility] Name Value Range Interpretation Code Description Data Alexandra rce(s) Supporting Document(s) Glucose 87 mg/dL 65-99 [facility] (Cardiology A [facility]) A courtesy copy of this report has been sent to the patient Urea nitrogen [Mass/volume] in Serum or Plasma 16 mg/dL 6-24 [facility] ([facility]) A courtesy copy of this report has been sent to the patient Creatinine 0.71 mg/dL 0.57-1.00 [facility] (Cardiology [facility]) A courtesy copy of this report has been sent to the patient eGFR If Africn Am 111 mL/min/1.73 [facility] (Cardiology [facility]) A courtesy copy of this report has been sent to the patient eGFR If NonAfricn Am 96 mL/min/1.73 MEDE NT (Cardiology [facility]) A courtesy copy of this report has been sent to the patient Urea nitrogen/Creatinine [Mass Ratio] in Serum or Plasma 23 9 -23 [facility] (Cardiology [facility]) A courtesy copy of this report has been sent to the patient Potassium [Moles/volume] in Serum or Plasma 4.3 mmol/L 3.5-5.2 [facility] ([facility]) A courtesy copy of this report has been sent to the patient Chloride [Moles/volume] in Serum or Plasma 106 mmol/L 96-106 [facility] ([facility]) A courtesy copy of this report has been sent to the patient Sodium 140 mmol/L 134-144 [facility] ([facility]) A courtesy copy of this report has been sent to the patient Calcium [Mass/volume] in Serum or Plasma 9.8 mg/dL 8.7-10.2 [facility] ([facility]) A courtesy copy of this report has been sent to the patient Carbon dioxide, total [Moles/volume] in Serum or Plasma 21 mmol/L 20 -29 [facility] ([facility]) A courtesy copy of this report has been sent to the patient Globulin [Mass/volume] in Serum by calculation 2.7 g/dL 1.5-4.5 [facility] ([facility]) A courtesy copy of this report has been sent to the patient Albumin [Mass/volume] in Serum or Plasma 4.3 g/dL 3.8-4.9 [facility] ([facility]) A courtesy copy of this report has been sent to the patient Protein [Mass/volume] in Serum or Plasma 7.0 g/dL 6.0-8.5 [facility] ([facility]) A courtesy copy of this report has been sent to the patient Alkaline phosphatase [Enzymatic activity/volume] in Serum or Plasma 70 IU/L 39-117 [facility] ([facility]) A courtesy copy of this report has been sent to the patient Bilirubin.total [Mass/volume] in Serum or Plasma 0.2 mg/dL 0.0-1.2 [facility] ([facility]) A courtesy copy of this report has been sent to the patient A/G Ratio 1.6 1.2-2.2 [facility] (Cardiology A [facility]) A courtesy copy of this report has been sent to the patient Alanine aminotransferase [Enzymatic activity/volume] in Seru m or Plasma 15 IU/L 0-32 [facility] ([facility]) A courtesy copy of this report has been sent to the patient Aspartate aminotransferase [Enzymatic activity/volume] in Serum or Plasma 25 IU/L 0-40 [facility] ([facility]) A courtesy copy of this report has been sent to the patient ID Date Data Source [id number] 03/10/2021 08:07:00 AM EDT [facility] Name Value Range Interpretation Code Description Data Alexandra rce(s) Supporting Document(s) Glucose 87 mg/dL 65-99 [facility] BUN 16 mg/dL 6-24 [facility] Creatinine 0.71 mg/dL 0.57-1.00 [facility] eGFR If NonAfricn Am 96 mL/min/1.73 >59 [facility] eGFR If Africn Am 111 mL/min/1.73 >59 [facility] p BUN/Creatinine Ratio 23 9-23 [facility] Sodium 140 mmol/L 134-144 [facility] Potassium 4.3 mmol/L 3.5-5.2 [facility] Chloride 106 mmol/L 96-106 [facility] Carbon Dioxide, Total 21 mmol/L 20-29 [facility] Calcium 9.8 mg/dL 8.7-10.2 [facility] Protein, Total 7.0 g/dL 6.0-8.5 [facility] Albumin 4.3 g/dL 3.8-4.9 [facility] Globulin, Total 2.7 g/dL 1.5-4.5 [facility] A/G Ratio 1.6 1.2-2.2 [facility] Bilirubin, Total 0.2 mg/dL 0.0-1.2 [facility] Alkaline Phosphatase 70 IU/L 39-117 [facility] AST (SGOT) 25 IU/L 0-40 [facility] ALT (SGPT) 15 IU/L 0-32 [facility] ID Date Data Source [id number] 03/10/2021 08:07:00 AM EDT [facility] Name Value Range Interpretation Code Description Data Alexandra rce(s) Supporting Document(s) WBC 10.6 x10E3/uL 3.4-10.8 [facility] RBC 4.12 x10E6/uL 3.77-5.28 [facility] Hemoglobin 12.4 g/dL 11.1-15.9 [facility] Hematocrit 38.7 % 34.0-46.6 [facility] MCV 94 fL 79-97 [facility] MCH 30.1 pg 26.6-33.0 [facility] MCHC 32.0 g/dL 31.5-35.7 [facility] RDW 14.0 % 11.7-15.4 [facility] Platelets 414 x10E3/uL 150-450 [facility] ID Date Data Source [id number] 03/09/2021 11:20:00 AM EDT [facility] ([facility] Name Value Range Interpretation Code Description Data Alexandra rce(s) Supporting Document(s) Potassium [Moles/volume] in Serum or Plasma 4.3 mmol/L 3.5-5.2 [facility] ([facility] Sodium [Moles/volume] in Serum or Plasma 141 mmol/L 134-144 [facility] Chloride [Moles/volume] in Serum or Plasma 107 mmol/L 96-106 [facility] Glucose [Mass/volume] in Serum or Plasma 90 mg/dL 65-99 [facility] Urea nitrogen [Mass/volume] in Serum or Plasma 17 mg/dL 6-24 [facility] Creatinine [Mass/volume] in Serum or Plasma 0.61 mg/dL 0.57-1.00 [facility] ([facility] Urea nitrogen/Creatinine [Mass Ratio] in Serum or Plasma 28 9 -23 [facility] ([facility] eGFR If NonAfricn Am 102 mL/min/1.73 [facility] eGFR If Africn Am 118 mL/min/1.73 [facility] Calcium [Mass/volume] in Serum or Plasma 9.8 mg/dL 8.7-10.2 [facility] ([facility] Protein, Total 7.1 g/dL 6.0-8.5 [facility] ([facility] Carbon dioxide, total [Moles/volume] in Serum or Plasma 21 mmol/L 20 -29 [facility] ([facility] [facility] Albumin/Globulin [Mass Ratio] in Serum or Plasma 1.8 1.2-2.2 [facility] ([facility] Globulin [Mass/volume] in Serum by calculation 2.5 g/dL 1.5-4.5 [facility] ([facility] Albumin [Mass/volume] in Serum or Plasma 4.6 g/dL 3.8-4.9 [facility] ([facility] Bilirubin.total [Mass/volume] in Serum or Plasma 0.2 mg/dL 0.0-1.2 [facility] ([facility] Alkaline phosphatase [Enzymatic activity/volume] in Serum or Plasma 73 IU/L 39-117 [facility] ([facility] Aspartate aminotransferase [Enzymatic activity/volume] in Serum or Plasma 25 IU/L 0-40 [facility] ([facility] Alanine aminotransferase [Enzymatic activity/volume] in Seru m or Plasma 16 IU/L 0-32 [facility] ([facility] ID Date Data Source [id number] 03/09/2021 11:20:00 AM EDT [facility] ([facility] Name Value Range Interpretation Code Description Data Alexandra rce(s) Supporting Document(s) Lipoprotein lipase [Enzymatic activity/volume] in Serum or Plasm a 36 U/L 14-72 [facility] ([facility] Amylase [Enzymatic activity/volume] in Serum or Plasma 43 U/L 31- 110 [facility] ([facility] ID Date Data Source [id number] 03/09/2021 11:20:00 AM EDT [facility] ([facility] Name Value Range Interpretation Code Description Data Alexandra rce(s) Supporting Document(s) Erythrocytes [#/volume] in Blood by Automated count 4.38 x10E6/uL 3.7 7-5.28 [facility] ([facility] Leukocytes [#/volume] in Blood by Automated count 10.6 x10E3/uL 3.4-1 0.8 [facility] ([facility] Hemoglobin [Mass/volume] in Blood 12.4 g/dL 11.1-15.9 [facility] ([facility] Erythrocyte mean corpuscular volume [Entitic volume] by Auto mated count 91 fL 79-97 [facility] ([facility] Hematocrit [Volume Fraction] of Blood by Automated count 39.7 % 3 4.0-46.6 [facility] ([facility] Erythrocyte mean corpuscular hemoglobin [Entitic mass] by Automated count 28.3 pg 26.6-33.0 [facility] ([facility] Erythrocyte mean corpuscular hemoglobin concentration [Mass/volume] by Automated count 31.2 g/dL 31.5-35.7 [facility] ([facility] Erythrocyte distribution width [Ratio] by Automated count 13.4 % 11.7-15.4 [facility] ([facility] Neutrophils 59 % [facility] ([facility]ne landon [facility] Platelets [#/volume] in Blood by Automated count 442 x10E3/uL 150-450 [facility] ([facility] Lymphocytes/100 leukocytes in Blood by Automated count 32 % [facility] ([facility] Monocytes/100 leukocytes in Blood by Automated count 6 % [facility] ([facility] Eosinophils/100 leukocytes in Blood by Automated count 2 % [facility] ([facility] Immature cells [#/volume] in Blood Laboratory test result [facility] ([facility] Neutrophils [#/volume] in Blood by Automated count 6.3 x10E3/uL 1.4-7 .0 [facility] ([facility] Basophils/100 leukocytes in Blood by Automated count 1 % [facility] ([facility] Monocytes [#/volume] in Blood 0.6 x10E3/uL 0.1-0.9 [facility] ([facility] Lymphocytes [#/volume] in Blood 3.4 x10E3/uL 0.7-3.1 [facility] ([facility] Basophils [#/volume] in Blood by Automated count 0.1 x10E3/uL 0.0-0.2 [facility] ([facility] Immature granulocytes/100 leukocytes in Blood by Automated count 0 % [facility] ([facility] Immature granulocytes [#/volume] in Blood by Automated count 0.0 x10E3/uL 0.0-0.1 [facility] ([facility] Eosinophils [#/volume] in Blood by Automated count 0.2 x10E3/uL 0.0-0 .4 [facility] ([facility] Morphology [Interpretation] in Blood Narrative Laboratory test result [facility] ([facility] Nucleated erythrocytes/100 leukocytes [Ratio] in Blood by Automated count Laboratory test result [facility] ([facility]on [facility] ID Date Data Source [id number] 03/10/2021 06:06:00 AM EDT [facility] Name Value Range Interpretation Code Description Data Alexandra rce(s) Supporting Document(s) WBC 10.6 x10E3/uL 3.4-10.8 [facility] RBC 4.38 x10E6/uL 3.77-5.28 [facility] Hemoglobin 12.4 g/dL 11.1-15.9 [facility] Hematocrit 39.7 % 34.0-46.6 [facility] MCV 91 fL 79-97 [facility] MCH 28.3 pg 26.6-33.0 [facility] MCHC 31.2 g/dL 31.5-35.7 Below low normal [facility] RDW 13.4 % 11.7-15.4 [facility] Platelets 442 x10E3/uL 150-450 [facility] Neutrophils 59 % Not Estab. [facility] Lymphs 32 % Not Estab. [facility] Monocytes 6 % Not Estab. [facility] Eos 2 % Not Estab. [facility] Basos 1 % Not Estab. [facility] Neutrophils (Absolute) 6.3 x10E3/uL 1.4-7.0 [facility] Lymphs (Absolute) 3.4 x10E3/uL 0.7-3.1 Above high normal [facility] Monocytes(Absolute) 0.6 x10E3/uL 0.1-0.9 [facility] Eos (Absolute) 0.2 x10E3/uL 0.0-0.4 [facility] Baso (Absolute) 0.1 x10E3/uL 0.0-0.2 [facility] Immature Granulocytes 0 % Not Estab. [facility] Immature Grans (Abs) 0.0 x10E3/uL 0.0-0.1 [facility] ID Date Data Source [id number] 03/10/2021 07:05:00 AM EDT [facility] Name Value Range Interpretation Code Description Data Alexandra rce(s) Supporting Document(s) Glucose 90 mg/dL 65-99 [facility] BUN 17 mg/dL 6-24 [facility] Creatinine 0.61 mg/dL 0.57-1.00 [facility] eGFR If NonAfricn Am 102 mL/min/1.73 >59 [facility] eGFR If Africn Am 118 mL/min/1.73 >59 [facility] BUN/Creatinine Ratio 28 9-23 Above high normal [facility] Sodium 141 mmol/L 134-144 [facility] Potassium 4.3 mmol/L 3.5-5.2 [facility] Chloride 107 mmol/L 96-106 Above high normal [facility] Carbon Dioxide, Total 21 mmol/L 20-29 [facility] Calcium 9.8 mg/dL 8.7-10.2 [facility] Protein, Total 7.1 g/dL 6.0-8.5 [facility] Albumin 4.6 g/dL 3.8-4.9 [facility] Globulin, Total 2.5 g/dL 1.5-4.5 [facility] A/G Ratio 1.8 1.2-2.2 [facility] Bilirubin, Total 0.2 mg/dL 0.0-1.2 [facility] Alkaline Phosphatase 73 IU/L 39-117 [facility] AST (SGOT) 25 IU/L 0-40 [facility] ALT (SGPT) 16 IU/L 0-32 [facility] ID Date Data Source [id number] 03/10/2021 08:09:00 AM EDT [facility] Name Value Range Interpretation Code Description Data Alexandra rce(s) Supporting Document(s) Amylase 43 U/L 31-110 [facility] ID Date Data Source [id number] 03/10/2021 08:09:00 AM EDT [facility] Name Value Range Interpretation Code Description Data Alexandra rce(s) Supporting Document(s) Lipase 36 U/L 14-72 [facility] ID Date Data Source [id number] 02/16/2021 08:02:44 AM EDT [address] [id number] Name: Suha GordonDOB: 1965Sex: FOrdering Provider: OLIVA HERRERAAuthorizing Prov: OLIVA HERRERAReferrshoaib Provider: Procedure Performed: XR CHEST PORTABLEExam Date: 02/14/2021 18:59MRN: [id number] Number: [id number] Class: INFORMATION: Exam: XR Chest Exam date and time: 02/14/2021 6:59 PM Age: 55 years old Clinical indication: Other: Chest pain TECHNIQUE: Imaging protocol: XR of the chest Views: 1 view. COMPARISON: No relevant prior studies available. FINDINGS: Lungs: Unremarkable. No consolidation. Pleural spaces: Unremarkable. No pleural effusion. No pneumothorax. Heart/Mediastinum: No cardiomegaly. Status post cardiac surgery. Bones/joints: Patient is status post median sternotomy. IMPRESSION: No acute infiltrate. Report electronically signed by: DON MUNOZ MD on 02/16/2021 08:02:44 Name Value Range Interpretation Code Description Data Alexandra rce(s) Supporting Document(s) ID Date Data Source [id number] 02/15/2021 09:15:36 PM EDT [facility] INFORMATIONPatient MRN Name Date of Age Gend*PT [id number] Suha Gordon 1965 55 years F IPPT Location Admission Date/Time Visit ID Attending [id number] 02/14/21 1847 --- --- EPI ID CSN Admitting Provider [id number] Oliva Herrera MD([id number]) [facility] DISCHARGE SUMMARYPatient Name: Suha Gordon of : 1965 Age 55 yearsPrimary Physician: No primary care provider on file. PCP Phone: NoneAdmission Date: 02/14/2021 Discharge Date: 02/15/2021he will be discharged from [facility] to [facility] Diagnoses:Principal Problem: Unstable anginaActive Problems: Osteoarthritis Back pain Anxiety Hypertension CAD (coronary artery disease) Hyperlipidemia Mitral valve disease CHF (congestive heart failure) Familial hypercholesterolemia Coronary artery disease Bradycardia Tobacco use Chronic diastolic heart failure Presence of aortocoronary bypass graft Smoker Abnormal stress testDischarge Medications:Discharge Medication List as of 02/15/2021 4:31 PMCONTINUE these medications which have NOT CHANGED DetailsAlirocumab (PRALUENT) 150 MG/ML SOAJ Inject 150 mg under the skin every 14(fourteen) days, Historical Medaspirin EC 81 MG EC tablet Take 81 mg by mouth daily, Historical Medclopidogrel (PLAVIX) 75 MG tablet Take 75 mg by mouth daily, Historical Medcolesevelam (WELCHOL) 625 MG tablet Take 1,875 mg by mouth daily, Historical Medezetimibe (ZETIA) 10 MG tablet Take 10 mg by mouth daily, Historical Medfenofibrate micronized (LOFIBRA) 200 MG capsule Take 160 mg by mouth everymorning before breakfast, Historical Medfurosemide (LASIX) 20 MG tablet Take 20 mg by mouth RT 3 TIMES DAILY NEEDED,Historical Medgabapentin (NEURONTIN) 100 MG capsule Take 100 mg by mouth daily, Historical Medlosartan (COZAAR) 25 MG tablet Take 25 mg by mouth daily, Historical Medrosuvastatin (CRESTOR) 40 MG tablet Take 40 mg by mouth nightly, Historical MedVortioxetine HBr (TRINTELLIX) 5 MG TABS Take 5 mg by mouth daily, Historical MedFollow Up Instructions:The patient was given an after visit summary.Patient will follow up with PCP Dr Pena in 1-2 week and publicity manager in 1 to 2 weeks.Brief Hospital Course:55-year-old female with a past medical history of CAD s/p stent/CABGs, familialhyperlipidemia, hypertension who had an abnormal stress test and was supposed tohave a cardiac catheterization on February 24. [facility]. [facility] Echo showed an LVEF of 45 to 50% with grade 2 diastolicdysfunction. She underwent cardiac catheterization with results showing: Ost LM lesion is 40% stenosed. Prox RCA to Mid RCA lesion is 25% stenosed. Mid RCA to Dist RCA lesion is 25% stenosed. Mid RCA lesion is 30% stenosed. Mid LAD lesion is 100% stenosed.No complications, estimated blood loss minimal. Patient has deering coronary artery disease with patency of 1 out of 4 graftswhich is the RIZO to the LAD with continued patency of other stents in the leftmain and RCA. I do not see any major coronary stenosis that explain hersy mptomatology. Continue medical therapy is recommended.Currently she denies chest pain or shortness of breath. She will follow up withher Primary publicity manager. She is stable for discharge home.Discharge Exam:Blood Pressure: BP: 101/55 Pulse: Heart Rate: (!) 41Temperature: Temp: 98.1 F Respirations: Resp: 16Admission Weight: Weight: 70.3 kg (154 lb 14.4 oz) O2 Saturation: SpO2: 98 %Discharge Weight: Weight: 70.3 kg (154 lb 14.4 oz) BMI: Body mass index is 29.27kg/m .GEN: NADHEENT: EOMICARDIO: RRR +MPULM: CTAABD: S/NT/ND/BSEXT: NO EDEMAVASC: +PULSESNEURO: [id number]:Imaging:Echo Transthoracic (tte)Result Date: 02/15/2021 Left Ventricle: The left ventricular cavity is normal. Mildly (45- 50%)decreased ejection fraction. Grade II (moderate) left ventricular diastolicdysfunction consistent with pseudonormalization. normal wall thickness observed. Ascending Aorta: no aneurysm is present. plaque located in the aortic root(sinus). Plaque is moderate in size and . No graft present No significantvalvular heart disease identified.Cardiac CatheterizationResult Date: 02/15/2021 Ost LM lesion is 40% stenosed. Prox RCA to Mid RCA lesion is 25% stenosed. Mid RCA to Dist RCA lesion is 25% stenosed. Mid RCA lesion is 30% stenosed. Mid LAD lesion is 100% stenosed. No complications, estimated blood lossminimal. Patient has deering coronary artery disease with patency of 1 out of 4grafts which is the RIZO to the LAD with continued patency of other stents inthe left main and RCA. I do not see any major coronary stenosis that explainher symptomatology. Continue medical therapy is recommended. The abovediscussed with the patient and Dr. Alamo X-ray PortableAP portable view obtained.Results No results found for the last 336 hours. Recent Labs:BMP:Lab ResultsComponent Value Date NA 144 02/15/2021 K 4.1 02/15/2021 CL 112 (H) 02/15/2021 CO2 26 02/15/2021 ANIONGAP 6 (L) 02/15/2021 CALCIUM 9.1 02/15/2021 GLU 91 02/15/2021 BUN 19 02/15/2021 CREATININE 0.65 02/15/2021 GFRAA >60 02/15/2021 GFRNONAA >60 02/15/2021BC Brief:Lab ResultsComponent Value Date WBC 9.1 02/15/2021 HGB 11.7 (L) 02/15/2021 HCT 34.0 (L) 02/15/2021 PLT 346 02/15/2021hiambrosio Rider MD9:08 PMTotal time spent for discharge on date of discharge: 35 minutes Name Value Range Interpretation Code Description Data Alexandra rce(s) Supporting Document(s) ID Date Data Source [id number] 02/15/2021 04:11:00 PM EDT [facility] ([facility]) Name Value Range Interpretation Code Description Data Alexandra rce(s) Supporting Document(s) White Blood Count 9.1 4.1-11.0 [facility] ([facility]) Red Blood Count 3.90 4.00-5.40 [facility] ([facility]io [facility]) Hemoglobin 11.7 12.0-16.0 [facility] ([facility]) Platelets 346 150-450 [facility] Hematocrit 34.0 36.0-47.0 [facility] ([facility]) ID Date Data Source [id number] 02/15/2021 04:11:00 PM EDT [facility] Name Value Range Interpretation Code Description Data Alexandra rce(s) Supporting Document(s) Troponin Laboratory test result [facility] (Card[facility]) ID Date Data Source [id number] 02/15/2021 04:11:00 PM EDT [facility] ([facility]) Name Value Range Interpretation Code Description Data Alexandra rce(s) Supporting Document(s) Calcium [Mass/volume] in Serum or Plasma 9.1 [facility] ([facility]) Carbon dioxide, total [Moles/volume] in Serum or Plasma 26 [facility] ([facility]) Sodium 144 [facility] ([facility]) Potassium [Moles/volume] in Serum or Plasma 4.1 [facility] ([facility]) Chloride [Moles/volume] in Serum or Plasma 112 [facility] ([facility]) Glucose 91 70-99 [facility] ([facility]) Blood Urea Nitrogen 19 7-24 [facility] (Ca [facility]diology [facility]) Creatinine 0.65 0.60-1.00 [facility] ([facility]) Glomerular filtration rate/1.73 sq M.pre dicted [Volume Rate/Area] in Serum or Plasma by Creatinine-based formula (MDRD) Laboratory test result [facility] ([facility]) ID Date Data Source [id number] 02/15/2021 12:43:00 PM EDT [facility] Name Value Range Interpretation Code Description Data Alexandra rce(s) Supporting Document(s) &PDF [facility] IYJEPq4tZyLSLrMy64/MFSdcVIWlw3AzPElmQWz2KDroSRQkT0RtwHhjSWpFEjsGPtWCQUhnFIDMVbOy yKE [file] jose manuel/1jubMeLCpj6w0qOEkU1waADruks10x0k9Qjdme9RpmBEVLi4z0rva5RZ+NvCdbQLShX+4pwJ987 [file] acting section chief+zdT9/bU6UdXl2uvd5rBMRLBHl72xY29w/OxlRPI60vJrBNcP4kg6MxPj496+7R1js+ewxPqCdQDU [file] rsVboqZyR6Byc4WBHzONB7D3SuBXV+ER0xLTh+Bj0Kp7BrrkJ0iiTnFKz8PNDvWG6ZBGSIW0MQQh== ID Date Data Source [id number] 02/15/2021 09:57:45 AM EDT [facility] Name Value Range Interpretation Code Description Data Alexandra rce(s) Supporting Document(s) &PDF [facility] RHKWVb8tIiEPRvVc37/AFLsqTRNls6RlZObzPAa5RFavYOXyD5HobFxqNFzXZinTWuYNLSjkHMYMUkQv yKE [file] AgICAgICAgICAgICAgICAgICAgICAgICAgICAgICAg YIFcWAKpSTLkDMDxLFRvGHUeAMCgWNDiYWYaCNIqCYPfJKOsTAZkPSUwNKTaWPFlIQIxBUMnLUMuFJ0S ICAgICAgICAgICAgICAgICAgICAgICAgICAgICAgICAgICAgICAgICAgICAgICAgICAgICAgICAgICAg ICAgICAgICAgICAgICAgICAgICAgICAgICAgICAgIC ZjVIAhNVDwOM5MKHJyAWJhOUWlSGKtLMUxSARxIUZkFMIzWOKmAZXaCYOdNIWtCDBfYIQeUOSdMQGnLP XsQHDbNHXvXIDxYLLlXVUkMEGxJIRfDKXoUWKfSVVoXLNhMCOmDASaBZYpILQdCDAeUQ7HEBCvKIOrPQ AgICAgICAgICAgICAgICAgICAgICAgICAgICAgICAg ICAgICAgICAgICAgICAgICAgICAgICAgICAgICAgICAgICAgICAgICAgICAgICAgICAgICAgICAgICAg BS8GAKFdVUUiJQSzDIXaOQNcVIDrLHFuHWIpHFPwOAJrWXNfWXEoWOQpGKFfRNThQKDlQNNnVPVpAALz ICAgICAgICAgICAgICAgICAgICAgICAgICAgICAgIC PyAGVzLCQlYVWyCQ9GPKVvXSYgVXLuEVPcYILwLDKuBWBbZJSaYTJdONXvQBNnARIvICFmIWNcKHRuJR RmAFIdIUMxHKOdOURvTAIvNSFnAMDlFEEyYZKnTKFdEQRcDSLaMBLkSCQeTKXxJFHlHSXxOU2ZGUAzDK AgICAgICAgICAgICAgICAgICAgICAgICAgICAgICAg ICAgICAgICAgICAgICAgICAgICAgICAgICAgICAgICAgICAgICAgICAgICAgICAgICAgICAgICAgICAg ZTZiYO1ALBTeRYUiDZZtTYKwPZTqLWDyVHGhXNKuCPNoRWBsPRGwRSHiMVIzQJDrESUyOWSfLRKhCWNk ICAgICAgICAgICAgICAgICAgICAgICAgICAgICAgIC QcXBKeQVGmHCHhQZWwOW7HWJRfWJHpBEDfOHQxYYWkQQVbJKDyYVLfQEFcITXoVXArLQJzEJYuOMQgBS TlQJJmQAFnFEWqZDMkSMAkETJqRYXeLNTwIIHuHBPqKMHjYCPwWHMuZKKkHJHzWEFxESHqYAHeYE8EFT 56aGWpk8W7AYJbVY4zvfb/Xu7PYEmnjsYnaYCoVP3X LsQnKB7bxq3FSbPfEY7oea3OVTcVYuHzR9D9uOQaIAJqEVVWFpBrL88uQNwhIx23SAhlNMHqDzDvGAc2 Sc2ZKjWnT4kqGNBbJpO3UEGwSbI6TRVrFcPaAPmxXJ9Ev4LwcMJtHLx+Ej7PUT3xq4HmHPdyQsCmVC1y ze8BHMzWLmEvC9P8fKCrI5F3LKojHv0KQTKhQVWxHk HsCLTXCFsmSP7SNA5hsyF6RD3LtWZvRFGxGLVmqUIvKWi3G98ilQQnDBmvTY7RRAQ+Tyler+In1XMAPpKV HxGIQaRiMlLGXFRhSbG19owYTiRAFoTWR1EVKgAy3JZDPmM0EdkgYhhZnhaoDoVYScRVTGHT9DHImfpt VqsHBcyZavJP63fLeqBN0AOr6SWlYpJB2ddn3BrKQr Mc3AUPYhEt2LWTOlBYVzLFOpQQK6MYClHoAfBLkvQEFnYPVsZIN7NAUwEMAkFC2NQaUwAPXdYdF1VDlb OOZlFBBsby8KTZPyRYEvWlB0LqYqASMsCEHzAPfmOJDgRPMcWYkgIVMsYKZwNV8NHbIkZNWpKSH6DKzb IQFqZABpto5GISKqVXWhSrkjWkVkCQDsNTFxIFstEX NcKJH2GUFiNFJkWSPaWU1ZPhLmZSLrKKB0GBKdNKWrGNCqcd9XDWVzEKByDjA9IFIaPLUvRIBsQMpbSP StXTG8YwHvDKXxKTWzOD2NUrRbSRDaHWv1FUHePMEjDTZnsb5OXKRnEKPtJTypJKNoSVDpWPLdJNinIH DyVRY4RIFcPBMcZKWoQT2AVzFlWTQpPTbsMZWaZZOi JDZqtw4YTADjTHHqQAA8AoAwKVDeMRFhQTfoVNYfOBS2UGL8LXIsBYPaRB2XNyAmWMVfPMI8RlHvKMQa QIAkff8VGPJfGRMaGKzwDrFvIUKrLOJjAJroTZJfKGN9ZXYgRLPfVTQiIZ8GHoSbAEOzFEWpSJQlJLOv GCWutv4FEDEiFZOpZeH6DMZkPAVkMMAbTUsbZXGlJB K3WjOaPKNhSVStBT6CRuGnBAFsOlC2DSuzGJGzSIWqte4DBDUqXBHgIGc0BXOdRYFyBGWrDHahMMKgUX R4WfNyBRTlCLUjLA6MVkNjGTKrRvo8OAHgOHAeBHUwgg6HyXZvnLjiqx2AQFvMOu9LtGryIVX8KEasMz 7acNRePuEkSEIPRw8ZlmAjTGBrVHSWTKazAVVjRAAq QKYrEGVkUnttAcrgCPBjYWU4CIYxENHrEOtgRtQxWqE8Y7SsENKbGFLnZEN9X0XcTRHzEsZnXcUzSHJ4 ODJmMWE+IZ0tKHg+If9Db0CfwuU5rdJcBGyrPpb9Qv1TVYGWP3EPZp== ID Date Data Source [id number] 02/15/2021 08:59:05 AM EDT [facility] NT INFORMATIONPatient MRN Name Date of Age Gend*PT [id number] BenHector de santiagon 1965 55 years F IPPT Location Admission Date/Time Visit ID Attending [id number] 02/14/21 1847 --- Mayank Rider MD([id number]) EPI ID CSN Admitting Provider [id number] Oliva Herrera MD([id number])Cardiology History and PhysicalName: Suha Gordon Gender: femaleDate of : 1965 Age: 55 yearsDate/Time of Admit: 02/14/2021 6:47 PM Code Status: Full CodePrimary Care ProviderReferring Physician: No primary care provider on file.Israel Epperson Complaint: Chest painReason for consult: Known CADZ, [place], abn stressHPI: 55-year-old very pleasant lady known case of coronary artery diseasefollowed closely by , patient's history dates back to 14 years ago whenshe had CABG times 4 no details CABG available to me reportedly had couple ofstents few years after she had multiple catheter[place] in [place] fromthe right femoral artery had been told by her publicity manager there to notuse.artery for catheterization anymore because of extensive scar tissues she isknown to have familial hyperlipidemia on genetic testing she is on multipleantilipid medications including PCSK9 inhibitors she is known to havehypertension was scheduled for an outpatient catheterization on February 24 becauseof recurrent chest pain reportedly abnormal stress test, review of records fromDr. Koroma showed fixed intense medium sized perfusion defect involving the apexconsistent with prior infarct in the distribution of the LAD partiallyreversible small lateral perfusion defect consistent with prior infarction andmixed ischemia in the left circumflex territory she developed left-sided chestpain radiating to her back yesterday associated with mild activities withdyspnea on exertion relieved with nitroglycerin referred for left heartcatheterization possible intervention she had a CTA with no evidence of embolismshe ruled out for [place] she has no IV dye allergy good radial pulse and stable CBC& BMP.HistoryPast Medical History:Diagnosis Date Anxiety Bradycardia Chronic diastolic heart failure Familial hypercholesterolemia history of coronary artery bypass grafting Osteoarthrosis Psychological disorder Tobacco usePast Surgical History:Procedure Laterality Date BACK SURGERY CARDIAC SURGERY CORONARY ANGIOPLASTY WITH STENT PLACEMENT CORONARY ARTERY BYPASS GRAFT TUBAL LIGATIONSocial HistorySocioeconomic History Marital status: Single Spouse name: Not on file Number of children: Not on file Years of education: Not on file Highest education level: Not on fileOccupational History Occupation: DisabilitySocial Needs Financial resource strain: Not hard at all Food insecurity: Worry: Never true Inability: Never true Transportation needs: Medical: No Non-medical: NoTobacco Use Smoking status: Current Every Day Smoker Packs/day: 0.25 Years: 15.00 Pack years: 3.75 Types: Cigarettes Smokeless tobacco: Never UsedSubstance and Sexual Activity Alcohol use: Not Currently Drug use: Yes Types: Marijuana Sexual activity: Not on fileLifestyle Physical activity: Days per week: Not on file Minutes per session: Not on file Stress: Not on fileRelationships Social connections: Talks on phone: Not on file Gets together: Not on file Attends evangelical service: Not on file Active member of club or organization: Not on file Attends meetings of clubs or organizations: Not on file Relationship status: Not on file Intimate partner violence: Fear of current or ex partner: Not on file Emotionally abused: Not on file Physically abused: Not on file Forced sexual activity: Not on fileOther Topics Concern Not on fileSocial History Narrative Sedentary lifestyleFamily HistoryProblem Relation Age of Onset Heart murmur Mother Hyperlipidemia Father Coronary artery disease Father Heart attack Other age 32 of MIMedications & AllergiesAllergies:AllergiesAllergen Reactions Epitol [Carbamazepine] ItchingMedications:Medications Prior to AdmissionMedication Sig Alirocumab (PRALUENT) 150 MG/ML SOAJ Inject 150 mg under the skin every 14(fourteen) days aspirin EC 81 MG EC tablet Take 81 mg by mouth daily clopidogrel (PLAVIX) 75 MG tablet Take 75 mg by mouth daily colesevelam (WELCHOL) 625 MG tablet Take 1,875 mg by mouth daily ezetimibe (ZETIA) 10 MG tablet Take 10 mg by mouth daily fenofibrate micronized (LOFIBRA) 200 MG capsule Take 160 mg by mouth everymorning before breakfast furosemide (LASIX) 20 MG tablet Take 20 mg by mouth RT 3 TIMES DAILY NEEDED gabapentin (NEURONTIN) 100 MG capsule Take 100 mg by mouth daily losartan (COZAAR) 25 MG tablet Take 25 mg by mouth daily rosuvastatin (CRESTOR) 40 MG tablet Take 40 mg by mouth nightly Vortioxetine HBr (TRINTELLIX) 5 MG TABS Take 5 mg by mouth daily Scheduled Meds: aspirin EC 81 mg Oral Daily clopidogrel 75 mg Oral Daily colesevelam 625 mg Oral Daily ezetimibe 10 mg Oral Daily fenofibrate 145 mg Oral Daily gabapentin 100 mg Oral Daily losartan 25 mg Oral Nightly normal saline flush 3 mL Intravenous Q8H RISHABH rosuvastatin 40 mg Oral Nightly Vortioxetine HBr 5 mg Oral DailyContinuous Infusions: heparin (porcine) in NaCl 14 Units/kg/hr (02/15/21 0523)PRN Meds:.acetaminophen, atropine sulfate, heparin (porcine), ondansetronReview of Systems General occ. dizziness or lightheadedness. Denies any recent, unexpectedweight changes. HEENT Denies any loss or change of vision. Respiratory no PND, orthopnea,hemoptysis, cough, + shortness of breath, +MCGUIRE. Cardiac + chest pain or pressure, no palpitations GI Denies melena, hematochezia,no nausea, or vomiting. MS Denies warm or swollen joints. Neuro nio speech, motor, or sensory impairment. Psych no depression or anxiety. Endo Denies polyuria or polydipsia, denies temperature intolerance. Derm Denies diaphoresis, non-healing skin woundsPhysicalTemp (24hrs), Av F, Min:97.6 F, Max:98.5 FBlood Pressure: BP: 108/51 Pulse: Heart Rate: (!) 45Temperature: Temp: 97.9 F Respirations: Resp: 18Admission Weight: Weight: 70.3 kg (154 lb 14.4 oz) O2 Saturation: SpO2: 99 %Today's Weight: Weight: 70.3 kg (154 lb 14.4 oz) BMI: Body mass index is 29.27kg/m .Intake/Output Summary (Last 24 hours) at 02/15/2021 0715Last data filed at 02/15/2021 0600Gross per 24 hourIntake 123.41 mlOutput Net 123.41 mlPhysical Exam General Well developed, well nourished, no acute distress Neck No JVD, no bruits Chest Non-tender to palpation Lungs Clear to auscultation, no crackles, rhonchi, or wheezes Heart Normal S1 S2,+SM,no rub, or gallops Abdomen Soft, non-tender, non-distended, no palpable HSM or masses, + bowelsounds Neuro AAOx3, no focal motor or sensory deficit Derm No rashes, or ulcers Extremities no cyanosis, no clubbing and no edema.DiagnosticsBMP:Lab ResultsComponent Value Date NA 144 02/15/2021 K 4.1 02/15/2021 CL 112 (H) 02/15/2021 CO2 26 02/15/2021 ANIONGAP 6 (L) 02/15/2021 CALCIUM 9.1 02/15/2021 GLU 91 02/15/2021 BUN 19 02/15/2021 CREATININE 0.65 02/15/2021 GFRAA >60 02/15/2021 GFRNONAA >60 02/15/2021ardiac:Lab ResultsComponent Value Date TROPONINI <0.05 02/15/2021BC Brief:Lab ResultsComponent Value Date WBC 9.1 02/15/2021 HGB 11.7 (L) 02/15/2021 HCT 34.0 (L) 02/15/2021 PLT 346 02/15/2021OC TROPONIN: No results found for: POCTROPTSH:No results found for: T4QKPJPQY: none available in chartSB on telemetryAssessment and PlanPrincipal Problem: Unstable anginaActive Problems: Osteoarthritis Back pain Anxiety Hypertension CAD (coronary artery disease) Hyperlipidemia Mitral valve disease CHF (congestive heart failure) Familial hypercholesterolemia Coronary artery disease Bradycardia Tobacco use Chronic diastolic heart failure Presence of aortocoronary bypass graft Smoker Abnormal stress [id number] lady with multiple complex medical problems including familialhyperlipidemia premature atherosclerotic heart disease status post CABG multipleinterventions as descr ibed above presented with unstable angina with mildactivities, recent mildly abnormal stress test for ischemia in the leftcircumflex territory had been started onBrilinta as an outpatient currentlypain-free awaiting repeat left heart catheterization possible intervention asindicated.Admit to telemetry.Obtain serial cardiac enzymesInitiate optimized medical management with aspirin, pt was already started onBrilinta 90 mg twice a day 2 weeks ago heparin, beta blockers and statinsPlan left heart catheterization for further identification of the coronaryanatomy and plan percutaneous and or surgical benita scularization as indicatedObtain fasting lipid profile and LFT for further risk stratification andcontinue multiple meds as recommendedObtain echocardiogram to identify segmental wall motion abnormality andassessment of LV function NA possible MR with + SM by physical examUse nitro glycerin 0.4 mg SL PRN chest pain q 5 minutes up to 3 timesI have discussed with the patient the risks including though not limited tobleeding, infection, myocardial infarction, stroke, vessel damage, renalinsufficiency, dialysis and . The patient understands the risk of dyeallergy. The patient will have conscious sedation with appropriate oxygensaturation and hemodynamic monitoring throughout the procedure. Risks, benefitsand alternatives were fully discussed with patient who agrees and wishes toproceed ahead.Signature: Milagros Mosqueda, MDDate: February 15, 2021Time: 7:15 AM Name Value Range Interpretation Code Description Data Alexandra rce(s) Supporting Document(s) ID Date Data Source [id number] 02/15/2021 05:20:23 AM EDT [facility] Name Value Range Interpretation Code Description Data Alexandra rce(s) Supporting Document(s) TROPONIN I <0.05 ng/mL (<0.05) [facility] [place] Less than 0.05: Myocardial injury unlike lyGreater than or equal to 0.05: Highly suggestive of myocardial injuryCorrelation with rise and/or fall ofserial troponins, clinical symptomsand ECG changes is necessary. ID Date Data Source [id number] 02/15/2021 05:20:23 AM EDT [facility] Name Value Range Interpretation Code Description Data [facility] rce(s) Supporting Document(s) SODIUM 144 mmol/L (136-145) [facility] POTASSIUM 4.1 mmol/L (3.6-5.2) [facility] CHLORIDE 112 mmol/L (100-108) H [facility] CO2 26 mmol/L (22-31) [facility] ANION GAP 6 mmol/L (7-16) L [facility] UREA NITROGEN 19 mg/dL (7-24) [facility] CREATININE 0.65 mg/dL (0.60-1.00) [facility] BUN/CREAT RATIO 29.2 RATIO (10.0-20.0) H [facility] GLUCOSE 91 mg/dL (70-99) [facility] CALCIUM 9.1 mg/dL (8.4-10.2) [facility] GFR >60 ml/min/1.73m2 (>59) [facility] GFR ( AMER) >60 ml/min/1.73m2 (>59) [facility] GFR INTERPRETATION [facility] --NORMAL KIDNEY FUNCTION OR MILD DISEASE - GFR >OR= 60CHRONIC KIDNEY DISEASE - GFR 15 - 59RENAL FAILURE - GFR <15 Est. GFR calculation based on the MDRDstudy equation, which assumes a steadystate for creatinine. Est. GFR should notbe used for medication dosing. ID Date Data Source [id number] 02/15/2021 05:02:57 AM EDT [facility] Name Value Range Interpretation Code Description Data Alexandra rce(s) Supporting Document(s) APTT 49.7 s (22.0-34.3) H [facility] ID Date Data Source [id number] 02/15/2021 04:52:41 AM EDT [facility] Name Value Range Interpretation Code Description Data Alexandra rce(s) Supporting Document(s) WBC 9.1 10*3/uL (4.1-11.0) [facility] [place] RBC 3.90 10*6/uL (4.00-5.40) L [facility] HGB 11.7 g/dL (12.0-16.0) L [facility] HCT 34.0 % (36.0-47.0) L [facility] MCV 87.2 fL (80.0-95.0) [facility] MCH 30.0 pg (27.0-32.0) [facility] MCHC 34.4 g/dL (32.0-36.0) [facility] RDW 13.6 % (10.5-14.5) [facility] PLT 346 10*3/uL (150-450) [facility] MPV 7.2 fL (7.1-10.7) [facility] ID Date Data Source [id number] 02/15/2021 01:27:29 AM EDT [facility] NT INFORMATIONPatient MRN Name Date of Age Gend*PT [id number] Suha Gordon 1965 55 years F IPPT Location Admission Date/Time Visit ID Attending [id number] 02/14/211846 --- Mayank Rider MD([id number]) EPI ID CSN Admitting Provider [id number] Oliva Herrera MD([id number]) Attestation signed by Oliva Herrera MD at 02/15/2021 1:27 AMI discussed case,reviewed EMR and Cristian Moss NP note.I agree with the h/o ,physical and medical decision making. -------ADMISSION HISTORY AND PHYSICALName: Suha Gordon Gender: femaleDate of : 1965 Age: 55 yearsDate/Time of Admit: 02/14/2021 6:47 PM Code Status: Full CodePrimary Care Provider / Referring Physician: No primary care provider on file.Informant:Current HistoryChief Complaint: [facility] unstableanginaHPI:This patient is a 55 years female with medical history of CAD s/p CABG x4 14years ago; 2 months after her CABG she had 4 stents. She had an additional 2stents a few years later. She had a total of 5 [facility] in [place]. Detailsof her procedures are not available. She has history of familialhypercholesterolemia found on genetic testing; she is on 5 anti-lipid agentsincluding Praluent. History of hypertension, anxiety, and chronic back pain. [facility]. She started to seeDr.Koroma/cardiology.She had a nuclear stress test on 02/01/2021/see results below:-Electrocardiographically inconclusive for detection of regadenoson induciblemyocardial ischemia due to presence of baseline repolarization abnormalities-Fixed intense medium sized perfusion defect involving the apex consistent withprior infarction in the distribution of the left anterior descending coronaryartery. Partially reversible small lateral pe rfusion defect consistent withboth prior infarction and regadenoson and distal coronary flow with nodistribution in the left circumflex coronary artery territory.-Quantitative perfusion analysis within the left ventricle showed percentreversibility as follow: LAD 3%, LCx 53%, RCA 0%. Total LV myocardium 17%.Regional wall motion abnormalities as described. In comparison to the previouscardiac PET perfusion study report from April 2019, there now appears to be somereversibility within the left circumflex territory and fixed apical perfusiondefect appears to be a new finding.Given the extent of reversibility patient was scheduled for cardiaccatheterization on February 24, 2021. In the meantime, she developed left-sidedchest pain radiating to the back yesterday while at rest associated with fatigueand shortness of breath, scarcely relieved with nitroglycerin and aspirin.This prompted her to present to [facility] for treatment. Shedoes report that her pain was relieved when she was given more nitroglycerin inthe emergency room.In [facility] work- up was as follows:Chest x-ray revealed no acute pulmonary diseaseCT angio chest revealed no CT evidence of pulmonary embolism. No infiltrateseen. Mild cardiomegaly, gallstones.Suha Gordon continues to smoke 2-3 cigarettes a day and has for about 15years. She smoked Marijuana for chronic pain. Denies alcohol use. She denieshistory of kidney disease, and history of major bleeding. She reports compliancewith her medications.Archery Equipment Hay Sorter: Dr. Gtz of Systems:Review of SystemsConstitution: Positive for malaise/fatigue. Negative for chills, decreasedappetite, diaphoresis, fever, night sweats, weight gain and weight loss.HENT: Negative for congestion, ear discharge, ear pain, hearing loss, hoarsevoice, nosebleeds, odynophagia, sore throat, stridor and tinnitus.Eyes: Negative for blurred vision, discharge, double vision, pain, photophobia,redness, vision loss in left eye, vision loss in right eye, visual disturbanceand visual halos.Cardiovascular: Positive for chest pain. Negative for claudication, cyanosis,dyspnea on exertion, irregular heartbeat, leg swelling, near-syncope, orthopnea,palpitations, paroxysmal nocturnal dyspnea and syncope.Respiratory: Positive for shortness of breath. Negative for cough, hemoptysis,sleep disturbances due to breathing, snoring, sputum production and wheezing.Endocrine: Negative.Hematologic/Lymphatic: Negative.Skin: Negative.Musculoskeletal: Negative.Gastrointestinal: Negative for bloating, abdominal pain, anorexia, change inbowel habit, bowel incontinence, constipation, diarrhea, dysphagia, excessiveappetite, flatus, heartburn, hematemesis, hematochezia, hemorrhoids, jaundice,melena, nausea and vomiting.Genitourinary: Negative for bladder incontinence, dysuria, flank pain,frequency, genital sores, hematuria, hesitancy, incomplete emptying,non- menstrual bleeding, pelvic pain and urgency.Neurological: Negative for aphonia, brief paralysis, difficulty withconcentration, disturbances in coordination, excessive daytime sleepiness,dizziness, focal weakness, headaches, light- headedness, loss of balance,numbness, paresthesias, seizures, sensory change, tremors, vertigo and weakness.Psychiatric/Behavioral: Negative.Allergic/Immunologic: Negative.Past HistoryPast Medical History:Diagnosis Date Anxiety Bradycardia Chronic diastolic heart failure Familial hypercholesterolemia history of coronary artery bypass grafting Osteoarthrosis Psychological disorder Tobacco usePast Surgical History:Procedure Laterality Date BACK SURGERY CARDIAC SURGERY CORONARY ANGIOPLASTY WITH STENT PLACEMENT CORONARY ARTERY BYPASS GRAFT TUBAL LIGATIONFamily HistoryProblem Relation Age of Onset Heart murmur Mother Hyperlipidemia Father Coronary artery disease Father Heart attack Other age 32 of MISocial HistorySocial History Narrative Sedentary lifestyleSocial HistorySocioeconomic History Marital status: Single Spouse name: Not on file Number of children: Not on file Years of education: Not on file Highest education level: Not on fileOccupational History Occupation: DisabilitySocial Needs Financial resource strain: Not hard at all Food insecurity: Worry: Never true Inability: Never true Transportation needs: Medical: No Non-medical: NoTobacco Use Smoking status: Current Every Day Smoker Packs/day: 0.25 Years: 15.00 Pack years: 3.75 Types: Cigarettes Smokeless tobacco: Never UsedSubstance and Sexual Activity Alcohol use: Not Currently Drug use: Never Sexual activity: Not on fileLifestyle Physical activity: Days per week: Not on file Minutes per session: Not on file Stress: Not on fileRelationships Social connections: Talks on phone: Not on file Gets together: Not on file Attends evangelical service: Not on file Active member of club or organization: Not on file Attends meetings of clubs or organizations: Not on file Relationship status: Not on file Intimate partner violence: Fear of current or ex partner: Not on file Emotionally abused: Not on file Physically abused: Not on file Forced sexual activity: Not on fileOther Topics Concern Not on fileSocial History Narrative Sedentary lifestyleMedications and AllergiesALLERGIES/SENSITIVITIES:AllergiesAllergen Reactions Epitol [Carbamazepine] ItchingScheduled Meds: [START ON 02/15/2021] aspirin EC 81 mg Oral Daily clopidogrel 75 mg Oral Daily [START ON 02/15/2021] colesevelam 625 mg Oral Daily [START ON 02/15/2021] ezetimibe 10 mg Oral Daily [START ON 02/15/2021] fenofibrate 145 mg Oral Daily [START ON 02/15/2021] gabapentin 100 mg Oral Daily [START ON 02/15/2021] losartan 25 mg Oral Nightly normal saline flush 3 mL Intravenous Q8H RISHABH potassium chloride (K-KIRSTY/KDUR) oral tablet 20 mEq Oral Once rosuvastatin 40 mg Oral Nightly [START ON 02/15/2021] Vortioxetine HBr 5 mg Oral DailyContinuous Infusions: heparin (porcine) in NaClPRN Meds:.acetaminophen, atropine sulfate, heparin (porcine), ondansetronPhysicalBlood Pressure: BP: 149/70 Pulse: Heart Rate: 50Temperature: Temp: 98.5 F Respirations: Resp: 18Admission Weight: Weight: 70.3 kg (154 lb 14.4 oz) O2 Saturation: SpO2: 92 %Today's Weight: Weight: 70.3 kg (154 lb 14.4 oz)Physical ExamPhysical ExamConstitutional: She is oriented to person, place, and time. She appearswell-developed and well-nourished. No distress.HENT:Head: Normocephalic and atraumatic.Right Ear: External ear normal.Left Ear: External ear normal.Nose: Nose normal.Mouth/Throat: Oropharynx is clear and moist.Eyes: Pupils are equal, round, and reactive to light. Conjunctivae and EOM arenormal. Right eye exhibits no discharge. Left eye exhibits no discharge. Noscleral icterus.Neck: Normal range of motion. Neck supple. No JVD present. No tracheal deviationpresent.Cardiovascular: Regular rhythm, S1 normal, S2 normal, normal heart sounds,intact distal pulses and normal pulses. Bradycardia present. Exam reveals nogallop and no friction rub.No murmur heard.Pulmonary/Chest: Effort normal and breath sounds normal. No stridor. Norespiratory distress. She has no wheezes. She has no rales. She exhibits notenderness.Abdominal: Soft. Bowel sounds are normal. She exhibits no distension and nomass. There is no tenderness. There is no rebound and no guarding.Musculoskeletal: Normal range of motion. She exhibits no edema, tenderness ordeformity.Neurological: She is alert and oriented to person, place, and time.Skin: Skin is warm and dry. No rash noted. She is not diaphoretic. No erythema.No pallor.Psychiatric: She has a normal mood and affect. Her behavior is normal.DiagnosticsCBC with Diff:Lab ResultsComponent Value Date WBC 10.4 02/14/2021 RBC 4.24 02/14/2021 HGB 12.5 02/14/2021 HCT 36.7 02/14/2021 MCV 86.7 02/14/2021 MCH 29.6 02/14/2021 MCHC 34.1 02/14/2021 RDW 13.6 02/14/2021 PLT 365 02/14/2021 MPV 7.2 02/14/2021MP:Lab ResultsComponent Value Date NA 140 02/14/2021 K 3.5 (L) 02/14/2021 CL 109 (H) 02/14/2021 CO2 27 02/14/2021 ANIONGAP 4 (L) 02/14/2021 BUN 15 02/14/2021 CREATININE 0.69 02/14/2021 BCR 21.7 (H) 02/14/2021 GLU 84 02/14/2021 CALCIUM 9.2 02/14/2021 ALBUMIN 3.6 02/14/2021 GLOB 3.6 02/14/2021 AGRC 1.0 02/14/2021 ALKPHOS 64 02/14/2021 LABBILI 0.3 02/14/2021 AST 16 02/14/2021 ALT 24 02/14/2021 GFRAA >60 02/14/2021 GFRNONAA >60 02/14/2021Adeline is a pleasant 55-year-old female patient with history of familialhypercholesterolemia found through genetic testing on 5 antilipid medications,CAD s/p CABG x4 at age 41 with repeat LHC 2 months later requiring 4 stents.She had a total of 5 LHC's and a total of 6 stents. 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 She was originallyscheduled to have LHC on 02/24/2021 however presented today to her area ED withunstable angina. She was started on heparin infusion and transferred to Hfor cardiac catheterizationUnstable anginaTroponin remained flatEKG in [facility] shows sinus bradycardia heart rate 48 bpm and T wave inversions in 1and aVLPresently patient offers no anginal complaintsAdmit telemetry. Continue heparin infusion for full anticoagulation. Continueaspirin, Plavix, all antilipid medications. Keep n.p.o. after midnight forcardiac catheterization in a.m. pending cardiology consultationAbnormal stress testSee results above also available under care everywherePlan as aboveFamilial hypercholesterolemiaContinue ezetimibe 10 mg daily, colesevelam 625 mg daily, rosuvastatin 40 mgdaily, fenofibrate 145 mg dailyShe also is on Praluent every 2 weeksHypertensionBP is suboptimally controlledContinue losartan 25 mg which is due tonightBradycardiaShe is in sinus rhythm with heart rate 40s 50sNo beta-blockerBP stableCoronary artery diseaseHistory of coronary artery bypass graft x4 at age 41 with subsequent stenting(x6 times)Chronic diastolic heart failureShe is compensated on examDaily weights, strict I's and O'sObtain echocardiogram in a.m. to further evaluate cardiac functionSmoker/marijuana smokingCigarette smoking cessation strongly encouragedIn-patient smoking cessation consultOsteoarthritis/charinic Back painLidocaine patchesTylenol prnGabapentin 100 mg dailyAnxietyVortioxetine 5 mg dailyDVT PXHeparin dripCODE STATUS: FULL CODEAdvance Directives DiscussionI had a face to face discussion today with Patient regarding advance directives.We discussed the patient's code status wishes and the differences between whatit means to be full code, DNR, or DNR/DNI. (A DNR patient can still beelectively intubated in a non-cardiac arrest situation. A DNR/DNI will not beintubated in any circumstance.)Questions which were addressed included: Advance DirectivesAt this time their wishes are for the patient to be made Full Code. This hasbeen entered into the chart.Other topics discussed today included Patient's values and goals of careDetails of this discussion were as follows: Advance DirectivesForms completed today includenoneI spent < or = 15 minutes during the above discussion which was additional timespent separate from the hospital visit.D/W ature: Cristian Moss, JESSEDate: February 14, 2021Time: 10:50 PM Name Value Range Interpretation Code Description Data Alexandra rce(s) Supporting Document(s) ID Date Data Source [id number] 02/14/2021 08:11:03 PM EDT [facility] Name Value Range Interpretation Code Description Data Alexandra rce(s) Supporting Document(s) SODIUM 140 mmol/L (136-145) [facility] POTASSIUM 3.5 mmol/L (3.6-5.2) L [facility] CHLORIDE 109 mmol/L (100-108) H [facility] CO2 27 mmol/L (22-31) [facility] ANION GAP 4 mmol/L (7-16) L [facility] UREA NITROGEN 15 mg/dL (7-24) [facility] CREATININE 0.69 mg/dL (0.60-1.00) [facility] BUN/CREAT RATIO 21.7 RATIO (10.0-20.0) H [facility] GLUCOSE 84 mg/dL (70-99) [facility] CALCIUM 9.2 mg/dL (8.4-10.2) [facility] TOTAL PROTEIN 7.2 g/dL (6.4-8.2) [facility] ALBUMIN 3.6 g/dL (3.5-4.6) [facility] GLOBULIN 3.6 g/dL (2.7-4.3) [facility] ALB/GLOB RATIO 1.0 RATIO [facility] ALKALINE PHOSPHATASE 64 U/L (45-117) [facility] BILIRUBIN,TOTAL 0.3 mg/dL (0.0-1.0) [facility] PLEASE NOTE:Total bilirubin results may be falselyelevated in patients taking Eltrombopag. AST (SGOT) 16 U/L (11-39) [facility] ALT (SGPT) 24 U/L (12-78) [facility] GFR >60 ml/min/1.73m2 (>59) [facility] GFR ( AMER) >60 ml/min/1.73m2 (>59) [facility] GFR INTERPRETATION [facility] --NORMAL KIDNEY FUNCTION OR MILD DISEASE - GFR >OR= 60CHRONIC KIDNEY DISEASE - GFR 15 - 59RENAL FAILURE - GFR <15 Est. GFR calculation based on the MDRDstudy equation, which assumes a steadystate for creatinine. Est. GFR should notbe used for medication dosing. ID Date Data Source [id number] 02/14/2021 08:11:03 PM EDT [facility] Name Value Range Interpretation Code Description Data Alexandra rce(s) Supporting Document(s) TROPONIN I <0.05 ng/mL (<0.05) [facility] [place] Less than 0.05: Myocardial injury unlike lyGreater than or equal to 0.05: Highly suggestive of myocardial injuryCorrelation with rise and/or fall ofserial troponins, clinical symptomsand ECG changes is necessary. ID Date Data Source [id number] 02/14/2021 07:57:32 PM EDT [facility] Name Value Range Interpretation Code Description Data Alexandra rce(s) Supporting Document(s) APTT 57.3 s (22.0-34.3) H [facility] ID Date Data Source [id number] 02/14/2021 07:57:32 PM EDT [facility] Name Value Range Interpretation Code Description Data Alexandra rce(s) Supporting Document(s) PT 11.3 s (9.2-11.9) [facility] INR 1.08 [facility] SUGGESTED THERAPEUTIC RANGES USING INR F ORSTABILIZED ANTICOAGULATED PATIENTS:STANDARD DOSE THERAPY INR 2.0-3.0 DVT, PE, PREVENT DVT OR EMBOLISMHIGH DOSE THERAPY INR 2.5-3.5 PREVENT EMBOLISM FROM MECHANICAL HEART VALVE ID Date Data Source [id number] 02/14/2021 07:45:16 PM EDT [facility] Name Value Range Interpretation Code Description Data Alexandra rce(s) Supporting Document(s) WBC 10.4 10*3/uL (4.1-11.0) [facility] RBC 4.24 10*6/uL (4.00-5.40) [facility] HGB 12.5 g/dL (12.0-16.0) [facility] HCT 36.7 % (36.0-47.0) [facility] MCV 86.7 fL (80.0-95.0) [facility] MCH 29.6 pg (27.0-32.0) [facility] MCHC 34.1 g/dL (32.0-36.0) [facility] RDW 13.6 % (10.5-14.5) [facility] PLT 365 10*3/uL (150-450) [facility] MPV 7.2 fL (7.1-10.7) [facility] ID Date Data Source [id number] 02/14/2021 03:18:00 PM EDT [facility] Name Value Range Interpretation Code Description Data Alexandra rce(s) Supporting Document(s) Influenza A Amplification Laboratory test result [facility] Negative results do not preclude influen za or RSV virus infection and should not be used as the sole basis for treatment or other patient management decisions. RSV Amplification Laboratory test result [facility] Negative results do not preclude influen za or RSV virus infection and should not be used as the sole basis for treatment or other patient management decisions. Influenza B Amplification Laboratory test result [facility] Negative results do not preclude influen za or RSV virus infection and should not be used as the sole basis for treatment or other patient management decisions. Laboratory test finding (navigational concept) Laboratory test result [facility] A false negative result may occur if a s pecimen is improperly collected, transported or handled. False negative results may also occur if inadequate numbers of organisms are present in the specimen. As with any molecular test, mutations within the target regions of [employer] SARS-CoV-2 could affect primer and/or probe binding resulting in failure to detect the presence of virus. This test cannot rule out diseases caused by other bacterial or viral pathogens. DISCLAIMER: Testing was performed using the [employer] SARS-CoV-2 test. This test was developed and its performance characteristics determined by [employer]. This test has not been FDA cleared or approved. This test has been authorized by FDA under an Emergency Use Authorization (EUA). This test is only authorized for the duration of time the declaration that circumstances exist justifying the authorization of the emergency use of in vitro diagnostic tests for detection of SARS-CoV-2 virus and/or diagnosis of COVID-19 infection under section 564(b)(1) of the Act, 21 U.S.C. 360bbb-3(b)(1), unless the authorization is terminated or revoked sooner. ID Date Data Source [id number] 02/14/2021 03:18:00 PM EDT [facility] Name Value Range Interpretation Code Description Data Alexandra rce(s) Supporting Document(s) SARS coronavirus 2 RNA [Presence] in Res piratory specimen by SHARON with probe detection NEGATIVE [facility] This lab was ordered by [facility] a nd reported by [facility]. ID Date Data Source [id number] 02/14/2021 12:34:00 PM EDT [facility] ([facility] Name Value Range Interpretation Code Description Data Alexandra rce(s) Supporting Document(s) Troponin I.cardiac [Mass/volume] in Serum or Plasma 0.01 ng/mL 0.00-0 .08 [facility] ID Date Data Source [id number] 02/14/2021 12:30:00 PM EDT [facility] ([facility] Name Value Range Interpretation Code Description Data Alexandra e(s) Supporting Document(s) Lipoprotein lipase [Enzymatic activity/volume] in Serum or P lasma 450 U/L 73-393 [facility] ([facility] ID Date Data Source [id number] 02/14/2021 12:30:00 PM EDT [facility] ([facility] Name Value Range Interpretation Code Description Data [place] campuse(s) Supporting Document(s) CPK Creatine Phosphokinase 50 U/L 26-192 [facility] ([facility] MB/CK Relative Index 2.00 [facility] ([facility] <content>DIAGNOSIS CRITERIA</content>
<content>MMB ng/ml Relative Index (RI)</content>
<content>NON-AMI < or = 5 N/A</content>
<content>CUENCA ZONE > 5 < or = 4</content>
<content>AMI > 5 > 4</content>
<content></content> CK-MB Value Mass Laboratory test result [facility] ([facility] Troponin I Laboratory test result [facility] ([facility] <content>Troponin I Reference Interval f or Siemens [place] LOCI:</content>
<content></content>
<content>99th Percentile= 0.00-0.045 ng/ml</content>
<content></content>
<content>Risk Stratification:</content>
<content><= 0.10 ng/ml Decreased Risk for Adverse Clinical</content>
<content>Events.</content>
<content>0.10-1.50 ng/ml Increased Risk for Adverse Clinical</content>
<content>Events. Evaluation of additional</content>
<content>criterion and/or repeat testing in 2-6</content>
<content>hours is suggested to rule out myocardial</content>
<content>damage.</content>
<content>>= 1.50 ng/ml Indicative of Myocardial Injury.</content>
<content></content> ID Date Data Source [id number] 02/14/2021 12:30:00 PM EDT [facility] ([facility] Name Value Range Interpretation Code Description Data Alexandra rce(s) Supporting Document(s) Glucose, Fasting 90 mg/dL 70-100 [facility] ([facility] Blood Urea Nitrogen 17 mg/dL 7-18 [facility] ([facility] Glomerular Filtration Rate Laboratory test result [facility] ([facility] <content>Units are mL/min/1.73 m2</content>
<content></content>
<content>Chronic Kidney Disease Staging per NKF:</content>
<content></content>
<content>Stage I & II GFR >=60 Normal to Mildly Decreased</content>
<content>Stage III GFR 30-59 Moderately Decreased</content>
<content>Stage IV GFR 15-29 Severely Decreased</content>
<content>Stage V GFR <15 Very Little GFR Left</content>
<content>ESRD GFR <15 on MARKETING LEAD</content>
<content></content> Creatinine For GFR 0.64 mg/dL 0.55-1.30 [facility] Sodium Level 142 meq/L 136-145 [facility] ([facility] Potassium Serum 3.6 meq/L 3.5-5.1 [facility] ([facility] Carbon Dioxide Level 29 meq/L 21-32 [facility] ([facility] Chloride Level 108 meq/L 98-107 [facility] Anion Gap 5 meq/L 8-16 [facility] ([facility] Calcium Level 9.4 mg/dL 8.5-10.1 [facility] ([facility] ID Date Data Source [id number] 02/14/2021 12:30:00 PM EDT [facility] ([facility] Name Value Range Interpretation Code Description Data Alexandra rce(s) Supporting Document(s) Ast/Sgot 17 U/L 7-37 [facility] Alt/SGPT 22 U/L 12-78 [facility] Alkaline Phosphatase 75 U/L 45-117 [facility] ([facility] Bilirubin,Total 0.2 mg/dL 0.2-1.0 [facility] ([facility] Total Protein 7.0 GM/DL 6.4-8.2 [facility] ([facility] Bilirubin,Direct 0.1 mg/dL 0.0-0.2 [facility] ([facility] Albumin/Globulin Ratio 1.1 1.2-2.2 [facility] ([facility] Albumin 3.7 GM/DL 3.2-5.2 [facility] ID Date Data Source [id number] 02/14/2021 12:30:00 PM EDT [facility] ([facility] Name Value Range Interpretation Code Description Data Alexandra e(s) Supporting Document(s) Red Blood Count 4.37 10 4.00-5.40 [facility] White Blood Count 9.2 10 4.0-10.0 [facility] ([facility] Hemoglobin 12.9 g/dL 12.0-15.5 [facility] ([facility] Mean Corpuscular Volume 91.5 fl 80.0-96.0 M [facility] ([facility] Hematocrit 40.0 % 36.0-47.0 [facility] Mean Corpuscular Hemoglobin 29.5 pg 27.0-33.0 [facility] ([facility] Mean Corpuscular HGB Conc 32.3 g/dL 32.0-36.5 [facility] ([facility] Red Cell Distribution Width 12.7 % 11.5-14.5 [facility] ([facility] Platelet Count, Automated 388 10 150-450 [facility] ([facility] Neutrophils % 50.7 % 36.0-66.0 [facility] Harrison % 6.2 % 2.0-8.0 [facility] Lymph % 39.9 % 24.0-44.0 [facility] Baso % 0.9 % 0.0-1.0 [facility] Eos % 2.0 % 0.0-3.0 [facility] Immature Granulocyte % 0.3 % 0-3.0 [facility] Nucleated Red Blood Cell % 0.0 % 0-0 [facility] ([facility] Neutrophils # 4.7 10 1.5-8.5 [facility] Harrison # 0.6 10 0.0-0.8 [facility] Lymph # 3.7 10 1.5-5.0 [facility] Eos # 0.2 10 0.0-0.5 [facility] Baso # 0.1 10 0.0-0.2 [facility] ID Date Data Source [id number] 02/14/2021 12:29:00 PM EDT [facility] ([facility] Name Value Range Interpretation Code Description Data Alexandra rce(s) Supporting Document(s) Prothrombin Time 12.1 s 12.5-14.3 [facility] Inr 0.88 [facility] THERAPUTIC HUMAN INR VALUES INDICATIONS NORMAL RANGES PROPHYLAXIS/TREATMENT OF: VENOUS THROMBOSIS 2.0-3.0 PULMONARY EMBOLISM 2.0-3.0 PREVENTION OF SYSTEMIC EMBOLISM FROM: TISSUE HEART VALVES 2.0-3.0 ACUTE MYOCARDIAL INFARCTION 2.0-3.0 VALVULAR HEART DISEASE 2.0-3.0 ATRIAL FIBRILLATION 2.0-3.0 MECHANICAL VALVES(HIGH RISK) 2.5-3.5 RECURRENT MYOCARDIAL INFARCTION 2.5-3.5 Partial Thromboplastin Time 25.9 s 24.2-38.5 [facility] ([facility] ID Date Data Source [id number] 01/21/2021 12:38:00 PM EST [facility] ([facility] Name Value Range Interpretation Code Description Data Alexandra rce(s) Supporting Document(s) Sam Mcnamara [id number] Default Laboratory test result [facility] ([facility] A courtesy copy of this report has been sent to [phone], [phone] Sam Mcnamara LP Default Laboratory test result [facility] ([facility] A courtesy copy of this report has been sent to [phone], Thyroxine (T4) Free, Direct, S 1.12 ng/dL 0.82-1.77 [facility] ([facility] A courtesy copy of this report has been sent to [phone], ID Date Data Source [id number] 01/21/2021 12:38:00 PM EST [facility] ([facility] Name Value Range Interpretation Code Description Data Alexandra rce(s) Supporting Document(s) Glucose [Mass/volume] in Serum or Plasma 89 mg/dL 65-99 [facility] ([facility] A courtesy copy of this report has been sent to [phone], Urea nitrogen [Mass/volume] in Serum or Plasma 14 mg/dL 6-24 [facility] A courtesy copy of this report has been sent to [phone], Creatinine [Mass/volume] in Serum or Plasma 0.69 mg/dL 0.57-1.00 [facility] ([facility] A courtesy copy of this report has been sent to [phone], [phone] eGFR If NonAfricn Am 98 mL/min/1.73 [facility] ([facility] A courtesy copy of this report has been sent to [phone], eGFR If Africn Am 113 mL/min/1.73 [facility] ([facility] A courtesy copy of this report has been sent to [phone], [phone] Urea nitrogen/Creatinine [Mass Ratio] in Serum or Plasma 20 9 -23 [facility] A courtesy copy of this report has been sent to [phone], Sodium [Moles/volume] in Serum or Plasma 142 mmol/L 134-144 [facility] A courtesy copy of this report has been sent to [phone], Potassium [Moles/volume] in Serum or Plasma 4.1 mmol/L 3.5-5.2 [facility] A courtesy copy of this report has been sent to [phone], Chloride [Moles/volume] in Serum or Plasma 108 mmol/L 96-106 [facility] A courtesy copy of this report has been sent to [phone], [phone] Carbon dioxide, total [Moles/volume] in Serum or Plasma 23 mmol/L 20 -29 [facility] A courtesy copy of this report has been sent to [phone], Protein, Total 6.7 g/dL 6.0-8.5 [facility] ([facility] A courtesy copy of this report has been sent to [phone], Calcium [Mass/volume] in Serum or Plasma 10.1 mg/dL 8.7-10.2 [facility] ([facility] A courtesy copy of this report has been sent to [phone], [phone] Globulin [Mass/volume] in Serum by calculation 2.4 g/dL 1.5-4.5 [facility] ([facility] A courtesy copy of this report has been sent to [phone], [phone] Albumin [Mass/volume] in Serum or Plasma 4.3 g/dL 3.8-4.9 [facility] A courtesy copy of this report has been sent to [phone], Alkaline phosphatase [Enzymatic activity/volume] in Serum or Plasma 63 IU/L 39-117 [facility] A courtesy copy of this report has been sent to [phone], [phone] Bilirubin.total [Mass/volume] in Serum or Plasma Laboratory test result 0.0-1.2 [facility] ([facility] A courtesy copy of this report has been sent to [phone], [phone] Albumin/Globulin [Mass Ratio] in Serum or Plasma 1.8 1.2-2.2 [facility] A courtesy copy of this report has been sent to [phone], Aspartate aminotransferase [Enzymatic activity/volume] in Serum or Plasma 17 IU/L 0-40 [facility] ([facility] A courtesy copy of this report has been sent to [phone], [phone] Alanine aminotransferase [Enzymatic activity/volume] in Seru m or Plasma 11 IU/L 0-32 [facility] ([facility] A courtesy copy of this report has been sent to [phone], ID Date Data Source [id number] 01/21/2021 12:38:00 PM EST [facility] ([facility] Name Value Range Interpretation Code Description Data Alexandra rce(s) Supporting Document(s) Calcidiol [Mass/volume] in Serum or Plasma 20.8 ng/mL 30.0-100.0 [facility] ([facility] A courtesy copy of this report has been sent to [phone], ID Date Data Source [id number] 01/21/2021 12:38:00 PM EST [facility] ([facility] Name Value Range Interpretation Code Description Data Alexandra rce(s) Supporting Document(s) Thyrotropin [Units/volume] in Serum or Plasma 1.260 uIU/mL 0.450-4.50 0 [facility] ([facility] A courtesy copy of this report has been sent to [phone], [phone] ID Date Data Source [id number] 01/21/2021 12:38:00 PM EST [facility] ([facility] Name Value Range Interpretation Code Description Data Alexandra rce(s) Supporting Document(s) Triglyceride [Mass/volume] in Serum or Plasma 68 mg/dL 0-149 [facility] A courtesy copy of this report has been sent to [phone], Cholesterol [Mass/volume] in Serum or Plasma 172 mg/dL 100-199 [facility] A courtesy copy of this report has been sent to [phone], Laboratory test finding (navigational concept) 13 mg/dL 5-40 [facility] ([facility] A courtesy copy of this report has been sent to [phone], Cholesterol in HDL [Mass/volume] in Serum or Plasma 70 mg/dL [facility] A courtesy copy of this report has been sent to [phone], Laboratory test finding (navigational concept) 89 mg/dL 0-99 [facility] A courtesy copy of this report has been sent to [phone], [phone] Comment: Laboratory test result [facility] ([facility] A courtesy copy of this report has been sent to [phone], [phone] ID Date Data Source [id number] 01/21/2021 12:38:00 PM EST [facility] ([facility]) Name Value Range Interpretation Code Description Data Alexandra rce(s) Supporting Document(s) Sam Mcnamara LP Default Laboratory test result [facility] ([facility]) A hand-written panel/profile was receive d from your office. In accordance with the [facility] Ambiguous Test Code Policy dated May 2003, we have completed your order by us ing the closest currently or formerly recognized AMA panel. We have assigned Lipid Panel, Test Code #[id number] to this request. If this is not the testing you wished to receive on this specimen, please contact the [facility] Client Inquiry/Technical Services Department to clarify the test order. We appreciate your business. Natriuretic peptide.B prohormone N-Terminal [Mass/volu me] in Serum or Plasma 261 pg/mL 0-287 [facility] ([facility]) <content>The following cut-points have b een suggested for the</content>
<content>use of proBNP for the diagnostic evaluation of heart</content>
<content>failure (HF) in patients with acute dy spnea:</content>
<content>Modality Age Optimal Cut</content>
<content>(years) Point</content>
<content> ---</content>
<content>Diagnosis (rule in HF) <50 450 pg/mL</content>
<content>50 - 75 900 pg/mL</content>
<content>>75 1800 pg/mL</content>
<content> Exclusion (rule out HF) Age independent 300 pg/mL</content>
<content></content> Laboratory test finding (navigational concept) Laboratory test result [facility] ([facility]) ID Date Data Source [id number] 01/21/2021 12:38:00 PM EST [facility] ([facility]) Name Value Range Interpretation Code Description Data Alexandra rce(s) Supporting Document(s) Cholesterol [Mass/volume] in Serum or Plasma 170 mg/dL 100-199 [facility] ([facility]) Triglyceride [Mass/volume] in Serum or Plasma 69 mg/dL 0-149 [facility] ([facility]) Cholesterol in HDL [Mass/volume] in Serum or Plasma 68 mg/dL [facility] ([facility]) Laboratory test finding (navigational concept) 13 mg/dL 5-40 [facility] ([facility]) Laboratory test finding (navigational concept) 89 mg/dL 0-99 [facility] ([facility]) Comment: Laboratory test result [facility] ([facility]) ID Date Data Source [id number] 01/22/2021 08:06:00 AM EST [facility] Name Value Range Interpretation Code Description Data Alexandra rce(s) Supporting Document(s) Cholesterol, Total 170 mg/dL 100-199 [facility] Triglycerides 69 mg/dL 0-149 [facility] HDL Cholesterol 68 mg/dL >39 [facility] VLDL Cholesterol Angel 13 mg/dL 5-40 [facility] LDL Chol Calc (NIH) 89 mg/dL 0-99 [facility] ID Date Data Source [id number] 01/23/2021 08:05:00 PM EST [facility] Name Value Range Interpretation Code Description Data Alexandra rce(s) Supporting Document(s) NT-proBNP 261 pg/mL 0-287 [facility] The following cut-points have been suggested for the use of proBNP for the diagnostic evaluation of heart failure (HF) in patients with acute dyspnea: Modality Age Optimal Cut (years) Point Diagnosis (rule in HF) <50 450 pg/mL 50 - 75 900 pg/mL > 75 1800 pg/mL Exclusion (rule out HF) Age independent 300 pg/mL ID Date Data Source [id number] 01/22/2021 08:06:00 AM EST [facility] Name Value Range Interpretation Code Description Data Alexandra rce(s) Supporting Document(s) Sam Mcnamara LP Default [facility] A hand-written panel/profile was receive d from your office. Inaccordance with the [facility] Ambiguous Test Code Policy dated May2003, we have completed your order by using the closest currentlyor formerly recognized AMA panel. We have assigned Lipid Panel,Test Code #[id number] to this request. If this is not the testing youwished to receive on this specimen, please contact the [facility] to clarify the testorder. We appreciate your business. ID Date Data Source [id number] 01/22/2021 05:05:00 AM EST [facility] Name Value Range Interpretation Code Description Data Alexandra rce(s) Supporting Document(s) Glucose 89 mg/dL 65-99 [facility] BUN 14 mg/dL 6-24 [facility] Creatinine 0.69 mg/dL 0.57-1.00 [facility] eGFR If NonAfricn Am 98 mL/min/1.73 >59 [facility] eGFR If Africn Am 113 mL/min/1.73 >59 [facility] BUN/Creatinine Ratio 20 9-23 [facility] Sodium 142 mmol/L 134-144 [facility] Potassium 4.1 mmol/L 3.5-5.2 [facility] Chloride 108 mmol/L 96-106 Above high normal [facility] Carbon Dioxide, Total 23 mmol/L 20-29 [facility] Calcium 10.1 mg/dL 8.7-10.2 [facility] Protein, Total 6.7 g/dL 6.0-8.5 [facility] Albumin 4.3 g/dL 3.8-4.9 [facility] Globulin, Total 2.4 g/dL 1.5-4.5 [facility] A/G Ratio 1.8 1.2-2.2 [facility] Bilirubin, Total 0.0-1.2 [facility] Alkaline Phosphatase 63 IU/L 39-117 [facility] AST (SGOT) 17 IU/L 0-40 [facility] ALT (SGPT) 11 IU/L 0-32 [facility] ID Date Data Source [id number] 01/22/2021 06:06:00 AM EST [facility] Name Value Range Interpretation Code Description Data Alexandra rce(s) Supporting Document(s) T4,Free(Direct) 1.12 ng/dL 0.82-1.77 [facility] ID Date Data Source [id number] 01/22/2021 05:05:00 AM EST [facility] Name Value Range Interpretation Code Description Data Alexandra rce(s) Supporting Document(s) Cholesterol, Total 172 mg/dL 100-199 [facility] Triglycerides 68 mg/dL 0-149 [facility] HDL Cholesterol 70 mg/dL >39 [facility] VLDL Cholesterol Angel 13 mg/dL 5-40 [facility] LDL Chol Calc (NIH) 89 mg/dL 0-99 [facility] ID Date Data Source [id number] 01/22/2021 06:06:00 AM EST [facility] Name Value Range Interpretation Code Description Data Alexandra rce(s) Supporting Document(s) TSH 1.260 uIU/mL 0.450-4.500 [facility] ID Date Data Source [id number] 01/22/2021 05:05:00 AM EST [facility] Name Value Range Interpretation Code Description Data Alexandra rce(s) Supporting Document(s) Vitamin D, 25-Hydroxy 20.8 ng/mL 30.0-100.0 Below low normal [facility] Vitamin D deficiency has been defined by the [place] [employer] and an Endocrine Society practice guideline as alevel of serum 25-OH vitamin D less than 20 ng/mL (1,2).The Endocrine Society went on to further define vitamin Dinsufficiency as a level between 21 and 29 ng/mL (2).1. IOM ([place] of [employer]). 2010. Dietary reference intakes for calcium and D. [place]: The National Academies Press.2. Bree MF, Alvina DOMINGUEZ, Keo PATEL, et al. Evaluation, treatment, and prevention of vitamin D deficiency: an Endocrine Society clinical practice guideline. JCEM. 2010; 96(7):1911-30. ID Date Data Source [id number] 01/22/2021 05:05:00 AM EST [facility] Name Value Range Interpretation Code Description Data Alexandra rce(s) Supporting Document(s) Sam Mcnamara CMP14 Default Lab Mattie A hand-written panel/profile was receive d from your office. Inaccordance with the [facility] Ambiguous Test Code Policy dated May2003, we have completed your order by using the closest currentlyor formerly recognized AMA panel. We have assigned ComprehensiveMetabolic Panel (14), Test Code #[id number] to this request. If thisis not the testing you wished to receive on this specimen, pleasecontact the [facility] Client Inquiry/Technical Services Departmentto clarify the test order. We appreciate your business. ID Date Data Source [id number] 01/22/2021 05:05:00 AM EST [facility] Name Value Range Interpretation Code Description Data Alexandra rce(s) Supporting Document(s) Sam Mcnamara LP Default [facility] A hand-written panel/profile was receive d from your office. Inaccordance with the [facility] Ambiguous Test Code Policy dated May2003, we have completed your order by using the closest currentlyor formerly recognized AMA panel. We have assigned Lipid Panel,Test Code #[id number] to this request. If this is not the testing youwished to receive on this specimen, please contact the [facility] to clarify the testorder. We appreciate your business. ID Date Data Source [id number] 11/10/2020 08:22:00 AM EST [facility] ([facility]) Name Value Range Interpretation Code Description Data Alexandra rce(s) Supporting Document(s) Laboratory test finding (navigational concept) Laboratory test result [facility] ([facility]) ID Date Data Source [id number] 11/10/2020 08:22:00 AM EST [facility] ([facility]) Name Value Range Interpretation Code Description Data Alexandra rce(s) Supporting Document(s) Glucose 92 mg/dL 65-99 [facility] ([facility]) Urea nitrogen [Mass/volume] in Serum or Plasma 19 mg/dL 6-24 [facility] ([facility]) Creatinine 0.72 mg/dL 0.57-1.00 [facility] ([facility]) eGFR If Africn Am 109 mL/min/1.73 [facility] ([facility]) eGFR If NonAfricn Am 95 mL/min/1.73 [facility] NT ([facility]) Potassium [Moles/volume] in Serum or Plasma 4.4 mmol/L 3.5-5.2 [facility] ([facility]) Sodium 139 mmol/L 134-144 [facility] ([facility]) Urea nitrogen/Creatinine [Mass Ratio] in Serum or Plasma 26 9 -23 [facility] ([facility]) Calcium [Mass/volume] in Serum or Plasma 9.6 mg/dL 8.7-10.2 [facility] ([facility]) Carbon dioxide, total [Moles/volume] in Serum or Plasma 23 mmol/L 20 -29 [facility] ([facility]) Chloride [Moles/volume] in Serum or Plasma 106 mmol/L 96-106 [facility] ([facility]) Protein [Mass/volume] in Serum or Plasma 6.9 g/dL 6.0-8.5 [facility] ([facility]) Albumin [Mass/volume] in Serum or Plasma 4.4 g/dL 3.8-4.9 [facility] ([facility]) Globulin [Mass/volume] in Serum by calculation 2.5 g/dL 1.5-4.5 [facility] ([facility]) A/G Ratio 1.8 1.2-2.2 [facility] ([facility]) Bilirubin.total [Mass/volume] in Serum or Plasma 0.2 mg/dL 0.0-1.2 [facility] ([facility]) Alkaline phosphatase [Enzymatic activity/volume] in Serum or Plasma 60 IU/L 39-117 [facility] ([facility]) Aspartate aminotransferase [Enzymatic activity/volume] in Serum or Plasma 18 IU/L 0-40 [facility] ([facility]) Alanine aminotransferase [Enzymatic activity/volume] in Seru m or Plasma 10 IU/L 0-32 [facility] ([facility]) ID Date Data Source [id number] 11/10/2020 08:22:00 AM EST [facility] ([facility]) Name Value Range Interpretation Code Description Data Alexandra rce(s) Supporting Document(s) Natriuretic peptide.B prohormone N-Terminal [Mass/volu me] in Serum or Plasma 322 pg/mL 0-287 [facility] ([facility]) <content>The following cut-points have b een suggested for the</content>
<content>use of proBNP for the diagnostic evaluation of heart</content>
<content>failure (HF) in patients with acute dy spnea:</content>
<content>Modality Age Optimal Cut</content>
<content>(years) Point</content>
<content> ---</content>
<content>Diagnosis (rule in HF) <50 450 pg/mL</content>
<content>50 - 75 900 pg/mL</content>
<content>>75 1800 pg/mL</content>
<content> Exclusion (rule out HF) Age independent 300 pg/mL</content>
<content></content> ID Date Data Source [id number] 11/10/2020 08:22:00 AM EST [facility] ([facility]) Name Value Range Interpretation Code Description Data Alexandra rce(s) Supporting Document(s) WBC 10.5 x10E3/uL 3.4-10.8 [facility] ([facility]) RBC 4.38 x10E6/uL 3.77-5.28 [facility] ([facility]) Hemoglobin [Mass/volume] in Blood 13.1 g/dL 11.1-15.9 [facility] ([facility]) Hematocrit [Volume Fraction] of Blood by Automated count 40.2 % 3 4.0-46.6 [facility] ([facility]) Erythrocyte mean corpuscular hemoglobin [Entitic mass] by Automated count 29.9 pg 26.6-33.0 [facility] ([facility]) Erythrocyte mean corpuscular volume [Entitic volume] by Auto mated count 92 fL 79-97 [facility] ([facility]) Erythrocyte distribution width [Ratio] by Automated count 13.5 % 11.7-15.4 [facility] ([facility]) Erythrocyte mean corpuscular hemoglobin concentration [Mass/volume] by Automated count 32.6 g/dL 31.5-35.7 [facility] ([facility]) Platelets [#/volume] in Blood by Automated count 314 x10E3/uL 150-450 [facility] ([facility]) Neutrophils/100 leukocytes in Blood by Automated count 58 % [facility] ([facility]) Lymphocytes/100 leukocytes in Blood by Automated count 33 % [facility] ([facility]) Eosinophils/100 leukocytes in Blood by Automated count 2 % [facility] ([facility]) Monocytes/100 leukocytes in Blood by Automated count 6 % [facility] ([facility]) Immature cells [#/volume] in Blood Laboratory test result [facility] ([facility]) Basophils/100 leukocytes in Blood by Automated count 1 % [facility] ([facility]) Neutrophils [#/volume] in Blood by Automated count 6.0 x10E3/uL 1.4-7 .0 [facility] ([facility]) Eosinophils [#/volume] in Blood by Automated count 0.2 x10E3/uL 0.0-0 .4 [facility] ([facility]) Lymphocytes [#/volume] in Blood 3.5 x10E3/uL 0.7-3.1 [facility] ([facility]) Monocytes [#/volume] in Blood 0.7 x10E3/uL 0.1-0.9 [facility] ([facility]) Immature granulocytes [#/volume] in Blood by Automated count 0.0 x10E3/uL 0.0-0.1 [facility] Basophils [#/volume] in Blood by Automated count 0.1 x10E3/uL 0.0-0.2 [facility]) Immature granulocytes/100 leukocytes in Blood by Automated count 0 % [facility] Nucleated erythrocytes/100 leukocytes [Ratio] in Blood by Automated count [facility] Morphology [Interpretation] in Blood Narrative Laboratory test result [facility] ([facility]) ID Date Data Source [id number] 11/11/2020 08:06:00 AM EST [facility] Name Value Range Interpretation Code Description Data Alexandra rce(s) Supporting Document(s) WBC 10.5 x10E3/uL 3.4-10.8 [facility] RBC 4.38 x10E6/uL 3.77-5.28 [facility] Hemoglobin 13.1 g/dL 11.1-15.9 [facility] Hematocrit 40.2 % 34.0-46.6 [facility] MCV 92 fL 79-97 [facility] MCH 29.9 pg 26.6-33.0 [facility] MCHC 32.6 g/dL 31.5-35.7 [facility] RDW 13.5 % 11.7-15.4 [facility] Platelets 314 x10E3/uL 150-450 [facility] Neutrophils 58 % Not Estab. [facility] Lymphs 33 % Not Estab. [facility] Monocytes 6 % Not Estab. [facility] Eos 2 % Not Estab. [facility] Basos 1 % Not Estab. [facility] Neutrophils (Absolute) 6.0 x10E3/uL 1.4-7.0 [facility] Lymphs (Absolute) 3.5 x10E3/uL 0.7-3.1 Above high normal [facility] Monocytes(Absolute) 0.7 x10E3/uL 0.1-0.9 [facility] Eos (Absolute) 0.2 x10E3/uL 0.0-0.4 [facility] Baso (Absolute) 0.1 x10E3/uL 0.0-0.2 [facility] Immature Granulocytes 0 % Not Estab. [facility] Immature Grans (Abs) 0.0 x10E3/uL 0.0-0.1 [facility] ID Date Data Source [id number] 11/12/2020 08:06:00 AM EST [facility] Name Value Range Interpretation Code Description Data Alexandra rce(s) Supporting Document(s) NT-proBNP 322 pg/mL 0-287 Above high normal [facility] The following cut-points have been suggested for the use of proBNP for the diagnostic evaluation of heart failure (HF) in patients with acute dyspnea: Modality Age Optimal Cut (years) Point Diagnosis (rule in HF) <50 450 pg/mL 50 - 75 900 pg/mL > 75 1800 pg/mL Exclusion (rule out HF) Age independent 300 pg/mL ID Date Data Source [id number] 11/11/2020 08:06:00 AM EST [facility] Name Value Range Interpretation Code Description Data Alexandra rce(s) Supporting Document(s) Glucose 92 mg/dL 65-99 [facility] BUN 19 mg/dL 6-24 [facility] Creatinine 0.72 mg/dL 0.57-1.00 [facility] eGFR If NonAfricn Am 95 mL/min/1.73 >59 [facility] eGFR If Africn Am 109 mL/min/1.73 >59 [facility] BUN/Creatinine Ratio 26 9-23 Above high normal [facility] Sodium 139 mmol/L 134-144 [facility] Potassium 4.4 mmol/L 3.5-5.2 [facility] Chloride 106 mmol/L 96-106 [facility] Carbon Dioxide, Total 23 mmol/L 20-29 [facility] Calcium 9.6 mg/dL 8.7-10.2 [facility] Protein, Total 6.9 g/dL 6.0-8.5 [facility] Albumin 4.4 g/dL 3.8-4.9 [facility] Globulin, Total 2.5 g/dL 1.5-4.5 [facility] A/G Ratio 1.8 1.2-2.2 [facility] Bilirubin, Total 0.2 mg/dL 0.0-1.2 [facility] Alkaline Phosphatase 60 IU/L 39-117 [facility] AST (SGOT) 18 IU/L 0-40 [facility] ALT (SGPT) 10 IU/L 0-32 [facility] ID Date Data Source [id number] 08/05/2020 09:48:00 AM EDT [facility] ([facility] [place]) Name Value Range Interpretation Code Description Data Alexandra rce(s) Supporting Document(s) Laboratory test finding (navigational concept) Laboratory test result [facility] ([facility] [place]) ID Date Data Source [id number] 08/05/2020 09:48:00 AM EDT [facility] ([facility] [place]) Name Value Range Interpretation Code Description Data Alexandra rce(s) Supporting Document(s) Bilirubin.total [Mass/volume] in Serum or Plasma 0.3 mg/dL 0.0-1.2 [facility] ([facility]) Protein [Mass/volume] in Serum or Plasma 6.8 g/dL 6.0-8.5 [facility] ([facility]) Albumin [Mass/volume] in Serum or Plasma 4.5 g/dL 3.8-4.9 [facility] ([facility]) Alkaline phosphatase [Enzymatic activity/volume] in Serum or Plasma 92 IU/L 39-117 [facility] ([facility]) Bilirubin.direct [Mass/volume] in Serum or Plasma 0.10 mg/dL 0.00-0.4 0 [facility] ([facility]) Aspartate aminotransferase [Enzymatic activity/volume] in Serum or Plasma 21 IU/L 0-40 [facility] ([facility]) Alanine aminotransferase [Enzymatic activity/volume] in Seru m or Plasma 19 IU/L 0-32 [facility] ([facility]) ID Date Data Source [id number] 08/05/2020 09:48:00 AM EDT [facility] ([facility] [place]) Name Value Range Interpretation Code Description Data Alexandra rce(s) Supporting Document(s) Cholesterol [Mass/volume] in Serum or Plasma 273 mg/dL 100-199 [facility] ([facility]) Laboratory test finding (navigational concept) 24 mg/dL 5-40 [facility] ([facility]) Cholesterol in HDL [Mass/volume] in Serum or Plasma 65 mg/dL [facility] ([facility]) Triglyceride [Mass/volume] in Serum or Plasma 134 mg/dL 0-149 [facility] ([facility]) Laboratory test finding (navigational concept) 184 mg/dL 0-99 [facility] ([facility]) Comment: Laboratory test result [facility] ([facility]) ID Date Data Source [id number] 08/06/2020 06:05:00 AM EDT [facility] Name Value Range Interpretation Code Description Data Alexandra rce(s) Supporting Document(s) Cholesterol, Total 273 mg/dL 100-199 Above high normal [facility] Triglycerides 134 mg/dL 0-149 [facility] HDL Cholesterol 65 mg/dL >39 [facility] VLDL Cholesterol Angel 24 mg/dL 5-40 [facility] LDL Chol Calc (NIH) 184 mg/dL 0-99 Above high normal [facility] ID Date Data Source [id number] 08/06/2020 06:05:00 AM EDT [facility] Name Value Range Interpretation Code Description Data Alexandra rce(s) Supporting Document(s) Protein, Total 6.8 g/dL 6.0-8.5 [facility] Albumin 4.5 g/dL 3.8-4.9 [facility] Bilirubin, Total 0.3 mg/dL 0.0-1.2 [facility] Bilirubin, Direct 0.10 mg/dL 0.00-0.40 [facility] Alkaline Phosphatase 92 IU/L 39-117 [facility] AST (SGOT) 21 IU/L 0-40 [facility] ALT (SGPT) 19 IU/L 0-32 [facility] Procedure Social History Code Duration Value Status Description Data Source(s ) Smoking 09/07/2021 12:00:00 AM EDT Former Smoker completed Former Smoker eCW1 ([facility]) Smoking 08/23/2021 12:00:00 AM EDT Patient is a former smoker completed Patient is a former smoker [facility] Smoking 08/23/2021 12:00:00 AM EDT Patient is a former smoker completed Patient is a former smoker [facility] ([facility]) Smoking 06/01/2021 12:00:00 AM EDT Former Smoker completed Former Smoker eCW1 ([facility]) Smoking 06/01/2021 12:00:00 AM EDT Former Smoker completed Former Smoker eCW1 ([facility]) Alcohol intake 02/14/2021 12:00:00 AM EDT Not Currently completed [facility] Cigarette pack-years 02/14/2021 12:00:00 AM EDT UNK completed [facility] Cigarettes smoked current (pack per day) - Reported 02/15/20 12:00:00 AM EDT UNK completed [facility] Smoking 02/14/2021 12:00:00 AM EDT Current every day smoker co mpleted Current every day smoker [facility] Vital Signs ID Date Data Source UNK Name Value Range Interpretation Code Description Data Source(s) Body height 61 [in_i] 61 [in_i] [facility] ([facility]) 5'1" Systolic blood pressure 124 mm[Hg] 124 mm[Hg[facility] Diastolic blood pressure 66 mm[Hg] 66 mm[Hg] [facility] ([facility]) Body weight 147.00 [lb_av] 147.00 [lb_av] [facility]) Body surface area Derived from formula 1.66 m2 1.66 m2 [facility] ([facility]) Body mass index (BMI) [Ratio] 27.8 kg/m2 27.8 k g/m2 [facility] ([facility]) [place] body weight 105 [lb_av] 105 [lb_av] [facility] Body weight 66.679 kg 66.679 kg [facility] ([facility]) Diastolic blood pressure 68 mm[Hg] 68 mm[Hg] W1 ([facility]) Body weight 150.6 [lb_av] 150.6 [lb_av] eCW1 ([facility]) Body weight 68.31 kg 68.31 kg W1 ([facility]) Body height 61 [in_i] 61 [in_i] eCW1 ([facility]) Body mass index (BMI) [Ratio] 28.45 kg/m2 28.45 kg/m2 eCW1 ([facility]) Systolic blood pressure 120 mm[Hg] 120 mm[Hg] e CW1 ([facility]) Body height 61 [in_i] 61 [in_i] [facility]) 5'1" Body mass index (BMI) [Ratio] 27.6 kg/m2 27.6 k g/m2 [facility] ([facility]) Systolic blood pressure--sitting 128 mm[Hg] 128 mm[Hg] [facility] ([facility]) Ra, medium cuff Diastolic blood pressure--sitting 82 mm[Hg] 82 mm[Hg] [facility] ([facility]) Ra, medium cuff Body weight 146.00 [lb_av] 146.00 [lb_av] [facility] T ([facility]) [place] body weight 105 [lb_av] 105 [lb_av] [facility] T ([facility] Body temperature 97.4 [degF] 97.4 [degF] [facility] ([facility] Respiratory rate 14 /min 14 /min [facility] ( [facility] Body height 61.75 [in_i] 61.75 [in_i] [facility] ([facility] 5'1.75" Body weight 147.38 [lb_av] 147.38 [lb_av] [facility] T ([facility] Heart rate 50 /min 50 /min [facility] ([facility] Body mass index (BMI) [Ratio] 27.2 kg/m2 27.2 k g/m2 [facility] ([facility] Systolic blood pressure 148 mm[Hg] 148 mm[Hg] M EDENT ([facility] Diastolic blood pressure 71 mm[Hg] 71 mm[Hg] [facility] ([facility] Body mass index (BMI) [Ratio] 27.8 kg/m2 27.8 k g/m2 [facility] ([facility]) [place] body weight 105 [lb_av] 105 [lb_av] [facility] T ([facility]) Body weight 66.793 kg 66.793 kg [facility] ([facility]) Body surface area Derived from formula 1.66 m2 1.66 m2 [facility] ([facility]) Systolic blood pressure 106 mm[Hg] 106 mm[Hg] M EDENT ([facility]) Diastolic blood pressure 64 mm[Hg] 64 mm[Hg] [facility] ([facility]) Body temperature 98.2 [degF] 98.2 [degF] [facility] ([facility]) Body height 61 [in_i] 61 [in_i] [facility] ([facility]) 5'1" Body weight 147.25 [lb_av] 147.25 [lb_av] [facility] T ([facility]) Respiratory rate 16 /min 16 /min [facility] ( [facility] Systolic blood pressure 138 mm[Hg] 138 mm[Hg] M EDENT ([facility] Diastolic blood pressure 76 mm[Hg] 76 mm[Hg] [facility] ([facility] Heart rate 47 /min 47 /min [facility] ([facility] Body temperature 97.8 [degF] 97.8 [degF] [facility] ([facility] Body height 61.75 [in_i] 61.75 [in_i] [facility] ([facility] 5'1.75" Body weight 146.25 [lb_av] 146.25 [lb_av] [facility] T ([facility] Oxygen saturation in Arterial blood by Pulse oximetry 98 % 98 % [facility] ([facility] [place] body weight 105 [lb_av] 105 [lb_av] [facility] T ([facility] Body mass index (BMI) [Ratio] 27.0 kg/m2 27.0 k g/m2 [facility] ([facility] Body surface area Derived from formula 1.67 m2 1.67 m2 [facility] ([facility]) Systolic blood pressure 114 mm[Hg] 114 mm[facility]Hg] [facility] Diastolic blood pressure 72 mm[Hg] 72 mm[Hg] [facility] Body height 61 [in_i] 61 [in_i] [facility] ([facility]) 5'1" Body weight 150.25 [lb_av] 150.25 [lb_av] [facility] T ([facility]) Body mass index (BMI) [Ratio] 28.4 kg/m2 28.4 k g/m2 [facility] ([facility]) [place] body weight 105 [lb_av] 105 [lb_av] [facility] T ([facility]) Body weight 68.153 kg 68.153 kg [facility] ([facility]) Oxygen saturation in Arterial blood by Pulse oximetry 98 % 98 % [facility] ([facility] Body weight 148.00 [lb_av] 148.00 [lb_av] [facility] T ([facility] Respiratory rate 16 /min 16 /min [facility] ( [facility] Body height 61.75 [in_i] 61.75 [in_i] [facility] ([facility] 5'1.75" [place] body weight 105 [lb_av] 105 [lb_av] [facility] T ([facility] Body mass index (BMI) [Ratio] 27.3 kg/m2 27.3 k g/m2 [facility] ([facility] Systolic blood pressure 133 mm[Hg] 133 mm[Hg] M EDENT ([facility] Diastolic blood pressure 75 mm[Hg] 75 mm[Hg] [facility] ([facility] Heart rate 65 /min 65 /min [facility] ([facility] Body temperature 96.7 [degF] 96.7 [degF] [facility] ([facility] Body weight 151.2 [lb_av] 151.2 [lb_av] eCW1 ([facility]) Body height [in_i] eCW1 ([facility]) Body mass index (BMI) [Ratio] 29.53 kg/m2 29.53 kg/m2 eCW1 ([facility]) Systolic blood pressure 128 mm[Hg] 128 mm[Hg] e CW1 ([facility]) Diastolic blood pressure 76 mm[Hg] 76 mm[Hg] eCW1 ([facility]) Heart rate 60 /min 60 /min [facility] ([facility] Respiratory rate 16 /min 16 /min [facility] ( [facility] Diastolic blood pressure 65 mm[Hg] 65 mm[Hg] [facility] ([facility] Body temperature 96.2 [degF] 96.2 [degF] [facility] ([facility] [place] body weight 105 [lb_av] 105 [lb_av] [facility] T ([facility] Systolic blood pressure 112 mm[Hg] 112 mm[Hg] M EDENT ([facility] Body height 61.75 [in_i] 61.75 [in_i] [facility] ([facility] 5'1.75" Body weight 150.38 [lb_av] 150.38 [lb_av] [facility] T ([facility] Oxygen saturation in Arterial blood by Pulse oximetry 96 % 96 % [facility] ([facility] Body mass index (BMI) [Ratio] 27.7 kg/m2 27.7 k g/m2 [facility] ([facility] Heart rate 53 /min 53 /min [facility] ([facility] Systolic blood pressure 136 mm[Hg] 136 mm[Hg] M EDENT ([facility] Diastolic blood pressure 67 mm[Hg] 67 mm[Hg] [facility] ([facility] Body height 61.75 [in_i] 61.75 [in_i] [facility] ([facility] 5'1.75" Body weight 156.25 [lb_av] 156.25 [lb_av] [facility] T ([facility] Oxygen saturation in Arterial blood by Pulse oximetry 98 % 98 % [facility] ([facility] [place] body weight 105 [lb_av] 105 [lb_av] [facility] T ([facility] Body mass index (BMI) [Ratio] 28.8 kg/m2 28.8 k g/m2 [facility] ([facility] Body temperature 96.5 [degF] 96.5 [degF] [facility] ([facility] Respiratory rate 18 /min 18 /min [facility] ( [facility] Heart rate 49 /min 49 /min [facility] ([facility] Body temperature 96.7 [degF] 96.7 [degF] [facility] ([facility] Body height 61.75 [in_i] 61.75 [in_i] [facility] ([facility] 5'1.75" Respiratory rate 17 /min 17 /min [facility] ( [facility] Systolic blood pressure 115 mm[Hg] 115 mm[Hg] M EDENT ([facility] Diastolic blood pressure 67 mm[Hg] 67 mm[Hg] [facility] ([facility] Body weight 156.38 [lb_av] 156.38 [lb_av] [facility] T ([facility] Oxygen saturation in Arterial blood by Pulse oximetry 98 % 98 % [facility] ([facility] [place] body weight 105 [lb_av] 105 [lb_av] [facility] T ([facility] Body mass index (BMI) [Ratio] 28.8 kg/m2 28.8 k g/m2 [facility] ([facility] Oxygen saturation in Arterial blood by Pulse oximetry 98 % 98 % [facility] ([facility] [place] body weight 105 [lb_av] 105 [lb_av] [facility] T ([facility] Body mass index (BMI) [Ratio] 28.5 kg/m2 28.5 k g/m2 [facility] ([facility] Systolic blood pressure 127 mm[Hg] 127 mm[Hg] M EDENT ([facility] Diastolic blood pressure 77 mm[Hg] 77 mm[Hg] [facility] ([facility] Heart rate 48 /min 48 /min [facility] ([facility] Body temperature 97.6 [degF] 97.6 [degF] [facility] ([facility] Respiratory rate 16 /min 16 /min [facility] ( [facility] Body height 61.75 [in_i] 61.75 [in_i] [facility] ([facility] 5'1.75" Body weight 154.38 [lb_av] 154.38 [lb_av] [facility] T ([facility] Body height 61 [in_i] 61 [in_i] [facility] ([facility]) 5'1" Body mass index (BMI) [Ratio] 29.1 kg/m2 29.1 k g/m2 [facility] ([facility]) Systolic blood pressure--sitting 118 mm[Hg] 118 mm[Hg] [facility] ([facility]) Ra, large cuff Body weight 154.00 [lb_av] 154.00 [lb_av] [facility] T ([facility]) Diastolic blood pressure--sitting 70 mm[Hg] 70 mm[Hg] [facility] ([facility]) Ra, large cuff Heart rate 44 /min 44 /min [facility] ([facility]) Heart rate 41 /min 41 /min [facility] Systolic blood pressure 101 mm[Hg] 101 mm[Hg] [facility] Diastolic blood pressure 55 mm[Hg] 55 mm[Hg] [facility] Oxygen saturation in Arterial blood by Pulse oximetry 98 % 98 % [facility] Body temperature 36.72 Bety 36.72 Bety [facility] Respiratory rate 16 /min 16 /min [facility] Body height 154.9 cm 154.9 cm [facility] Body weight 70.262 kg 70.262 kg [facility] Body mass index (BMI) [Ratio] 29.27 kg/m2 29.27 kg/m2 [facility] Systolic blood pressure 114 mm[Hg] 114 mm[Hg] M EDENT ([facility] Body mass index (BMI) [Ratio] 28.9 kg/m2 28.9 k g/m2 [facility] ([facility] Respiratory rate 16 /min 16 /min [facility] ( [facility] Body height 61.75 [in_i] 61.75 [in_i] [facility] ([facility] 5'1.75" Body weight 156.50 [lb_av] 156.50 [lb_av] [facility] T ([facility] Oxygen saturation in Arterial blood by Pulse oximetry 99 % 99 % [facility] ([facility] [place] body weight 105 [lb_av] 105 [lb_av] [facility] T ([facility] Diastolic blood pressure 66 mm[Hg] 66 mm[Hg] [facility] ([facility] Heart rate 58 /min 58 /min [facility] ([facility] Body temperature 96.8 [degF] 96.8 [degF] [facility] ([facility] Body weight 154.00 [lb_av] 154.00 [lb_av] [facility] T ([facility] Body height 61 [in_i] 61 [in_i] [facility] ([facility] 5'1" Body mass index (BMI) [Ratio] 29.1 kg/m2 29.1 k g/m2 [facility] ([facility]) Heart rate 44 /min 44 /min [facility] ([facility]) Systolic blood pressure--sitting 110 mm[Hg] 110 mm[Hg] [facility] ([facility]) [place], large cuff Diastolic blood pressure--sitting 62 mm[Hg] 62 mm[Hg] [facility] ([facility]) [place], large cuff Systolic blood pressure 114 mm[Hg] 114 mm[Hg] M EDENT ([facility] Body height 61.75 [in_i] 61.75 [in_i] [facility] ([facility] 5'1.75" Body weight 155.25 [lb_av] 155.25 [lb_av] [facility] T ([facility] Oxygen saturation in Arterial blood by Pulse oximetry 98 % 98 % [facility] ([facility] [place] body weight 105 [lb_av] 105 [lb_av] [facility] T ([facility] Body mass index (BMI) [Ratio] 28.6 kg/m2 28.6 k g/m2 [facility] ([facility] Diastolic blood pressure 68 mm[Hg] 68 mm[Hg] [facility] ([facility] Heart rate 63 /min 63 /min [facility] ([facility] Body temperature 96.9 [degF] 96.9 [degF] [facility] ([facility] Respiratory rate 18 /min 18 /min [facility] ( [facility] Body weight 161.00 [lb_av] 161.00 [lb_av] [facility] T ([facility]) Body height 61 [in_i] 61 [in_i] [facility] 5'1" Body mass index (BMI) [Ratio] 30.4 kg/m2 30.4 k g/m2 [facility] ([facility]) Heart rate 72 /min 72 /min [facility] Respiratory rate 16 /min 16 /min [facility] ( [facility]) Systolic blood pressure--sitting 118 mm[Hg] 118 mm[Hg] [facility] ([facility]) Medium cuff, Ra Diastolic blood pressure--sitting 66 mm[Hg] 66 mm[Hg] [facility] [facility] Medium cuff, Ra Systolic blood pressure--supine 124 mm[Hg] 124 mm[Hg] [facility] ([facility]) Diastolic blood pressure--supine 72 mm[Hg] 72 mm[Hg] [facility] ([facility]) Patient Treatment Plan of Care Planned Activity Planned Date Details Description Data Source (s) Fluorouracil 50 MG/ML Topical Cream 06/08/2021 12:00:00 AM EDT eCW1 ([facility]) Ticagrelor 90 MG Oral Tablet [facility]
[2021-09-29] MEDS ORDERED: GLYCOPYRROLATE INJ 0.2 MG/ML 2 ML VIAL As Ordered ONE (09:57)
--- NOTE | 2021-09-29 10:18 | ROOR ---
Patient Name: Suha Strauss Procedure Date: 09/29/2021 9:39 AM Date of : 1965 Age: 56 Room: [facility] Gender: Female Note Status: Finalized Procedure: Colonoscopy Indications: Follow-up for history of colon polyps of uncertain behavior Providers: Aryan Singh MD Referring MD: Donita Elkins NP Requesting Provider: Medicines: Monitored Anesthesia Care Complications: No immediate complications. Procedure: Pre-Anesthesia Assessment: - Prior to the procedure, a History and Physical was performed, and patient medications and allergies were reviewed. The patient is competent. The risks and benefits of the procedure and the sedation options and risks were discussed with the patient. All questions were answered and informed consent was obtained. Patient identification and proposed procedure were verified by the physician, the nurse and the anesthesiologist in the procedure room. Mental Status Examination: alert and oriented. Airway Examination: normal oropharyngeal airway and neck mobility. Respiratory Examination: clear to auscultation. CV Examination: normal. Prophylactic Antibiotics: The patient does not require prophylactic antibiotics. Prior Anticoagulants: The patient has taken no previous anticoagulant or antiplatelet agents. ASA Grade Assessment: II - A patient with mild systemic disease. After reviewing the risks and benefits, the patient was deemed in satisfactory condition to undergo the procedure. The anesthesia plan was to use monitored anesthesia care (MAC). Immediately prior to administration of medications, the patient was re-assessed for adequacy to receive sedatives. The heart rate, respiratory rate, oxygen saturations, blood pressure, adequacy of pulmonary ventilation, and response to care were monitored throughout the procedure. The physical status of the patient was re-assessed after the procedure. The Colonoscope was introduced through the anus and advanced to the terminal ileum, with identification of the appendiceal orifice and IC valve. The colonoscopy was performed without difficulty. The patient tolerated the procedure well. The quality of the bowel preparation was good. The terminal ileum, ileocecal valve, appendiceal orifice, and rectum were photographed. Scope insertion time was 2 minutes. Scope withdrawal time was 8 minutes. The total duration of the procedure was 10 minutes. Findings: The perianal and digital rectal examinations were normal. The terminal ileum appeared normal. The ileocecal valve was moderately lipomatous. Biopsies were taken with a cold forceps for histology. Verification of patient identification for the specimen was done by the physician and nurse using the patient's name, date and medical record number. Estimated blood loss was minimal. A 3 mm polyp was found in the cecum. The polyp was sessile. The polyp was removed with a cold biopsy forceps. Resection and retrieval were complete. Non-bleeding external and internal hemorrhoids were found during retroflexion. The hemorrhoids were medium-sized. Impression: - The examined portion of the ileum was normal. - Lipomatous ileocecal valve. Biopsied. - One 3 mm polyp in the cecum, removed with a cold biopsy forceps. Resected and retrieved. - Non-bleeding external and internal hemorrhoids. Recommendation: - Patient has a contact number available for emergencies. The signs and symptoms of potential delayed complications were discussed with the patient. Return to normal activities tomorrow. Written discharge instructions were provided to the patient. - High fiber diet. - Continue present medications. - Resume Plavix (clopidogrel) at prior dose today. - Await pathology results. - Repeat colonoscopy in 5-10 years for surveillance based on pathology results. - Return to GI clinic if persistent symptoms or new symptoms. - Return to primary care physician. Procedure Code(s): --- Professional --- 02237, Colonoscopy, flexible; with biopsy, single or multiple Diagnosis Code(s): --- Professional --- K64.8, Other hemorrhoids K63.89, Other specified diseases of intestine K63.5, Polyp of colon Z86.03, Personal history of neoplasm of uncertain behavior CPT copyright 2019 [employer]. All rights reserved. The codes documented in this report are preliminary and upon medical biller/coder review may be revised to meet current compliance requirements. Aryan Singh MD Aryan Singh MD 09/29/2021 10:17:29 AM Electronically signed by Aryan Singh MD Number of Addenda: 0 Note Initiated On: 09/29/2021 9:39 AM Estimated Blood Loss: Estimated blood loss was minimal.
[2021-09-29 10:25] VITALS: BP 112/59
== END 2021-09-29 10:39 | disposition home or self-care (01) ==
LOC: M OPP 08:04
PROVIDERS: ATTEND Internal Medicine Gastroenterology
DX: K63.5 Polyp of colon (principal); K64.8 Other hemorrhoids; I25.10 Atherosclerotic heart disease of native coronary artery without angina pectoris; I50.9 Heart failure, unspecified; E78.5 Hyperlipidemia, unspecified; F32.A Depression, unspecified; F41.9 Anxiety disorder, unspecified; Z95.1 Presence of aortocoronary bypass graft; Z86.03 Personal history of neoplasm of uncertain behavior

== ENCOUNTER → 2022-04-18 | Outpatient (CLI) | payer MEDICARE ==
[~2022-04-18] MED LIST changes: -LIDOCAINE 2% 100MG/5ML SDV (FOR ANES.) As Ordered ONE; +LOSA50TA28 PO; -LOSA50TA88 PO; -NS 1,000 ML IV ONE; -propofoL 200 MG/20 ML VIAL As Ordered ONE
[2022-04-18 13:20] LABS: BASO # 0.1 10^3/uL (0.0-0.2); BASO % 0.9 % (0.0-1.0); EOS # 0.2 10^3/uL (0.0-0.5); HEMATOCRIT 36.6 % (36.0-47.0); HEMOGLOBIN 11.5 g/dl (12.0-15.5); LYMPH # 2.9 10^3/uL (1.5-5.0); LYMPH % 41.7 % (24.0-44.0); MEAN CORPUSCULAR HEMOGLOBIN 28.9 pg (27.0-33.0); MEAN CORPUSCULAR HGB CONC 31.4 g/dl (32.0-36.5); MONO # 0.5 10^3/uL (0.0-0.8); MONO % 7.5 % (2.0-8.0); NEUTROPHILS # 3.3 10^3/uL (1.5-8.5); NEUTROPHILS % 46.8 % (36.0-66.0); PLATELET COUNT, AUTOMATED 384 10^3/uL (150-450); RED BLOOD COUNT 3.98 10^6/uL (4.00-5.40); WHITE BLOOD COUNT 7.1 10^3/uL (4.0-10.0)
[2022-04-18 13:27] LABS: C REACTIVE PROTEIN QUANTITATIV < 0.30 MG/DL (0.00-0.30); FOLATE 7.9 NG/ML; FREE T4 0.88 NG/DL (0.76-1.46); RHEUMATOID FACTOR QUANT < 10.0 IU/ML (<15.0); TOTAL 25(OH) VITAMIN D 21.1 NG/ML (30.0-100.0); VITAMIN B12 LEVEL 430 PG/ML
[2022-04-18 14:01] LABS: ERYTHROCYTE SEDIMENTATION RATE 13 mm/hr (0-30)
[2022-04-19 14:09] LABS: IgG P18 AB Absent (.); IgG P23 AB Absent (.); IgG P28 AB Absent (.); IgG P30 AB Absent (.); IgG P39 AB Absent (.); IgG P41 AB Absent (.); IgG P45 AB Absent (.); IgG P66 AB Absent (.); IgG P93 AB Absent (.); IgM P23 AB Absent (.); IgM P39 AB Absent (.); IgM P41 AB Absent (.); LYME IgG WB INTERPRETATION Negative (.); LYME IgM WB INTERPRETATION Negative (.); SSA SJOGRENS A <0.2 AI (0.0-0.9); SSB SJOGRENS B <0.2 AI (0.0-0.9)
== END ==
LOC: M PLALAB 09:12
PROVIDERS: ATTEND Nurse Practitioner Family
DX: M12.9 Arthropathy, unspecified (principal)

== ENCOUNTER → 2022-04-18 | Outpatient (CLI) | payer MEDICARE | LOC: M RAD 08:36 | PROVIDERS: ATTEND Nurse Practitioner Family | DX: Z12.2 Encounter for screening for malignant neoplasm of respiratory organs (principal); Z87.891 Personal history of nicotine dependence; M12.9 Arthropathy, unspecified; Z79.899 Other long term (current) drug therapy; Z79.01 Long term (current) use of anticoagulants ==

== ENCOUNTER → 2022-06-14 | Outpatient (CLI) | payer MEDICARE | LOC: M WHC 15:47 | PROVIDERS: ATTEND Nurse Practitioner Family | DX: Z12.31 Encounter for screening mammogram for malignant neoplasm of breast (principal) ==

== ENCOUNTER → 2022-06-16 | Outpatient (CLI) | payer MEDICARE ==
[2022-06-16 13:25] LABS: RHEUMATOID FACTOR QUANT < 10.0 IU/ML (<15.0); THYROID STIMULATING HORMONE 0.589 uIU/ML (0.358-3.740)
[2022-06-16 13:26] LABS: VITAMIN B12 LEVEL 421 PG/ML
[2022-06-16 13:27] LABS: FOLATE > 24.0 NG/ML
[2022-06-23 14:08] LABS: ANTINUCLEAR ANTIBODIES DIRECT Negative (Negative); VITAMIN B1 LEVEL WHOLE BLOOD 164.8 nmol/L (66.5-200.0); VITAMIN B6,PYRIDOXAL PHOSPHATE 3.1 ug/L (3.4-65.2); VITAMIN E(ALPHA TOCOPHEROL) 15.5 mg/L (7.0-25.1); VITAMIN E(GAMMA TOCOPHEROL) 1.3 mg/L (0.5-5.5)
== END ==
LOC: M RAD 07:55
PROVIDERS: ATTEND Psychiatry & Neurology Neurology
DX: R41.3 Other amnesia (principal); G31.84 Mild cognitive impairment of uncertain or unknown etiology; R41.840 Attention and concentration deficit; G40.89 Other seizures; E78.01 Familial hypercholesterolemia

== ENCOUNTER → 2022-06-16 | Outpatient (CLI) | payer MEDICARE ==
[2022-06-16 12:06] LABS: HEMATOCRIT 41.5 % (36.0-47.0); HEMOGLOBIN 13.2 g/dl (12.0-15.5); MEAN CORPUSCULAR HEMOGLOBIN 29.1 pg (27.0-33.0); MEAN CORPUSCULAR HGB CONC 31.8 g/dl (32.0-36.5); MEAN CORPUSCULAR VOLUME 91.6 fl (80.0-96.0); PLATELET COUNT, AUTOMATED 391 10^3/uL (150-450); RED BLOOD COUNT 4.53 10^6/uL (4.00-5.40); WHITE BLOOD COUNT 10.1 10^3/uL (4.0-10.0)
[2022-06-16 13:09] LABS: ALT/SGPT 25 U/L (12-78); BILIRUBIN,TOTAL 0.4 MG/DL (0.2-1.0); BLOOD UREA NITROGEN 15 MG/DL (7-18); CALCIUM LEVEL 9.8 MG/DL (8.5-10.1); CARBON DIOXIDE LEVEL 22 MEQ/L (21-32); CHLORIDE LEVEL 110 MEQ/L (98-107); CHOLESTEROL LEVEL 168 MG/DL (<200); CREATININE FOR GFR 0.67 MG/DL (0.55-1.30); GLOMERULAR FILTRATION RATE > 60.0 (>51); GLUCOSE, FASTING 82 MG/DL (70-100); HDL CHOLESTEROL 60 MG/DL (>40); LDL CHOLESTEROL 85 MG/DL (<100); NON-HDL-C 108 MG/DL; POTASSIUM SERUM 3.7 MEQ/L (3.5-5.1); SODIUM LEVEL 140 MEQ/L (136-145); TOTAL PROTEIN 7.3 GM/DL (6.4-8.2); TRIGLYCERIDES LEVEL 117 MG/DL (<150)
== END ==
LOC: M LAB 08:15
PROVIDERS: ATTEND Physician Assistant
DX: E78.01 Familial hypercholesterolemia (principal)

== ENCOUNTER → 2022-06-30 | Outpatient (CLI) | payer MEDICARE | LOC: M CARPUL 08:34 | PROVIDERS: ATTEND Physician Assistant | DX: I50.32 Chronic diastolic (congestive) heart failure (principal) ==

== ENCOUNTER → 2022-07-10 | Outpatient (CLI) | payer MEDICARE ==
[2022-07-10 18:00] LABS: HEMATOCRIT 37.9 % (36.0-47.0); HEMOGLOBIN 12.1 g/dl (12.0-15.5); MEAN CORPUSCULAR HEMOGLOBIN 29.2 pg (27.0-33.0); MEAN CORPUSCULAR HGB CONC 31.9 g/dl (32.0-36.5); MEAN CORPUSCULAR VOLUME 91.3 fl (80.0-96.0); PLATELET COUNT, AUTOMATED 381 10^3/uL (150-450); RED BLOOD COUNT 4.15 10^6/uL (4.00-5.40)
[2022-07-10 18:30] LABS: ALBUMIN 3.8 GM/DL (3.2-5.2); ALT/SGPT 24 U/L (12-78); BILIRUBIN,TOTAL 0.4 MG/DL (0.2-1.0); BLOOD UREA NITROGEN 17 MG/DL (7-18); CALCIUM LEVEL 9.7 MG/DL (8.5-10.1); CARBON DIOXIDE LEVEL 24 MEQ/L (21-32); CHLORIDE LEVEL 108 MEQ/L (98-107); CREATININE FOR GFR 0.86 MG/DL (0.55-1.30); FREE T4 0.95 NG/DL (0.76-1.46); GLOMERULAR FILTRATION RATE > 60.0 (>51); GLUCOSE, FASTING 89 MG/DL (70-100); MAGNESIUM LEVEL 1.6 MG/DL (1.8-2.4); POTASSIUM SERUM 3.6 MEQ/L (3.5-5.1); SODIUM LEVEL 136 MEQ/L (136-145); THYROID STIMULATING HORMONE 0.794 uIU/ML (0.358-3.740); TOTAL PROTEIN 7.1 GM/DL (6.4-8.2)
== END ==
LOC: M PLALAB 14:59
PROVIDERS: ATTEND Physician Assistant
DX: R00.2 Palpitations (principal)

== ENCOUNTER → 2022-08-15 | Outpatient (CLI) | payer MEDICARE ==
[~2022-08-15] MED LIST changes: -ALIR150P SC; +ALIR150P4 SC; +COLE625T17 PO; -COLE625TAB PO
[2022-08-15 16:07] LABS: HEMATOCRIT 40.1 % (36.0-47.0); HEMOGLOBIN 12.6 g/dl (12.0-15.5); MEAN CORPUSCULAR HEMOGLOBIN 28.8 pg (27.0-33.0); MEAN CORPUSCULAR HGB CONC 31.4 g/dl (32.0-36.5); MEAN CORPUSCULAR VOLUME 91.8 fl (80.0-96.0); PLATELET COUNT, AUTOMATED 413 10^3/uL (150-450); RED BLOOD COUNT 4.37 10^6/uL (4.00-5.40); WHITE BLOOD COUNT 9.4 10^3/uL (4.0-10.0)
[2022-08-15 16:41] LABS: ALBUMIN 3.8 GM/DL (3.2-5.2); ALT/SGPT 24 U/L (12-78); BILIRUBIN,TOTAL 0.4 MG/DL (0.2-1.0); BLOOD UREA NITROGEN 15 MG/DL (7-18); CALCIUM LEVEL 9.8 MG/DL (8.5-10.1); CARBON DIOXIDE LEVEL 25 MEQ/L (21-32); CHLORIDE LEVEL 110 MEQ/L (98-107); CREATININE FOR GFR 0.77 MG/DL (0.55-1.30); GLOMERULAR FILTRATION RATE > 60.0 (>51); GLUCOSE, FASTING 85 MG/DL (70-100); POTASSIUM SERUM 4.3 MEQ/L (3.5-5.1); SODIUM LEVEL 140 MEQ/L (136-145); TOTAL PROTEIN 7.4 GM/DL (6.4-8.2)
== END ==
LOC: M PLALAB 11:52
PROVIDERS: ATTEND Physician Assistant
DX: I25.10 Atherosclerotic heart disease of native coronary artery without angina pectoris (principal)

== ENCOUNTER → 2022-08-29 | Outpatient (CLI) | payer MEDICARE | LOC: M SLEEP HO 10:03 | PROVIDERS: ATTEND Physician Assistant | DX: G47.9 Sleep disorder, unspecified (principal) ==

== ENCOUNTER → 2022-10-10 | Outpatient (CLI) | payer MEDICARE ==
[~2022-10-10] MED LIST changes: +CLOP75TA99 PO; -PLAV1TAB2 PO
[2022-10-10 15:44] LABS: BLOOD UREA NITROGEN 14 MG/DL (9-23); CALCIUM LEVEL 9.6 MG/DL (8.5-10.1); CARBON DIOXIDE LEVEL 23 MMOL/L (20-31); CHLORIDE LEVEL 106 MMOL/L (98-107); CREATININE FOR GFR 0.66 MG/DL (0.55-1.30); GLOMERULAR FILTRATION RATE > 60.0 (>51); GLUCOSE, FASTING 88 MG/DL (60-100); MAGNESIUM LEVEL 1.9 MG/DL (1.8-2.4); POTASSIUM SERUM 4.4 MMOL/L (3.5-5.1); SODIUM LEVEL 140 MMOL/L (136-145)
== END ==
LOC: M PLALAB 10:13
PROVIDERS: ATTEND Physician Assistant
DX: R00.2 Palpitations (principal)

== ENCOUNTER → 2022-10-10 | Outpatient (CLI) | payer MEDICARE ==
[2022-10-10 14:05] LABS: BASO # 0.1 10^3/uL (0.0-0.2); BASO % 0.8 % (0.0-1.0); EOS # 0.2 10^3/uL (0.0-0.5); HEMATOCRIT 41.1 % (36.0-47.0); HEMOGLOBIN 12.6 g/dl (12.0-15.5); LYMPH # 2.7 10^3/uL (1.5-5.0); LYMPH % 32.9 % (24.0-44.0); MEAN CORPUSCULAR HEMOGLOBIN 28.8 pg (27.0-33.0); MEAN CORPUSCULAR HGB CONC 30.7 g/dl (32.0-36.5); MEAN CORPUSCULAR VOLUME 94.1 fl (80.0-96.0); MONO # 0.4 10^3/uL (0.0-0.8); NEUTROPHILS # 4.9 10^3/uL (1.5-8.5); NEUTROPHILS % 59.1 % (36.0-66.0); PLATELET COUNT, AUTOMATED 418 10^3/uL (150-450); RED BLOOD COUNT 4.37 10^6/uL (4.00-5.40); WHITE BLOOD COUNT 8.3 10^3/uL (4.0-10.0)
[2022-10-10 18:14] LABS: ALBUMIN 4.1 G/DL (3.2-5.2); ALT/SGPT 26 U/L (7.0-40); BILIRUBIN,TOTAL 0.5 MG/DL (0.3-1.2); BLOOD UREA NITROGEN 13 MG/DL (9-23); CALCIUM LEVEL 9.8 MG/DL (8.5-10.1); CARBON DIOXIDE LEVEL 23 MMOL/L (20-31); CHLORIDE LEVEL 105 MMOL/L (98-107); CHOLESTEROL LEVEL 180 MG/DL (<200); CHOLESTEROL RISK RATIO 2.56 (<5); CREATININE FOR GFR 0.67 MG/DL (0.55-1.30); FERRITIN 75.6 NG/ML (7.3-270.7); GLOMERULAR FILTRATION RATE > 60.0 (>51); GLUCOSE, FASTING 87 MG/DL (60-100); HDL CHOLESTEROL 70.3 MG/DL (>40); IRON (FE) 113 UG/DL (50-170); LDL CHOLESTEROL 91.7 MG/DL (<100); NON-HDL-C 110 MG/DL; PERCENT SATURATION 26.8 % (13.2-45.0); POTASSIUM SERUM 4.3 MMOL/L (3.5-5.1); SODIUM LEVEL 140 MMOL/L (136-145); TOTAL IRON BINDING CAPACITY 422 UG/DL (250-425); TOTAL PROTEIN 7.3 G/DL; TRIGLYCERIDES LEVEL 90 MG/DL (<150); VITAMIN B12 LEVEL 395 PG/ML (232-1245)
[2022-10-10 23:47] LABS: FOLATE 20.3 NG/ML (>3.0)
== END ==
LOC: M PLALAB 10:11
PROVIDERS: ATTEND Nurse Practitioner Family
DX: E78.2 Mixed hyperlipidemia (principal); D51.9 Vitamin B12 deficiency anemia, unspecified

== ENCOUNTER → 2022-10-10 | Outpatient (CLI) | payer MEDICARE | LOC: M PLALAB 10:07 | PROVIDERS: ATTEND Registered Nurse | DX: R30.0 Dysuria (principal) ==

== ENCOUNTER 2023-02-08 14:07 | Emergency (ER) | payer MEDICARE ==
[~2023-02-08] VITALS: Ht 154.9 cm; Wt 61.8 kg
[2023-02-08] MEDS ORDERED: CYCL5TAB PO (14:27)
[2023-02-08] MEDS ORDERED: PANT40TA29 PO (14:27)
[2023-02-08] MEDS ORDERED: NS 1,000 ML IV ONE (15:15)
[2023-02-08] MEDS ORDERED: ASPIRIN 81MG CHEW TABLET PO ONE (15:15)
[2023-02-08 15:35] LABS: BASO # 0.1 10^3/uL (0.0-0.2); BASO % 0.7 % (0.0-1.0); EOS # 0.1 10^3/uL (0.0-0.5); HEMATOCRIT 39.7 % (36.0-47.0); HEMOGLOBIN 12.7 g/dl (12.0-15.5); LYMPH % 36.1 % (24.0-44.0); MEAN CORPUSCULAR HEMOGLOBIN 28.7 pg (27.0-33.0); MEAN CORPUSCULAR VOLUME 89.8 fl (80.0-96.0); MONO # 0.6 10^3/uL (0.0-0.8); MONO % 5.5 % (2.0-8.0); NEUTROPHILS # 6.3 10^3/uL (1.5-8.5); NEUTROPHILS % 56.5 % (36.0-66.0); PLATELET COUNT, AUTOMATED 406 10^3/uL (150-450); RED BLOOD COUNT 4.42 10^6/uL (4.00-5.40); WHITE BLOOD COUNT 11.1 10^3/uL (4.0-10.0)
[2023-02-08 16:14] LABS: CK-MB VALUE MASS < 1.0 NG/ML (<3.6)
[2023-02-08 16:17] LABS: LIPASE 43 U/L (12-53)
[2023-02-08 16:18] LABS: RSV AMPLIFICATION NEGATIVE (NEGATIVE)
[2023-02-08 16:19] LABS: ALBUMIN 4.1 G/DL (3.2-5.2); ALKALINE PHOSPHATASE 67 U/L (46-116); ALT/SGPT 28 U/L (7.0-40); AST/SGOT 34 U/L (<34); BILIRUBIN,DIRECT 0.2 MG/DL (<0.4); BILIRUBIN,TOTAL 0.5 MG/DL (0.3-1.2); BLOOD UREA NITROGEN 15 MG/DL (9-23); CALCIUM LEVEL 9.4 MG/DL (8.5-10.1); CARBON DIOXIDE LEVEL 24 MMOL/L (20-31); CHLORIDE LEVEL 105 MMOL/L (98-107); CPK CREATINE PHOSPHOKINASE 39 U/L (34-145); CREATININE FOR GFR 0.78 MG/DL (0.55-1.30); GLOMERULAR FILTRATION RATE > 60.0 (>51); GLUCOSE, FASTING 106 MG/DL (60-100); MB/CK RELATIVE INDEX 2.56 (< OR =4); POTASSIUM SERUM 3.4 MMOL/L (3.5-5.1); SODIUM LEVEL 140 MMOL/L (136-145); TOTAL PROTEIN 7.1 G/DL (5.7-8.2)
[2023-02-08 18:30] VITALS: BP 159/77
== END 2023-02-08 18:50 | disposition home or self-care (01) ==
LOC: M ED 14:07
DX: B34.9 Viral infection, unspecified (principal); R53.83 Other fatigue; I11.9 Hypertensive heart disease without heart failure; F17.200 Nicotine dependence, unspecified, uncomplicated; Z88.8 Allergy status to other drugs, medicaments and biological substances; Z79.899 Other long term (current) drug therapy

== ENCOUNTER → 2023-06-26 | Outpatient (CLI) | payer MEDICARE ==
[~2023-06-26] MED LIST changes: +ASPI-655 PO; -ASPI1CHW3 PO; +CYCL5TAB PO; +PANT40TA29 PO
== END ==
LOC: M RAD 15:05
PROVIDERS: ATTEND Nurse Practitioner Family
DX: Z12.2 Encounter for screening for malignant neoplasm of respiratory organs (principal); Z87.891 Personal history of nicotine dependence; I70.0 Atherosclerosis of aorta; I25.10 Atherosclerotic heart disease of native coronary artery without angina pectoris; K80.20 Calculus of gallbladder without cholecystitis without obstruction

== ENCOUNTER → 2023-07-06 | Outpatient (REF) | payer MEDICARE ==
[2023-07-06 14:05] LABS: APPEARANCE, URINE CLEAR (CLEAR); BACTERIA, URINE AUTO 1+ (NEGATIVE); BILIRUBIN, URINE AUTO NEGATIVE (NEGATIVE); BLOOD, URINE BLOOD 1+ (NEGATIVE); COLOR, URINE AMBER (YELLOW); GLUCOSE, URINE (UA) AUTO NEGATIVE (NEGATIVE); KETONE, URINE AUTO NEGATIVE (NEGATIVE); LEUKOCYTE ESTERASE, URINE AUTO 1+ (NEGATIVE); NITRITE, URINE AUTO POSITIVE (NEGATIVE); PROTEIN, URINE AUTO NEGATIVE (NEGATIVE); RBC, URINE AUTO 3 /HPF (0-3); SPECIFIC GRAVITY URINE AUTO 1.003 (1.002-1.035); SQUAMOUS EPITHELIAL CELL UR AU 0 /HPF (0-6); WBC, URINE AUTO 18 /HPF (0-3)
== END ==
LOC: M LAB REF 13:22
PROVIDERS: ATTEND Nurse Practitioner Family
DX: N39.0 Urinary tract infection, site not specified (principal); R30.0 Dysuria

== ENCOUNTER → 2023-09-19 | Outpatient (CLI) | payer MEDICARE ==
[~2023-09-19] MED LIST changes: +EZET10TA58 PO; -ZETI10TA16 PO
[2023-09-19 09:16] LABS: BASO # 0.1 10^3/uL (0.0-0.2); BASO % 1.2 % (0.0-1.0); EOS # 0.2 10^3/uL (0.0-0.5); EOS % 2.8 % (0.0-3.0); HEMATOCRIT 37.3 % (36.0-47.0); HEMOGLOBIN 11.9 g/dl (12.0-15.5); LYMPH # 2.1 10^3/uL (1.5-5.0); LYMPH % 34.8 % (24.0-44.0); MEAN CORPUSCULAR HEMOGLOBIN 29.2 pg (27.0-33.0); MEAN CORPUSCULAR HGB CONC 31.9 g/dl (32.0-36.5); MEAN CORPUSCULAR VOLUME 91.4 fl (80.0-96.0); MONO # 0.5 10^3/uL (0.0-0.8); MONO % 7.9 % (2.0-8.0); NEUTROPHILS # 3.2 10^3/uL (1.5-8.5); NEUTROPHILS % 53.1 % (36.0-66.0); PLATELET COUNT, AUTOMATED 360 10^3/uL (150-450); RED BLOOD COUNT 4.08 10^6/uL (4.00-5.40); WHITE BLOOD COUNT 6.1 10^3/uL (4.0-10.0)
[2023-09-19 09:39] LABS: ALBUMIN 3.5 G/DL (3.2-5.2); ALKALINE PHOSPHATASE 58 U/L (46-116); ALT/SGPT 25 U/L (7.0-40); AST/SGOT 27 U/L (<34); BILIRUBIN,TOTAL 0.5 MG/DL (0.3-1.2); BLOOD UREA NITROGEN 14 MG/DL (9-23); CALCIUM LEVEL 9.1 MG/DL (8.5-10.1); CARBON DIOXIDE LEVEL 24 MMOL/L (20-31); CHLORIDE LEVEL 111 MMOL/L (98-107); CHOLESTEROL LEVEL 158 MG/DL (<200); CHOLESTEROL RISK RATIO 2.34 (<5); CREATININE FOR GFR 0.67 MG/DL (0.55-1.30); FOLATE 16.1 NG/ML (>5.4); GLOMERULAR FILTRATION RATE > 60.0 (>51); GLUCOSE, FASTING 90 MG/DL (60-100); HDL CHOLESTEROL 67.3 MG/DL (>40); LDL CHOLESTEROL 77.3 MG/DL (<100); NON-HDL-C 90.7 MG/DL; POTASSIUM SERUM 4.3 MMOL/L (3.5-5.1); SODIUM LEVEL 141 MMOL/L (136-145); TOTAL PROTEIN 6.3 G/DL (5.7-8.2); TRIGLYCERIDES LEVEL 67 MG/DL (<150); VITAMIN B12 LEVEL 387 PG/ML (211-911)
== END ==
LOC: M LAB 08:12
PROVIDERS: ATTEND Nurse Practitioner Family
DX: E78.2 Mixed hyperlipidemia (principal); D51.9 Vitamin B12 deficiency anemia, unspecified

== ENCOUNTER 2023-11-09 08:59 | Emergency (ER) | payer MEDICARE ==
[~2023-11-09] VITALS: Ht 154.9 cm; Wt 60.0 kg
[2023-11-09] MEDS ORDERED: FENO160T10 (09:14)
[2023-11-09] MEDS ORDERED: LOSA25TA13 (09:14)
[2023-11-09] MEDS ORDERED: ROSU40TA4 (09:14)
[2023-11-09 12:33] VITALS: BP 141/69; TEMP 98.6; O2SAT 100
== END 2023-11-09 12:39 | disposition home or self-care (01) ==
LOC: M ED 08:59
DX: S61.201A Unspecified open wound of left index finger without damage to nail, initial encounter (principal); W26.0XXA Contact with knife, initial encounter; Y92.009 Unspecified place in unspecified non-institutional (private) residence as the place of occurrence of the external cause; I25.2 Old myocardial infarction; Z95.5 Presence of coronary angioplasty implant and graft; Z79.02 Long term (current) use of antithrombotics/antiplatelets; Z79.899 Other long term (current) drug therapy; Z88.8 Allergy status to other drugs, medicaments and biological substances

== ENCOUNTER → 2024-04-01 | Outpatient (REF) | payer MEDICARE ==
[~2024-04-01] MED LIST changes: +FENO160T10; +LOSA25TA13; -ROSU10TA6 PO; +ROSU10TA61 PO; +ROSU40TA63
== END ==
LOC: M LAB REF 17:24
PROVIDERS: ATTEND Nurse Practitioner Family
DX: Z12.4 Encounter for screening for malignant neoplasm of cervix (principal); N95.2 Postmenopausal atrophic vaginitis
CPT/HCPCS: 87624; G0123

== ENCOUNTER → 2024-06-09 | Outpatient (REF) | payer MEDICARE ==
[~2024-06-09] MED LIST changes: +ONDA-282; -ONDA4TAB6
== END ==
LOC: M LAB REF 17:45
PROVIDERS: ATTEND Nurse Practitioner Family
DX: R30.0 Dysuria (principal)

== ENCOUNTER → 2024-06-17 | Outpatient (REF) | payer MEDICARE ==
[2024-06-17 13:37] LABS: CHOLESTEROL RISK RATIO 2.56 (<5); HDL CHOLESTEROL 65.6 MG/DL (>40); LDL CHOLESTEROL 80.2 MG/DL (<100); NON-HDL-C 102.4 MG/DL
== END ==
LOC: M LABDRWAD 12:54
PROVIDERS: ATTEND Internal Medicine Cardiovascular Disease
DX: E78.00 Pure hypercholesterolemia, unspecified (principal)

== ENCOUNTER 2024-07-01 13:23 | Emergency (ER) | payer MEDICARE ==
[~2024-07-01] VITALS: Ht 154.9 cm; Wt 64.9 kg
[2024-07-01 13:56] LABS: BASO # 0.1 10^3/uL (0.0-0.2); BASO % 0.7 % (0.0-1.0); EOS # 0.2 10^3/uL (0.0-0.5); EOS % 1.7 % (0.0-3.0); HEMATOCRIT 39.2 % (36.0-47.0); HEMOGLOBIN 12.8 g/dl (12.0-15.5); LYMPH # 3.1 10^3/uL (1.5-5.0); MEAN CORPUSCULAR HEMOGLOBIN 30.1 pg (27.0-33.0); MEAN CORPUSCULAR HGB CONC 32.7 g/dl (32.0-36.5); MEAN CORPUSCULAR VOLUME 92.2 fl (80.0-96.0); MONO # 0.6 10^3/uL (0.0-0.8); MONO % 6.8 % (2.0-8.0); NEUTROPHILS % 55.6 % (36.0-66.0); PLATELET COUNT, AUTOMATED 327 10^3/uL (150-450); RED BLOOD COUNT 4.25 10^6/uL (4.00-5.40)
[2024-07-01 14:08] LABS: INR 0.99; PROTHROMBIN TIME 12.8 SECONDS (12.5-14.5)
[2024-07-01 14:18] VITALS: BP 111/69
[2024-07-01] MEDS: NITROGLYCERIN 0.4MG SUBL TABLET SL PRN (14:18)
[2024-07-01] MEDS: ASPIRIN 81MG CHEW TABLET PO ONE (14:18)
[2024-07-01 14:25] LABS: LIPASE 45 U/L (12-53)
[2024-07-01 14:27] LABS: CPK CREATINE PHOSPHOKINASE 61 U/L (34-145)
[2024-07-01 14:28] LABS: ALBUMIN 3.7 G/DL (3.2-5.2); ALKALINE PHOSPHATASE 102 U/L (46-116); ALT/SGPT 43 U/L (7.0-40); AST/SGOT 30 U/L (<34); BILIRUBIN,DIRECT 0.2 MG/DL (<0.4); BILIRUBIN,TOTAL 0.6 MG/DL (0.3-1.2); BLOOD UREA NITROGEN 20 MG/DL (9-23); CALCIUM LEVEL 9.8 MG/DL (8.5-10.1); CARBON DIOXIDE LEVEL 27 MMOL/L (20-31); CHLORIDE LEVEL 108 MMOL/L (98-107); CK-MB VALUE MASS 1.1 NG/ML (<3.6); CREATININE FOR GFR 0.74 MG/DL (0.55-1.30); GLOMERULAR FILTRATION RATE > 60.0 (>51); GLUCOSE, FASTING 86 MG/DL (60-100); POTASSIUM SERUM 3.8 MMOL/L (3.5-5.1); SODIUM LEVEL 140 MMOL/L (136-145); TOTAL PROTEIN 6.9 G/DL (5.7-8.2)
[2024-07-01] MEDS ORDERED: ISOVUE-370 76% 100ML VIAL As Ordered ONE (14:53)
[2024-07-01 15:17] LABS: CK-MB VALUE MASS 1.3 NG/ML (<3.6)
[2024-07-01 15:19] LABS: MB/CK RELATIVE INDEX 1.91 (< OR =4)
[2024-07-01 17:36] LABS: CK-MB VALUE MASS < 1.0 NG/ML (<3.6)
[2024-07-01 17:37] LABS: CPK CREATINE PHOSPHOKINASE 54 U/L (34-145); MB/CK RELATIVE INDEX 1.85 (< OR =4)
[2024-07-01 18:44] VITALS: BP 128/76; TEMP 97.9; O2SAT 98
== END 2024-07-01 18:46 | disposition home or self-care (01) ==
LOC: M ED 13:23
DX: R07.9 Chest pain, unspecified (principal); I25.10 Atherosclerotic heart disease of native coronary artery without angina pectoris; M19.90 Unspecified osteoarthritis, unspecified site; Z95.5 Presence of coronary angioplasty implant and graft; Z95.1 Presence of aortocoronary bypass graft; Z79.02 Long term (current) use of antithrombotics/antiplatelets; Z79.899 Other long term (current) drug therapy; Z88.8 Allergy status to other drugs, medicaments and biological substances
CPT/HCPCS: 71045; 71275; 80047; 80048; 80076; 82550; 82553; 83690; 84484; 85025; 85610; 93005; 93041; 94760; 99285; Q9967

== ENCOUNTER 2024-08-10 11:17 | Emergency (ER) | payer MEDICARE ==
[~2024-08-10] VITALS: Ht 154.9 cm; Wt 67.7 kg
[~2024-08-10 11:17] MED LIST changes: -ROSU40TA63; +ROSU40TA81
[2024-08-10 11:18] VITALS: TEMP 98
[2024-08-10 12:28] LABS: BASO # 0.1 10^3/uL (0.0-0.2); BASO % 0.7 % (0.0-1.0); EOS # 0.2 10^3/uL (0.0-0.5); EOS % 2.7 % (0.0-3.0); HEMOGLOBIN 13.3 g/dl (12.0-15.5); LYMPH # 3.2 10^3/uL (1.5-5.0); LYMPH % 37.5 % (24.0-44.0); MEAN CORPUSCULAR HEMOGLOBIN 30.2 pg (27.0-33.0); MEAN CORPUSCULAR HGB CONC 32.4 g/dl (32.0-36.5); MEAN CORPUSCULAR VOLUME 93.2 fl (80.0-96.0); MONO # 0.6 10^3/uL (0.0-0.8); MONO % 6.7 % (2.0-8.0); NEUTROPHILS # 4.4 10^3/uL (1.5-8.5); NEUTROPHILS % 52.3 % (36.0-66.0); PLATELET COUNT, AUTOMATED 297 10^3/uL (150-450); WHITE BLOOD COUNT 8.4 10^3/uL (4.0-10.0)
[2024-08-10] MEDS: MAALOX 30 ML SUSP *UDC PO ONE (12:28)
[2024-08-10] MEDS: LIDOCAINE VISCOUS 2% SOLN 15ML UDC PO ONE (12:28)
[2024-08-10 12:34] LABS: LIPASE 35 U/L (12-53)
[2024-08-10 12:36] LABS: ALBUMIN 3.6 G/DL (3.2-5.2); ALKALINE PHOSPHATASE 109 U/L (46-116); ALT/SGPT 55 U/L (7.0-40); AST/SGOT 47 U/L (<34); BILIRUBIN,DIRECT 0.1 MG/DL (<0.4); BILIRUBIN,TOTAL 0.4 MG/DL (0.3-1.2); BLOOD UREA NITROGEN 12 MG/DL (9-23); CALCIUM LEVEL 9.1 MG/DL (8.5-10.1); CARBON DIOXIDE LEVEL 27 MMOL/L (20-31); CHLORIDE LEVEL 109 MMOL/L (98-107); CREATININE FOR GFR 0.68 MG/DL (0.55-1.30); GLOMERULAR FILTRATION RATE > 60.0 (>51); GLUCOSE, FASTING 92 MG/DL (60-100); POTASSIUM SERUM 4.1 MMOL/L (3.5-5.1); SODIUM LEVEL 141 MMOL/L (136-145); TOTAL PROTEIN 6.7 G/DL (5.7-8.2)
[2024-08-10 12:40] LABS: CK-MB VALUE MASS < 1.0 NG/ML (<3.6)
[2024-08-10 12:44] LABS: THYROID STIMULATING HORMONE 1.782 uIU/ML (0.55-4.78)
[2024-08-10 12:49] LABS: CPK CREATINE PHOSPHOKINASE 66 U/L (34-145); MB/CK RELATIVE INDEX 1.51 (< OR =4)
[2024-08-10] MEDS ORDERED: ISOVUE-370 76% 100ML VIAL As Ordered ONE (12:52)
[2024-08-10 12:56] LABS: INR 0.99; PARTIAL THROMBOPLASTIN TIME 27.3 SECONDS (24.8-34.2); PROTHROMBIN TIME 12.8 SECONDS (12.5-14.5)
[2024-08-10 13:35] LABS: CPK CREATINE PHOSPHOKINASE 63 U/L (34-145)
[2024-08-10 13:39] LABS: CK-MB VALUE MASS < 1.0 NG/ML (<3.6); MB/CK RELATIVE INDEX 1.58 (< OR =4)
[2024-08-10] MEDS ORDERED: PREV1CAP PO (15:03)
[2024-08-10] MEDS ORDERED: SUCR1TA PO (15:03)
[2024-08-10 15:15] VITALS: BP 129/76; O2SAT 97
== END 2024-08-10 15:26 | disposition home or self-care (01) ==
LOC: M ED 11:17
DX: K21.9 Gastro-esophageal reflux disease without esophagitis (principal); I25.10 Atherosclerotic heart disease of native coronary artery without angina pectoris; I50.9 Heart failure, unspecified; Z95.5 Presence of coronary angioplasty implant and graft; Z95.1 Presence of aortocoronary bypass graft; Z79.01 Long term (current) use of anticoagulants; Z79.899 Other long term (current) drug therapy; Z88.8 Allergy status to other drugs, medicaments and biological substances
CPT/HCPCS: 71045; 71275; 74177; 80048; 80076; 82550; 82553; 83690; 83880; 84443; 84484; 85025; 85610; 85730; 93005; 93041; 94760; 99285; Q9967

== ENCOUNTER → 2024-09-24 | Outpatient (CLI) | payer MEDICARE ==
[~2024-09-24] MED LIST changes: +PREV1CAP PO; +SUCR1TA PO
[2024-09-24 09:28] LABS: BASO # 0.1 10^3/uL (0.0-0.2); BASO % 0.5 % (0.0-1.0); EOS # 0.2 10^3/uL (0.0-0.5); EOS % 2.2 % (0.0-3.0); HEMATOCRIT 40.1 % (36.0-47.0); HEMOGLOBIN 12.7 g/dl (12.0-15.5); LYMPH # 2.6 10^3/uL (1.5-5.0); LYMPH % 28.1 % (24.0-44.0); MEAN CORPUSCULAR HEMOGLOBIN 29.5 pg (27.0-33.0); MEAN CORPUSCULAR HGB CONC 31.7 g/dl (32.0-36.5); MONO # 0.6 10^3/uL (0.0-0.8); MONO % 6.8 % (2.0-8.0); NEUTROPHILS # 5.8 10^3/uL (1.5-8.5); NEUTROPHILS % 62.2 % (36.0-66.0); PLATELET COUNT, AUTOMATED 272 10^3/uL (150-450); RED BLOOD COUNT 4.31 10^6/uL (4.00-5.40); WHITE BLOOD COUNT 9.3 10^3/uL (4.0-10.0)
[2024-09-24 09:54] LABS: ALBUMIN 3.4 G/DL (3.2-5.2); ALKALINE PHOSPHATASE 131 U/L (35-104); ALT/SGPT 36 U/L (7.0-40); AST/SGOT 25 U/L (<34); BILIRUBIN,TOTAL 0.5 MG/DL (0.3-1.2); BLOOD UREA NITROGEN 21 MG/DL (9-23); CALCIUM LEVEL 9.5 MG/DL (8.5-10.1); CARBON DIOXIDE LEVEL 27 MMOL/L (20-31); CHLORIDE LEVEL 110 MMOL/L (98-107); CHOLESTEROL LEVEL 149 MG/DL (<200); CREATININE FOR GFR 0.66 MG/DL (0.55-1.30); GLOMERULAR FILTRATION RATE > 60.0 (>51); GLUCOSE, FASTING 95 MG/DL (60-100); HDL CHOLESTEROL 67.7 MG/DL (>40); LDL CHOLESTEROL 59.3 MG/DL (<100); NON-HDL-C 81.3 MG/DL; POTASSIUM SERUM 4.4 MMOL/L (3.5-5.1); SODIUM LEVEL 139 MMOL/L (136-145); TOTAL PROTEIN 6.8 G/DL (5.7-8.2); TRIGLYCERIDES LEVEL 110 MG/DL (<150)
[2024-09-24 09:57] LABS: FOLATE 19.4 NG/ML (>5.4); VITAMIN B12 LEVEL 371 PG/ML (211-911)
== END ==
LOC: M LAB 08:20
PROVIDERS: ATTEND Nurse Practitioner Family
DX: E78.2 Mixed hyperlipidemia (principal); D51.9 Vitamin B12 deficiency anemia, unspecified

== ENCOUNTER → 2025-03-13 | Outpatient (REF) | payer MEDICARE ==
[~2025-03-13] MED LIST changes: -CYCL5TAB PO; +CYCL5TAB4 PO
[2025-03-13 14:22] LABS: ALBUMIN 3.6 G/DL (3.2-5.2); ALKALINE PHOSPHATASE 118 U/L (35-104); ALT/SGPT 35 U/L (7.0-40); AST/SGOT 25 U/L (<34); BILIRUBIN,TOTAL 0.5 MG/DL (0.3-1.2); BLOOD UREA NITROGEN 22 MG/DL (9-23); CALCIUM LEVEL 9.1 MG/DL (8.5-10.1); CARBON DIOXIDE LEVEL 26 MMOL/L (20-31); CHLORIDE LEVEL 105 MMOL/L (98-107); GLOMERULAR FILTRATION RATE > 90.0 (>51); GLUCOSE, FASTING 89 MG/DL (60-100); POTASSIUM SERUM 4.2 MMOL/L (3.5-5.1); SODIUM LEVEL 140 MMOL/L (136-145); TOTAL PROTEIN 6.8 G/DL (5.7-8.2)
== END ==
LOC: M LABDRWAD 13:32
PROVIDERS: ATTEND Nurse Practitioner Acute Care
DX: I50.20 Unspecified systolic (congestive) heart failure (principal)

== ENCOUNTER → 2025-04-02 | Outpatient (REF) | payer MEDICARE, MEDICAID ==
[2025-04-02 18:24] LABS: BASO # 0.1 10^3/uL (0.0-0.2); BASO % 0.6 % (0.0-1.0); EOS # 0.1 10^3/uL (0.0-0.5); EOS % 1.7 % (0.0-3.0); HEMATOCRIT 43.5 % (36.0-47.0); LYMPH # 3.3 10^3/uL (1.5-5.0); LYMPH % 40.5 % (24.0-44.0); MEAN CORPUSCULAR HGB CONC 32.2 g/dl (32.0-36.5); MEAN CORPUSCULAR VOLUME 93.3 fl (80.0-96.0); MONO # 0.5 10^3/uL (0.0-0.8); MONO % 6.2 % (2.0-8.0); NEUTROPHILS # 4.2 10^3/uL (1.5-8.5); NEUTROPHILS % 50.8 % (36.0-66.0); PLATELET COUNT, AUTOMATED 330 10^3/uL (150-450); RED BLOOD COUNT 4.66 10^6/uL (4.00-5.40); WHITE BLOOD COUNT 8.2 10^3/uL (4.0-10.0)
[2025-04-02 18:36] LABS: IRON (FE) 103 UG/DL (50-170)
[2025-04-02 18:37] LABS: FREE T4 1.19 NG/DL (0.89-1.76); PERCENT SATURATION 28.7 % (13.2-45.0); TOTAL IRON BINDING CAPACITY 359 UG/DL (250-425); VITAMIN B12 LEVEL 508 PG/ML (211-911)
[2025-04-02 18:38] LABS: FERRITIN 69.9 NG/ML (7.3-270.7); TOTAL 25(OH) VITAMIN D 41.1 NG/ML (20.0-100.0)
[2025-04-02 18:39] LABS: ALBUMIN 3.8 G/DL (3.2-5.2); ALKALINE PHOSPHATASE 115 U/L (35-104); ALT/SGPT 44 U/L (7.0-40); AST/SGOT 38 U/L (<34); BILIRUBIN,TOTAL 0.6 MG/DL (0.3-1.2); BLOOD UREA NITROGEN 17 MG/DL (9-23); CALCIUM LEVEL 9.7 MG/DL (8.5-10.1); CARBON DIOXIDE LEVEL 28 MMOL/L (20-31); CHLORIDE LEVEL 107 MMOL/L (98-107); CREATININE FOR GFR 0.78 MG/DL (0.55-1.30); GLOMERULAR FILTRATION RATE 87.4 (>51); GLUCOSE, FASTING 90 MG/DL (60-100); MAGNESIUM LEVEL 1.9 MG/DL (1.8-2.4); POTASSIUM SERUM 4.3 MMOL/L (3.5-5.1); SODIUM LEVEL 143 MMOL/L (136-145); THYROID STIMULATING HORMONE 2.168 uIU/ML (0.55-4.78); TOTAL PROTEIN 7.2 G/DL (5.7-8.2)
[2025-04-02 18:41] LABS: FOLATE > 24.0 NG/ML (>5.4)
== END ==
LOC: M LABDRWAD 17:07
PROVIDERS: ATTEND Nurse Practitioner Family
DX: D51.9 Vitamin B12 deficiency anemia, unspecified (principal); R53.83 Other fatigue; Z79.899 Other long term (current) drug therapy

== ENCOUNTER → 2025-04-09 | Outpatient (CLI) | payer MEDICARE, MEDICAID ==
[2025-04-09 14:22] LABS: CHOLESTEROL RISK RATIO 2.42 (<5); HDL CHOLESTEROL 69.7 MG/DL (>40); LDL CHOLESTEROL 75.9 MG/DL (<100); NON-HDL-C 99.3 MG/DL
== END ==
LOC: M PLALAB 09:55
PROVIDERS: ATTEND Nurse Practitioner Acute Care
DX: I25.708 Atherosclerosis of coronary artery bypass graft(s), unspecified, with other forms of angina pectoris (principal)

== ENCOUNTER 2025-07-31 13:15 | Emergency (ER) | payer MEDICARE, MEDICAID ==
[~2025-07-31] VITALS: Ht 154.9 cm; Wt 62.9 kg
[~2025-07-31 13:15] MED LIST changes: -ASPI-655 PO; +ASPI-737 PO
[2025-07-31 13:55] LABS: BASO # 0.1 10^3/uL (0.0-0.2); BASO % 0.8 % (0.0-1.0); EOS # 0.1 10^3/uL (0.0-0.5); EOS % 1.3 % (0.0-3.0); LYMPH # 2.7 10^3/uL (1.5-5.0); LYMPH % 33.5 % (24.0-44.0); MONO # 0.6 10^3/uL (0.0-0.8); MONO % 7.7 % (2.0-8.0); NEUTROPHILS # 4.5 10^3/uL (1.5-8.5); NEUTROPHILS % 56.3 % (36.0-66.0); PLATELET COUNT, AUTOMATED 333 10^3/uL (150-450)
[2025-07-31 14:09] LABS: INR 0.93
[2025-07-31 14:24] LABS: CK-MB VALUE MASS 1.5 NG/ML (<3.6)
[2025-07-31 14:27] LABS: CALCIUM LEVEL 10.1 MG/DL (8.3-10.6); CARBON DIOXIDE LEVEL 22 MMOL/L (20-31); CHLORIDE LEVEL 105 MMOL/L (98-107); CREATININE FOR GFR 0.75 MG/DL (0.55-1.30); GLOMERULAR FILTRATION RATE > 90.0 (>45); POTASSIUM SERUM 4.4 MMOL/L (3.5-5.1); SODIUM LEVEL 139 MMOL/L (136-145)
[2025-07-31 14:35] LABS: CPK CREATINE PHOSPHOKINASE 48 U/L (34-145); MB/CK RELATIVE INDEX 3.12 (< OR =4)
[2025-07-31 15:41] LABS: CK-MB VALUE MASS 1.2 NG/ML (<3.6)
[2025-07-31 15:42] LABS: CPK CREATINE PHOSPHOKINASE 36.0 U/L (34-145); MB/CK RELATIVE INDEX 3.33 (< OR =4)
[2025-07-31 17:51] LABS: CK-MB VALUE MASS 1.3 NG/ML (<3.6); CPK CREATINE PHOSPHOKINASE 54.0 U/L (34-145); MB/CK RELATIVE INDEX 2.4 (< OR =4)
[2025-07-31 18:45] VITALS: TEMP 98.2
[2025-07-31 19:00] VITALS: BP 121/60; O2SAT 98
== END 2025-07-31 19:10 | disposition home or self-care (01) ==
LOC: M ED 13:15
DX: R07.9 Chest pain, unspecified (principal); I10 Essential (primary) hypertension; E78.5 Hyperlipidemia, unspecified; I25.10 Atherosclerotic heart disease of native coronary artery without angina pectoris; I25.2 Old myocardial infarction; K21.9 Gastro-esophageal reflux disease without esophagitis; F41.9 Anxiety disorder, unspecified; F32.9 Major depressive disorder, single episode, unspecified; Z95.5 Presence of coronary angioplasty implant and graft; Z95.1 Presence of aortocoronary bypass graft; Z79.01 Long term (current) use of anticoagulants; Z79.899 Other long term (current) drug therapy; Z88.8 Allergy status to other drugs, medicaments and biological substances

== ENCOUNTER → 2025-08-24 | Outpatient (REF) | payer MEDICARE, MEDICAID ==
[~2025-08-24] MED LIST changes: +ZOLP10TA11; -ZOLP10TA2
== END ==
LOC: M LAB REF 17:03
PROVIDERS: ATTEND Nurse Practitioner Family
DX: R39.198 Other difficulties with micturition (principal)

== ENCOUNTER → 2025-09-18 | Outpatient (CLI) | payer MEDICARE, MEDICAID ==
[2025-09-18 10:40] LABS: BASO # 0.0 10^3/uL (0.0-0.2); BASO % 0.6 % (0.0-1.0); EOS # 0.1 10^3/uL (0.0-0.5); EOS % 1.9 % (0.0-3.0); LYMPH # 2.4 10^3/uL (1.5-5.0); LYMPH % 36.9 % (24.0-44.0); MONO # 0.5 10^3/uL (0.0-0.8); MONO % 7.6 % (2.0-8.0); NEUTROPHILS # 3.4 10^3/uL (1.5-8.5); NEUTROPHILS % 52.7 % (36.0-66.0); PLATELET COUNT, AUTOMATED 352 10^3/uL (150-450)
[2025-09-18 10:41] LABS: APPEARANCE, URINE CLEAR (CLEAR); BACTERIA, URINE AUTO NEGATIVE (NEGATIVE); BILIRUBIN, URINE AUTO NEGATIVE (NEGATIVE); BLOOD, URINE BLOOD NEGATIVE (NEGATIVE); GLUCOSE, URINE (UA) AUTO NEGATIVE (NEGATIVE); KETONE, URINE AUTO NEGATIVE (NEGATIVE); LEUKOCYTE ESTERASE, URINE AUTO 2+ (NEGATIVE); MUCUS, URINE SMALL (NEGATIVE); NITRITE, URINE AUTO NEGATIVE (NEGATIVE); PROTEIN, URINE AUTO NEGATIVE (NEGATIVE); RBC, URINE AUTO 2 /HPF (0-3); SPECIFIC GRAVITY URINE AUTO 1.009 (1.002-1.035); SQUAMOUS EPITHELIAL CELL UR AU 2 /HPF (0-6); UROBILINOGEN, URINE AUTO 0.2 mg/dL (0.0-2.0); WBC, URINE AUTO 30 /HPF (0-3)
[2025-09-18 11:17] LABS: CALCIUM LEVEL 9.0 MG/DL (8.3-10.6); CARBON DIOXIDE LEVEL 24.0 MMOL/L (20-31); CHLORIDE LEVEL 103.0 MMOL/L (98-107); CREATININE FOR GFR 0.81 MG/DL (0.55-1.30); GLOMERULAR FILTRATION RATE 83.1 (>45); POTASSIUM SERUM 4.5 MMOL/L (3.5-5.1); SODIUM LEVEL 136.0 MMOL/L (136-145)
== END ==
LOC: M LAB 09:15
PROVIDERS: ATTEND Nurse Practitioner Family
DX: R31.9 Hematuria, unspecified (principal)

== ENCOUNTER → 2025-10-13 | Outpatient (CLI) | payer MEDICARE, MEDICAID ==
[~2025-10-13] MED LIST changes: -ROSU10TA61 PO; +ROSU10TA90 PO
== END ==
LOC: M RAD 10:40
PROVIDERS: ATTEND Nurse Practitioner Family
DX: Z87.891 Personal history of nicotine dependence (principal)

== ENCOUNTER → 2025-10-26 | Outpatient (CLI) | payer MEDICARE, MEDICAID | LOC: M WHC 09:28 | PROVIDERS: ATTEND Nurse Practitioner Family | DX: N95.0 Postmenopausal bleeding (principal) ==